=== PATIENT | male | born 1965 | race Caucasian/White ===

== ENCOUNTER 2023-07-24 17:43 | Emergency (ER) | payer OTHER, SELFPAY ==
[2023-07-24 17:46] VITALS: BP 134/87; PULSE 109; RESP 20; TEMP 36.1; O2SAT 88; BMI 60.3
--- NOTE | 2023-07-24 18:07 | ED_ITS ---
HPI - General Adult General Chief complaint: Skin/Abscess/Foreign Body Stated complaint: sore on leg, possible infection Time Seen by Provider: 07/24/23 17:48 History of Present Illness HPI narrative: This 57-year-old male comes in with concern about an injury on his right lower extremity. He has diabetes and bilateral chronic venous stasis and edema in his lower extremities. He is wearing compression stockings and has had a wrap around his right lower extremity for additional compression. He does not report any fevers. Related Data Home Medications Medication Instructions Recorded Confirmed albuterol sulfate 90 mcg/actuation inhalation 07/24/23 aerosol inhaler (Ventolin HFA) allopurinol 100 mg tablet 100 mg PO BID 07/24/23 07/24/23 allopurinol 300 mg tablet 300 mg PO BID 07/24/23 07/24/23 bumetanide 1 mg tablet 3 mg PO BID 07/24/23 07/24/23 duloxetine 60 mg capsule,delayed 60 mg PO DAILY 07/24/23 07/24/23 release fenofibrate micronized 67 mg 67 mg PO DAILY 07/24/23 07/24/23 capsule finasteride 5 mg tablet 5 mg PO DAILY 07/24/23 07/24/23 glipizide 10 mg tablet, extended 10 mg PO DAILY 07/24/23 07/24/23 release 24 hr insulin glargine 100 unit/mL (3 45 unit subcut QPM 07/24/23 07/24/23 mL) subcutaneous pen (Lantus Solostar U-100 Insulin) lisinopril 2.5 mg tablet 2.5 mg PO DAILY 07/24/23 07/24/23 metformin 1,000 mg tablet 1,000 mg PO BID 07/24/23 07/24/23 potassium chloride 20 mEq 20 meq PO BID 07/24/23 07/24/23 tablet,extended release(part/cryst) (Klor-Con M) rosuvastatin 20 mg tablet 20 mg PO DAILY 07/24/23 07/24/23 semaglutide 2 mg/dose (8 mg/3 mL) 2 mg subcut 07/24/23 subcutaneous pen injector (Ozempic) spironolactone 25 mg tablet 25 mg PO DAILY 07/24/23 07/24/23 tamsulosin 0.4 mg capsule 0.4 mg PO DAILY 07/24/23 07/24/23 Previous Rx's Medication Instructions Recorded cephalexin 500 mg capsule 500 mg PO QID 10 days #40 caps 07/24/23 Allergies Allergy/AdvReac Type Severity Reaction Status Date / Time No Known Drug Allergies Allergy Verified 07/24/23 17:52 Review of Systems Status of ROS: Reports: 10 or more systems reviewed and unremarkable except as noted in History and below Narrative: Constitutional: No fevers, no weight gain or loss. Eyes: No discharge. No vision changes. HENT: No congestion, no sore throat, no ear pain. Cardiovascular: No chest pain, no palpitations. Respiratory: No shortness of breath, no wheezes, no cough. Gastrointestinal: No abdominal pain, no vomiting, no diarrhea. Genitourinary: No dysuria, no hematuria. Musculoskeletal: Normal range of motion. Skin: No rashes, no pruritis. Injury to the right lower extremity as described above. Neurological: No dizziness, weakness, sensory change, speech change. Endo/Heme/Allergies: No bruising or bleeding. No polydipsia. Pysch: no suicidality, no anxiety, no insomnia. All other systems reviewed and are negative. Exam Narrative: Exam Narrative: Constitutional: Well-developed, well-nourished, no acute distress. HEENT: Normocephalic, atraumatic. Neck: Normal range of motion. Nontender. Supple. Heart: Regular. No murmurs. Normal rate. Intact distal pulses. Lungs: Clear to auscultation. No chest discomfort. No wheezes, rhonchi, or rales. Abdomen: Normal bowel sounds. Nontender. No rebound tenderness. Genitalia: Deferred. Back: No midline tenderness. Normal range of motion. Extremities: Normal range of motion. Both lower extremities are in compression stockings. I removed the right compression stocking and underlying Daniel wraps two view his lower extremity. There are superficial ulcerations on the anterior surface of his right lower extremity about residential between the knee and the ankle. There is no significant surrounding erythema. There is no sign of purulent drainage. Skin: Intact. No rash. Warm. No erythema or pallor. Neurologic: No altered sensation. No weakness. Alert and oriented. Psychiatric: No suicidality. No anxiety or depression. No insomnia. Nursing notes and vitals signs are reviewed. Const: Vital Signs, click to edit/add: Vital Signs - 24 hr 07/24/23 17:46 Temperature 96.9 F L Pulse Rate [Right Pulse Oximeter] 109 H Respiratory Rate 20 Blood Pressure [Ri ght Upper Arm] 134/87 Pulse Oximetry 88 Oxygen Delivery Me thod Room Air Course Vital Signs Vital signs: Initial Vital Signs Temperature 96.9 F L 07/24/23 17:46 Temperature Source Temporal Artery Scan 07/24/23 17:46 Pulse Rate 109 H 07/24/23 17:46 Respiratory Rate 20 07/24/23 17:46 Blood Pressure 134/87 07/24/23 17:46 Blood Pressure Mean 102 07/24/23 17:46 Blood Pressure Position Sitting 07/24/23 17:46 Pulse Oximetry 88 07/24/23 17:46 Oxygen Delivery Method Room Air 07/24/23 17:46 Vital Signs Temperature 96.9 F L 07/24/23 17:46 Pulse Rate 109 H 07/24/23 17:46 Respiratory Rate 20 07/24/23 17:46 Blood Pressure 134/87 07/24/23 17:46 Pulse Oximetry 88 07/24/23 17:46 Oxygen Delivery Method Room Air 07/24/23 17:46 Temperature 96.9 F L 07/24/23 17:46 Pulse Rate 109 H 07/24/23 17:46 Respiratory Rate 20 07/24/23 17:46 Blood Pressure 134/87 07/24/23 17:46 Pulse Oximetry 88 07/24/23 17:46 Oxygen Delivery Method Room Air 07/24/23 17:46 Medical Decision Making [facility] Narrative Medical decision making narrative: This patient has an injury to his right lower extremity that is been present for about a month. He states that he is not observed this area recently at and has kept it under a wrap with compression. He reports that it began with a small injury about the size of a dime and now the skin breakdown has grown to 3 or 4 times the size of it was initially. There is no sign of purulent drainage or abscess. The patient may have some cellulitis so he did receive a prescription for Keflex. He has chronic venous stasis and diabetes which impairs his ability for wound healing. He states that he has been maintaining good control of his blood sugars. The right lower extremity was redressed and a compression wrap using Daniel bandages was applied. Instructions were given regarding wound care. Discharge Plan Discharge Clinical Impression: Cellulitis Patient Disposition: Home, Self-Care Condition: Unchanged Additional Instructions: Take medication as prescribed. Keep compression wrap and stockings in place. Follow-up with primary physician for ongoing management. Return if worsening. Prescriptions: New cephalexin 500 mg capsule 500 mg PO QID 10 Days Qty: 40 0RF No Action glipizide 10 mg tablet extended release 24hr 10 mg PO DAILY fenofibrate micronized 67 mg capsule 67 mg PO DAILY allopurinol 100 mg tablet 100 mg PO BID spironolactone 25 mg tablet 25 mg PO DAILY potassium chloride [Klor-Con M20] 20 mEq tablet,ER particles/crystals 20 meq PO BID tamsulosin 0.4 mg capsule 0.4 mg PO DAILY metformin 1,000 mg tablet 1,000 mg PO BID bumetanide 1 mg tablet 3 mg PO BID allopurinol 300 mg tablet 300 mg PO BID albuterol sulfate [Ventolin HFA] 90 mcg/actuation HFA aerosol inhaler inhalation lisinopril 2.5 mg tablet 2.5 mg PO DAILY finasteride 5 mg tablet 5 mg PO DAILY rosuvastatin 20 mg tablet 20 mg PO DAILY duloxetine 60 mg capsule,delayed release(DR/EC) 60 mg PO DAILY insulin glargine [Lantus Solostar U-100 Insulin] 100 unit/mL (3 mL) insulin pen 45 unit subcut QPM Ozempic 2 mg/dose (8 mg/3 mL) pen injector 2 mg subcut Stand Alone Forms: [facility] Info Instructions
== END 2023-07-24 18:24 | disposition home or self-care (01) ==
LOC: ED 18:20
PROVIDERS: Emergency Provider Emergency Medicine Emergency Medical Services
DX: L03.115 Cellulitis of right lower limb (principal)
CPT/HCPCS: 99283; 99284

== ENCOUNTER 2023-08-20 07:54 | Outpatient (CLI) | payer OTHER, SELFPAY | END 2023-08-20 07:55 | disposition home or self-care (01) | PROVIDERS: Visit Provider Family Medicine | DX: I87.311 Chronic venous hypertension (idiopathic) with ulcer of right lower extremity (principal); I87.2 Venous insufficiency (chronic) (peripheral); L97.812 Non-pressure chronic ulcer of other part of right lower leg with fat layer exposed; E11.8 Type 2 diabetes mellitus with unspecified complications; Z79.4 Long term (current) use of insulin; Z79.84 Long term (current) use of oral hypoglycemic drugs | CPT/HCPCS: 11042; 99213 ==

== ENCOUNTER 2023-08-27 15:02 | Outpatient (CLI) | payer OTHER, SELFPAY | END 2023-08-27 15:03 | disposition home or self-care (01) | PROVIDERS: Visit Provider Surgery | DX: I87.311 Chronic venous hypertension (idiopathic) with ulcer of right lower extremity (principal); L97.812 Non-pressure chronic ulcer of other part of right lower leg with fat layer exposed; I87.2 Venous insufficiency (chronic) (peripheral); E11.8 Type 2 diabetes mellitus with unspecified complications; J44.9 Chronic obstructive pulmonary disease, unspecified; R09.02 Hypoxemia; R00.0 Tachycardia, unspecified; Z72.0 Tobacco use; Z79.4 Long term (current) use of insulin; Z79.84 Long term (current) use of oral hypoglycemic drugs | CPT/HCPCS: 97597 ==

== ENCOUNTER 2023-08-27 16:21 | Observation (INO) | payer OTHER, SELFPAY ==
[2023-08-27] VITALS (19 sets, daily range): BP systolic 96–122; BP diastolic 75–82; PULSE 111–125; RESP 20–24; TEMP 35.8–36.2; O2SAT 86–92; BMI 61.7; BMI 61.8
--- NOTE | 2023-08-27 16:50 | ED_ITS ---
HPI - SOB/Dyspnea General Time Seen by Provider: 16:50 Date Seen: 08/27/23 Chief Complaint: Shortness of Breath/Dyspnea Stated Complaint: Shortness of breath-high BP-was in wound care Time Seen by Provider: 08/27/23 16:49 Source: patient and RN notes reviewed Mode of arrival: ambulatory Limitations: no limitations History of Present Illness HPI Narrative: This 57-year-old gentleman is referred to us from wound clinic for concerns of shortness of breath. He admits that he is had progressive shortness of breath for while now. He is on 2 L of oxygen at night, this sounds like it is for hypoxic respiratory issues and obstructive sleep apnea. He states he does not tolerate the devices or CPAP. He has a primary at [facility]. He thinks he has had an echo but has not had 1 recently. He was thinking his shortness of breath would improve as he has been working on weight loss and diuretics for fluid loss. He feels like his abdomen is maybe a little bit more distended but no nausea vomiting, no abdominal pain, just feels like it is maybe more bloated. It does sound as if he may gain fluid in his abdomen. His chronic lower extremity edema and has a chronic right leg wound for which she is in our wound clinic. He states his lower extremity edema really is at its baseline. He is not coughing, no chest pain, no fevers or chills. This patient was in wound clinic earlier. He was hypoxic and tachycardic today, last week when he was there his heart rate was 90 and his oxygen saturation was 98%. His physician astutely noted the change. MD elicited complaint: shortness of breath Related Data Home Medications Medication Instructions Recorded Confirmed albuterol sulfate 90 mcg/actuation inhalation 07/24/23 aerosol inhaler (Ventolin HFA) allopurinol 100 mg tablet 100 mg PO BID 07/24/23 08/27/23 allopurinol 300 mg tablet 300 mg PO BID 07/24/23 08/27/23 bumetanide 1 mg tablet 3 mg PO BID 07/24/23 08/27/23 duloxetine 60 mg capsule,delayed 60 mg PO DAILY 07/24/23 08/27/23 release fenofibrate micronized 67 mg 67 mg PO DAILY 07/24/23 08/27/23 capsule finasteride 5 mg tablet 5 mg PO DAILY 07/24/23 08/27/23 glipizide 10 mg tablet, extended 10 mg PO DAILY 07/24/23 08/27/23 release 24 hr insulin glargine 100 unit/mL (3 45 unit subcut QPM 07/24/23 08/27/23 mL) subcutaneous pen (Lantus Solostar U-100 Insulin) lisinopril 2.5 mg tablet 2.5 mg PO DAILY 07/24/23 08/27/23 metformin 1,000 mg tablet 1,000 mg PO BID 07/24/23 08/27/23 potassium chloride 20 mEq 20 meq PO BID 07/24/23 08/27/23 tablet,extended release(part/cryst) (Klor-Con M) rosuvastatin 20 mg tablet 20 mg PO DAILY 07/24/23 08/27/23 semaglutide 2 mg/dose (8 mg/3 mL) 2 mg subcut 07/24/23 subcutaneous pen injector (Ozempic) spironolactone 25 mg tablet 25 mg PO DAILY 07/24/23 08/27/23 tamsulosin 0.4 mg capsule 0.4 mg PO DAILY 07/24/23 08/27/23 Allergies Allergy/AdvReac Type Severity Reaction Status Date / Time No Known Drug Allergies Allergy Verified 08/27/23 17:49 [facility] Medical History Gout ?M10.9 - Gout, unspecified (ICD-10) Scrotal edema ?N50.89 - Other specified disorders of the male genital organs (ICD-10) Right heart failure with reduced right ventricular function ?I50.810 - Right heart failure, unspecified (ICD-10) Obesity hypoventilation syndrome ?E66.2 - Morbid (severe) obesity with alveolar hypoventilation (ICD-10) CAD (coronary artery disease) ?I25.10 - Atherosclerotic heart disease of [place] coronary artery without angina pectoris (ICD-10) Acute on chronic respiratory failure with hypoxia and hypercapnia ?J96.21 - Acute and chronic respiratory failure with hypoxia (ICD-10) ?J96.22 - Acute and chronic respiratory failure with hypercapnia (ICD-10) TACO (obstructive sleep apnea) ?G47.33 - Obstructive sleep apnea (adult) (pediatric) (ICD-10) Chronic respiratory failure with hypoxia and hypercapnia ?J96.11 - Chronic respiratory failure with hypoxia (ICD-10) ?J96.12 - Chronic respiratory failure with hypercapnia (ICD-10) Morbid obesity ?E66.01 - Morbid (severe) obesity due to excess calories (ICD-10) Diabetes mellitus type 2 in nonobese ?E11.9 - Type 2 diabetes mellitus without complications (ICD-10) Hypercholesterolemia ?E78.00 - Pure hypercholesterolemia, unspecified (ICD-10) Pulmonary hypertension ?I27.20 - Pulmonary hypertension, unspecified (ICD-10) Diastolic heart failure ?I50.30 - Unspecified diastolic (congestive) heart failure (ICD-10) Hypertension ?I10 - Essential (primary) hypertension (ICD-10) Varicose veins with ulcer and inflammation ?I83.209 - Varicose veins of unspecified lower extremity with both ulcer of unspecified site and inflammation (ICD-10) ?L97.909 - Non-pressure chronic ulcer of unspecified part of unspecified lower leg with unspecified severity (ICD-10) Chronic wound ?T14.8XXA - Other injury of unspecified body region, initial encounter (ICD- 10) Venous stasis ?I87.8 - Other specified disorders of veins (ICD-10) Surgical History Stented coronary artery ?Z95.5 - Presence of coronary angioplasty implant and graft (ICD-10) Social History What is your current living situation?: I presently have a place to live Problems where you live: no known problems Problems where you live details: NA In the past 12 months, utilities in danger of being shut off: no In past 12 months, lack of transportation kept you from medical appts, meetings, work, or getting things needed for daily living: no In the past 12 mos, have been you worried that your food would run out before you had money to buy more?: never true In the past 12 mos, the food you bought just didn't last and you didn't have money to buy more?: never true Highest level of school completed/degree received: Associate degree: occupational, technical, vocational program Smoking Status: Current every day smoker What tobacco products do you use: cigarettes Smoking packs per day: 0.5 Smoking cigarettes per day: 10.0 Years smoked: 30 Smoking pack-years: 15.00 Do you use any of these nicotine containing products: None Second hand tobacco smoke exposure: No How often do you have a drink containing alcohol: never AUDIT-C Alcohol total score: 0 Non-prescribed substance use: marijuana (any form) Non-prescribed substance use details: daily marijuana user Caffeine: Yes (coffee daily) How often does anyone, including family, friends and others, physically hurt you : never How often does anyone, including family, friends and others, insult or talk down to you: never How often does anyone, including family, friends and others, threaten you with harm: never How often does anyone, including family, friends and others, scream or curse at you: never service: No Exam Const: Vital Signs, click to edit/add: Vital Signs - 24 hr 08/27/23 16:32 08/27/23 16:45 08/27/23 17:00 Temperature 96.4 F L Pulse Rate 115 H 111 H Pulse Rate [Pulse Oximeter] 114 H Respiratory Rate 24 Blood Pressure Blood Pressure [Ri ght Upper Arm] 113/81 Pulse Oximetry 88 90 92 Oxygen Delivery Me thod Room Air 08/27/23 17:15 08/27/23 17:15 08/27/23 17:30 Temperature Pulse Rate 114 H 114 H Pulse Rate [Pulse Oximeter] Respiratory Rate Blood Pressure Blood Pressure [Ri ght Upper Arm] Pulse Oximetry 89 91 89 Oxygen Delivery Me thod 08/27/23 17:51 08/27/23 18:00 08/27/23 18:14 Temperature Pulse Rate 113 H 114 H 115 H Pulse Rate [Pulse Oximeter] Respiratory Rate Blood Pressure 96/75 Blood Pressure [Ri ght Upper Arm] Pulse Oximetry 89 89 91 Oxygen Delivery Me thod 08/27/23 18:15 08/27/23 18:35 08/27/23 18:45 Temperature Pulse Rate 115 H 125 H 114 H Pulse Rate [Pulse Oximeter] Respiratory Rate Blood Pressure Blood Pressure [Ri ght Upper Arm] Pulse Oximetry 91 86 L 91 Oxygen Delivery Me thod 08/27/23 18:51 08/27/23 19:00 08/27/23 19:15 Temperature Pulse Rate 115 H 114 H 115 H Pulse Rate [Pulse Oximeter] Respiratory Rate Blood Pressure 101/77 Blood Pressure [Ri ght Upper Arm] Pulse Oximetry 91 89 89 Oxygen Delivery Me thod 08/27/23 19:30 Temperature Pulse Rate 115 H Pulse Rate [Pulse Oximeter] Respiratory Rate Blood Pressure Blood Pressure [Ri ght Upper Arm] Pulse Oximetry 91 Oxygen Delivery Me thod This is a 57-year-old male that is obese, sitting up on the edge of the bed. O2 sats are anywhere from 88-90% when with him. He is in no distress, can speak in complete sentences. Sclera clear, pupils are equal and round. Neck is thick, note no masses. Lungs are clear, good air entry, no wheezing or crackles. He is not tachypneic. CV fast irregular, do not hear any significant murmur, normal S1-S2, no S3-S4. Abdomen is obese, nontender but he states he does feel like he is little more bloated in his abdomen, body habitus makes it difficult to see if there is any underlying masses. He certainly does not show any evidence of rebound or guarding. Lower extremities are thickened, he has dressings over his leg with a wound, wearing stocking it is over both legs. Note the surgeon did let me know that the wound on the leg is without concerns. Documenting provider has reviewed patient's vital signs: yes Course Course ED Course: Will do work up for hypoxia, tachycardia and shortness of breath. Reevaluation(s) Time of Reevaluation #1: 19:39 Reevaluation #1: Did review with patient that his CT showing no pulmonary emboli, we did review the pulmonary artery dilation and pulmonary hypertension. I do worry that he is potentially starting to suffer from chronic respiratory failure. He definitely may have some right heart failure with peripheral edema. I do not know that that completely explains his worsening hypoxia, there was no comment on pulmonary edema on CT findings. I do think it would be appropriate to give him some IV Lasix, place him on his usual 2 L nasal cannula oxygen in see if he improves. He will need an updated echo, will leave this to the hospitalist to sandra kelley if they want to do this in hospital or have it done outpatient. He is going to need to see pulmonology as well. I did tried to page the body joiner through [facility] physician to physician access, they would not allow me to talk to them given this patient is not accessed that specialty within the last 2 years. I did discuss with him that he really needs to see pulmonology outpatient. Consultations Consultation #1: Just reviewed case with Malka Peralta, she does agree to accept him. We discussed giving him a 80 mg IV Lasix, did let her know that I did give him his supplemental oxygen, uses 2 L at night. It is possible that this right heart failure is confounded by a his probable underlying chronic respiratory failure that I suspect. With a pulmonary artery being dilated 5.7 cm, he really needs to follow up with pulmonology. This may happen outpatient. Malka could see that he last had an echo in 2018. I will let the hospitalist decide if there repeating 1 or going to have him follow up outpatient with his primary provider. Time: 19:47 Vital Signs Vital signs: Initial Vital Signs Temperature 96.4 F L 08/27/23 16:32 Temperature Source Temporal Artery Scan 08/27/23 16:32 Pulse Rate 114 H 08/27/23 16:32 Respiratory Rate 24 08/27/23 16:32 Blood Pressure 113/81 08/27/23 16:32 Blood Pressure Mean 91 08/27/23 16:32 Blood Pressure Position Sitting 08/27/23 16:32 Pulse Oximetry 88 08/27/23 16:32 Oxygen Delivery Method Room Air 08/27/23 16:32 Vital Signs Temperature 96.4 F L 08/27/23 16:32 Pulse Rate 114 H 08/27/23 16:32 Respiratory Rate 24 08/27/23 16:32 Blood Pressure 113/81 08/27/23 16:32 Pulse Oximetry 88 08/27/23 16:32 Oxygen Delivery Method Room Air 08/27/23 16:32 Temperature 97.2 F L 08/27/23 23:50 Pulse Rate 113 H 08/27/23 23:50 Respiratory Rate 20 08/27/23 23:50 Blood Pressure 110/77 08/27/23 23:50 Pulse Oximetry 91 08/27/23 23:50 Oxygen Delivery Method Room Air 08/27/23 23:50 Medications Administered Medications: Generic Name Dose Route Start Last Admin Trade Name Freq PRN Reason Stop Dose Admin Enoxaparin Sodium 40 mg 08/27/23 21:45 08/27/23 22:38 Enoxaparin 40 Mg/0.4 Ml Inj SUBCUT 40 mg Q12H LILA Administration Insulin Detemir 45 unit 08/27/23 21:45 08/27/23 22:20 Insulin Detemir (Levemir) 100 Unit/Ml SUBCUT 45 unit QPM LILA Administration Discontinued Medications Generic Name Dose Route Start Last Admin Trade Name Freq PRN Reason Stop Dose Admin Furosemide 80 mg 08/27/23 19:45 08/27/23 20:06 Furosemide 10 Mg/Ml Inj IVP 08/27/23 19:46 80 mg ONCE ONE Administration MDM - SOB/Dyspnea Lab Data Attestation: I reviewed the patient's lab results. Labs: Lab Results 08/27/23 08/27/23 08/27/23 Range/Units 17:10 17:34 19:34 WBC 8.32 (4.50-11.00) K/uL RBC 6.20 H (4.30-5.90) m/uL Hgb 14.2 (13.5-17.5) gm/dL Hct 48.9 (37.0-53.0) % MCV 79 L (80-100) fL MCH 23 L (26-34) pg MCHC 29 L (32-36) gm/dL RDW Coeff of Tonya 18.4 H (11.5-15.5) % Plt Count 240 (140-440) K/uL Neut % (Auto) 71.3 (42.0-72.0) % Lymph % (Auto) 13.1 L (20-44) % [place] % (Auto) 9.9 (0.0-11.0) % Eos % (Auto) 4.8 (0.0-7.0) % Baso % (Auto) 0.7 (0.0-3.0) % Neut # (Auto) 5.93 (1.7-7.0) K/uL Lymph # (Auto) 1.10 (0.90-2.90) K/uL [place] # (Auto) 0.80 (0.00-0.90) K/UL Eos # (Auto) 0.40 (0.00-0.50) K/uL Baso # (Auto) 0.06 (0.00-0.30) K/uL Abs Immat Gran (auto) 0.02 (0.00-0.30) K/uL Imm/Tot Granulo (auto) 0.2 % D-Dimer Quant (PE/DVT) 0.47 (0.00-0.50) ug/ml Sodium 142 (135-149) mmol/L Potassium 4.2 (3.6-5.1) mmol/L Chloride 99 (96-114) mmol/L Carbon Dioxide 34 H (20-32) mmol/L Anion Gap 9 (7-15) mEq/L BUN 29 (7-30) mg/dL Creatinine 1.1 (0.5-1.5) mg/dL Estimated Creat Clear 75.58 Estimated GFR 78 ml/min Glucose 117 H (60-115) mg/dL Calcium 8.6 (8.4-10.6) mg/dL Magnesium 2.4 (1.5-2.6) mg/dL Total Bilirubin 0.9 (0.1-1.5) mg/dL AST 27 (12-35) U/L ALT 24 (4-50) U/L Alkaline Phosphatase 60 (40-150) U/L Troponin I 0.02 (0.01-0.04) ng/mL C-Reactive Protein 0.6 (0.5-1.0) mg/dL NT-Pro-B Natriuret Pep 3510 pg/mL Total Protein 6.9 (6.0-8.3) g/dL Albumin 4.0 (3.3-5.0) g/dL SARS-CoV-2 (PCR) Negative SARS-CoV-2 (Negative) Influenza Type A (PCR) Negative PCR FLU A (Negative) Influenza Type B (PCR) Negative PCR FLU B (Negative) RSV (PCR) Negative PCR RSV (Negative) Lab Acknowledgement Test Added POC Creatinine 1.3 (0.6-1.3) mg/dl Imaging Data CT scan - chest: Attestation: I have reviewed the pertinent imaging results. Radiologist's impression: Patient: KAR JACKSON Facility:?[facility] Patient ID:?[id number] Site Patient ID:?[id number]. Site :?[id number] Study:?CT Chest Angio W/ 95CC ISOVUE 370 PE PROTOCOL-08/27/2023 5:51:02 PM Ordering Physician:Iris Cartagena Final Report: INDICATION: Shortness of breath. TECHNIQUE: CT Pulmonary Angiogram examination was performed after the administration of 95 mL Isovue 370 contrast intravenously. COMPARISON: Chest radiograph 02/17/2017. FINDINGS: Limited evaluation due to photopenic artifact. Lower neck: Visualized thyroid is unremarkable. Cardiovascular: Suboptimal opacification of the pulmonary arterial tree limit evaluation. Thoracic aorta is normal in caliber. Enlarged pulmonary artery, with the main pulmonary artery measuring approximately 5.7 cm. No pulmonary embolus to the proximal lobar segmental branches. Distal subsegmental branch emboli cannot be excluded. No significant atherosclerotic calcifications. Mild cardiomegaly. Severe coronary arterial calcifications. Lungs: Linear bandlike opacifications of the lung bases likely due to subsegmental atelectasis and/or scarring. No focal consolidation. Airways: The trachea remains patent and midline. Mild diffuse peribronchial wall thickening. Pleura: No pleural effusions or pneumothorax. Lymph nodes: No pathologic lymphadenopathy by size criteria. Chest wall: Mild gynecomastia. Upper abdomen: No reflux of contrast material in IVC. Streak artifact limits evaluation. Otherwise, unremarkable. Bones: Degenerative changes. No acute osseous abnormalities. IMPRESSION: Limited evaluation due to suboptimal opacification of the pulmonary artery and photopenic artifact. 1. No pulmonary embolus to the proximal lobar segmental branches. Distal lobar subsegmental branch emboli cannot be excluded. 2. Markedly enlarged main pulmonary artery measuring 5.7 cm, suggestive of pulmonary arterial hypertension. No other CT evidence of right heart strain. 3. Mild cardiomegaly without pleural effusions. Please note that all CT scans at this facility use dose modulation, iterative reconstruction, and/or weight-based dosing when appropriate to reduce radiation dose to as low as reasonably achievable. Dictated by Trent Maier MD @ 08/27/2023 6:36:08 PM (Electronic Signature) ECG Data Attestation: I personally reviewed and interpreted this ECG as follows: (He is in a tachycardia, 113 beats per minute. Incomplete right bundle branch block but do note some nonspecific widening of the QRS throughout. Cannot definitively say that this is sinus tachycardia but certainly appears to be so.) ECG interpretation date: 08/27/23 ECG interpretation time: 18:00 Discharge Plan Discharge Clinical Impression: Hypoxia Right heart failure Qualifiers: Heart failure chronicity: unspecified Qualified Code(s): I50.810 - Right heart failure, unspecified Patient Disposition: Admitted As Observation
--- NOTE | 2023-08-27 17:06 | CRLHL7_ITS ---
For Patients: As a result of the 21st Century Cures Act, medical imaging exams and procedure reports are released immediately into your electronic medical record. You may view this report before your referring provider. If you have questions, please contact your health care provider. INDICATION: Shortness of breath. TECHNIQUE: CT Pulmonary Angiogram examination was performed after the administration of 95 mL Isovue 370 contrast intravenously. COMPARISON: Chest radiograph 02/17/2017. FINDINGS: Limited evaluation due to photopenic artifact. Lower neck: Visualized thyroid is unremarkable. Cardiovascular: Suboptimal opacification of the pulmonary arterial tree limit evaluation. Thoracic aorta is normal in caliber. Enlarged pulmonary artery, with the main pulmonary artery measuring approximately 5.7 cm. No pulmonary embolus to the proximal lobar segmental branches. Distal subsegmental branch emboli cannot be excluded. No significant atherosclerotic calcifications. Mild cardiomegaly. Severe coronary arterial calcifications. Lungs: Linear bandlike opacifications of the lung bases likely due to subsegmental atelectasis and/or scarring. No focal consolidation. Airways: The trachea remains patent and midline. Mild diffuse peribronchial wall thickening. Pleura: No pleural effusions or pneumothorax. Lymph nodes: No pathologic lymphadenopathy by size criteria. Chest wall: Mild gynecomastia. Upper abdomen: No reflux of contrast material in IVC. Streak artifact limits evaluation. Otherwise, unremarkable. Bones: Degenerative changes. No acute osseous abnormalities. IMPRESSION: Limited evaluation due to suboptimal opacification of the pulmonary artery and photopenic artifact. 1. No pulmonary embolus to the proximal lobar segmental branches. Distal lobar subsegmental branch emboli cannot be excluded. 2. Markedly enlarged main pulmonary artery measuring 5.7 cm, suggestive of pulmonary arterial hypertension. No other CT evidence of right heart strain. 3. Mild cardiomegaly without pleural effusions. Please note that all CT scans at this facility use dose modulation, iterative reconstruction, and/or weight-based dosing when appropriate to reduce radiation dose to as low as reasonably achievable. Dictated by Trent Maier MD @ 08/27/2023 6:36:08 PM (Electronically Signed)
[2023-08-27 17:30] LABS: Basophils Absolute Auto 0.06 K/uL (0.00-0.30); Basophils Percent Auto 0.7 % (0.0-3.0); Eosinophils Percent Auto 4.8 % (0.0-7.0); Hematocrit 48.9 % (37.0-53.0); Hemoglobin* 14.2 gm/dL (13.5-17.5); Immature Granulocytes Abs Auto 0.02 K/uL (0.00-0.30); Immature Granulocytes Pct Auto 0.2 %; Lymphocytes Percent Auto 13.1 % (20-44); Mean Corpuscular HGB Conc 29 gm/dL (32-36); Mean Corpuscular Hemoglobin 23 pg (26-34); Mean Corpuscular Volume 79 fL (80-100); Monocytes Percent Auto 9.9 % (0.0-11.0); Neutrophils Absolute Auto 5.93 K/uL (1.7-7.0); Neutrophils Percent Auto 71.3 % (42.0-72.0); Platelet Count* 240 K/uL (140-440); RDW Coefficient of Variation % 18.4 % (11.5-15.5); White Blood Count* 8.32 K/uL (4.50-11.00)
[2023-08-27 17:36] LABS: Creatinine, Point-of-Care* 1.3 mg/dl (0.6-1.3)
[2023-08-27 17:36] LABS: Slide Review Reflex No
[2023-08-27 17:44] LABS: Chloride* 99 mmol/L (96-114); Sodium* 142 mmol/L (135-149)
[2023-08-27 17:45] LABS: Potassium* 4.2 mmol/L (3.6-5.1)
[2023-08-27 17:46] LABS: Creatinine* 1.1 mg/dL (0.5-1.5); Est. Creatinine Clearance* 75.58; Estimated Glomerular Filt Rate 78 ml/min
[2023-08-27 17:47] LABS: Alanine Aminotransferase* 24 U/L (4-50); Alkaline Phosphatase* 60 U/L (40-150); Anion Gap 9 mEq/L (7-15); Aspartate Amino Transferase* 27 U/L (12-35); Bilirubin Total* 0.9 mg/dL (0.1-1.5); Blood Urea Nitrogen* 29 mg/dL (7-30); Carbon Dioxide* 34 mmol/L (20-32); Total Protein* 6.9 g/dL (6.0-8.3)
[2023-08-27 17:48] LABS: Calcium* 8.6 mg/dL (8.4-10.6); Glucose* 117 mg/dL (60-115); Magnesium* 2.4 mg/dL (1.5-2.6)
[2023-08-27 17:50] LABS: C Reactive Protein* 0.6 mg/dL (0.5-1.0)
[2023-08-27 17:51] LABS: D Dimer Quantitative* 0.47 ug/ml (0.00-0.50)
[2023-08-27 17:59] LABS: NT Pro B Type NatriureticPept* 3510 pg/mL; Troponin I* 0.02 ng/mL (0.01-0.04)
[2023-08-27 18:08] LABS: PCR FLU A Negative PCR FLU A (Negative); PCR FLU B Negative PCR FLU B (Negative); PCR RSV Negative PCR RSV (Negative)
[2023-08-27 18:10] LABS: SARS PCR* Negative SARS-CoV-2 (Negative)
[2023-08-27 20:06] LABS: HCO3 VBG 37 mmol/L (21-28); PCO2 VBG 56 mmHG (40-50); pH VBG 7.423 (7.32-7.43)
[2023-08-27] MEDS: FUROSEMIDE 10 MG/ML inj 80 MG IVP (20:06)
--- NOTE | 2023-08-27 20:12 | PM.IMHP1 ---
Hospitalist- H&P: HPI History of Present Illness Date Seen: 08/27/23 Chief complaint: Shortness of breath-high BP-was in wound care Narrative: Willian Copeland is a 57 year old male past medical history significant for right heart failure with reduced right ventricular function, obesity hypoventilation syndrome, chronic respiratory failure with hypoxia and hypercapnia, TACO, morbid obesity, hypertension, hyperlipidemia, diabetes type 2 insulin dependent, varicose veins with chronic ulceration inflammation, venous stasis is admitted to the medical floor from the ED for further management acute on chronic respiratory failure. Patient was seen in the Wound Clinic today for routine wound care with Dr. Dutton. He was noted to be hypoxic and was sent to the ED for further evaluation. Patient tells me he feels his usual self. Denies worsening shortness of breath or dyspnea. Denies chest pain. Denies headaches or dizziness. Denies recent fevers chills sweats. Denies abdominal pain, nausea, vomiting. No change in stools or urination. The only recent change he would remark on is swelling of his abdomen when it becomes firmer. He then knows he is retaining fluid. He tells me it is actually softer now however. Patient has been followed by [facility] for chronic respiratory failure with hypoxia and hypercapnia, pulmonary arterial hypertension, and right heart failure. He has a cardiology appointment in September. He has not seen pulmonology in a while as he has been frustrated with lack of change or improvement. He chronically uses 2-3 L oxygen at bedtime as he cannot tolerate BiPAP or CPAP. Has had multiple sleep studies. He believes his baseline oxygen saturations are upper 80s to low 90s. He has not tested his ambulatory saturations. Patient continues to smoke. Denies alcohol use. Review of Systems Narrative: REVIEW OF SYSTEMS: Complete review of systems performed and negative unless otherwise stated in HPI or below. [facility] Medical History Gout ?M10.9 - Gout, unspecified (ICD-10) Scrotal edema ?N50.89 - Other specified disorders of the male genital organs (ICD-10) Right heart failure with reduced right ventricular function ?I50.810 - Right heart failure, unspecified (ICD-10) Obesity hypoventilation syndrome ?E66.2 - Morbid (severe) obesity with alveolar hypoventilation (ICD-10) CAD (coronary artery disease) ?I25.10 - Atherosclerotic heart disease of [place] coronary artery without angina pectoris (ICD-10) Acute on chronic respiratory failure with hypoxia and hypercapnia ?J96.21 - Acute and chronic respiratory failure with hypoxia (ICD-10) ?J96.22 - Acute and chronic respiratory failure with hypercapnia (ICD-10) TACO (obstructive sleep apnea) ?G47.33 - Obstructive sleep apnea (adult) (pediatric) (ICD-10) Chronic respiratory failure with hypoxia and hypercapnia ?J96.11 - Chronic respiratory failure with hypoxia (ICD-10) ?J96.12 - Chronic respiratory failure with hypercapnia (ICD-10) Morbid obesity ?E66.01 - Morbid (severe) obesity due to excess calories (ICD-10) Diabetes mellitus type 2 in nonobese ?E11.9 - Type 2 diabetes mellitus without complications (ICD-10) Hypercholesterolemia ?E78.00 - Pure hypercholesterolemia, unspecified (ICD-10) Pulmonary hypertension ?I27.20 - Pulmonary hypertension, unspecified (ICD-10) Diastolic heart failure ?I50.30 - Unspecified diastolic (congestive) heart failure (ICD-10) Hypertension ?I10 - Essential (primary) hypertension (ICD-10) Varicose veins with ulcer and inflammation ?I83.209 - Varicose veins of unspecified lower extremity with both ulcer of unspecified site and inflammation (ICD-10) ?L97.909 - Non-pressure chronic ulcer of unspecified part of unspecified lower leg with unspecified severity (ICD-10) Chronic wound ?T14.8XXA - Other injury of unspecified body region, initial encounter (ICD-10) Venous stasis ?I87.8 - Other specified disorders of veins (ICD-10) Surgical History Stented coronary artery ?Z95.5 - Presence of coronary angioplasty implant and graft (ICD-10) Social History Smoking Status: Current every day smoker What tobacco products do you use: cigarettes Smoking packs per day: 0.5 Smoking cigarettes per day: 10.0 Years smoked: 30 Smoking pack-years: 15.00 Do you use any of these nicotine containing products: None Second hand tobacco smoke exposure: No How often do you have a drink containing alcohol: never AUDIT-C Alcohol total score: 0 Non-prescribed substance use: marijuana (any form) Meds Home Medications and Allergies Home Medications Medication Instructions Recorded Confirmed Type albuterol sulfate 90 mcg/actuation inhalation 07/24/23 History aerosol inhaler (Ventolin HFA) allopurinol 100 mg tablet 100 mg PO BID 07/24/23 08/27/23 History allopurinol 300 mg tablet 300 mg PO BID 07/24/23 08/27/23 History bumetanide 1 mg tablet 3 mg PO BID 07/24/23 08/27/23 History duloxetine 60 mg capsule,delayed 60 mg PO DAILY 07/24/23 08/27/23 History release fenofibrate micronized 67 mg 67 mg PO DAILY 07/24/23 08/27/23 History capsule finasteride 5 mg tablet 5 mg PO DAILY 07/24/23 08/27/23 History glipizide 10 mg tablet, extended 10 mg PO DAILY 07/24/23 08/27/23 History release 24 hr insulin glargine 100 unit/mL (3 45 unit subcut QPM 07/24/23 08/27/23 History mL) subcutaneous pen (Lantus Solostar U-100 Insulin) lisinopril 2.5 mg tablet 2.5 mg PO DAILY 07/24/23 08/27/23 History metformin 1,000 mg tablet 1,000 mg PO BID 07/24/23 08/27/23 History potassium chloride 20 mEq 20 meq PO BID 07/24/23 08/27/23 History tablet,extended release(part/cryst) (Klor-Con M) rosuvastatin 20 mg tablet 20 mg PO DAILY 07/24/23 08/27/23 History semaglutide 2 mg/dose (8 mg/3 mL) 2 mg subcut 07/24/23 History subcutaneous pen injector (Ozempic) spironolactone 25 mg tablet 25 mg PO DAILY 07/24/23 08/27/23 History tamsulosin 0.4 mg capsule 0.4 mg PO DAILY 07/24/23 08/27/23 History Allergies Allergy/AdvReac Type Severity Reaction Status Date / Time No Known Drug Allergies Allergy Verified 08/27/23 17:49 Exam Narrative: Exam Narrative: PHYSICAL EXAM General: Sitting up in chair, very pleasant, conversant, NAD HEENT: Normocephalic, atraumatic, sclera white, EOMI, oral mucosa moist Cardiovascular: RRR, S1S2. Pulmonary: Very minimally diminished without rhonchi, rales, expiratory wheezes. No dyspnea on room air Abdominal: Soft, obese, nondistended, NTTP Neurological: Alert, answering questions appropriately, cranial nerves intact, no focal findings Extremities: Chronic stasis changes with edema. Wound dressings in place (evaluated and changed by Dr. Dutton earlier today) Skin: Warm, dry. Const: Vital Signs, click to edit/add: Vital Signs - 24 hr 08/27/23 16:32 08/27/23 16:45 08/27/23 17:00 Temperature 96.4 F L Pulse Rate 115 H 111 H Pulse Rate [Pulse Oximeter] 114 H Respiratory Rate 24 Blood Pressure Blood Pressure [Ri ght Upper Arm] 113/81 Pulse Oximetry 88 90 92 Oxygen Delivery Me od Room Air 08/27/23 17:15 08/27/23 17:15 08/27/23 17:30 Temperature Pulse Rate 114 H 114 H Pulse Rate [Pulse Oximeter] Respiratory Rate Blood Pressure Blood Pressure [Ri ght Upper Arm] Pulse Oximetry 89 91 89 Oxygen Delivery Me thod 08/27/23 17:51 08/27/23 18:00 08/27/23 18:14 Temperature Pulse Rate 113 H 114 H 115 H Pulse Rate [Pulse Oximeter] Respiratory Rate Blood Pressure 96/75 Blood Pressure [Ri ght Upper Arm] Pulse Oximetry 89 89 91 Oxygen Delivery Ma thod 08/27/23 18:15 08/27/23 18:35 08/27/23 18:45 Temperature Pulse Rate 115 H 125 H 114 H Pulse Rate [Pulse Oximeter] Respiratory Rate Blood Pressure Blood Pressure [Ri ght Upper Arm] Pulse Oximetry 91 86 L 91 Oxygen Delivery Me thod 08/27/23 18:51 08/27/23 19:00 08/27/23 19:15 Temperature Pulse Rate 115 H 114 H 115 H Pulse Rate [Pulse Oximeter] Respiratory Rate Blood Pressure 101/77 Blood Pressure [Ri ght Upper Arm] Pulse Oximetry 91 89 89 Oxygen Delivery Me od 08/27/23 19:30 Temperature Pulse Rate 115 H Pulse Rate [Pulse Oximeter] Respiratory Rate Blood Pressure Blood Pressure [Ri ght Upper Arm] Pulse Oximetry 91 Oxygen Delivery Ma thod Hospitalist - H&P: Result Labs Labs: Short CBC 08/27/23 Range/Units 17:10 WBC 8.32 (4.50-11.00) K/uL Hgb 14.2 (13.5-17.5) gm/dL Hct 48.9 (37.0-53.0) % Plt Count 240 (140-440) K/uL BMP 08/27/23 17:10 Sodium 142 Potassium 4.2 Chloride 99 Carbon Dioxide 34 H BUN 29 Creatinine 1.1 Glucose 117 H Calcium 8.6 Cardiac Enzymes 08/27/23 Range/Units 17:10 Troponin I 0.02 (0.01-0.04) ng/mL Liver Function 08/27/23 Range/Units 17:10 Total Bilirubin 0.9 (0.1-1.5) mg/dL AST 27 (12-35) U/L ALT 24 (4-50) U/L Alkaline Phosphatase 60 (40-150) U/L Albumin 4.0 (3.3-5.0) g/dL ECG Attestation: I personally reviewed and interpreted this ECG as follows: Interpretation: Accelerated junctional rhythm with premature ventricular complexes or fusion complexes, incomplete right bundle branch block, ventricular rate 113, QTC [address] scan - chest: Attestation: I have reviewed the pertinent imaging results. Radiologist's impression: CT Pulmonary Angiogram examination was performed after the administration of 95 mL Isovue 370 contrast intravenously. COMPARISON: Chest radiograph 02/17/2017. FINDINGS: Limited evaluation due to photopenic artifact. Lower neck: Visualized thyroid is unremarkable. Cardiovascular: Suboptimal opacification of the pulmonary arterial tree limit evaluation. Thoracic aorta is normal in caliber. Enlarged pulmonary artery, with the main pulmonary artery measuring approximately 5.7 cm. No pulmonary embolus to the proximal lobar segmental branches. Distal subsegmental branch emboli cannot be excluded. No significant atherosclerotic calcifications. Mild cardiomegaly. Severe coronary arterial calcifications. Lungs: Linear bandlike opacifications of the lung bases likely due to subsegmental atelectasis and/or scarring. No focal consolidation. Airways: The trachea remains patent and midline. Mild diffuse peribronchial wall thickening. Pleura: No pleural effusions or pneumothorax. Lymph nodes: No pathologic lymphadenopathy by size criteria. Chest wall: Mild gynecomastia. Upper abdomen: No reflux of contrast material in IVC. Streak artifact limits evaluation. Otherwise, unremarkable. Bones: Degenerative changes. No acute osseous abnormalities. IMPRESSION: Limited evaluation due to suboptimal opacification of the pulmonary artery and photopenic artifact. 1. No pulmonary embolus to the proximal lobar segmental branches. Distal lobar subsegmental branch emboli cannot be excluded. 2. Markedly enlarged main pulmonary artery measuring 5.7 cm, suggestive of pulmonary arterial hypertension. No other CT evidence of right heart strain. 3. Mild cardiomegaly without pleural effusions. Assessment and Plan Assessment and plan (1) Acute on chronic respiratory failure with hypoxia and hypercapnia: Problem comment: -without acute symptomatic changes other than belly fullness -in setting of chronic right heart failure, pulmonary arterial hypertension, and obesity hypoventilation syndrome -oxygen saturations 86-92% in ED. Patient suspects this is within his baseline-admits he has not monitored it recently. Does not check his ambulatory saturations -VBG pH 7.42, pCO2 56, HC03 37. Serum CO2 34 -oxygen dependent 2-3 L at bedtime only. Unable to tolerate CPAP or BiPAP at bedtime -will manage with IV diuresis, supplemental oxygen as needed to maintain saturations 88-92% -RT consult for pulmonary support -has [facility]. Recommended follow-up after hospitalization Status: Acute (2) Right heart failure with reduced right ventricular function: Problem comment: -echocardiogram 2017 normal LV size, borderline wall thickness, normal global systolic function with an estimated EF of 60-65%. Right ventricular cavity size is severely enlarged, global systolic RV function moderately reduced. Mildly enlarged left atrium. Mild mitral regurgitation. Right ventricular systolic pressure severely elevated at 49 mmHg plus right atrial pressure. Pulmonary artery not well visualized -BNP on admission 3510. Unable to find most recent result (193 in 2016) -hold home Bumex 3 mg b.i.d. and spironolactone -Lasix 80 mg IV b.i.d., 1st dose in ED. Strict I&Os, daily weights -has a [facility] appointment in September -could defer repeat echocardiogram to outpatient appointment in September given lack of new or worsening symptomatology Status: Acute (3) Pulmonary hypertension: Problem comment: -chronic pulmonary arterial hypertension. Followed by [facility] (next appointment in September 2023) -CTA shows markedly enlarged main pulmonary artery measuring 5.7 cm, no other CT evidence of right heart strain. Mild cardiomegaly without pleural effusions. -currently being monitored and managed conservatively without medication Status: Acute (4) TACO (obstructive sleep apnea): Problem comment: -unable to tolerate BiPAP or CPAP. Frustrated with multiple sleep studies -currently uses 2-3 L O2 per nasal cannula nightly -consider home O2 assessment Status: Acute (5) Obesity hypoventilation syndrome: Problem comment: -chronic Status: Acute (6) Morbid obesity: Problem comment: -complicating above Status: Acute (7) Diabetes mellitus type 2 in nonobese: Problem comment: -most recent A1c 8, previously 7.6 and 8.6 (down from 10) -has a Jazmyne, average glucose readings 140s -continue home Lantus 45 units nightly, glipizide 10 mg daily. Hold metformin. -diabetic diet, glucose checks ACHS, insulin sliding scale -followed by [facility] Status: Acute (8) Hypercholesterolemia: Problem comment: -continue statin Status: Acute (9) Hypertension: Problem comment: -continue lisinopril. Creatinine 1.3 which appears to be chronic baseline Status: Acute (10) Varicose veins with ulcer and inflammation: Problem comment: -followed by Dr. Dutton, weekly. Wound assessment and dressing change today, 08/27. Spoke with Dr. Dutton, no acute concerns. Status: Acute (11) Venous stasis: Problem comment: -as above Status: Acute (12) Tachycardia: Problem comment: -110s in ED and on admission. Denies chest pain or worsening shortness of breath -EKG shows accelerated junctional rhythm with PVCs or fusion complexes, incomplete RBBB. No previous similar findings on EKGs -CTA shows no pulmonary embolus to the proximal lobar segmental branches however distal lobar subsegmental branch emboli cannot be excluded, D-dimer 0.47 -troponin 0.02 -media monitor Status: Acute Plan CODE: Full as discussed with patient VTE PPX: Enoxaparin b.i.d. given obesity Disposition: Observation. Plan for discharge to home following IV diuresis
[2023-08-27] MEDS: ENOXAPARIN 40 MG/0.4 ML INJ SUBCUT (22:38)
[2023-08-28] VITALS (10 sets, daily range): BP systolic 93–134; BP diastolic 74–97; PULSE 61–114; RESP 18–22; TEMP 36–36.9; O2SAT 81–94; BMI 61.0
--- NOTE | 2023-08-28 05:52 | PC.NURSE ---
Patient admitted to unit at 2020 with dx shortness of breath, heart failure. Alert and oriented x 4. Denies any pain at this time, patient does report that he has intermittent hip pain that he utilizes aleve for. Denies SOB with rest but becomes labored with exertion. O2 sats 90% on room air, patient did require O2 at 2L via NC at HS to maintain sats >88%. Dressing to right lower extremity clean, dry and intact. Patient was in to the wound clinic and discussed shortness of breath with staff which prompted patient ED visit. Chronic wound to right avila, patient bumped his leg on a trailer on 06/01/2023 and due to poor circulation and comorbidity of diabetes the wound was not healing properly. Per patient report he has been having increased SOB for several months, he notices it with activity and resolves quickly with rest. Ambulates independently. BLE edema, legs are firm and shiny in appearance, compression stockings currently on and patient uses daily.
[2023-08-28 06:43] LABS: Hematocrit 50.3 % (37.0-53.0); Hemoglobin* 14.4 gm/dL (13.5-17.5); Mean Corpuscular HGB Conc 29 gm/dL (32-36); Mean Corpuscular Hemoglobin 23 pg (26-34); Mean Corpuscular Volume 80 fL (80-100); Platelet Count* 244 K/uL (140-440); Red Blood Count 6.31 m/uL (4.30-5.90)
[2023-08-28 06:58] LABS: Slide Review Reflex No
[2023-08-28 07:17] LABS: Chloride* 100 mmol/L (96-114); Potassium* 3.9 mmol/L (3.6-5.1); Sodium* 142 mmol/L (135-149)
[2023-08-28 07:20] LABS: Anion Gap 5 mEq/L (7-15); Blood Urea Nitrogen* 28 mg/dL (7-30); Carbon Dioxide* 37 mmol/L (20-32); Est. Creatinine Clearance* 83.14; Estimated Glomerular Filt Rate 87 ml/min; Glucose* 83 mg/dL (60-115)
[2023-08-28 07:21] LABS: Calcium* 8.6 mg/dL (8.4-10.6)
[2023-08-28 07:44] LABS: NT Pro B Type NatriureticPept* 2430 pg/mL
[2023-08-28] MEDS: FENOFIBRATE 145 MG TABLET 72.5 MG PO (09:20)
[2023-08-28] MEDS: DULOXETINE 30 MG CAPSULE DR 60 MG PO (09:20)
[2023-08-28] MEDS: ENOXAPARIN 40 MG/0.4 ML INJ SUBCUT ×2 (09:20→21:45)
[2023-08-28] MEDS: ROSUVASTATIN CALCIUM 10 MG TABLET 20 MG PO (09:20)
[2023-08-28] MEDS: glipiZIDE XL 5 MG TAB 10 MG PO (09:21)
[2023-08-28] MEDS: lisinopriL 5 MG TABLET 2.5 MG PO (09:21)
[2023-08-28] MEDS: TAMSULOSIN HCL 0.4 MG CAPSULE PO (09:21)
[2023-08-28] MEDS: allopurinoL 100 MG TABLET 400 MG PO ×2 (09:21→21:45)
[2023-08-28] MEDS: FINASTERIDE 5 MG TABLET PO (09:21)
--- NOTE | 2023-08-28 09:32 | PM.IMPN1 ---
Progress Note: A&P Assessment and plan (1) Acute on chronic respiratory failure with hypoxia and hypercapnia: Problem details: -acute symptoms are minimal, trajectory over the last 2 months has been downward. Likely lives between 82 and 88% most of his day. Uses oxygen at night only. Likely at discharge will be recommended that he use oxygen 24/. I am attempting diuresis in order to increase his comfort and breathlessness. -this is all in the setting of chronic right heart failure, pulmonary arterial hypertension, and obesity hypoventilation syndrome. In 2019 he pursued gastric sleeve and was denied by his insurance. This should be looked at again. -oxygen dependent prior to admission 2-3 L at bedtime only. Unable to tolerate CPAP or BiPAP at bedtime. -has previously followed with [facility]. Recommended follow-up after hospitalization. Status: Acute (2) Right heart failure with reduced right ventricular function: Problem details: -reviewed 2017 echo -ordered echo today, may defer if too technically difficult -IV lasix last night, switching to IV Bumex this am, may increase the oral dose at discharge -Baseline weight has been increasing 410lbs in October, 431 in July, 428 at admission last night, 423 this am. -no new oxygen demand but was hypoxic yesterday. pt has insight - if I sit still, no need for oxygen - it's just getting harder to get from point A to point B and the recovery -has a [facility] Cardiology appointment in September Status: Acute (3) Pulmonary hypertension: Problem details: -chronic pulmonary arterial hypertension. Followed by [facility] Cardiology (next appointment in September 2023) -CTA shows markedly enlarged main pulmonary artery measuring 5.7 cm, no other CT evidence of right heart strain. Mild cardiomegaly without pleural effusions. -currently being monitored and managed conservatively without medication Status: Acute (4) Obesity hypoventilation syndrome: Problem details: -chronic -desperately needs weight loss - should try again for gastric bypass/sleeve Status: Acute (5) TACO (obstructive sleep apnea): Problem details: -unable to tolerate BiPAP or CPAP. Frustrated with multiple sleep studies -currently uses 2-3 L O2 per nasal cannula nightly -consider home O2 assessment Status: Acute (6) Morbid obesity: Problem details: -complicating above Status: Acute (7) Diabetes mellitus type 2 in nonobese: Problem details: -most recent A1c 8, previously 7.6 and 8.6 (down from 10) -has a Jazmyne, average glucose readings 140s -continue home Lantus 45 units nightly, glipizide 10 mg daily. Hold metformin. -diabetic diet, glucose checks ACHS, insulin sliding scale -followed by [facility] Status: Acute (8) Hypertension: Problem details: -continue lisinopril. Creatinine 1.3 which appears to be chronic baseline Status: Acute (9) Varicose veins with ulcer and inflammation: Problem details: -followed by Dr. Dutton, weekly. Wound assessment and dressing change today, 08/27. Spoke with Dr. Dutton, no acute concerns. Status: Acute Subjective Date Seen: 08/28/23 Interval history: Daily Progress Note - Hospital Medicine Day #: 2 CC: Acute on chronic respiratory failure with hypoxia OVERNIGHT UPDATES FROM STAFF & MED, LAB, IMAGING UPDATES stable night. feeling probably about the same as usual. He states he has felt generally worse in the last 8 weeks but nothing yesterday or today is particularly worse. He needs more regular use of oxygen at night but not during the day. His abdomen feels more tense on and off in the last month or so. Not acutely short of breath. Last saw cardiology in October 2022. He is currently on Bumex 3 mg b.i.d., spironolactone 25 mg q.day, potassium supplementation as it regards his diuresis plan for his longstanding right heart failure. Last echo was done in 2018. Weight has ranged from 411lbs in October, up to 431 at endocrinology visit in July and today 423 (likely some rapid loss overnight with Lasix IV dose, admit weight 429). Review of cardiology record: last visit 11/21 1. CAD- s/p GRISELDA- mid LAD ( 06/2019) Denies CP, REYNA. 2. HTN- under good control 3. Obesity- had lost weight, but gained this last year , current 411 lbs 4. HL- on statins Ldl 79, TRIG elevated 5. DM- per primary / endocrine 6. PHT / right heart failure - Cor Pulmonale physiology described in past notes 7. Obesity / hypoventilation syndrome - has not had bariatric surgery, states insurance declined 8. TACO - CPAP - will not use Objective: alert. insightful. walking with RT this am. Vitals: see above Lungs: Clear. no wheezes Cardiac: S1S2. Moderate 2+ edema Abdomen: soft, morbidly obese Disposition/Potential discharge - Likely to return to previous living situation. Today I spent 50minutes seeing the patient, reviewing Expanse and EPIC notes/diagnostics, discussing the care plan with our care time that includes social work, PT/OT, pharmacy, RT, mcfp and documenting my impressions and plan in the medical record. Exam Const: Vital Signs, click to edit/add: Vital Signs - 24 hr 08/27/23 16:32 08/27/23 16:45 08/27/23 17:00 Temperature 96.4 F L Pulse Rate 115 H 111 H Pulse Rate [Left P ulse Oximeter] Pulse Rate [Pulse Oximeter] 114 H Respiratory Rate 24 Blood Pressure Blood Pressure [Le ft Arm] Blood Pressure [Ri ght Upper Arm] 113/81 Pulse Oximetry 88 90 92 Oxygen Delivery Me thod Room Air Oxygen Flow Rate 08/27/23 17:15 08/27/23 17:15 08/27/23 17:30 Temperature Pulse Rate 114 H 114 H Pulse Rate [Left P ulse Oximeter] Pulse Rate [Pulse Oximeter] Respiratory Rate Blood Pressure Blood Pressure [Le ft Arm] Blood Pressure [Ri ght Upper Arm] Pulse Oximetry 89 91 89 Oxygen Delivery Me thod Oxygen Flow Rate 08/27/23 17:51 08/27/23 18:00 08/27/23 18:14 Temperature Pulse Rate 113 H 114 H 115 H Pulse Rate [Left P ulse Oximeter] Pulse Rate [Pulse Oximeter] Respiratory Rate Blood Pressure 96/75 Blood Pressure [Le ft Arm] Blood Pressure [Ri ght Upper Arm] Pulse Oximetry 89 89 91 Oxygen Delivery Me thod Oxygen Flow Rate 08/27/23 18:15 08/27/23 18:35 08/27/23 18:45 Temperature Pulse Rate 115 H 125 H 114 H Pulse Rate [Left P ulse Oximeter] Pulse Rate [Pulse Oximeter] Respiratory Rate Blood Pressure Blood Pressure [Le ft Arm] Blood Pressure [Ri ght Upper Arm] Pulse Oximetry 91 86 L 91 Oxygen Delivery Me thod Oxygen Flow Rate 08/27/23 18:51 08/27/23 19:00 08/27/23 19:15 Temperature Pulse Rate 115 H 114 H 115 H Pulse Rate [Left P ulse Oximeter] Pulse Rate [Pulse Oximeter] Respiratory Rate Blood Pressure 101/77 Blood Pressure [Le ft Arm] Blood Pressure [Ri ght Upper Arm] Pulse Oximetry 91 89 89 Oxygen Delivery Me thod Oxygen Flow Rate 08/27/23 19:30 08/27/23 20:20 08/27/23 20:20 Temperature 96.4 F L Pulse Rate 115 H Pulse Rate [Left P ulse Oximeter] 113 H Pulse Rate [Pulse Oximeter] Respiratory Rate 20 20 Blood Pressure Blood Pressure [Le ft Arm] 122/82 Blood Pressure [Ri ght Upper Arm] Pulse Oximetry 91 90 90 Oxygen Delivery Me thod Room Air Room Air Oxygen Flow Rate 08/27/23 21:48 08/27/23 23:00 08/27/23 23:00 Temperature Pulse Rate 113 H Pulse Rate [Left P ulse Oximeter] 113 H Pulse Rate [Pulse Oximeter] Respiratory Rate 20 20 Blood Pressure Blood Pressure [Le ft Arm] Blood Pressure [Ri ght Upper Arm] Pulse Oximetry 90 Oxygen Delivery Me thod Room Air Oxygen Flow Rate 08/27/23 23:50 08/28/23 03:00 08/28/23 07:00 Temperature 97.2 F L 96.9 F L 98.5 F Pulse Rate Pulse Rate [Left P ulse Oximeter] 113 H 61 100 Pulse Rate [Pulse Oximeter] Respiratory Rate 20 18 22 Blood Pressure Blood Pressure [Le ft Arm] 110/77 93/80 110/97 H Blood Pressure [Ri ght Upper Arm] Pulse Oximetry 91 94 93 Oxygen Delivery Me thod Room Air Nasal Cannula Room Air Oxygen Flow Rate 2 Labs Labs: Laboratory Results - last 24 hr 08/27/23 08/27/23 08/27/23 17:10 17:34 19:34 WBC 8.32 RBC 6.20 H Hgb 14.2 Hct 48.9 MCV 79 L MCH 23 L MCHC 29 L RDW Coeff of Tonya 18.4 H Plt Count 240 Neut % (Auto) 71.3 Lymph % (Auto) 13.1 L Haskell % (Auto) 9.9 Eos % (Auto) 4.8 Baso % (Auto) 0.7 Neut # (Auto) 5.93 Lymph # (Auto) 1.10 Haskell # (Auto) 0.80 Eos # (Auto) 0.40 Baso # (Auto) 0.06 Abs Immat Gran (auto) 0.02 Imm/Tot Granulo (auto) 0.2 D-Dimer Quant (PE/DVT) 0.47 VBG pH VBG pCO2 VBG pO2 VBG HCO3 Sodium 142 Potassium 4.2 Chloride 99 Carbon Dioxide 34 H Anion Gap 9 BUN 29 Creatinine 1.1 Estimated Creat Clear 75.58 Estimated GFR 78 Glucose 117 H Calcium 8.6 Magnesium 2.4 Total Bilirubin 0.9 AST 27 ALT 24 Alkaline Phosphatase 60 Troponin I 0.02 C-Reactive Protein 0.6 NT-Pro-B Natriuret Pep 3510 Total Protein 6.9 Albumin 4.0 SARS-CoV-2 (PCR) Negative SARS-CoV-2 Influenza Type A (PCR) Negative PCR FLU A Influenza Type B (PCR) Negative PCR FLU B RSV (PCR) Negative PCR RSV Lab Acknowledgement Test Added POC Creatinine 1.3 08/27/23 08/28/23 20:03 05:53 WBC 7.30 RBC 6.31 H Hgb 14.4 Hct 50.3 MCV 80 MCH 23 L MCHC 29 L RDW Coeff of Tonya Plt Count 244 Neut % (Auto) Lymph % (Auto) Haskell % (Auto) Eos % (Auto) Baso % (Auto) Neut # (Auto) Lymph # (Auto) Haskell # (Auto) Eos # (Auto) Baso # (Auto) Abs Immat Gran (auto) Imm/Tot Granulo (auto) D-Dimer Quant (PE/DVT) VBG pH 7.423 VBG pCO2 56 H VBG pO2 41.0 VBG HCO3 37 H Sodium 142 Potassium 3.9 Chloride 100 Carbon Dioxide 37 H Anion Gap 5 L BUN 28 Creatinine 1.0 Estimated Creat Clear 83.14 Estimated GFR 87 Glucose 83 Calcium 8.6 Magnesium Total Bilirubin AST ALT Alkaline Phosphatase Troponin I C-Reactive Protein NT-Pro-B Natriuret Pep 2430 Total Protein Albumin SARS-CoV-2 (PCR) Influenza Type A (PCR) Influenza Type B (PCR) RSV (PCR) Lab Acknowledgement POC Creatinine
[2023-08-28] MEDS: POTASSIUM CHLORIDE 10 MEQ CAPSULE ER 20 MEQ PO ×2 (10:05→17:55)
[2023-08-28] MEDS: SODIUM CHLORIDE 0.9 % (FLUSH) 10 ML SYRINGE 5 ML IVF ×3 (10:06→21:46)
[2023-08-28] MEDS: PERFLUTREN LIPID MICROSPHERES 2 ML VIAL IV (16:32)
[2023-08-28] MEDS: METFORMIN 1,000 MG TABLET 1000 MG PO (17:55)
--- NOTE | 2023-08-28 18:37 | PC.NURSE ---
700-1900 The patient is pleasant, and A&O. Up ad alex in his room. The patient is now on 1 L via NC./ parameters to be >88%. Great PO intake with fluids and food today. Minimal complaints of SOB on exertion when walking around only in his room. No reports of pain. Using his BG monitor. Calls appropriately. Echo was completed today as well. Was given IV diuretics today and yesterday. Call light within reach. Jaylin GTZ BSN
[2023-08-29 03:00] VITALS: BP 122/86; PULSE 114; RESP 18; TEMP 36; O2SAT 91
[2023-08-29 06:44] LABS: Hematocrit 50.2 % (37.0-53.0); Hemoglobin* 14.4 gm/dL (13.5-17.5); Mean Corpuscular HGB Conc 29 gm/dL (32-36); Mean Corpuscular Hemoglobin 23 pg (26-34); Mean Corpuscular Volume 80 fL (80-100); Platelet Count* 249 K/uL (140-440); Red Blood Count 6.27 m/uL (4.30-5.90)
[2023-08-29 06:51] LABS: Slide Review Reflex No
[2023-08-29 06:56] LABS: Chloride* 100 mmol/L (96-114); Potassium* 3.9 mmol/L (3.6-5.1); Sodium* 143 mmol/L (135-149)
[2023-08-29 06:59] LABS: Anion Gap 3 mEq/L (7-15); Blood Urea Nitrogen* 26 mg/dL (7-30); Carbon Dioxide* 40 mmol/L (20-32); Est. Creatinine Clearance* 83.14; Estimated Glomerular Filt Rate 87 ml/min; Glucose* 68 mg/dL (60-115)
[2023-08-29 07:00] VITALS: BP 108/70; PULSE 113; PULSE 115; RESP 18; TEMP 36.5; O2SAT 92
[2023-08-29 07:00] LABS: Calcium* 8.5 mg/dL (8.4-10.6)
[2023-08-29 07:08] LABS: NT Pro B Type NatriureticPept* 1930 pg/mL
[2023-08-29 07:17] LABS: Albumin* 4.1 g/dL (3.3-5.0); Chloride* 98 mmol/L (96-114); Sodium* 143 mmol/L (135-149)
[2023-08-29 07:20] LABS: Anion Gap 6 mEq/L (7-15); Carbon Dioxide* 39 mmol/L (20-32); Est. Creatinine Clearance* 83.14; Estimated Glomerular Filt Rate 87 ml/min
[2023-08-29 07:21] LABS: Blood Urea Nitrogen* 27 mg/dL (7-30); Calcium* 8.5 mg/dL (8.4-10.6); Glucose* 69 mg/dL (60-115)
[2023-08-29] MEDS: POTASSIUM CHLORIDE 10 MEQ CAPSULE ER 20 MEQ PO (09:21)
[2023-08-29] MEDS: allopurinoL 100 MG TABLET 400 MG PO (09:21)
[2023-08-29] MEDS: DULOXETINE 30 MG CAPSULE DR 60 MG PO (09:21)
[2023-08-29] MEDS: glipiZIDE XL 5 MG TAB 10 MG PO (09:21)
[2023-08-29] MEDS: lisinopriL 5 MG TABLET 2.5 MG PO (09:22)
[2023-08-29] MEDS: METFORMIN 1,000 MG TABLET 1000 MG PO (09:22)
[2023-08-29] MEDS: FINASTERIDE 5 MG TABLET PO (09:22)
[2023-08-29] MEDS: ROSUVASTATIN CALCIUM 10 MG TABLET 20 MG PO (09:22)
[2023-08-29] MEDS: TAMSULOSIN HCL 0.4 MG CAPSULE PO (09:22)
[2023-08-29] MEDS: ASPIRIN 81 MG TABLET EC PO (09:22)
[2023-08-29] MEDS: SPIRONOLACTONE 25 MG TABLET PO (09:22)
[2023-08-29] MEDS: ENOXAPARIN 40 MG/0.4 ML INJ SUBCUT (09:24)
[2023-08-29] MEDS: SODIUM CHLORIDE 0.9 % (FLUSH) 10 ML SYRINGE 5 ML IVF (09:24)
[2023-08-29] MEDS: polyethylene glycoL 3350 17 GM PACK 8.5 GM PO (09:24)
[2023-08-29] MEDS: MULTIVITAMIN/MINERALS 1 TABLET 1 TAB PO (09:25)
[2023-08-29] MEDS: FENOFIBRATE 145 MG TABLET 72.5 MG PO (09:26)
[2023-08-29 11:00] VITALS: BP 115/87; PULSE 116; RESP 20; TEMP 36.7; O2SAT 95
--- NOTE | 2023-08-29 11:42 | W.PM.HOT ---
Acute Home Oxygen Therapy Acute Home Oxygen Therapy Provider Note Provider Note: Patient was admitted on 08/27/23 at 19:59 and will be discharging on 08/29/2023 Patient is desaturating with SATs of 81 % on room air due to heart failure. Alternative therapies have been attempted and have not been successful in maintaining the patient's saturation level above 88%. Supplemental O2 is required. This patient is mobile within the home and requires portability.
[2023-08-29] MEDS: METOPROLOL TARTRATE 25 MG TABLET PO (12:28)
--- NOTE | 2023-08-29 12:59 | PC.NURSE ---
Noted that [facility]. Was unsure if he had his dressing changed recently. Received a fax copy of the orders from [facility]. After speaking with the patient he will do his dressing change when he gets home. Explain we could do this before he leaves but he is declining to have this done.
--- NOTE | 2023-08-29 13:45 | PC.NURSE ---
I took over this patient's care around 11 am from Cristin Sales Patient is now being discharge to home. Awaiting [employer] to deliver his portable oxygen tank so he is able to go home. Have reviewed his discharge instructions with the patient and all questions have been answered and IV and heart monitor have been removed. Will put his call light when [employer] has arrived with oxygen will be taken by w/c to his vehicle.
--- NOTE | 2023-08-29 14:03 | PC.NURSE ---
Nursing Care Hours: [id number] Pt this shift calm and cooperative, independent in the room. No c/o pain. Stable on 1L NC. EKG done per order. Tele showing sinus tachy with BBB and PVC's. Good input and output. Reported to oncoming nurse that pt missed wound dressing change the day of arrival and is due for one today but is expected to be discharged today.
--- NOTE | 2023-08-29 14:19 | PM.DS1 ---
DS: Providers Provider Date Seen: 08/29/23 Date of admission: 08/27/23 19:59 Primary care physician: Not a Local Provider Admitting Clinician: Liliana Figueroa MD Attending Physician on discharge: Liliana Figueroa MD Date of Discharge: 08/29/23 DS: Diagnosis Discharge Diagnosis (1) Right heart failure with reduced right ventricular function: Status: Acute Problem details: Chronic right heart failure. Echocardiogram obtained shows severely enlarged right ventricular cavity with severely reduced right ventricular systolic function. Significant intraventricular septal flattening consistent with RV pressure overload. [id number] tricuspid regurgitation. Dilated IVC (2) Obesity hypoventilation syndrome: Status: Acute Problem details: -chronic -desperately needs weight loss - should try again for gastric bypass/sleeve (3) Acute on chronic respiratory failure with hypoxia and hypercapnia: Status: Acute Problem details: -acute symptoms are minimal, trajectory over the last 2 months has been downward. Likely lives between 82 and 88% most of his day. Uses oxygen at night only. Likely at discharge will be recommended that he use oxygen /. I am attempting diuresis in order to increase his comfort and breathlessness. -this is all in the setting of chronic right heart failure, pulmonary arterial hypertension, and obesity hypoventilation syndrome. In 2019 he pursued gastric sleeve and was denied by his insurance. This should be looked at again. -oxygen dependent prior to admission 2-3 L at bedtime only. Unable to tolerate CPAP or BiPAP at bedtime. -has previously followed with [facility]. Recommended follow-up after hospitalization. (4) TACO (obstructive sleep apnea): Status: Acute Problem details: -unable to tolerate BiPAP or CPAP. Frustrated with multiple sleep studies -currently uses 2-3 L O2 per nasal cannula nightly -consider home O2 assessment (5) Diabetes mellitus type 2 in nonobese: Status: Acute Problem details: -most recent A1c 8, previously 7.6 and 8.6 (down from 10) -has a Jazmyne, average glucose readings 140s -continue home Lantus 45 units nightly, glipizide 10 mg daily. Hold metformin. -diabetic diet, glucose checks ACHS, insulin sliding scale -followed by [facility] (6) Chronic wound: Status: Acute Problem details: Continuing to follow through the [facility] (7) Venous stasis: Status: Acute Problem details: -as above (8) Tachycardia: Status: Acute Problem details: -110s in ED and on admission. Denies chest pain or worsening shortness of breath -EKG shows accelerated junctional rhythm with PVCs or fusion complexes, incomplete RBBB. No previous similar findings on EKGs -CTA shows no pulmonary embolus to the proximal lobar segmental branches however distal lobar subsegmental branch emboli cannot be excluded, D-dimer 0.47 -troponin 0.02 -lunchroom monitor Started on metoprolol succinate 25 mg daily to see if this would help his dyspnea DS: Summary Hospital Course Hospital Course: 57-year-old male was seen in the [facility] at the hospital where he was diagnosis having hypoxia. He was referred to the emergency department and admitted to the hospital for hypoxia. Patient has chronic hypoxia as an outpatient as he monitors at home. He uses oxygen at night. This is secondary to his heart failure/obesity hypoventilation/untreated TACO. During his hospital stay he received diuresis which did help with some of his peripheral edema but did not resolve his hypoxia. He continued to have hypoxia with O2 sats in the low to mid 80s on room air and 90% on 1 L per nasal cannula at rest. With activity he required 3 L per nasal cannula to maintain his O2 sat at 90%. He was prescribed home oxygen for this. His pulse remain mildly elevated during his hospital stay and was started on a low-dose of metoprolol succinate 25 mg daily to see if he would get any benefit for his dyspnea. Status at Discharge Overall status at discharge: patient is back to baseline Time Spent with Patient Time attestation: Total time spent providing and/or coordinating discharge services: Total time spent today is 45 minutes in coordination of care on the day of discharge Time spent: Greater than 30 minutes Exam Narrative: Exam Narrative: He is alert and appears in no distress. Breathing comfortably on supplemental oxygen. Respirations are clear to auscultation. No wheezing rales rhonchi. Cardiovascular: S1, S2, regular tachycardia. Abdomen is soft. Large abdominal pannus noted. No tenderness. Lower extremity edema noted. Const: Vital Signs, click to edit/add: Vital Signs - 24 hr 08/28/23 15:00 08/28/23 15:00 08/28/23 18:37 Temperature 97.8 F Pulse Rate 113 H Pulse Rate [Left P ulse Oximeter] 113 H Respiratory Rate 22 Blood Pressure [Le ft Arm] 107/81 Blood Pressure [Ri ght Arm] Pulse Oximetry 88 90 Oxygen Delivery Me thod Room Air Nasal Cannula Oxygen Flow Rate 1 08/28/23 20:20 08/28/23 23:00 08/28/23 23:52 Temperature 97.8 F 96.8 F L Pulse Rate Pulse Rate [Left P ulse Oximeter] 114 H 114 H 114 H Respiratory Rate 22 Blood Pressure [Le ft Arm] 134/92 H 128/88 Blood Pressure [Ri ght Arm] Pulse Oximetry 91 92 Oxygen Delivery Me thod Nasal Cannula Room Air Oxygen Flow Rate 1 08/28/23 23:52 08/29/23 03:00 08/29/23 07:00 Temperature 96.8 F L Pulse Rate Pulse Rate [Left P ulse Oximeter] 114 H 115 H Respiratory Rate 22 18 18 Blood Pressure [Le ft Arm] 122/86 Blood Pressure [Ri ght Arm] Pulse Oximetry 92 91 Oxygen Delivery Me thod Nasal Cannula Nasal Cannula Oxygen Flow Rate 1 1 08/29/23 07:00 08/29/23 07:00 08/29/23 07:00 Temperature 97.7 F Pulse Rate 113 H Pulse Rate [Left P ulse Oximeter] 115 H Respiratory Rate 18 18 Blood Pressure [Le ft Arm] Blood Pressure [Ri ght Arm] 108/70 Pulse Oximetry 92 92 Oxygen Delivery Me thod Nasal Cannula Nasal Cannula Oxygen Flow Rate 1 1 08/29/23 11:00 Temperature 98.1 F Pulse Rate Pulse Rate [Left P ulse Oximeter] 116 H Respiratory Rate 20 Blood Pressure [Le ft Arm] 115/87 Blood Pressure [Ri ght Arm] Pulse Oximetry 95 Oxygen Delivery Me thod Nasal Cannula Oxygen Flow Rate 1 Documenting provider has reviewed patient's vital signs: yes DS: Data Data Completed and Pending Labs on day of discharge: Labs from last 24 hours 08/29/23 08/29/23 08/29/23 05:50 05:50 05:50 WBC RBC Hgb Hct MCV MCH MCHC Plt Count Sodium Potassium Chloride Carbon Dioxide Anion Gap BUN Creatinine Estimated Creat Clear Estimated GFR 87 Glucose 69 68 Calcium 8.5 8.5 Phosphorus 5.0 H NT-Pro-B Natriuret Pep 1930 Albumin 4.1 08/29/23 08/29/2323 05:50 05:50 05:50 WBC RBC Hgb Hct MCV MCH MCHC Plt Count Sodium Potassium Chloride Carbon Dioxide Anion Gap BUN 27 Creatinine 1.0 1.0 Estimated Creat Clear 83.14 83.14 Estimated GFR 87 Glucose Calcium Phosphorus NT-Pro-B Natriuret Pep Albumin 08/29/23 08/29/23 08/29/23 05:50 05:50 05:50 WBC RBC Hgb Hct MCV MCH MCHC Plt Count Sodium Potassium Chloride 98 Carbon Dioxide 39 H 40 H Anion Gap 6 L 3 L BUN 26 Creatinine Estimated Creat Clear Estimated GFR Glucose Calcium Phosphorus NT-Pro-B Natriuret Pep Albumin 08/29/23 08/29/23 08/29/23 05:50 05:50 05:50 WBC 8.40 RBC 6.27 H Hgb 14.4 Hct 50.2 MCV 80 MCH 23 L MCHC 29 L Plt Count 249 Sodium 143 143 Potassium 4.0 3.9 Chloride 100 Carbon Dioxide Anion Gap BUN Creatinine Estimated Creat Clear Estimated GFR Glucose Calcium Phosphorus NT-Pro-B Natriuret Pep Albumin Discharge Plan Discharge Disposition: Home, Self-Care Date of Admission: 08/27/23 19:59 Attending Provider on Discharge: Thaddeus Gonzalez Primary Care Provider: Provider,Not a Local Condition: Stable Anticipated Discharge Date/Time: 08/29/23 11:43 Discharge Medications: New (DME) Home Oxygen Misc See Rx Instructions .Route Qty: 1 0RF Rx Instructions: 3 liters/NC with activity (DME) Home Oxygen Misc See Rx Instructions .Route Qty: 1 0RF Rx Instructions: 3 liters/NC with activity (DME) Home Oxygen Misc See Rx Instructions .Route Qty: 1 0RF Rx Instructions: 1 L per nasal cannula at rest and 3 L per nasal cannula with activity metoprolol succinate 25 mg capsule,sprinkle,ER 24hr 25 mg PO DAILY Qty: 30 0RF Continued aspirin 81 mg tablet,delayed release (DR/EC) 81 mg PO DAILY cholecalciferol (vitamin D3) 125 mcg (5,000 unit) tablet 125 mcg PO DAILY multivitamin [Daily Multi-Vitamin] Tablet 1 tab PO DAILY polyethylene glycol 3350 [Miralax] 17 gram/dose powder 8.5 g PO DAILY nitroglycerin 0.4 mg tablet, sublingual 0.4 mg sublingual Q5M PRN omega-3 acid ethyl esters [Lovaza] 1 gram capsule 2 cap PO BID glipizide 10 mg tablet extended release 24hr 10 mg PO DAILY fenofibrate micronized 67 mg capsule 67 mg PO DAILY allopurinol 100 mg tablet 100 mg PO BID spironolactone 25 mg tablet 25 mg PO DAILY potassium chloride [Klor-Con M20] 20 mEq tablet,ER particles/crystals 20 meq PO BID tamsulosin 0.4 mg capsule 0.8 mg PO DAILY metformin 1,000 mg tablet 1,000 mg PO BIDWM bumetanide 1 mg tablet 3 mg PO BID allopurinol 300 mg tablet 300 mg PO BID albuterol sulfate [Ventolin HFA] 90 mcg/actuation HFA aerosol inhaler 2 puff inhalation Q4H PRN lisinopril 2.5 mg tablet 2.5 mg PO DAILY finasteride 5 mg tablet 5 mg PO DAILY rosuvastatin 20 mg tablet 20 mg PO DAILY duloxetine 60 mg capsule,delayed release(DR/EC) 60 mg PO DAILY insulin glargine [Lantus Solostar U-100 Insulin] 100 unit/mL (3 mL) insulin pen 45 unit subcut QPM Ozempic 2 mg/dose (8 mg/3 mL) pen injector 2 mg subcut Q7D Discharge Orders: Discharge Order (Routine); Ordered 08/29/23 Ordered By: Thaddeus Gonzalez Patient Education: Metoprolol (By mouth), Heart Failure (GEN), Using Oxygen at Home (DC), Chronic Respiratory Failure (GEN), Acute Respiratory Failure (GEN) Additional Instructions: See your manganese breaker next week at previously scheduled appointment. I have added 1 new medication, metoprolol, to slow your heart rate which may improve your breathing Activity Level: Activity as Tolerated Discharge Diet: Diabetic Follow Up Appointments: Provider,Not a Local [Primary Care Provider] - Forms: [email or web address] Info Instructions
== END 2023-08-29 14:43 | disposition home or self-care (01) ==
LOC: ED 19:49 → MEDSURG 20:02
PROVIDERS: Physician Assistant; Admitting Provider Family Medicine; Emergency Provider Family Medicine; Visit Provider Family Medicine
DX: I11.0 Hypertensive heart disease with heart failure (principal); I50.812 Chronic right heart failure; J96.21 Acute and chronic respiratory failure with hypoxia; J96.22 Acute and chronic respiratory failure with hypercapnia; I27.20 Pulmonary hypertension, unspecified; G47.33 Obstructive sleep apnea (adult) (pediatric); I83.209 Varicose veins of unspecified lower extremity with both ulcer of unspecified site and inflammation; L97.909 Non-pressure chronic ulcer of unspecified part of unspecified lower leg with unspecified severity; I87.8 Other specified disorders of veins; R00.0 Tachycardia, unspecified; E66.2 Morbid (severe) obesity with alveolar hypoventilation; Z68.44 Body mass index [BMI] 60.0-69.9, adult; E11.9 Type 2 diabetes mellitus without complications; E78.00 Pure hypercholesterolemia, unspecified; R60.0 Localized edema; F17.210 Nicotine dependence, cigarettes, uncomplicated; F12.90 Cannabis use, unspecified, uncomplicated; T14.8XXA Other injury of unspecified body region, initial encounter; Z79.4 Long term (current) use of insulin; Z79.84 Long term (current) use of oral hypoglycemic drugs
CPT/HCPCS: 36415; 71275; 80048; 80053; 80069; 82565; 82803; 82962; 83735; 83880; 84484; 85025; 85027; 85379; 86140; 87631; 93005; 93306; 94761; 96372; 96374; 96375; 97597; 99284; 99285; G0378; A9153; A9270; J1650; J1940; Q9957; Q9967; S0171

== ENCOUNTER 2023-09-03 07:49 | Outpatient (CLI) | payer OTHER, SELFPAY | END 2023-09-03 07:50 | disposition home or self-care (01) | PROVIDERS: Visit Provider Family Medicine | DX: I87.311 Chronic venous hypertension (idiopathic) with ulcer of right lower extremity (principal); L97.812 Non-pressure chronic ulcer of other part of right lower leg with fat layer exposed; I87.2 Venous insufficiency (chronic) (peripheral); I50.812 Chronic right heart failure | CPT/HCPCS: 11042; G0463 ==

== ENCOUNTER 2023-09-10 07:51 | Outpatient (CLI) | payer OTHER, SELFPAY | END 2023-09-10 07:52 | disposition home or self-care (01) | LOC: WOUND 07:51 | PROVIDERS: Visit Provider Physician Assistant | DX: I87.311 Chronic venous hypertension (idiopathic) with ulcer of right lower extremity (principal); I87.2 Venous insufficiency (chronic) (peripheral); L97.812 Non-pressure chronic ulcer of other part of right lower leg with fat layer exposed | CPT/HCPCS: 97597 ==

== ENCOUNTER 2023-09-17 07:57 | Outpatient (CLI) | payer OTHER, SELFPAY | END 2023-09-17 07:58 | disposition home or self-care (01) | LOC: WOUND 07:57 | PROVIDERS: Visit Provider Physician Assistant | DX: I87.311 Chronic venous hypertension (idiopathic) with ulcer of right lower extremity (principal); L97.812 Non-pressure chronic ulcer of other part of right lower leg with fat layer exposed | CPT/HCPCS: 97597 ==

== ENCOUNTER 2023-09-24 09:49 | Outpatient (CLI) | payer OTHER, SELFPAY | END 2023-09-24 09:50 | disposition home or self-care (01) | LOC: WOUND 09:49 | PROVIDERS: Visit Provider Family Medicine | DX: I87.311 Chronic venous hypertension (idiopathic) with ulcer of right lower extremity (principal); L97.812 Non-pressure chronic ulcer of other part of right lower leg with fat layer exposed | CPT/HCPCS: 11042 ==

== ENCOUNTER 2023-10-01 13:09 | Outpatient (CLI) | payer OTHER, SELFPAY | END 2023-10-01 13:10 | disposition home or self-care (01) | LOC: WOUND 13:09 | PROVIDERS: Visit Provider Surgery | DX: I87.311 Chronic venous hypertension (idiopathic) with ulcer of right lower extremity (principal); L97.812 Non-pressure chronic ulcer of other part of right lower leg with fat layer exposed; I50.812 Chronic right heart failure | CPT/HCPCS: 97597 ==

== ENCOUNTER 2023-10-08 09:07 | Outpatient (CLI) | payer OTHER, SELFPAY | END 2023-10-08 09:08 | disposition home or self-care (01) | LOC: WOUND 09:07 | PROVIDERS: Visit Provider Family Medicine | DX: I87.311 Chronic venous hypertension (idiopathic) with ulcer of right lower extremity (principal); L97.812 Non-pressure chronic ulcer of other part of right lower leg with fat layer exposed; I87.2 Venous insufficiency (chronic) (peripheral) | CPT/HCPCS: 11042 ==

== ENCOUNTER 2023-10-15 07:54 | Outpatient (CLI) | payer OTHER, SELFPAY | END 2023-10-15 07:55 | disposition home or self-care (01) | LOC: WOUND 07:54 | PROVIDERS: Visit Provider Family Medicine | DX: I87.311 Chronic venous hypertension (idiopathic) with ulcer of right lower extremity (principal); I87.2 Venous insufficiency (chronic) (peripheral); L97.812 Non-pressure chronic ulcer of other part of right lower leg with fat layer exposed; E11.8 Type 2 diabetes mellitus with unspecified complications; Z79.4 Long term (current) use of insulin | CPT/HCPCS: 11042 ==

== ENCOUNTER 2023-10-22 09:53 | Outpatient (CLI) | payer OTHER, SELFPAY | END 2023-10-22 09:54 | disposition home or self-care (01) | LOC: WOUND 09:54 | PROVIDERS: Visit Provider Family Medicine | DX: I87.311 Chronic venous hypertension (idiopathic) with ulcer of right lower extremity (principal); L97.812 Non-pressure chronic ulcer of other part of right lower leg with fat layer exposed; E11.8 Type 2 diabetes mellitus with unspecified complications; Z79.4 Long term (current) use of insulin; Z79.84 Long term (current) use of oral hypoglycemic drugs | CPT/HCPCS: 11042 ==

== ENCOUNTER 2023-10-29 07:54 | Outpatient (CLI) | payer OTHER, SELFPAY | END 2023-10-29 07:55 | disposition home or self-care (01) | PROVIDERS: Visit Provider Physician Assistant | DX: I87.311 Chronic venous hypertension (idiopathic) with ulcer of right lower extremity (principal); I87.2 Venous insufficiency (chronic) (peripheral); L97.812 Non-pressure chronic ulcer of other part of right lower leg with fat layer exposed; E11.8 Type 2 diabetes mellitus with unspecified complications; Z79.4 Long term (current) use of insulin; Z79.84 Long term (current) use of oral hypoglycemic drugs | CPT/HCPCS: 15271; Q4101 ==

== ENCOUNTER 2023-11-05 07:55 | Outpatient (CLI) | payer OTHER, SELFPAY | END 2023-11-05 07:56 | disposition home or self-care (01) | LOC: WOUND 07:55 | PROVIDERS: Visit Provider Physician Assistant | DX: I87.311 Chronic venous hypertension (idiopathic) with ulcer of right lower extremity (principal); I87.2 Venous insufficiency (chronic) (peripheral); L97.812 Non-pressure chronic ulcer of other part of right lower leg with fat layer exposed; I50.812 Chronic right heart failure | CPT/HCPCS: G0463 ==

== ENCOUNTER 2023-11-12 09:08 | Outpatient (CLI) | payer OTHER, SELFPAY | END 2023-11-12 09:09 | disposition home or self-care (01) | PROVIDERS: Visit Provider Family Medicine | DX: I87.311 Chronic venous hypertension (idiopathic) with ulcer of right lower extremity (principal); I87.2 Venous insufficiency (chronic) (peripheral); L97.812 Non-pressure chronic ulcer of other part of right lower leg with fat layer exposed | CPT/HCPCS: 11042 ==

== ENCOUNTER 2023-11-19 08:51 | Outpatient (CLI) | payer OTHER, SELFPAY | END 2023-11-19 08:52 | disposition home or self-care (01) | LOC: WOUND 08:51 | PROVIDERS: Visit Provider Surgery | DX: I87.311 Chronic venous hypertension (idiopathic) with ulcer of right lower extremity (principal); I87.2 Venous insufficiency (chronic) (peripheral); L97.812 Non-pressure chronic ulcer of other part of right lower leg with fat layer exposed | CPT/HCPCS: 15271; Q4101 ==

== ENCOUNTER 2023-11-26 08:40 | Outpatient (CLI) | payer OTHER, SELFPAY | END 2023-11-26 08:41 | disposition home or self-care (01) | LOC: WOUND 08:40 | PROVIDERS: Visit Provider Surgery | DX: I87.311 Chronic venous hypertension (idiopathic) with ulcer of right lower extremity (principal); I87.2 Venous insufficiency (chronic) (peripheral); L97.812 Non-pressure chronic ulcer of other part of right lower leg with fat layer exposed | CPT/HCPCS: G0463 ==

== ENCOUNTER 2023-12-03 08:39 | Outpatient (CLI) | payer OTHER, SELFPAY | END 2023-12-03 08:40 | disposition home or self-care (01) | LOC: WOUND 08:39 | PROVIDERS: Visit Provider Surgery | DX: I87.311 Chronic venous hypertension (idiopathic) with ulcer of right lower extremity (principal); L97.812 Non-pressure chronic ulcer of other part of right lower leg with fat layer exposed; E11.8 Type 2 diabetes mellitus with unspecified complications; Z79.4 Long term (current) use of insulin; Z79.84 Long term (current) use of oral hypoglycemic drugs | CPT/HCPCS: 97597 ==

== ENCOUNTER 2023-12-10 08:09 | Outpatient (CLI) | payer OTHER, SELFPAY | END 2023-12-10 08:10 | disposition home or self-care (01) | LOC: WOUND 08:09 | PROVIDERS: Visit Provider Surgery | DX: I87.311 Chronic venous hypertension (idiopathic) with ulcer of right lower extremity (principal); I87.2 Venous insufficiency (chronic) (peripheral); L97.818 Non-pressure chronic ulcer of other part of right lower leg with other specified severity; E11.8 Type 2 diabetes mellitus with unspecified complications; Z79.4 Long term (current) use of insulin; Z79.84 Long term (current) use of oral hypoglycemic drugs | CPT/HCPCS: 15271; Q4101 ==

== ENCOUNTER 2023-12-17 08:41 | Outpatient (CLI) | payer OTHER, SELFPAY | END 2023-12-17 08:42 | disposition home or self-care (01) | LOC: WOUND 08:41 | PROVIDERS: Visit Provider Surgery | DX: I87.311 Chronic venous hypertension (idiopathic) with ulcer of right lower extremity (principal); I87.2 Venous insufficiency (chronic) (peripheral); L97.812 Non-pressure chronic ulcer of other part of right lower leg with fat layer exposed; E11.8 Type 2 diabetes mellitus with unspecified complications; Z79.84 Long term (current) use of oral hypoglycemic drugs | CPT/HCPCS: 97597 ==

== ENCOUNTER 2023-12-24 08:41 | Outpatient (CLI) | payer OTHER, SELFPAY | END 2023-12-24 08:42 | disposition home or self-care (01) | LOC: WOUND 08:41 | PROVIDERS: Visit Provider Family Medicine | DX: I87.311 Chronic venous hypertension (idiopathic) with ulcer of right lower extremity (principal); I87.2 Venous insufficiency (chronic) (peripheral); L97.812 Non-pressure chronic ulcer of other part of right lower leg with fat layer exposed | CPT/HCPCS: 11042 ==

== ENCOUNTER 2023-12-31 08:38 | Outpatient (CLI) | payer OTHER, SELFPAY | END 2023-12-31 08:39 | disposition home or self-care (01) | LOC: WOUND 08:38 | PROVIDERS: Visit Provider Surgery | DX: I87.311 Chronic venous hypertension (idiopathic) with ulcer of right lower extremity (principal); I87.2 Venous insufficiency (chronic) (peripheral); L97.812 Non-pressure chronic ulcer of other part of right lower leg with fat layer exposed; E11.8 Type 2 diabetes mellitus with unspecified complications; Z79.4 Long term (current) use of insulin; Z79.84 Long term (current) use of oral hypoglycemic drugs | CPT/HCPCS: 97597 ==

== ENCOUNTER 2024-01-07 08:42 | Outpatient (CLI) | payer OTHER, SELFPAY | END 2024-01-07 08:43 | disposition home or self-care (01) | LOC: WOUND 08:42 | PROVIDERS: Visit Provider Surgery | DX: I87.311 Chronic venous hypertension (idiopathic) with ulcer of right lower extremity (principal); L97.812 Non-pressure chronic ulcer of other part of right lower leg with fat layer exposed; E11.8 Type 2 diabetes mellitus with unspecified complications; Z79.4 Long term (current) use of insulin; Z79.84 Long term (current) use of oral hypoglycemic drugs | CPT/HCPCS: 97597 ==

== ENCOUNTER 2024-01-14 08:40 | Outpatient (CLI) | payer OTHER, SELFPAY | END 2024-01-14 08:41 | disposition home or self-care (01) | LOC: WOUND 08:40 | PROVIDERS: Visit Provider Surgery | DX: I87.311 Chronic venous hypertension (idiopathic) with ulcer of right lower extremity (principal); I87.2 Venous insufficiency (chronic) (peripheral); L97.812 Non-pressure chronic ulcer of other part of right lower leg with fat layer exposed; E11.8 Type 2 diabetes mellitus with unspecified complications; Z79.4 Long term (current) use of insulin | CPT/HCPCS: 97597 ==

== ENCOUNTER 2024-01-21 08:38 | Outpatient (CLI) | payer OTHER, SELFPAY | END 2024-01-21 08:39 | disposition home or self-care (01) | LOC: WOUND 08:38 | PROVIDERS: Visit Provider Surgery | DX: I87.311 Chronic venous hypertension (idiopathic) with ulcer of right lower extremity (principal); I87.2 Venous insufficiency (chronic) (peripheral); L97.812 Non-pressure chronic ulcer of other part of right lower leg with fat layer exposed; E11.8 Type 2 diabetes mellitus with unspecified complications; Z79.4 Long term (current) use of insulin; Z79.84 Long term (current) use of oral hypoglycemic drugs | CPT/HCPCS: 15271; Q4101 ==

== ENCOUNTER 2024-01-28 08:38 | Outpatient (CLI) | payer OTHER, SELFPAY | END 2024-01-28 08:39 | disposition home or self-care (01) | LOC: WOUND 08:38 | PROVIDERS: Visit Provider Surgery | DX: I87.311 Chronic venous hypertension (idiopathic) with ulcer of right lower extremity (principal); I87.2 Venous insufficiency (chronic) (peripheral); L97.812 Non-pressure chronic ulcer of other part of right lower leg with fat layer exposed | CPT/HCPCS: G0463 ==

== ENCOUNTER 2024-01-31 21:45 | Emergency (ER) | payer OTHER, SELFPAY ==
--- NOTE | 2024-01-31 21:55 | CRLHL7_ITS ---
For Patients: As a result of the Century Cures Act, medical imaging exams and procedure reports are released immediately into your electronic medical record. You may view this report before your referring provider. If you have questions, please contact your health care provider. INDICATION: Shortness of breath. Comparison none available at time of interpretation. Technique chest 2 views. FINDINGS: Focal opacity within the left middle lower lung may represent infiltrate or atelectasis within the lingula and left lower lobe. Parahilar interstitial prominence likely secondary to pulmonary vascular congestion. Cardiomegaly. Tortuous aorta No osseous abnormalities. IMPRESSION: 1. Cardiomegaly. 2. Focal opacity within the left mid and lower lung may represent infiltrate and/or atelectasis within the lingula and left lower lobe. 3. Pulmonary vascular congestion Dictated by Erick Mark MD @ 01/31/2024 11:24:17 PM (Electronically Signed)
--- NOTE | 2024-01-31 21:56 | ED_ITS ---
HPI - General Adult General Chief complaint: Shortness of Breath/Dyspnea Stated complaint: lightheaded, shortness of breath Time Seen by Provider: 01/31/24 21:49 History of Present Illness HPI narrative: Patient is a 58-year-old gentleman who has a complex past medical history including right heart failure obesity hypoventilation syndrome who presents with general malaise and fatigue. Patient is morbidly obese is chronically on oxygen. Has history of stasis venous ulcer on the right lower extremity as well as pulmonary hypertension and diabetes. He really has no localizable symptoms but just does not feel well. Related Data Home Medications ?Medication ?Instructions ?Recorded ?Confirmed albuterol sulfate 90 mcg/actuation 2 puff inhalation Q4H PRN 07/24/23 08/28/23 aerosol inhaler (Ventolin HFA) allopurinol 100 mg tablet 100 mg PO BID 07/24/23 08/27/23 allopurinol 300 mg tablet 300 mg PO BID 07/24/23 08/27/23 bumetanide 1 mg tablet 3 mg PO BID 07/24/23 08/27/23 duloxetine 60 mg capsule,delayed 60 mg PO DAILY 07/24/23 08/27/23 release fenofibrate micronized 67 mg 67 mg PO DAILY 07/24/23 08/27/23 capsule finasteride 5 mg tablet 5 mg PO DAILY 07/24/23 08/27/23 glipizide 10 mg tablet, extended 10 mg PO DAILY 07/24/23 08/27/23 release 24 hr insulin glargine 100 unit/mL (3 45 unit subcut QPM 07/24/23 08/27/23 mL) subcutaneous pen (Lantus Solostar U-100 Insulin) lisinopril 2.5 mg tablet 2.5 mg PO DAILY 07/24/23 08/27/23 metformin 1,000 mg tablet 1,000 mg PO BIDWM 07/24/23 08/28/23 potassium chloride 20 mEq 20 meq PO BID 07/24/23 08/27/23 tablet,extended release(part/cryst) (Klor-Con M) rosuvastatin 20 mg tablet 20 mg PO DAILY 07/24/23 08/27/23 semaglutide 2 mg/dose (8 mg/3 mL) 2 mg subcut Q7D 07/24/23 08/28/23 subcutaneous pen injector (Ozempic) spironolactone 25 mg tablet 25 mg PO DAILY 07/24/23 08/27/23 tamsulosin 0.4 mg capsule 0.8 mg PO DAILY 07/24/23 08/28/23 aspirin 81 mg tablet,delayed 81 mg PO DAILY 08/28/23 08/28/23 release cholecalciferol (vitamin D3) 125 125 mcg PO DAILY 08/28/23 08/28/23 mcg (5,000 unit) tablet multivitamin (Daily Multi-Vitamin 1 tab PO DAILY 08/28/23 08/28/23 tablet) nitroglycerin 0.4 mg sublingual 0.4 mg sublingual Q5M PRN 08/28/23 08/28/23 tablet omega-3 acid ethyl esters 1 gram 2 cap PO BID 08/28/23 08/28/23 capsule (Lovaza) polyethylene glycol 3350 17 8.5 g PO DAILY 08/28/23 08/28/23 gram/dose oral powder (Miralax) Previous Rx's ?Medication ?Instructions ?Recorded Home Oxygen #1 ea 08/29/23 Home Oxygen #1 ea 08/29/23 Home Oxygen #1 ea 08/29/23 metoprolol succinate 25 mg capsule 25 mg PO DAILY #30 ea 08/29/23 sprinkle, ext. release 24 hr Allergies Allergy/AdvReac Type Severity Reaction Status Date / Time No Known Drug Allergies Allergy Verified 08/27/23 17:49 Review of Systems Status of ROS: Reports: 10 or more systems reviewed and unremarkable except as noted in History and below [facility] Medical History Gout ?M10.9 - Gout, unspecified (ICD-10) Scrotal edema ?N50.89 - Other specified disorders of the male genital organs (ICD-10) Right heart failure with reduced right ventricular function ?I50.810 - Right heart failure, unspecified (ICD-10) Obesity hypoventilation syndrome ?E66.2 - Morbid (severe) obesity with alveolar hypoventilation (ICD-10) CAD (coronary artery disease) ?I25.10 - Atherosclerotic heart disease of zuni coronary artery without angina pectoris (ICD-10) Acute on chronic respiratory failure with hypoxia and hypercapnia ?J96.21 - Acute and chronic respiratory failure with hypoxia (ICD-10) ?J96.22 - Acute and chronic respiratory failure with hypercapnia (ICD-10) TACO (obstructive sleep apnea) ?G47.33 - Obstructive sleep apnea (adult) (pediatric) (ICD-10) Chronic respiratory failure with hypoxia and hypercapnia ?J96.11 - Chronic respiratory failure with hypoxia (ICD-10) ?J96.12 - Chronic respiratory failure with hypercapnia (ICD-10) Morbid obesity ?E66.01 - Morbid (severe) obesity due to excess calories (ICD-10) Diabetes mellitus type 2 in nonobese ?E11.9 - Type 2 diabetes mellitus without complications (ICD-10) Hypercholesterolemia ?E78.00 - Pure hypercholesterolemia, unspecified (ICD-10) Pulmonary hypertension ?I27.20 - Pulmonary hypertension, unspecified (ICD-10) Diastolic heart failure ?I50.30 - Unspecified diastolic (congestive) heart failure (ICD-10) Hypertension ?I10 - Essential (primary) hypertension (ICD-10) Varicose veins with ulcer and inflammation ?I83.209 - Varicose veins of unspecified lower extremity with both ulcer of unspecified site and inflammation (ICD-10) ?L97.909 - Non-pressure chronic ulcer of unspecified part of unspecified lower leg with unspecified severity (ICD-10) Chronic wound ?T14.8XXA - Other injury of unspecified body region, initial encounter (ICD- 10) Venous stasis ?I87.8 - Other specified disorders of veins (ICD-10) Surgical History Stented coronary artery ?Z95.5 - Presence of coronary angioplasty implant and graft (ICD-10) Social History What is your current living situation?: I presently have a place to live Problems where you live: no known problems Problems where you live details: NA In the past 12 months, utilities in danger of being shut off: no In past 12 months, lack of transportation kept you from medical appts, meetings, work, or getting things needed for daily living: no In the past 12 mos, have been you worried that your food would run out before you had money to buy more?: never true In the past 12 mos, the food you bought just didn't last and you didn't have money to buy more?: never true Highest level of school completed/degree received: Associate degree: occupational, technical, vocational program Smoking Status: Current every day smoker What tobacco products do you use: cigarettes Smoking packs per day: 0.5 Smoking cigarettes per day: 10.0 Years smoked: 30 Smoking pack-years: 15.00 Do you use any of these nicotine containing products: None Second hand tobacco smoke exposure: No How often do you have a drink containing alcohol: never AUDIT-C Alcohol total score: 0 Non-prescribed substance use: marijuana (any form) Non-prescribed substance use details: daily marijuana user Caffeine: Yes (coffee daily) How often does anyone, including family, friends and others, physically hurt you : never How often does anyone, including family, friends and others, insult or talk down to you: never How often does anyone, including family, friends and others, threaten you with harm: never How often does anyone, including family, friends and others, scream or curse at you: never service: No Exam Narrative: Exam Narrative: EXAM GENERAL: Patient appears morbidly obese on oxygen. EYES: No scleral icterus. LYMPH: No supraclavicular or cervical lymphadenopathy. SKIN: Visible skin seen during exam normal or with benign process only. EXT: No dependent lower extremity pedal edema. Right leg is dressed. HEART: Regular rate and rhythm with no murmurs, rubs, or gallops. LUNGS: Decreased breath sounds bilaterally. ABD: Soft, non tender, non distended. PSYCH: Good eye contact, speech is not pressured. Const: Vital Signs, click to edit/add: Vital Signs - 24 hr 01/31/24 21:57 01/31/24 22:15 Temperature 99.3 F Pulse Rate [Pulse Oximeter] 110 H Respiratory Rate 22 Blood Pressure [Ri ght Upper Arm] 135/111 H Pulse Oximetry 90 91 Oxygen Delivery Me thod Nasal Cannula Oxygen Flow Rate 2 Course Course ED Course: Patient seen and examined. Thorough workup ordered including chest x-ray troponin D-dimer lactate blood cultures CBC comprehensive metabolic panel UA chest x-ray. Vital Signs Vital signs: Initial Vital Signs Temperature 99.3 F 01/31/24 21:57 Temperature Source Temporal Artery Scan 01/31/24 21:57 Pulse Rate 110 H 01/31/24 21:57 Respiratory Rate 22 01/31/24 21:57 Blood Pressure 135/111 H 01/31/24 21:57 Blood Pressure Mean 119 H 01/31/24 21:57 Blood Pressure Position Sitting 01/31/24 21:57 Pulse Oximetry 90 01/31/24 21:57 Oxygen Delivery Method Nasal Cannula 01/31/24 21:57 Oxygen Flow Rate 2 01/31/24 21:57 Vital Signs Temperature 99.3 F 01/31/24 21:57 Pulse Rate 110 H 01/31/24 21:57 Respiratory Rate 22 01/31/24 21:57 Blood Pressure 135/111 H 01/31/24 21:57 Pulse Oximetry 90 01/31/24 21:57 Oxygen Delivery Method Nasal Cannula 01/31/24 21:57 Oxygen Flow Rate 2 01/31/24 21:57 Temperature 99.3 F 01/31/24 21:57 Pulse Rate 110 H 01/31/24 21:57 Respiratory Rate 22 01/31/24 21:57 Blood Pressure 135/111 H 01/31/24 21:57 Pulse Oximetry 91 01/31/24 22:15 Oxygen Delivery Method Nasal Cannula 01/31/24 21:57 Oxygen Flow Rate 2 01/31/24 21:57 Medications Administered Medications: Generic Name Dose Route Start Last Admin Trade Name Freq PRN Reason Stop Dose Admin Sodium Chloride 1,000 mls @ 1,000 mls/hr 01/31/24 23:16 01/31/24 23:19 0.9 % Sodium Chloride 1000 Ml IV 02/01/24 00:15 1,000 mls/hr .Q1H LILA Administration Medical Decision Making [facility] Narrative Medical decision making narrative: Patient is a 58-year-old gentleman with very complex past medical history who presents not feeling well. I did thorough evaluation did final left-sided pneumonia with leukocytosis. Blood cultures are collected. Troponin D-dimer all negative. No signs of UTI. No signs of lower extremity cellulitis. I did repeatedly offer him hospitalization which he declined as he states he would like to go home with oral antibiotics. I did emphasize that if he chooses this course of action he has come back immediately if symptoms worsen. He understands the risk of going home. At this time I did treated with Levaquin 500 mg daily for the next 7 days with close outpatient follow-up with his primary physician in next several days. He does have supplemental oxygen and he has been on his normal dose of oxygen. Very concerned about Willian but I a.m. unable to convince him stay in the hospital. Lab Data Labs: Lab Results 01/31/24 01/31/24 01/31/24 Range/Units 22:00 22:15 22:30 WBC 15.15 H (4.50-11.00) K/uL RBC 5.97 H (4.30-5.90) m/uL Hgb 14.8 (13.5-17.5) gm/dL Hct 48.3 (37.0-53.0) % MCV 81 (80-100) fL MCH 25 L (26-34) pg MCHC 31 L (32-36) gm/dL RDW Coeff of Tonya 18.5 H (11.5-15.5) % Plt Count 202 (140-440) K/uL Neut % (Auto) 85.1 H (42.0-72.0) % Lymph % (Auto) 3.5 L (20-44) % [place] % (Auto) 10.1 (0.0-11.0) % Eos % (Auto) 0.0 (0.0-7.0) % Baso % (Auto) 0.3 (0.0-3.0) % Neut # (Auto) 12.90 H (1.7-7.0) K/uL Lymph # (Auto) 0.50 L (0.90-2.90) K/uL [place] # (Auto) 1.50 H (0.00-0.90) K/UL Eos # (Auto) 0.00 (0.00-0.50) K/uL Baso # (Auto) 0.00 (0.00-0.30) K/uL Abs Immat Gran (auto) 0.20 (0.00-0.30) K/uL Imm/Tot Granulo (auto) 1.0 % D-Dimer Quant (PE/DVT) 0.26 (0.00-0.50) ug/ml Sodium 134 L (135-149) mmol/L Potassium 4.5 (3.6-5.1) mmol/L Chloride 91 L (96-114) mmol/L Carbon Dioxide 38 H (20-32) mmol/L Anion Gap 5 L (7-15) mEq/L BUN 24 (7-30) mg/dL Creatinine 1.0 (0.5-1.5) mg/dL Estimated Creat Clear 84.71 Estimated GFR 87 ml/min Glucose 136 H (60-115) mg/dL Lactate 2.3 H (0.5-1.9) mmol/L Calcium 8.5 (8.4-10.6) mg/dL Total Bilirubin 2.5 H (0.1-1.5) mg/dL AST 27 (12-35) U/L ALT 17 (4-50) U/L Alkaline Phosphatase 67 (40-150) U/L Troponin I 0.03 (0.01-0.04) ng/mL NT-Pro-B Natriuret Pep 3760 pg/mL Total Protein (6.0-8.3) g/dL Albumin (3.3-5.0) g/dL Urine Color Yellow (Yellow) Urine Appearance Clear (Clear) Urine pH 6.0 (5.0-8.5) Ur Specific [place] 1.015 (1.000-1.030) Urine Protein 2+ A (Negative) Urine Glucose (UA) Negative (Negative) Urine Ketones Negative (Negative) Urine Blood Negative (Negative) Urine Nitrite Negative (Negative) Urine Bilirubin Negative (Negative) Urine Urobilinogen 2.0 A (0.2-1.0) Ur Leukocyte Esterase Negative (Negative) Urine RBC 2-5 A (0-2) Urine WBC 0-2 (0-5) Ur Squamous Epith Cells None (None-Few) Urine Bacteria None (None) SARS-CoV-2 (PCR) Negative SARS-CoV-2 (Negative) Influenza Type A (PCR) Negative PCR FLU A (Negative) Influenza Type B (PCR) Negative PCR FLU B (Negative) RSV (PCR) Negative PCR RSV (Negative) 01/31/24 Range/Units 22:30 WBC (4.50-11.00) K/uL RBC (4.30-5.90) m/uL Hgb (13.5-17.5) gm/dL Hct (37.0-53.0) % MCV (80-100) fL MCH (26-34) pg MCHC (32-36) gm/dL RDW Coeff of Tonya (11.5-15.5) % Plt Count (140-440) K/uL Neut % (Auto) (42.0-72.0) % Lymph % (Auto) (20-44) % [place] % (Auto) (0.0-11.0) % Eos % (Auto) (0.0-7.0) % Baso % (Auto) (0.0-3.0) % Neut # (Auto) (1.7-7.0) K/uL Lymph # (Auto) (0.90-2.90) K/uL [place] # (Auto) (0.00-0.90) K/UL Eos # (Auto) (0.00-0.50) K/uL Baso # (Auto) (0.00-0.30) K/uL Abs Immat Gran (auto) (0.00-0.30) K/uL Imm/Tot Granulo (auto) % D-Dimer Quant (PE/DVT) (0.00-0.50) ug/ml Sodium (135-149) mmol/L Potassium (3.6-5.1) mmol/L Chloride (96-114) mmol/L Carbon Dioxide (20-32) mmol/L Anion Gap (7-15) mEq/L BUN (7-30) mg/dL Creatinine (0.5-1.5) mg/dL Estimated Creat Clear Estimated GFR ml/min Glucose (60-115) mg/dL Lactate (0.5-1.9) mmol/L Calcium (8.4-10.6) mg/dL Total Bilirubin (0.1-1.5) mg/dL AST (12-35) U/L ALT (4-50) U/L Alkaline Phosphatase (40-150) U/L Troponin I (0.01-0.04) ng/mL NT-Pro-B Natriuret Pep Cancelled pg/mL Total Protein 7.6 (6.0-8.3) g/dL Albumin 4.2 (3.3-5.0) g/dL Urine Color (Yellow) Urine Appearance (Clear) Urine pH (5.0-8.5) Ur Specific [place] (1.000-1.030) Urine Protein (Negative) Urine Glucose (UA) (Negative) Urine Ketones (Negative) Urine Blood (Negative) Urine Nitrite (Negative) Urine Bilirubin (Negative) Urine Urobilinogen (0.2-1.0) Ur Leukocyte Esterase (Negative) Urine RBC (0-2) Urine WBC (0-5) Ur Squamous Epith Cells (None-Few) Urine Bacteria (None) SARS-CoV-2 (PCR) (Negative) Influenza Type A (PCR) (Negative) Influenza Type B (PCR) (Negative) RSV (PCR) (Negative) Discharge Plan Discharge Clinical Impression: Pneumonia Patient Disposition: Home, Self-Care Condition: Stable Instructions: Pneumonia (ED) Additional Instructions: Levaquin as directed Tylenol Motrin Rest Fluids Close outpatient follow-up with your doctor. Activity Level: No Restrictions Discharge Diet: Regular Prescriptions: No Action aspirin 81 mg tablet,delayed release (DR/EC) 81 mg PO DAILY cholecalciferol (vitamin D3) 125 mcg (5,000 unit) tablet 125 mcg PO DAILY multivitamin [Daily Multi-Vitamin] Tablet 1 tab PO DAILY polyethylene glycol 3350 [Miralax] 17 gram/dose powder 8.5 g PO DAILY nitroglycerin 0.4 mg tablet, sublingual 0.4 mg sublingual Q5M PRN omega-3 acid ethyl esters [Lovaza] 1 gram capsule 2 cap PO BID (DME) Home Oxygen Misc See Rx Instructions .Route Qty: 1 0RF Rx Instructions: 3 liters/NC with activity (DME) Home Oxygen Misc See Rx Instructions .Route Qty: 1 0RF Rx Instructions: 3 liters/NC with activity (DME) Home Oxygen Misc See Rx Instructions .Route Qty: 1 0RF Rx Instructions: 1 L per nasal cannula at rest and 3 L per nasal cannula with activity metoprolol succinate 25 mg capsule,sprinkle,ER 24hr 25 mg PO DAILY Qty: 30 0RF glipizide 10 mg tablet extended release 24hr 10 mg PO DAILY fenofibrate micronized 67 mg capsule 67 mg PO DAILY allopurinol 100 mg tablet 100 mg PO BID spironolactone 25 mg tablet 25 mg PO DAILY potassium chloride [Klor-Con M20] 20 mEq tablet,ER particles/crystals 20 meq PO BID tamsulosin 0.4 mg capsule 0.8 mg PO DAILY metformin 1,000 mg tablet 1,000 mg PO BIDWM bumetanide 1 mg tablet 3 mg PO BID allopurinol 300 mg tablet 300 mg PO BID albuterol sulfate [Ventolin HFA] 90 mcg/actuation HFA aerosol inhaler 2 puff inhalation Q4H PRN lisinopril 2.5 mg tablet 2.5 mg PO DAILY finasteride 5 mg tablet 5 mg PO DAILY rosuvastatin 20 mg tablet 20 mg PO DAILY duloxetine 60 mg capsule,delayed release(DR/EC) 60 mg PO DAILY insulin glargine [Lantus Solostar U-100 Insulin] 100 unit/mL (3 mL) insulin pen 45 unit subcut QPM Ozempic 2 mg/dose (8 mg/3 mL) pen injector 2 mg subcut Q7D Follow Up/Referrals: Provider,Not a Local [Primary Care Provider] - Stand Alone Forms: [employer] Info Instructions
[2024-01-31 21:57] VITALS: BP 135/111; PULSE 110; RESP 22; TEMP 37.4; O2SAT 90; BMI 56.3
[2024-01-31 22:15] VITALS: O2SAT 91
[2024-01-31 22:46] LABS: Lactate* 2.3 mmol/L (0.5-1.9)
[2024-01-31 22:52] LABS: Appearance Urine Clear (Clear); Bilirubin Urine Negative (Negative); Blood Urine Negative (Negative); Color Urine Yellow (Yellow); Glucose Urine Negative (Negative); Ketones Urine Negative (Negative); Leukocyte Esterase Urine Negative (Negative); Nitrite Urine Negative (Negative); Protein Urine 2+ (Negative); Specific Gravity Urine 1.015 (1.000-1.030)
[2024-01-31 22:55] LABS: Basophils Percent Auto 0.3 % (0.0-3.0); Hematocrit 48.3 % (37.0-53.0); Hemoglobin* 14.8 gm/dL (13.5-17.5); Lymphocytes Percent Auto 3.5 % (20-44); Mean Corpuscular HGB Conc 31 gm/dL (32-36); Mean Corpuscular Hemoglobin 25 pg (26-34); Mean Corpuscular Volume 81 fL (80-100); Monocytes Percent Auto 10.1 % (0.0-11.0); Neutrophils Percent Auto 85.1 % (42.0-72.0); Platelet Count* 202 K/uL (140-440); RDW Coefficient of Variation % 18.5 % (11.5-15.5); Red Blood Count 5.97 m/uL (4.30-5.90); White Blood Count* 15.15 K/uL (4.50-11.00)
[2024-01-31 22:59] LABS: Slide Review Reflex No
[2024-01-31 23:00] LABS: Albumin* 4.2 g/dL (3.3-5.0); Chloride* 91 mmol/L (96-114)
[2024-01-31 23:01] LABS: PCR FLU A Negative PCR FLU A (Negative); PCR FLU B Negative PCR FLU B (Negative); PCR RSV Negative PCR RSV (Negative); SARS PCR* Negative SARS-CoV-2 (Negative)
[2024-01-31 23:01] LABS: Potassium* 4.5 mmol/L (3.6-5.1); Sodium* 134 mmol/L (135-149)
[2024-01-31 23:03] LABS: Anion Gap 5 mEq/L (7-15); Aspartate Amino Transferase* 27 U/L (12-35); Bilirubin Total* 2.5 mg/dL (0.1-1.5); Carbon Dioxide* 38 mmol/L (20-32); Est. Creatinine Clearance* 84.71; Estimated Glomerular Filt Rate 87 ml/min; Total Protein* 7.6 g/dL (6.0-8.3)
[2024-01-31 23:04] LABS: WBC Urine 0-2 (0-5)
[2024-01-31 23:04] LABS: Alanine Aminotransferase* 17 U/L (4-50); Alkaline Phosphatase* 67 U/L (40-150); Blood Urea Nitrogen* 24 mg/dL (7-30); Calcium* 8.5 mg/dL (8.4-10.6); Glucose* 136 mg/dL (60-115)
[2024-01-31 23:16] LABS: Troponin I* 0.03 ng/mL (0.01-0.04)
[2024-01-31 23:19] LABS: NT Pro B Type NatriureticPept* 3760 pg/mL
[2024-01-31] MEDS: 0.9 % SODIUM CHLORIDE 1000 ml 1,000 ML IV (23:19)
[2024-01-31 23:22] LABS: D Dimer Quantitative* 0.26 ug/ml (0.00-0.50)
--- NOTE | 2024-02-01 00:50 | PC.NURSE ---
Pt here with daughter, states he will not stay in the hospital, discussed risks of going home with diagnosis, pt verbalizes he is leaving, declines admission. Pt spoke with physician and would like to go home.
[2024-02-01 00:55] VITALS: PULSE 120; RESP 28; TEMP 37.5; O2SAT 91
== END 2024-02-01 00:45 | disposition home or self-care (01) ==
PROVIDERS: Emergency Provider Internal Medicine
DX: J18.9 Pneumonia, unspecified organism (principal)
CPT/HCPCS: 36415; 71046; 80053; 81001; 81003; 83605; 83880; 84484; 85025; 85379; 87040; 87631; 93005; 94761; 99284; 99285; J7030

== ENCOUNTER 2024-02-04 08:39 | Outpatient (CLI) | payer OTHER, SELFPAY | END 2024-02-04 08:40 | disposition home or self-care (01) | LOC: WOUND 08:39 | PROVIDERS: Visit Provider Surgery | DX: I87.311 Chronic venous hypertension (idiopathic) with ulcer of right lower extremity (principal); I87.2 Venous insufficiency (chronic) (peripheral); L97.812 Non-pressure chronic ulcer of other part of right lower leg with fat layer exposed | CPT/HCPCS: 15271; Q4101 ==

== ENCOUNTER 2024-02-11 08:40 | Outpatient (CLI) | payer OTHER, SELFPAY | END 2024-02-11 08:41 | disposition home or self-care (01) | LOC: WOUND 08:40 | PROVIDERS: Visit Provider Surgery | DX: I87.311 Chronic venous hypertension (idiopathic) with ulcer of right lower extremity (principal); I87.2 Venous insufficiency (chronic) (peripheral); L97.812 Non-pressure chronic ulcer of other part of right lower leg with fat layer exposed | CPT/HCPCS: G0463 ==

== ENCOUNTER 2024-02-18 08:38 | Outpatient (CLI) | payer OTHER, SELFPAY | END 2024-02-18 08:39 | disposition home or self-care (01) | LOC: WOUND 08:38 | PROVIDERS: Visit Provider Surgery | DX: I87.311 Chronic venous hypertension (idiopathic) with ulcer of right lower extremity (principal); I87.2 Venous insufficiency (chronic) (peripheral); E11.8 Type 2 diabetes mellitus with unspecified complications; Z79.84 Long term (current) use of oral hypoglycemic drugs | CPT/HCPCS: 97597 ==

== ENCOUNTER 2024-02-25 08:39 | Outpatient (CLI) | payer OTHER, SELFPAY | END 2024-02-25 08:40 | disposition home or self-care (01) | LOC: WOUND 08:39 | PROVIDERS: Visit Provider Surgery | DX: I87.311 Chronic venous hypertension (idiopathic) with ulcer of right lower extremity (principal); I87.2 Venous insufficiency (chronic) (peripheral); L97.812 Non-pressure chronic ulcer of other part of right lower leg with fat layer exposed | CPT/HCPCS: 97597 ==

== ENCOUNTER 2024-03-03 08:40 | Outpatient (CLI) | payer OTHER, SELFPAY | END 2024-03-03 08:41 | disposition home or self-care (01) | LOC: WOUND 08:40 | PROVIDERS: Visit Provider Surgery | DX: I87.2 Venous insufficiency (chronic) (peripheral) (principal); I89.0 Lymphedema, not elsewhere classified; L97.812 Non-pressure chronic ulcer of other part of right lower leg with fat layer exposed; E11.8 Type 2 diabetes mellitus with unspecified complications; Z79.4 Long term (current) use of insulin; Z79.84 Long term (current) use of oral hypoglycemic drugs | CPT/HCPCS: 97597 ==

== ENCOUNTER 2024-03-17 08:38 | Outpatient (CLI) | payer OTHER, SELFPAY | END 2024-03-17 08:39 | disposition home or self-care (01) | LOC: WOUND 08:38 | PROVIDERS: Visit Provider Surgery | DX: I87.311 Chronic venous hypertension (idiopathic) with ulcer of right lower extremity (principal); L97.812 Non-pressure chronic ulcer of other part of right lower leg with fat layer exposed; E11.8 Type 2 diabetes mellitus with unspecified complications; Z79.4 Long term (current) use of insulin; Z79.84 Long term (current) use of oral hypoglycemic drugs | CPT/HCPCS: 97597 ==

== ENCOUNTER 2024-03-31 08:41 | Outpatient (CLI) | payer OTHER, SELFPAY | END 2024-03-31 08:42 | disposition home or self-care (01) | LOC: WOUND 08:41 | PROVIDERS: Visit Provider Surgery | DX: I87.311 Chronic venous hypertension (idiopathic) with ulcer of right lower extremity (principal); I87.2 Venous insufficiency (chronic) (peripheral); L97.812 Non-pressure chronic ulcer of other part of right lower leg with fat layer exposed | CPT/HCPCS: 97597 ==

== ENCOUNTER 2024-04-14 08:44 | Outpatient (CLI) | payer OTHER, SELFPAY | END 2024-04-14 08:45 | disposition home or self-care (01) | LOC: WOUND 08:44 | PROVIDERS: Visit Provider Physician Assistant | DX: I87.311 Chronic venous hypertension (idiopathic) with ulcer of right lower extremity (principal); I87.2 Venous insufficiency (chronic) (peripheral); L97.812 Non-pressure chronic ulcer of other part of right lower leg with fat layer exposed | CPT/HCPCS: 97597 ==

== ENCOUNTER 2024-04-20 09:18 | Outpatient (CLI) | payer OTHER, SELFPAY | END 2024-04-20 09:19 | disposition home or self-care (01) | LOC: WOUND 09:18 | PROVIDERS: Visit Provider Nurse Practitioner Family | DX: I87.311 Chronic venous hypertension (idiopathic) with ulcer of right lower extremity (principal); I87.2 Venous insufficiency (chronic) (peripheral); I89.0 Lymphedema, not elsewhere classified; L97.812 Non-pressure chronic ulcer of other part of right lower leg with fat layer exposed | CPT/HCPCS: 97602 ==

== ENCOUNTER 2024-04-28 08:37 | Outpatient (CLI) | payer OTHER, SELFPAY | END 2024-04-28 08:38 | disposition home or self-care (01) | LOC: WOUND 08:37 | PROVIDERS: Visit Provider Surgery | DX: I87.311 Chronic venous hypertension (idiopathic) with ulcer of right lower extremity (principal); I87.2 Venous insufficiency (chronic) (peripheral); I89.0 Lymphedema, not elsewhere classified; L97.812 Non-pressure chronic ulcer of other part of right lower leg with fat layer exposed; E11.9 Type 2 diabetes mellitus without complications | CPT/HCPCS: 97597 ==

== ENCOUNTER 2024-05-05 09:47 | Outpatient (CLI) | payer OTHER, SELFPAY | END 2024-05-05 09:48 | disposition home or self-care (01) | LOC: WOUND 09:47 | PROVIDERS: Visit Provider Nurse Practitioner Family | DX: I87.311 Chronic venous hypertension (idiopathic) with ulcer of right lower extremity (principal); I87.2 Venous insufficiency (chronic) (peripheral); I89.0 Lymphedema, not elsewhere classified; L97.812 Non-pressure chronic ulcer of other part of right lower leg with fat layer exposed | CPT/HCPCS: 97597 ==

== ENCOUNTER 2024-05-12 08:42 | Outpatient (CLI) | payer OTHER, SELFPAY | END 2024-05-12 08:43 | disposition home or self-care (01) | LOC: WOUND 08:42 | PROVIDERS: Visit Provider Surgery | DX: I87.311 Chronic venous hypertension (idiopathic) with ulcer of right lower extremity (principal); I87.2 Venous insufficiency (chronic) (peripheral); I89.0 Lymphedema, not elsewhere classified; L97.812 Non-pressure chronic ulcer of other part of right lower leg with fat layer exposed | CPT/HCPCS: 97597 ==

== ENCOUNTER 2024-05-19 08:31 | Outpatient (CLI) | payer OTHER, SELFPAY | END 2024-05-19 08:32 | disposition home or self-care (01) | LOC: WOUND 08:41 | PROVIDERS: Visit Provider Surgery | DX: I87.311 Chronic venous hypertension (idiopathic) with ulcer of right lower extremity (principal); I87.2 Venous insufficiency (chronic) (peripheral); I89.0 Lymphedema, not elsewhere classified; L97.812 Non-pressure chronic ulcer of other part of right lower leg with fat layer exposed; E11.8 Type 2 diabetes mellitus with unspecified complications; Z79.4 Long term (current) use of insulin; Z79.84 Long term (current) use of oral hypoglycemic drugs | CPT/HCPCS: 11042; 87070; 87186; G0463 ==

== ENCOUNTER 2024-05-26 08:42 | Outpatient (CLI) | payer OTHER, SELFPAY | END 2024-05-26 08:43 | disposition home or self-care (01) | LOC: WOUND 08:42 | PROVIDERS: Visit Provider Surgery | DX: I87.311 Chronic venous hypertension (idiopathic) with ulcer of right lower extremity (principal); I87.2 Venous insufficiency (chronic) (peripheral); I89.0 Lymphedema, not elsewhere classified; L97.812 Non-pressure chronic ulcer of other part of right lower leg with fat layer exposed | CPT/HCPCS: 97597 ==

== ENCOUNTER 2024-06-02 08:39 | Outpatient (CLI) | payer OTHER, SELFPAY | END 2024-06-02 08:40 | disposition home or self-care (01) | LOC: WOUND 08:39 | PROVIDERS: Visit Provider Nurse Practitioner Family | DX: I87.311 Chronic venous hypertension (idiopathic) with ulcer of right lower extremity (principal); I87.2 Venous insufficiency (chronic) (peripheral); I89.0 Lymphedema, not elsewhere classified; L97.812 Non-pressure chronic ulcer of other part of right lower leg with fat layer exposed | CPT/HCPCS: 97597 ==

== ENCOUNTER 2024-06-09 08:41 | Outpatient (CLI) | payer OTHER, SELFPAY | END 2024-06-09 08:42 | disposition home or self-care (01) | LOC: WOUND 08:41 | PROVIDERS: Visit Provider Surgery | DX: I87.311 Chronic venous hypertension (idiopathic) with ulcer of right lower extremity (principal); I87.2 Venous insufficiency (chronic) (peripheral); I89.0 Lymphedema, not elsewhere classified; L97.812 Non-pressure chronic ulcer of other part of right lower leg with fat layer exposed | CPT/HCPCS: 97597 ==

== ENCOUNTER 2024-06-14 12:00 | Outpatient (RCR) | payer OTHER, SELFPAY ==
[2024-05-18 09:19] VITALS: BMI 56.9
[2024-05-18 17:00] VITALS: BMI 56.9
--- NOTE | 2024-05-19 12:11 | OT.OPLE2 ---
OT Outpatient Lymphedema Eval* OT Outpatient Lymphedema Eval* Start: 05/18/24 09:19 Freq: Status: Active Protocol: Document 05/18/24 09:19 JAN (Rec: 05/18/24 17:00 JAN [id number]) E-signed By Gema Justin, OTR/L, CLT OT Outpatient Evaluation Details Type Type Eval Complexity Medium Insurance Information Insurance Information Insurance Information [facility] Height and Weight Height Height 180.34 cm Weight Weight 185.066 kg Weight Measurement Method Standing Scale BMI Body Mass Index (kg/m?) 56.9 BMI Classification Extreme Obesity Obesity Class III OT OP Lymphedema Evaluation Current Condition/Medical Diagnosis Referring Provider Dr. Cynthia Jameson Medical Diagnoses I89.0 Lymphedema Treatment Diagnosis I89.0 Lymphedema Date Of Onset Chronic Medical Contraindications HTN Medical History Medical History CHF,Obesity,Heart Disease,HTN Medical History Comments EF ~50% Gout M10.9 - Gout, unspecified (ICD -10) Scrotal edema N50.89 - Other specified disorders of the male genital organs (ICD-10) Right heart failure with reduced right ventricular function I50.810 - Right heart failure, unspecified (ICD-10) Obesity hypoventilation syndrome E66.2 - Morbid (severe) obesity with alveolar hypoventilation (ICD-10) CAD (coronary artery disease) I25.10 - Atherosclerotic heart disease of [place] coronary artery without angina pectoris (ICD-10) Acute on chronic respiratory failure with hypoxia and hypercapnia J96.21 - Acute and chronic respiratory failure with hypoxia (ICD-10) J96.22 - Acute and chronic respiratory failure with hypercapnia (ICD-10) TACO (obstructive sleep apnea) G47.33 - Obstructive sleep apnea (adult) (pediatric) (ICD -10) Chronic respiratory failure with hypoxia and hypercapnia J96.11 - Chronic respiratory failure with hypoxia (ICD-10) J96.12 - Chronic respiratory failure with hypercapnia (ICD- 10) Morbid obesity E66.01 - Morbid (severe) obesity due to excess calories (ICD-10) Diabetes mellitus type 2 in nonobese E11.9 - Type 2 diabetes mellitus without complications (ICD-10) Hypercholesterolemia E78.00 - Pure hypercholesterolemia, unspecified (ICD-10) Pulmonary hypertension I27.20 - Pulmonary hypertension, unspecified (ICD -10) Diastolic heart failure I50.30 - Unspecified diastolic (congestive) heart failure ( ICD-10) Hypertension I10 - Essential (primary) hypertension (ICD-10) Varicose veins with ulcer and inflammation I83.209 - Varicose veins of unspecified lower extremity with both ulcer of unspecified site and inflammation (ICD-10 ) L97.909 - Non-pressure chronic ulcer of unspecified part of unspecified lower leg with unspecified severity (ICD-10) Chronic wound T14.8XXA - Other injury of unspecified body region, initial encounter (ICD-10) Venous stasis I87.8 - Other specified disorders of veins (ICD-10) Medications Medications aspirin 81 mg tablet,delayed release (DR/EC) 81 mg PO DAILY cholecalciferol (vitamin D3) 125 mcg (5,000 unit) tablet 125 mcg PO DAILY multivitamin [Daily Multi- Vitamin] Tablet 1 tab PO DAILY omega-3 acid ethyl esters [ Lovaza] 1 gram capsule 2 cap PO BID (DME) Home Oxygen 3 liters/ NC with activity metoprolol succinate 25 mg capsule,sprinkle,ER 24hr 25 mg PO DAILY Qty: 30 0RF glipizide 10 mg tablet extended release 24hr 10 mg PO DAILY fenofibrate micronized 67 mg capsule 67 mg PO DAILY allopurinol 100 mg tablet 100 mg PO BID spironolactone 25 mg tablet 25 mg PO DAILY potassium chloride [Klor-Con M20] 20 mEq tablet,ER particles/crystals 20 meq PO BID tamsulosin 0.4 mg capsule 0.8 mg PO DAILY metformin 1,000 mg tablet 1, 000 mg PO BIDWM bumetanide 1 mg tablet 3 mg PO BID allopurinol 300 mg tablet 300 mg PO BID albuterol sulfate [Ventolin HFA] 90 mcg/actuation HFA aerosol inhaler 2 puff inhalation Q4H PRN lisinopril 2.5 mg tablet 2.5 mg PO DAILY finasteride 5 mg tablet 5 mg PO DAILY rosuvastatin 20 mg tablet 20 mg PO DAILY duloxetine 60 mg capsule, delayed release(DR/EC) 60 mg PO DAILY insulin glargine [Lantus Solostar U-100 Insulin] 100 unit/mL (3 mL) insulin pen 45 unit subcut QPM Ozempic 2 mg/dose (8 mg/3 mL) pen injector 2 mg subcut Q7D Contraindications Contraindications General Contraindications Comments R LE Anterior LE lower leg venous leg ulcer (Full thickness) covered with Mepilex Dressing Patient goes to the [facility] every Friday ( began on 06/01/23) Family History Family History of Lymphedema No Current Work Status Current Work Status [employer] Current Work Status Comments 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 Patient has a complex past medical history including right heart failure obesity hypoventilation syndrome, history of stasis venous ulcer on the right lower extremity as well as pulmonary hypertension and diabetes. Living Situation Current Living Situation Home With Spouse Or SO Current Living Situation Comments Has 2 roommate Patient Difficulties Difficulties With Any Of The Following Walking,Dressing,Reaching Feet & Toes,Bathing/Showering, Preparing Meals,Sleeping In Bed Impairments Impairments Loss of Mobility,Difficulties With ADLs,Limb Heaviness,Poor Clothing Fit Problem List Problem List Limited Knowledge of Lymphedema Treatment/Condition /Precautions,Limited Knowledge of Skin Care & Infection Precautions,Significant Risk For Infection For Lymphedema Related Complications,Does Not Have a HEP,Presents With Increased Fall Risk Secondary To Lymphedema,Presents With Impaired Mobility/ROM Exercise History Does Patient Exercise Regularly No Pain Pain No Previous Treatment Previous Treatment For Swelling/ Compression Garment,Elevation Lymphedema Previous Treatment/Current Home Program Very hard for patient to lay on his back, he will lay on the floor with his legs up on the couch for elevation (daily 30-60 mins). Compression History Does Patient Currently Wear Compression Yes During Daytime Compression During Daytime Comments Velcro wraps but only have 1 set and needs multiple pairs in order to wash/dry daily Bilateral LE Sigvaris Compreflex Calf (Large, Tall) Does Patient Currently Wear Compression No At Night Current Swelling (Location/Pitting/Texture) Pitting Scale: 0 = No pitting 1+ Tissue returns to normal almost immediately 2+ Tissue returns after 15-30 seconds 3+ Tissue returns after 1-1/2 minutes 4+ Tissue returns after 2-3 minutes N/A Tissue no longer pits due to induration Tissue texture: Soft or indurated Triggering Event & Start Date of Lymphedema is chronic, Swelling/Lymphedema worsened last year 2022 when patient had a skin tear which developed Cellulitis. R LE Anterior LE lower leg venous leg ulcer (Full thickness) covered with Mepilex Dressing Patient goes to the [facility] every [facility] ( began on 06/01/23) Skin Changes Hemosiderin Staining, Hyperkeratosis,Fibrosis, Limited Skin Mobility Positive Stemmer's Sign Yes Capillary Refill Slow Type of Swelling Secondary Staging Staging Stage 2 Circumferential Measurements Lower Extremity Left Lower Extremity Great Toe (in cm) 10.5 MTP (in cm) 28 Arch (in cm) 29.6 Calcaneus (in cm) 35 Ankle (in cm) 29 10 cm above Calcaneus Measurement 31.2 20 cm above Calcaneus Measurement 42 30 cm above Calcaneus Measurement 52.5 40 cm above Calcaneus Measurement 48.4 50 cm above Calcaneus Measurement 60.6 Total Girth in cm 366.8 LE Volume C 872.81 LE Volume D 1073.72 LE Volume E 1783.92 LE Volume F 202.52 LE Volume G 2373.52 Lower Extremity Volume Total in cm 8,130.49 Right Lower Extremity Great Toe (in cm) 10.4 MTP (in cm) 28 Arch (in cm) 30 Calcaneus (in cm) 35 Ankle (in cm) 29.4 10 cm above Calcaneus Measurement 35 20 cm above Calcaneus Measurement 48.2 30 cm above Calcaneus Measurement 50.1 40 cm above Calcaneus Measurement 53.2 50 cm above Calcaneus Measurement 65 Total Girth in cm 384.3 LE Volume C 974 LE Volume D 1388.69 LE Volume E 1922.61 LE Volume F 2123.54 LE Volume G 2788.72 Lower Extremity Volume Total in cm 9,197.56 Assessment Assessment 58 year old male patient presenting to the clinic for a Lymphedema Evaluation. Patient has never been seen for this diagnosis prior and was given a folder with educational materials including Nutrition, Lymphedema Risk Factors, Optimal Skin Hygiene, How to prevent infection, & Self- Massage Drainage. Patient was pleasant, alert, orientated, asked great questions in session, was an active listener to information presented and showed signs of motivation/willingness to follow the presented protocol in POC. Therapist took measurements of bilateral LE's and explained to patient what would occur in the next 4 sessions. PLAN: manual lymph drainage, teach patient self- massage, fit and size patient for most appropriate compression wraps (as insurance allows/to what patient can afford and work with), develop and design a customized home exercise program that fits the needs and ability of patient. Patient was a pleasure to work with today and it is anticipated that patient will make great gains with skilled OT services. Patient Goals Patient Goals I want this wound on my R leg to heal I want my legs not to be so heavy Click To Default Short Term Goals Standard Goals Short Term Goals Goal: Patient will understand lymphedema precautions to decrease risk of infection and further lymphedema related complications Goal: Patient will experience decreased pitting edema in order to improve tissue health and decrease risk for infection/cellulitis Goal: Patient will perform HEP with minimal assistance in order to improve lymphatic flow and venous return Goal: Patient will perform self MLD protocol with minimal assistance to help reduce swelling and improve ROM and mobility Click To Default Fpc Goals Standard Goals Quality Process Engineer Goals Goal: Patient will experience increased ROM and mobility in order to improve safety and independence with transfers and mobility Goal: Patient will achieve a reduction of cm from total measurements to enable functional improvements such as fitting into standard sized clothing and shoes, return to a prior level of functional mobility, improved balance, and reduced risk of falling. Patient and/or caregiver will be independent with HEP and lymphedema management to reduce risk for edema relapse and to reduce risk for infection Treatment Plan Treatment Plan Evaluation,Edema Control,Joint Mobilization,Manual Therapy, Wound Care/Scar Management, Therapeutic Exercise, Therapeutic Activities,Self- Care/Home Management,Education Expected Frequency 1-2x Week Certification Certification Statement I Certify That: Therapy Services Provided, Therapy Plan Established, Therapy Plan Reviewed Certification Information Clinic ID # [id number] Initial Certification Date 05/18/24 Recertification Due Date 08/16/24 Provider Signature Required Yes Provider Signature Shows Agreement With POC & Medical Necessity Physician NPI Number Write NPI# Here Physician Comment/Change Comment or Changes Physician Signature & Date Requested Please Sign/Date Here
[2024-05-25 15:57] VITALS: BMI 56.9
[2024-06-01 09:23] VITALS: BMI 56.9
[2024-06-07 13:54] VITALS: BMI 56.9
[2024-06-14 11:48] VITALS: BMI 56.9
== END 2024-06-14 13:43 | disposition home or self-care (01) ==
PROVIDERS: Visit Provider Surgery
DX: I89.0 Lymphedema, not elsewhere classified (principal); Z51.89 Encounter for other specified aftercare
CPT/HCPCS: 97110; 97140; 97166; X5282

== ENCOUNTER 2024-06-16 08:38 | Outpatient (CLI) | payer OTHER, SELFPAY | END 2024-06-16 08:39 | disposition home or self-care (01) | LOC: WOUND 08:38 | PROVIDERS: Visit Provider Surgery | DX: I87.311 Chronic venous hypertension (idiopathic) with ulcer of right lower extremity (principal); I87.2 Venous insufficiency (chronic) (peripheral); I89.0 Lymphedema, not elsewhere classified; L97.812 Non-pressure chronic ulcer of other part of right lower leg with fat layer exposed | CPT/HCPCS: 97597 ==

== ENCOUNTER 2024-06-23 08:38 | Outpatient (CLI) | payer OTHER, SELFPAY | END 2024-06-23 08:39 | disposition home or self-care (01) | LOC: WOUND 08:38 | PROVIDERS: Visit Provider Surgery | DX: I87.311 Chronic venous hypertension (idiopathic) with ulcer of right lower extremity (principal); I87.2 Venous insufficiency (chronic) (peripheral); I89.0 Lymphedema, not elsewhere classified; L97.812 Non-pressure chronic ulcer of other part of right lower leg with fat layer exposed | CPT/HCPCS: 87070; 87186; 97597; 97598; G0463 ==

== ENCOUNTER 2024-06-30 08:37 | Outpatient (CLI) | payer OTHER, SELFPAY | END 2024-06-30 08:38 | disposition home or self-care (01) | LOC: WOUND 08:37 | PROVIDERS: Visit Provider Surgery | DX: I87.311 Chronic venous hypertension (idiopathic) with ulcer of right lower extremity (principal); I87.2 Venous insufficiency (chronic) (peripheral); I89.0 Lymphedema, not elsewhere classified; L97.812 Non-pressure chronic ulcer of other part of right lower leg with fat layer exposed | CPT/HCPCS: 97597 ==

== ENCOUNTER 2024-07-07 08:39 | Outpatient (CLI) | payer OTHER, SELFPAY | END 2024-07-07 08:40 | disposition home or self-care (01) | LOC: WOUND 08:39 | PROVIDERS: Visit Provider Nurse Practitioner Family | DX: I87.311 Chronic venous hypertension (idiopathic) with ulcer of right lower extremity (principal); I87.2 Venous insufficiency (chronic) (peripheral); I89.0 Lymphedema, not elsewhere classified; L97.812 Non-pressure chronic ulcer of other part of right lower leg with fat layer exposed | CPT/HCPCS: 11042; G0463 ==

== ENCOUNTER 2024-07-14 08:36 | Outpatient (CLI) | payer OTHER, SELFPAY | END 2024-07-14 08:37 | disposition home or self-care (01) | LOC: WOUND 08:36 | PROVIDERS: Visit Provider Nurse Practitioner Family | DX: I87.311 Chronic venous hypertension (idiopathic) with ulcer of right lower extremity (principal); I87.2 Venous insufficiency (chronic) (peripheral); I89.0 Lymphedema, not elsewhere classified; L97.812 Non-pressure chronic ulcer of other part of right lower leg with fat layer exposed | CPT/HCPCS: 11042 ==

== ENCOUNTER 2024-07-21 08:38 | Outpatient (CLI) | payer OTHER, SELFPAY | END 2024-07-21 08:39 | disposition home or self-care (01) | PROVIDERS: Visit Provider Nurse Practitioner Family | DX: I87.311 Chronic venous hypertension (idiopathic) with ulcer of right lower extremity (principal); I87.2 Venous insufficiency (chronic) (peripheral); I89.0 Lymphedema, not elsewhere classified; L97.812 Non-pressure chronic ulcer of other part of right lower leg with fat layer exposed; E11.8 Type 2 diabetes mellitus with unspecified complications | CPT/HCPCS: 15271; Q4101 ==

== ENCOUNTER 2024-07-28 08:40 | Outpatient (CLI) | payer OTHER, SELFPAY | END 2024-07-28 08:41 | disposition home or self-care (01) | LOC: WOUND 08:40 | PROVIDERS: Visit Provider Nurse Practitioner Family | DX: I87.311 Chronic venous hypertension (idiopathic) with ulcer of right lower extremity (principal); I87.2 Venous insufficiency (chronic) (peripheral); I89.0 Lymphedema, not elsewhere classified; L97.818 Non-pressure chronic ulcer of other part of right lower leg with other specified severity; E11.8 Type 2 diabetes mellitus with unspecified complications; Z79.4 Long term (current) use of insulin; Z79.84 Long term (current) use of oral hypoglycemic drugs | CPT/HCPCS: G0463 ==

== ENCOUNTER 2024-08-04 08:35 | Outpatient (CLI) | payer OTHER, SELFPAY | END 2024-08-04 08:36 | disposition home or self-care (01) | PROVIDERS: Visit Provider Nurse Practitioner Family | DX: I87.311 Chronic venous hypertension (idiopathic) with ulcer of right lower extremity (principal); I87.2 Venous insufficiency (chronic) (peripheral); I89.0 Lymphedema, not elsewhere classified; L97.812 Non-pressure chronic ulcer of other part of right lower leg with fat layer exposed; E11.8 Type 2 diabetes mellitus with unspecified complications; Z79.4 Long term (current) use of insulin; Z79.84 Long term (current) use of oral hypoglycemic drugs | CPT/HCPCS: 15271; Q4101 ==

== ENCOUNTER 2024-08-11 08:48 | Outpatient (CLI) | payer OTHER, SELFPAY | END 2024-08-11 08:49 | disposition home or self-care (01) | LOC: WOUND 08:48 | PROVIDERS: Visit Provider Nurse Practitioner Family | DX: I87.311 Chronic venous hypertension (idiopathic) with ulcer of right lower extremity (principal); I87.2 Venous insufficiency (chronic) (peripheral); I89.0 Lymphedema, not elsewhere classified; L97.812 Non-pressure chronic ulcer of other part of right lower leg with fat layer exposed; E11.8 Type 2 diabetes mellitus with unspecified complications; Z79.4 Long term (current) use of insulin; Z79.84 Long term (current) use of oral hypoglycemic drugs | CPT/HCPCS: G0463 ==

== ENCOUNTER 2024-08-18 08:33 | Outpatient (CLI) | payer OTHER, SELFPAY | END 2024-08-18 08:34 | disposition home or self-care (01) | LOC: WOUND 08:33 | PROVIDERS: Visit Provider Nurse Practitioner Family | DX: I87.311 Chronic venous hypertension (idiopathic) with ulcer of right lower extremity (principal); I87.2 Venous insufficiency (chronic) (peripheral); I89.0 Lymphedema, not elsewhere classified; L97.812 Non-pressure chronic ulcer of other part of right lower leg with fat layer exposed; E11.8 Type 2 diabetes mellitus with unspecified complications; Z79.4 Long term (current) use of insulin; Z79.84 Long term (current) use of oral hypoglycemic drugs | CPT/HCPCS: 15271; Q4101 ==

== ENCOUNTER 2024-09-02 08:34 | Outpatient (CLI) | payer OTHER, SELFPAY | END 2024-09-02 08:35 | disposition home or self-care (01) | LOC: WOUND 08:34 | PROVIDERS: Visit Provider Nurse Practitioner Family | DX: I87.311 Chronic venous hypertension (idiopathic) with ulcer of right lower extremity (principal); I87.2 Venous insufficiency (chronic) (peripheral); I89.0 Lymphedema, not elsewhere classified; L97.812 Non-pressure chronic ulcer of other part of right lower leg with fat layer exposed; E11.8 Type 2 diabetes mellitus with unspecified complications; Z79.84 Long term (current) use of oral hypoglycemic drugs | CPT/HCPCS: G0463 ==

== ENCOUNTER 2024-09-08 08:31 | Outpatient (CLI) | payer OTHER, SELFPAY | END 2024-09-08 08:32 | disposition home or self-care (01) | LOC: WOUND 08:32 | PROVIDERS: Visit Provider Nurse Practitioner Family | DX: I87.311 Chronic venous hypertension (idiopathic) with ulcer of right lower extremity (principal); I87.2 Venous insufficiency (chronic) (peripheral); I89.0 Lymphedema, not elsewhere classified; L97.812 Non-pressure chronic ulcer of other part of right lower leg with fat layer exposed; E11.8 Type 2 diabetes mellitus with unspecified complications; Z79.4 Long term (current) use of insulin; Z79.84 Long term (current) use of oral hypoglycemic drugs | CPT/HCPCS: 97597 ==

== ENCOUNTER 2024-09-15 08:28 | Outpatient (CLI) | payer OTHER, SELFPAY | END 2024-09-15 08:29 | disposition home or self-care (01) | LOC: WOUND 08:28 | PROVIDERS: Visit Provider Nurse Practitioner Family | DX: I87.311 Chronic venous hypertension (idiopathic) with ulcer of right lower extremity (principal); I87.2 Venous insufficiency (chronic) (peripheral); I89.0 Lymphedema, not elsewhere classified; L97.812 Non-pressure chronic ulcer of other part of right lower leg with fat layer exposed; B96.5 Pseudomonas (aeruginosa) (mallei) (pseudomallei) as the cause of diseases classified elsewhere; E11.8 Type 2 diabetes mellitus with unspecified complications; Z79.4 Long term (current) use of insulin; Z79.84 Long term (current) use of oral hypoglycemic drugs | CPT/HCPCS: 11042; 87070; 87186 ==

== ENCOUNTER 2024-09-22 08:30 | Outpatient (CLI) | payer OTHER, SELFPAY ==
[2024-09-22 09:18] LABS: Basophils Absolute Auto 0.05 K/uL (0.00-0.30); Basophils Percent Auto 0.7 % (0.0-3.0); Eosinophils Absolute Auto 0.39 K/uL (0.00-0.50); Eosinophils Percent Auto 5.1 % (0.0-7.0); Hematocrit 48.3 % (37.0-53.0); Hemoglobin* 13.9 gm/dL (13.5-17.5); Immature Granulocytes Abs Auto 0.03 K/uL (0.00-0.30); Immature Granulocytes Pct Auto 0.4 %; Lymphocytes Percent Auto 10.1 % (20-44); Mean Corpuscular HGB Conc 29 gm/dL (32-36); Mean Corpuscular Hemoglobin 24 pg (26-34); Mean Corpuscular Volume 82 fL (80-100); Monocytes Percent Auto 10.3 % (0.0-11.0); Neutrophils Percent Auto 73.4 % (42.0-72.0); Platelet Count* 180 K/uL (140-440); RDW Coefficient of Variation % 18.8 % (11.5-15.5); Red Blood Count 5.91 m/uL (4.30-5.90); White Blood Count* 7.64 K/uL (4.50-11.00)
[2024-09-22 09:27] LABS: Slide Review Reflex No
[2024-09-22 09:38] LABS: Albumin* 3.8 g/dL (3.3-5.0); Chloride* 93 mmol/L (96-114)
[2024-09-22 09:39] LABS: Potassium* 5.3 mmol/L (3.6-5.1); Sodium* 140 mmol/L (135-149)
[2024-09-22 09:41] LABS: Alkaline Phosphatase* 59 U/L (40-150); Aspartate Amino Transferase* 28 U/L (12-35); Bilirubin Total* 1.5 mg/dL (0.1-1.5); Blood Urea Nitrogen* 37 mg/dL (7-30); Creatinine* 1.5 mg/dL (0.5-1.5); Estimated Glomerular Filt Rate 53 ml/min; Glucose* 152 mg/dL (60-115); Total Protein* 6.7 g/dL (6.0-8.3)
[2024-09-22 09:42] LABS: Alanine Aminotransferase* 24 U/L (4-50); Calcium* 8.8 mg/dL (8.4-10.6)
[2024-09-22 09:49] LABS: Anion Gap 7 mEq/L (7-15); Carbon Dioxide* 40 mmol/L (20-32)
== END 2024-09-22 08:31 | disposition home or self-care (01) ==
LOC: WOUND 08:30
PROVIDERS: Visit Provider Nurse Practitioner Family
DX: I87.311 Chronic venous hypertension (idiopathic) with ulcer of right lower extremity (principal); I87.2 Venous insufficiency (chronic) (peripheral); I89.0 Lymphedema, not elsewhere classified; E11.8 Type 2 diabetes mellitus with unspecified complications; L97.812 Non-pressure chronic ulcer of other part of right lower leg with fat layer exposed; B96.5 Pseudomonas (aeruginosa) (mallei) (pseudomallei) as the cause of diseases classified elsewhere; Z79.4 Long term (current) use of insulin; Z79.84 Long term (current) use of oral hypoglycemic drugs
CPT/HCPCS: 11042; 36415; 80053; 85025; G0463

== ENCOUNTER 2024-09-29 08:34 | Outpatient (CLI) | payer OTHER, SELFPAY | END 2024-09-29 08:35 | disposition home or self-care (01) | LOC: WOUND 08:34 | PROVIDERS: Visit Provider Nurse Practitioner Family | DX: I87.311 Chronic venous hypertension (idiopathic) with ulcer of right lower extremity (principal); I87.2 Venous insufficiency (chronic) (peripheral); I89.0 Lymphedema, not elsewhere classified; L97.812 Non-pressure chronic ulcer of other part of right lower leg with fat layer exposed; E11.8 Type 2 diabetes mellitus with unspecified complications; Z79.4 Long term (current) use of insulin; Z79.84 Long term (current) use of oral hypoglycemic drugs | CPT/HCPCS: 11042 ==

== ENCOUNTER 2024-10-06 08:32 | Outpatient (CLI) | payer OTHER, SELFPAY | END 2024-10-06 08:33 | disposition home or self-care (01) | LOC: WOUND 08:32 | PROVIDERS: Visit Provider Nurse Practitioner Family | DX: I87.311 Chronic venous hypertension (idiopathic) with ulcer of right lower extremity (principal); I87.2 Venous insufficiency (chronic) (peripheral); I89.0 Lymphedema, not elsewhere classified; L97.812 Non-pressure chronic ulcer of other part of right lower leg with fat layer exposed | CPT/HCPCS: 15271; Q4151 ==

== ENCOUNTER 2024-10-13 08:33 | Outpatient (CLI) | payer OTHER, SELFPAY | END 2024-10-13 08:34 | disposition home or self-care (01) | LOC: WOUND 08:33 | PROVIDERS: Visit Provider Nurse Practitioner Family | DX: I87.311 Chronic venous hypertension (idiopathic) with ulcer of right lower extremity (principal); I87.2 Venous insufficiency (chronic) (peripheral); I89.0 Lymphedema, not elsewhere classified; L97.812 Non-pressure chronic ulcer of other part of right lower leg with fat layer exposed; E11.8 Type 2 diabetes mellitus with unspecified complications; Z79.4 Long term (current) use of insulin; Z79.84 Long term (current) use of oral hypoglycemic drugs | CPT/HCPCS: 15271; Q4151 ==

== ENCOUNTER 2024-10-20 08:33 | Outpatient (CLI) | payer OTHER, SELFPAY | END 2024-10-20 08:34 | disposition home or self-care (01) | LOC: WOUND 08:33 | PROVIDERS: Visit Provider Nurse Practitioner Family | DX: I87.311 Chronic venous hypertension (idiopathic) with ulcer of right lower extremity (principal); I87.2 Venous insufficiency (chronic) (peripheral); I89.0 Lymphedema, not elsewhere classified; L97.812 Non-pressure chronic ulcer of other part of right lower leg with fat layer exposed; E11.8 Type 2 diabetes mellitus with unspecified complications; Z79.84 Long term (current) use of oral hypoglycemic drugs; Z79.4 Long term (current) use of insulin | CPT/HCPCS: 11042 ==

== ENCOUNTER 2024-10-27 08:32 | Outpatient (CLI) | payer OTHER, SELFPAY | END 2024-10-27 08:33 | disposition home or self-care (01) | LOC: WOUND 08:32 | PROVIDERS: Visit Provider Nurse Practitioner Family | DX: I87.311 Chronic venous hypertension (idiopathic) with ulcer of right lower extremity (principal); I87.2 Venous insufficiency (chronic) (peripheral); I89.0 Lymphedema, not elsewhere classified; L97.812 Non-pressure chronic ulcer of other part of right lower leg with fat layer exposed | CPT/HCPCS: 15271; Q4151 ==

== ENCOUNTER 2024-11-04 09:31 | Outpatient (CLI) | payer OTHER, SELFPAY | END 2024-11-04 09:32 | disposition home or self-care (01) | LOC: WOUND 09:31 | PROVIDERS: Visit Provider Nurse Practitioner Family | DX: I87.311 Chronic venous hypertension (idiopathic) with ulcer of right lower extremity (principal); I87.2 Venous insufficiency (chronic) (peripheral); I89.0 Lymphedema, not elsewhere classified; L97.812 Non-pressure chronic ulcer of other part of right lower leg with fat layer exposed; E11.8 Type 2 diabetes mellitus with unspecified complications; Z79.4 Long term (current) use of insulin; Z79.84 Long term (current) use of oral hypoglycemic drugs | CPT/HCPCS: G0463 ==

== ENCOUNTER 2024-11-10 08:39 | Outpatient (CLI) | payer OTHER, SELFPAY | END 2024-11-10 08:40 | disposition home or self-care (01) | LOC: WOUND 08:39 | PROVIDERS: Visit Provider Nurse Practitioner Family | DX: I87.311 Chronic venous hypertension (idiopathic) with ulcer of right lower extremity (principal); I87.2 Venous insufficiency (chronic) (peripheral); I89.0 Lymphedema, not elsewhere classified; E11.622 Type 2 diabetes mellitus with other skin ulcer; L97.812 Non-pressure chronic ulcer of other part of right lower leg with fat layer exposed; Z79.4 Long term (current) use of insulin; Z79.84 Long term (current) use of oral hypoglycemic drugs | CPT/HCPCS: 15271; Q4151 ==

== ENCOUNTER 2024-11-19 09:46 | Outpatient (CLI) | payer OTHER, SELFPAY | END 2024-11-19 09:47 | disposition home or self-care (01) | LOC: WOUND 09:46 | PROVIDERS: Visit Provider Nurse Practitioner Family | DX: I87.311 Chronic venous hypertension (idiopathic) with ulcer of right lower extremity (principal); I89.0 Lymphedema, not elsewhere classified; L97.812 Non-pressure chronic ulcer of other part of right lower leg with fat layer exposed; E11.8 Type 2 diabetes mellitus with unspecified complications; Z72.0 Tobacco use; Z79.4 Long term (current) use of insulin; Z79.84 Long term (current) use of oral hypoglycemic drugs | CPT/HCPCS: G0463 ==

== ENCOUNTER 2024-11-24 08:38 | Outpatient (CLI) | payer OTHER, SELFPAY | END 2024-11-24 08:39 | disposition home or self-care (01) | LOC: WOUND 08:38 | PROVIDERS: Visit Provider Family Medicine | DX: I87.311 Chronic venous hypertension (idiopathic) with ulcer of right lower extremity (principal); I87.2 Venous insufficiency (chronic) (peripheral); I89.0 Lymphedema, not elsewhere classified; L97.812 Non-pressure chronic ulcer of other part of right lower leg with fat layer exposed; E11.8 Type 2 diabetes mellitus with unspecified complications; Z79.84 Long term (current) use of oral hypoglycemic drugs; Z79.4 Long term (current) use of insulin | CPT/HCPCS: 11042 ==

== ENCOUNTER 2024-12-01 08:38 | Outpatient (CLI) | payer OTHER, SELFPAY | END 2024-12-01 08:39 | disposition home or self-care (01) | LOC: WOUND 08:38 | PROVIDERS: Visit Provider Nurse Practitioner Family | DX: I87.311 Chronic venous hypertension (idiopathic) with ulcer of right lower extremity (principal); I87.2 Venous insufficiency (chronic) (peripheral); I89.0 Lymphedema, not elsewhere classified; L97.812 Non-pressure chronic ulcer of other part of right lower leg with fat layer exposed | CPT/HCPCS: 11042 ==

== ENCOUNTER 2024-12-08 08:37 | Outpatient (CLI) | payer OTHER, SELFPAY | END 2024-12-08 08:38 | disposition home or self-care (01) | LOC: WOUND 08:37 | PROVIDERS: Visit Provider Nurse Practitioner Family | DX: I87.311 Chronic venous hypertension (idiopathic) with ulcer of right lower extremity (principal); I87.2 Venous insufficiency (chronic) (peripheral); I89.0 Lymphedema, not elsewhere classified; L97.812 Non-pressure chronic ulcer of other part of right lower leg with fat layer exposed; E11.8 Type 2 diabetes mellitus with unspecified complications; Z79.4 Long term (current) use of insulin; Z79.84 Long term (current) use of oral hypoglycemic drugs | CPT/HCPCS: 11042 ==

== ENCOUNTER 2024-12-11 12:40 | Emergency (ER) | payer OTHER, SELFPAY ==
--- OUTSIDE RECORDS SUMMARY | 2024-12-11 12:42 | XMS_ITS | Encounter Summary ---
Author Organization [facility] Address [address] [place] [address] Care Team Providers Care Aircraft Technician Name Role Phone Cynthia Camp PA-C Primary Care Provider [phone] Encounter Details Date Type Department Care Team (Late st Contact Info) Description 03/13/2020 Refill Order Rheumatology at [address] [address] Prabhakar Adams MD [address] [place] [address] Social History Tobacco Use Types Packs/Day Years Used Date Smoking Tobacco: Former Cigarettes 0.5 25.1 1 990 - 10/2014 Smokeless Tobacco: Never Alcohol Use Standard Drinks/Week Comments No 0 (1 standard drink = 0.6 oz pur e alcohol) PHQ-2 Answer Date Recorded PHQ-2 Score 0 09/03/2019 Sex and Gender Information Value Date Recorded Sex Assigned at Not on file Legal Sex Male 3:25 PM CDT Gender Identity Not on file Sexual Orientation Not on file 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 Not on file Not on file documented as of this encounter Nursing Notes * Marifer Montiel - 07/11/2020 9:32 PM CST Letter sent to patient Marifer Montiel 07/11/2020, 9:32 PM X RAY NURSE documented in this encounter Plan of Treatment Upcoming Encounters Date Type Department Care Team (Late st Contact Info) Description 12/13/2024 2:00 PM CDT Telemedicine [facility] [address] [place] [phone] Cynthia Camp PA-C [address] [place], [place] [phone] documented as of this encounter Visit Diagnoses Diagnosis Encounter for long-term (current) use of medications- Primary Encounter for long-term (current) use of other medications documented in this encounter Care Teams Aircraft Technician Relationship Specialty Start Date End Date Cynthia Camp PA-C [address] [place], [place] [phone] PCP - General Physician Manager Strategy 03/31/18 documented as of this encounter
--- OUTSIDE RECORDS SUMMARY | 2024-12-11 12:42 | XMS_ITS | Encounter Summary ---
Author Organization [facility] Address [address], [place] [address] Care Team Providers Care Endoscopic Technician Name Role Phone Cynthia Camp PA-C Primary Care Provider [phone] Encounter Details Date Type Department Care Team ([facility] st Contact Info) Description 11/22/2024 Results Follow-Up [facility] Cardiology [address] [place] [address] Александр Montiel MD [address] [place] [address] Social History Tobacco Use Types Packs/Day Years Used Date Smoking Tobacco: Former Cigarettes 0.5 25.1 0 09/01/1989 - 10/02/2014 Smokeless Tobacco: Never Alcohol Use Standard Drinks/Week Comments No 0 (1 standard drink = 0.6 oz pur e alcohol) PHQ-2 Answer Date Recorded PHQ-2 Score 0 12/31/2023 Financial Resource Strain Answer Date R ecorded Is it hard for you to pay fo r the very basics like food, housing, medical care or heating? No 09/02/2023 Food Insecurity Answer Date Recorded Does your food run out before you have the money to buy more? No 09/02/2023 Transportation Needs Answer Date Record ed Does a lack of transportatio n keep you from your medical appointments or from getting your medications? 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 Not on file Not on file documented as of this encounter Plan of Treatment Upcoming Encounters Date Type Department Care Team (Late st Contact Info) Description 12/13/2024 2:00 PM CDT Telemedicine [facility] [address] [place] [phone] Cynthia Camp PA-C [address] [place], [place] [phone] documented as of this encounter Visit Diagnoses Not on filedocumented in this encounter Care Teams Endoscopic Technician Relationship Specialty Start Date End Date Cynthia Camp PA-C [address] [place], [place] [phone] PCP - General Physician Wireless Sales Consultant 03/31/18 documented as of this encounter
--- OUTSIDE RECORDS SUMMARY | 2024-12-11 12:42 | XMS_ITS | Encounter Summary ---
Author Organization [facility] Address [address] [place] [address] Care Team Providers Care Meter Inspector Name Role Phone Cynthia Camp PA-C Primary Care Provider [phone] Encounter Details Date Type Department Care Team (Late Contact Info) Description 10/16/2018 Consent for Procedure/Treatme nt [facility] Department INFORMED CONSENT RECORD Social History Tobacco Use Types Packs/Day Years Used Date Smoking Tobacco: Former Cigarettes 0.5 25 0 10/1989 - 10/2014 Smokeless Tobacco: Never Alcohol Use Standard Drinks/Week Comments No 0 (1 standard drink = 0.6 oz pur e alcohol) Sex and Gender Information Value Date Recorded Sex Assigned at Not on file Legal Sex Male 3:25 PM CDT Gender Identity Not on file Sexual Orientation Not on file 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
--- OUTSIDE RECORDS SUMMARY | 2024-12-11 12:42 | XMS_ITS | Encounter Summary ---
Author Organization [facility] Address [address], [place] [address] Care Team Providers Care Miter Grinder Operator Name Role Phone Cynthia Capm PA-C Primary Care Provider [phone] Encounter Details Date Type Department Care Team (Late st Contact Info) Description 2024 Results [facility] [address] [facility] 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
--- OUTSIDE RECORDS SUMMARY | 2024-12-11 12:42 | XMS_ITS | Encounter Summary ---
Author Organization [facility] Address [address], [place] [address] Care Team Providers Care Senior Policy Advisor Name Role Phone Cynthia Camp PA-C Primary Care Provider [phone] Encounter Details Date Type Department Care Team (Latest Contact Info) Description 11/19/2024 8:10 AM CDT Lab Visit Laboratory at [address] [address] Dyslipidemia associated with type 2 diabetes mellitus (HRC); Gout, unspecified cause, unspecified chronicity, unspecified site; High risk medication use; Controlled type 2 diabetes mellitus without complication, without long-term current use of insulin (HRC); Right heart failure with reduced right ventricular function (HRC); Atrial flutter, unspecified type (HRC); 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) Social History Tobacco Use Types Packs/Day Years [...] 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 file Not on file documented as of this encounter Plan of Treatment Upcoming Encounters Date Type Department Care Team (Late st Contact Info) Description 12/13/2024 2:00 PM CDT Telemedicine [facility] [address] [place] [address] Cynthia Camp PA-C [address] [place] [address] documented as of this encounter Procedures Procedure Name Priority Date/Time Associated Diagnosis Comments ALBUMIN/CREAT RATIO Routine 11/19/2024 8 :23 AM CDT Controlled type 2 diabetes mellitus without complication, without long-term current use of insulin (HRC) LIPID PANEL & DIRECT LDL (IF NEEDED) Routine 11/19/2024 8:00 AM CDT Dyslipidemia associated with type 2 diabetes mellitus (HRC) BASIC METABOLIC PANEL Routine 11/19/2024 8:00 AM CDT Right heart failure with reduced right ventricular function (HRC) COMPLETE BLOOD COUNT-NO DIFF Routine 11/19/2024 8:00 AM CDT Atrial flutter, unspecified type (HRC) HGB A1C Routine 11/19/2024 8:00 AM CDT 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) URIC ACID Routine 11/19/2024 8:00 AM CDT Gout, unspecified cause, unspecified chronicity, unspecified site High risk medication use documented in this encounter Results * (ABNORMAL) Albumin/Creatinine Ratio,Random Urine (11/19/2024 8:23 AM CDT) Albumin/Creati nine Ratio, Urine, Random 47(H) <30 mg/g 11/19/2024 12:02 PM CDT [facility] Albumin, Urine, Random 41.6 mg/L 11/19/2024 12:02 PM CDT [facility] Creatinine, Urine, Random 88 >20 mg/dL mg/dL 11/19/2024 12:02 PM T [facility] Urine Non-blood Collection / Unknown 11/19/2024 8:23 AM CDT 11/19/2024 8:23 AM CDT us Derek Leung PA-C LAB_1 Final Resul t Performing Organization Address [facility] de Phone Number [facility] [address] * (ABNORMAL) Hgb A1C (11/19/2024 8:00 AM CDT) Hemoglobin A1C 7.4(H) <=5.6 % 11/19/2024 11:53 AM CDT [facility] Estimated Average Glucose (Calc) 166 < 117 mg/dL 11/19/2024 11:53 AM T [facility] Comment:Estimated average gl ucose (eAG) converts A1c into glucose units (mg/dL) and estimates average glucose over the past approximately 3 months. The eAG reference interval (<117 mg/dL) corresponds to an A1c of <5.7%. Blood Venipuncture / Unknown 11/19/2024 8:00 AM CDT 11/19/2024 8:00 AM CDT Narrative [facility] - 11/19/2024 11:53 AM CDT For patients not previously diagnosed with diabetes: 5.7-6.4%: Increased risk for diabetes 6.5% and greater: Diagnostic for diabetes For patients diagnosed with diabetes: <8.0%: Goal of therapy for ages 18-75 Clinicians may recommend a higher or lower goal for specific individuals. us Cynthia Camp PA-C LAB_1 Final Resul t Performing Organization Address [facility] Co de Phone Number [facility] [address] [place] [address] * (ABNORMAL) Complete Blood Count- No Diff (11/19/2024 8:00 AM CDT) WBC 7.4 3.5 - 10.5 x10(9)/L 11/19/2024 8:25 AM CDT [facility] RBC 5.83(H) 4.32 - 5.72 x10(12)/L 11/19/2024 8:25 AM CDT [facility] Hemoglobin 14.0 13.5 - 17.5 g/dL 11/19/2024 8:25 AM CDT [facility] HCT 49.1 38.8 - 50.0 % 11/19/2024 8:25 AM CDT [facility] MCV 84.2 80.0 - 100.0 fL 11/19/2024 8:25 AM CDT [facility] MCH 24.0(L) 27.6 - 33.3 pg 11/19/2024 8:25 AM CDT [facility] MCHC 28.5(L) 31.5 - 35.2 g/dL 11/19/2024 8:25 AM CDT [facility] RDW 19.9(H) 11.9 - 15.5 % 11/19/2024 8:25 AM CDT [facility] Platelets 178 150 - 450 x10(9)/L 11/19/2024 8:25 AM CDT [facility] Blood Venipuncture / Unknown 11/19/2024 8:00 AM CDT 11/19/2024 8:00 AM CDT us Александр Montiel MD LAB_1 Final Result [facility] [address] [place] [address], [facility] * (ABNORMAL) Basic Metabolic Panel (11/19/2024 8:00 AM CDT) Pathologist [facility] Sodium 141 136 - 145 mmol/L 11/19/2024 11:39 AM CDT [facility] Potassium 4.7 3.5 - 5.1 mmol/L 11/19/2024 11:39 AM [facility] Chloride 94(L) 98 - 109 mmol/L 11/19/2024 11:39 AM [facility] CO2 37(H) 20 - 29 mmol/L 11/19/2024 11:39 AM [facility] Anion Gap 10 6 - 16 mmol/L 11/19/2024 11:39 AM [facility] Calcium 9.0 8.4 - 10.4 mg/dL 11/19/2024 11:39 AM [facility] BUN 36(H) 7 - 26 mg/dL 11/19/2024 11:39 AM [facility] Creatinine 1.22(H) 0.73 - 1.18 mg/dL 11/19/2024 11:39 AM [facility] Glucose 107(H) 70 - 100 mg/dL 11/19/2024 11:39 AM [facility] Comment:The given reference range is for the fasting state. Non-fasting reference range for glucose is 70 - 180 mg/dL. GFR, Estimated >60 >60 mL/min/1. 73m2 11/19/2024 11:39 AM [facility] Hours Fasting 0.1 8 - 12 Hours 11/19/2024 11:39 AM [facility] Blood Venipuncture / Unknown 11/19/2024 8:00 AM CDT 11/19/2024 8:00 AM CDT Александр Montiel MD LAB_1 Final Result [facility] [address] [place] [address], [facility] * Uric Acid (every 3 months) (11/19/2024 8:00 AM CDT) Uric Acid 3.8 3.5 - 7.2 mg/dL 11/19/2024 11:39 AM [facility] Blood Venipuncture / Unknown 11/19/2024 8:00 AM CDT 11/19/2024 8:00 AM CDT us Magen Goodson MD LAB_1 Final Res ult Performing Organization Address [facility] de Phone Number [facility] [address] * (ABNORMAL) Lipid Panel & Direct LDL (if Needed) (11/19/2024 8:00 AM CDT) [facility] Signature Cholesterol 116 0 - 199 mg/dL 11/19/2024 11:39 AM CDT [facility] Triglyceride 185(H) <=149 mg/dL 11/19/2024 11:39 AM T [facility] HDL Cholesterol 29(L) >=40 mg/dL 11/19/2024 11:39 AM T [facility] LDL, Calculated 50 <130 mg/dL 11/19/2024 11:39 AM T [facility] Non HDL Chol, Calculated 87 <=159 mg/dL 11/19/2024 11:39 AM T [facility] Cholesterol/HDL Ratio 4.0 <=5.0 11/19/2024 11:39 AM T [facility] Hours Fasting 0.1 8 - 12 Hours 11/19/2024 11:39 AM [facility] Blood Venipuncture / Unknown 11/19/2024 8:00 AM CDT 11/19/2024 8:00 AM CDT us Derek Leung PA-C LAB_1 Final Resul t Performing Organization Address [facility] Co de Phone Number [facility] [address] documented in this encounter Visit Diagnoses Diagnosis Dyslipidemia associated with type 2 diabetes mellitus (HRC) Type II or unspecified type diabetes mellitus with other specified manifestations, not stated as uncontrolled Gout, unspecified cause, unspecified chronicity, unspecified site High risk medication use Encounter for long-term (current) use of other medications Controlled type 2 diabetes mellitus without complication, without long-term current use of insulin (HRC) Right heart failure with reduced right ventricular function (HRC) Atrial flutter, unspecified type (HRC) 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
--- OUTSIDE RECORDS SUMMARY | 2024-12-11 12:42 | XMS_ITS | Encounter Summary ---
Author Organization [facility] [address], [place] [address] Care Team Providers Care Exhibit Builder Name Role Phone Cynthia Camp PA-C Primary Care Provider [phone] Encounter Details Date Type Department Care Team (Late st Contact Info) Description 04/08/2022 Refill Order [facility] [address] [place] [address] Geetha Ernst MD [address] [place] [address] Social History Tobacco Use Types Packs/Day Years Used Date Smoking Tobacco: Former Cigarettes 0.5 25.1 0 09/01/1989 - 10/02/2014 Smokeless Tobacco: Never Alcohol Use Standard Drinks/Week Comments No 0 (1 standard drink = 0.6 oz pur e alcohol) PHQ-2 Answer Date Recorded PHQ-2 Score 0 07/10/2021 Sex and Gender Information Value Date Recorded Sex Assigned at Not on file Legal Sex Male 3:25 PM CDT Gender Identity Not on file Sexual Orientation Not on file 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 Not on file Not on file documented as of this encounter Plan of Treatment Upcoming Encounters Date Type Department Care Team (Late st Contact Info) Description 12/13/2024 2:00 PM CDT Telemedicine [facility] [address] [place] [phone] Cynthia Camp PA-C [address] [place] [address] documented as of this encounter Visit Diagnoses Diagnosis Encounter for long-term (current) use of medications- Primary Encounter for long-term (current) use of other medications documented in this encounter Care Teams Exhibit Builder Relationship Specialty Start Date End Date Cynthia Camp PA-C [address] [place], [place] [phone] PCP - General Physician Greaser Helper 03/31/18 documented as of this encounter
--- OUTSIDE RECORDS SUMMARY | 2024-12-11 12:42 | XMS_ITS | Encounter Summary ---
Author Organization [facility] Address [address] [place] [address] Care Team Providers Care Vocal Teacher Name Role Phone Cynthia Camp PA-C Primary Care Provider [phone] Encounter Details Date Type Department Care Team (Late st Contact Info) Description 11/22/2024 E-Visit [facility] [address] 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 He states his weight has gone up a little. Hewill double his dose of diuretic for 2 days. María Elena Mak RN, BSN 11/23/2024 10:48 AM documented in this encounter Plan of Treatment Upcoming Encounters Date Type Department Care Team (Late st Contact Info) Description 12/13/2024 2:00 PM CDT Telemedicine [facility] [address] [place] [address] Cynthia Camp PA-C [address] [place], [place] [phone] documented as of this encounter Visit Diagnoses Not on filedocumented in this encounter Care Teams Vocal Teacher Relationship Specialty Start Date End Date Cynthia Camp PA-C [address] [place] [address] PCP - General Physician Parts Consultant 03/31/18 documented as of this encounter
--- OUTSIDE RECORDS SUMMARY | 2024-12-11 12:42 | XMS_ITS | Encounter Summary ---
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 Not on file documented as of this encounter Plan of Treatment Upcoming Encounters Date Type Department Care Team (Late st Contact Info) Description 12/13/2024 2:00 PM CDT Telemedicine [facility] [address] [place] [phone] Cynthia Camp PA-C [address] [place] [address] documented as of this encounter Visit Diagnoses Diagnosis Encounter for long-term (current) use of medications- Primary Encounter for long-term (current) use of other medications documented in this encounter Care Teams Visual Effects Artist Relationship Specialty Start Date End Date Cynthia Camp PA-C [address] [place] [address] PCP - General Physician Filter Plant Supervisor 03/31/18 documented as of this encounter
--- OUTSIDE RECORDS SUMMARY | 2024-12-11 12:42 | XMS_ITS | Encounter Summary ---
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
--- OUTSIDE RECORDS SUMMARY | 2024-12-11 12:42 | XMS_ITS | Encounter Summary ---
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 Not on file documented as of this encounter Plan of Treatment Upcoming Encounters Date Type Department Care Team (Late st Contact Info) Description 12/13/2024 2:00 PM CDT Telemedicine [facility] [address] [place] [address] Cynthia Camp PA-C [address] [place] [address] documented as of this encounter Procedures Procedure Name Priority Date/Time Associated Diagnosis Comments COLONOSCOPY OPCU 01/27/2024 8:15 AM CDT Screen for colon cancer documented in this encounter Visit Diagnoses Not on filedocumented in this encounter Care Teams Explosives Truck Driver Relationship Specialty Start Date End Date Cynthia Camp PA-C [address] [place], [place] [phone] PCP - General Physician Block Handler 03/31/18 documented as of this encounter
--- OUTSIDE RECORDS SUMMARY | 2024-12-11 12:42 | XMS_ITS | Encounter Summary ---
[facility] Organization [facility] Address [address], [place] [address] Care Team Providers Care Jogger Operator Name Role Phone Cynthia Camp PA-C Primary Care Provider [phone] Encounter Details Date Type Department Care Team (Latest Contact Info) Description 11/29/2024 3:00 PM CDT Telemedicine Rheumatology at [facility] [address] [facility] [address] [place] [address] Magen Goodson MD [address] [place] [address] High risk medication use (Primary Dx); Gout, unspecified cause, unspecified chronicity, unspecified site Social History Tobacco Use Types Packs/Day Years [...] 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 Review of Rheumatologic Illness: HPI: Pt w/ gout back for visit. First seen Dr. Adams in 10/05/2018. Course complicated by hx of renal stones, tophi, CRI and urate 12.7. Looks like be slowly titrated dose of allopurinol to reach the goal uric acid of less than 5 and patient is currently taking 300 mg 3 times a day. Presented to the today for follow up. Reports that he is doing overall well since last clinic visit. Denies any significant flare-ups since last clinic visit. Denies any fever, chills or night sweats. Denies any chest pain, shortness of breath and abdominal pain. Interval history 11/29/2024: Patient presented to the clinic today for follow up in a video visit. Patient reports that he is doing well since last clinic visit. Denies any significant gout flare-ups since last clinic visit. Reports that he is currently taking allopurinol 2 tablets a day and has not had any major flare-ups. Recent labs reviewed with the patient. Review of Systems: Gen - no recent fevers/chills. No recent infections reported HEENT - denies oral sores. No episodes of h/o ocular inflammation. No glandular swelling Resp - denies progressive or new dyspnea. denies episodes of pleuritis. Denies new or persistent cough GI - no abdominal pain or nausea. 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) 11/16/2009 Chronic respiratory failure with hypoxia and hypercapnia ([facility]) 01/30/2016 HTN (hypertension) ([facility]) 12/25/2009 Morbid obesity due to excess calories ([facility]) 01/30/2016 Pulmonary hypertension ([facility]) 02/01/2016 Right heart failure with reduced right ventricular function (HR) 04/08/2017 Scrotal edema 04/08/2017 CHF (congestive heart failure) ([facility]) Adenomatous polyp of colon 10/22/2018 Stented coronary artery 06/22/2019 Coronary artery disease involving [place] coronary artery of [place] heart without angina pectoris ([facility]) 09/03/2019 Adverse effect of antihyperlipidemic and antiarteriosclerotic drugs, subsequent encounter 07/30/2021 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 (CODE) ([facility]) Atrial fibrillation ([facility]) 10/01/2023 Chronic obstructive pulmonary disease, unspecified ([facility]) Resolved Ambulatory Problems Diagnosis Date Noted Asthma ([facility]) CAREPLAN: [facility] 01/27/2018 Bilateral leg edema 02/12/2018 TACO (obstructive sleep apnea) Diabetes ([facility]) Dyslipidemia ([facility]) CAREPLAN: [facility] 06/02/2018 Past Medical History: Diagnosis Date Morbid obesity ([facility]) Outpatient Medications: Outpatient Medications Prior to Visit Medication Sig Dispense Refill bumetanide (BUMEX) 1 MG tablet Take 5 Tablets (5 mg) by mouth daily. 450 Tablet 3 Cholecalciferol 5000 units Take 5,000 Units by mouth daily. ciprofloxacin (CIPRO) 750 MG tablet SMARTSI Milligram(s) By Mouth Every 12 Hours Continuous Blood Gluc Sensor (FREESTYLE BORIS 3 SENSOR) Use 1 sensor every 14 days 7 Each 3 Continuous Glucose Sensor (FREESTYLE BORIS 3 PLUS SENSOR) MISC Change every 15 days. 2 Each 5 digoxin (LANOXIN) 125 MCG tablet TAKE ONE TABLET BY MOUTH ONE TIME DAILY 90 Tablet 2 DULoxetine (CYMBALTA) 60 MG capsule Take 1 Capsule (60 mg) by mouth daily. 90 Capsule 2 ELIQUIS 5 MG tablet Take 1 Tablet (5 mg) by mouth two times a day. 180 Tablet 0 fenofibrate (LOFIBRA) 67 MG capsule Take 1 Capsule by mouth daily after a meal. 90 Capsule 3 finasteride (PROSCAR) 5 MG tablet Take 1 Tablet (5 mg) by mouth daily. 90 Tablet 3 glipiZIDE XL (GLUCOTROL XL) 10 MG 24 hour release tablet Take 1 Tablet (10 mg) by mouth daily. 90 Tablet 2 insulin glargine (LANTUS) 100 UNIT/ML pen Inject 45 Units subcutaneously every evening. 15 mL 5 insulin pen needle (BD ULTRAFINE SUNSHINE 2ND GEN) 32G X 4 MM Use to inject insulin as instructed. 300 Each 3 KLOR-CON M20 20 MEQ controlled release tablet Take 1 tablet by mouth two times a day. 180 Tablet 0 lisinopril (ZESTRIL) 2.5 MG tablet Take 1 tablet by mouth daily. 90 Tablet 3 metFORMIN (GLUCOPHAGE) 1000 MG tablet Take 1 Tablet (1,000 mg) by mouth two times a day with meals.180 Tablet 2 metoprolol succinate (TOPROL XL) 25 MG 24 hour release tablet Take 1 Tablet (25 mg) by mouth two times a day. 180 Tablet 2 multivitamin with minerals (CERTAVITE,MYADEC) tablet Take 1 Tablet by mouth daily. aabou-2-iava ethyl esters (LOVAZA) 1 g capsule Take 2 Capsules (2 g) by mouth two times a day. 360 Capsule 2 oxygen (O2) gas Inhale 2 L/min continuous. polyethylene glycol 3350 (GLYCOLAX) 17 GM/SCOOP powder Take 1/2 capful by mouth daily rosuvastatin (CRESTOR) 20 MG tablet Take 1 Tablet (20 mg) by mouth daily. 90 Tablet 3 spironolactone (ALDACTONE) 25 MG tablet Take 1 tablet by mouth daily. 90 Tablet 1 tamsulosin (FLOMAX) 0.4 MG CAPS capsule Take 2 Capsules (0.8 mg) by mouth daily. 180 Capsule 3 tirzepatide (MOUNJARO) 10 MG/0.5ML injection pen Inject 10 mg subcutaneously one time weekly for 4 weeks. Do not start before September 21, 2024. 2 mL 0 tirzepatide (MOUNJARO) 12.5 MG/0.5ML injection pen Inject 12.5 mg subcutaneously one time weekly for 4 weeks. Do not start before October 19, 2024. 2 mL 0 tirzepatide (MOUNJARO) 15 MG/0.5ML injection pen Inject 15 mg subcutaneously one time weekly for 4 weeks. Do not start before November 16, 2024. 2 mL 11 tirzepatide (MOUNJARO) 2.5 MG/0.5ML injection pen Inject 2.5 mg subcutaneously one time weekly for 4 weeks. 2 mL 0 tirzepatide (MOUNJARO) 5 MG/0.5ML injection pen Inject 5 mg subcutaneously one time weekly for 4 weeks. Do not start before July 27, 2024. 2 mL 0 tirzepatide (MOUNJARO) 7.5 MG/0.5ML injection pen Inject 7.5 mg subcutaneously one time weekly for 4 weeks. Do not start before August 24, 2024. 2 mL 0 VENTOLIN HFA 108 (90 Base) MCG/ACT inhaler Inhale 2 Puffs every 4 hours as needed for Wheezing or Shortness of Breath. 1 g 2 allopurinol (ZYLOPRIM) 300 MG tablet Take 1 Tablet (300 mg) by mouth three times a day. 270 Tablet 1 No facility-administered medications prior to visit. Objective: This is a video visit, full physical examination can not be done at this time. Labs: BANDAR Profile 12: No results found for: RANA, RSM, RSMP, RRNP, RRNPP, RRO, RLA, RSCL, RSCLF, RSCLW, RCEN, RDNA, RC3, RC4, RTPO, RACAG, RACAA, RACAM, RCHR No results found for: RFQ, RCCP Pre-DMARD Labs: Lab Results Component Value Date/Time ANTIHCV Negative (Non Reactive) 04/06/2018 11:46 AM HIV Negative (Non Reactive) 04/06/2018 11:46 AM Imaging: Labs, Imaging, Procedures were all reviewed. Assessment/Plan: Mr. Willian Copeland is a pleasant WM w/ the following issues: # gout: doing well. Currently taking allopurinol 300 mg 2 times a day. Repeat uric acid done recently within goal. Patient has not had a gout flare-up in several years. mild BEULAH in the recent labs. --repeat uric acid in 6 months. # comorbidities # type 2 diabetes mellitus # obesity --if patient does have a flare-up, we can use a short course of Prednisone while being careful in managing his diabetes. Return to clinic in 6 months. This note contains medical terminology which is meant for communication between health care physicians and providers. Please note that vocabulary/phrasing/abbreviations may not carry the same definitions as they would in normal conversational speech. This note was also created using [employer]-recognition software and may contain unintended word substitutions, phrase substitutions, spelling and formatting errors. documented in this encounter Plan of Treatment Upcoming Encounters Date Type Department Care Team (Late st Contact Info) Description 12/13/2024 2:00 PM CDT Telemedicine [facility] [address] [place] [phone] Cynthia Camp PA-C [address] [place] [address] documented as of this encounter Visit Diagnoses Diagnosis High risk medication use- Primary Encounter for long-term (current) use of other medications Gout, unspecified cause, unspecified chronicity, unspecified site documented in this encounter Care Teams Jogger Operator Relationship Specialty Start Date End Date Cynthia Camp PA-C [address] [place], [place] [phone] PCP - General Physician Divisional Human Resources Director 03/31/18 documented as of this encounter
--- OUTSIDE RECORDS SUMMARY | 2024-12-11 12:42 | XMS_ITS | Encounter Summary ---
Author Organization [facility] Address [address] [place] [address] Care Team Providers Care Bisque Finisher Name Role Phone Cynthia Camp PA-C Primary Care Provider [phone] Encounter Details Date Type Department Care Team (Latest Contact Info) Description 11/09/2018 Correspondence [facility] [address] 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
--- OUTSIDE RECORDS SUMMARY | 2024-12-11 12:42 | XMS_ITS | Encounter Summary ---
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
--- OUTSIDE RECORDS SUMMARY | 2024-12-11 12:43 | XMS_ITS | Encounter Summary ---
Author Organization [facility] Address [address], [place] [address] Care Team Providers Care Transistor Tester Name Role Phone Cynthia Camp PA-C Primary Care Provider [phone] Reason for Visit * Reason Comments Refill digoxin (LANOXIN) 12 5 MCG tablet [Pharmacy Med Name: Digoxin Oral Tablet 125 MCG] Encounter Details Date Type Department Care Team (Late st Contact Info) Description 11/13/2024 Refill Cardiology at [address] [address] Александр Montiel MD [address] [place] [address] Refill (digoxin (LANOXIN) 125 MCG tablet [Pharmacy Med Name: Digoxin Oral Tablet 125 MCG]) Social History Tobacco Use Types Packs/Day Years [...] 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 Labs needed Digoxin lab. Refill pending * Sola Wells Xrwcomm - 11/13/2024 2:02 AM CDT digoxin (LANOXIN) 125 MCG tablet [Pharmacy Med Name: Digoxin Oral Tablet 125 MCG] Medication started: 12/02/2023 Last ordered by АЛЕКСАНДР MONTIEL B: 12/02/2023 (347 days ago) QTY: 90, Refills: 3, Sig: take 1 tablet (125 mcg) by mouth daily. take one tablet by mouth every day. (changed but equivalent) -> An office visit is overdue (performed over 12 months ago, required every 12 months). -> Digoxin (serum) was not found within the last 5 years. Last qualifying visit: 11/05/2023 (in [facility]EP[facility]DEVICE [facility] with PHILIP HUTCHINS) Next scheduled visit: None Cr: 1.13 mg/dL on 05/28/2024 K: 4.4 mEq/L on 05/28/2024 Digoxin (serum): Not found [employer] Embedded Refills, Reference: [id number], 11/13/2024 2:02:47 AM CDT, Pool: Cardiology Refill RN ([id number]) * Sola Wells - 11/13/2024 2:02 AM CDT The following lab order(s) may be associated with the Result Note below: BASIC METABOLIC PANEL Notes recorded by Александр Montiel on 05/31/2024 at 5:19 PM CDT Cr normal, LDL excellent Александр Montiel MD 05/31/2024, 5:19 PM * Sola Wells - 11/13/2024 2:02 AM CDT The following lab order(s) may be associated with the following Patient Result Comment (Entered by Maria D Frias RN at 06/01/2024 8:07 AM): BASIC METABOLIC PANEL Cr normal, LDL excellent Александр Montiel MD 05/31/2024, 5:19 PM documented in this encounter Plan of Treatment Upcoming Encounters Date Type Department Care Team (Late st Contact Info) Description 12/13/2024 2:00 PM CDT Telemedicine [facility] [place] [facility] [address] [place] [address] Cynthia Camp PA-C [address] [place] [address] documented as of this encounter Visit Diagnoses Not on filedocumented in this encounter Care Teams Transistor Tester Relationship Specialty Start Date End Date Cynthia Camp, JOSE MANUELC [address] [place] [address] PCP - General Physician Churn Operator 03/31/18 documented as of this encounter
--- OUTSIDE RECORDS SUMMARY | 2024-12-11 12:43 | XMS_ITS | Encounter Summary ---
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
--- OUTSIDE RECORDS SUMMARY | 2024-12-11 12:43 | XMS_ITS | Encounter Summary ---
Author Organization [facility] Address [address] [place] [address] Care Team Providers Care Psych Specialist Name Role Phone Cynthia Camp PA-C Primary Care Provider [phone] Reason for Visit * Reason Comments Refill ELIQUIS 5 MG tablet [Pharmacy Med Name: Eliquis Oral Tablet 5 MG] Encounter Details Date Type Department Care Team (Late st Contact Info) Description 11/13/2024 Refill Cardiology at [address] [address] Александр Montiel MD [address] [place] [address] Refill (ELIQUIS 5 MG tablet [Pharmacy Med Name: Eliquis Oral Tablet 5 MG]) Social History Tobacco Use Types Packs/Day Years [...] 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 Labs needed CBC (already ordered). Refilled for 90 days w/ 0 refills, Letter sent * Alicia Wellsillwizadafne Xrwcomm - 11/13/2024 2:02 AM CDT ELIQUIS 5 MG tablet [Pharmacy Med Name: Eliquis Oral Tablet 5 MG] Medication started: 09/02/2023 Last ordered by АЛЕКСАНДР MONTIEL B: 08/23/2024 (82 days ago) QTY: 180, Refills: 0, Sig: take 1 tablet (5 mg) by mouth two times a day. (unchanged) -> An office visit is overdue (performed over 12 months ago, required every 12 months). -> HGB and PLT are overdue (performed over 13 months ago, required every 12 months) -> Refill x 3 months (courtesy refill. overdue for an office visit, HGB check and PLT check) Last qualifying visit: 11/05/2023 (in [facility] with PHILIP HUTCHINS) Next scheduled visit: None Cr: 1.13 mg/dL on 05/28/2024 ALT: 19 U/L on 05/28/2024 HGB: 14.8 g/dL on 10/10/2023 PLT: 225 k/cmm on 10/10/2023 [facility] Embedded Refills, Reference: [id number], 11/13/2024 2:02:47 AM CDT, Pool: Cardiology Refill RN ([id number]) * Sola Wells - 11/13/2024 2:02 AM CDT The following lab order(s) may be associated with the Result Note below: COMPLETE BLOOD COUNT-NO DIFF Notes recorded by Deana Nelson on 10/10/2023 at 1:17 PM RESTAURANT HOURLY MANAGER Patient with gout on allopurinol therapy AST normal at 25, ALT normal at 17 Uric acid therapeutic range 3.9 ------ Notes recorded by Deana Nelson on 10/10/2023 at 8:38 AM RESTAURANT HOURLY MANAGER Patient with gout on allopurinol therapy CBC showed normal hemoglobin at 14.8, normal white cell count 8100 and normal platelet count [id number], red cells are microcytic * Sola Wells - 11/13/2024 2:02 AM CDT The following lab order(s) may be associated with the Result Note below: BASIC METABOLIC PANEL Notes recorded by Александр Montiel on 05/31/2024 at 5:19 PM CDT Cr normal, LDL excellent Александр Montiel MD 05/31/2024, 5:19 PM * Alicia Wellsillwizadafne Xrwcomm - 11/13/2024 2:02 AM CDT The following lab order(s) may be associated with the following Patient Result Comment (Entered by Cynthia Camp PA-C at 10/12/2023 11:11 PM): HGB A1C Nice job!Cynthia Camp PA-C * Sola Wells Xrwcomm - 11/13/2024 2:02 AM CDT The following lab order(s) may be associated with the following Patient Result Comment (Entered by Maria D Frias RN at 06/01/2024 8:07 AM): BASIC METABOLIC PANEL Cr normal, LDL excellent Александр Montiel MD 05/31/2024, 5:19 PM * Celena Wellszadafne Xrwcomm - 11/13/2024 2:02 AM CDT The following lab order(s) may be associated with the following Patient Result Comment (Entered by Magen Goodson MD at 06/01/2024 4:35 PM): ALT (SGPT) Normal liver function tests. documented in this encounter Plan of Treatment Upcoming Encounters Date Type Department Care Team (Late st Contact Info) Description 12/13/2024 2:00 PM CDT Telemedicine [facility] [address] [place] [address] Cynthia Camp PA-C [address] [place] [address] documented as of this encounter Visit Diagnoses Diagnosis Atrial flutter, unspecified type (HRC) documented in this encounter Care Teams Psych Specialist Relationship Specialty Start Date End Date Cynthia Camp PA-C [address] [place], [place] [phone] PCP - General Physician Cement Gun Operator 03/31/18 documented as of this encounter
--- OUTSIDE RECORDS SUMMARY | 2024-12-11 12:43 | XMS_ITS | Encounter Summary ---
Author Organization Formerly [facility] Address [address] [place] [id number] Care Team Providers Care Art Education Professor Name Role Phone Cynthia Angel PA-C Primary Care Provider [phone] Reason for Visit * Reason Comments Refill KLOR-CON M20 20 MEQ controlled release tablet [Pharmacy Med Name: Klor- Con M20 Oral Tablet Extended Release 20 MEQ] Encounter Details Date Type Department Care Team (Late st Contact Info) Description 11/13/2024 Refill [facility] [address] [place] [address] Cynthia Angel PA-C [id number] [place] [phone] Refill (KLOR-CON M20 20 MEQ controlled release tablet [Pharmacy Med Name: Klor-Con M20 Oral Tablet Extended Release 20 MEQ]) Social History Tobacco Use Types Packs/Day Years [...] 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 Called patient, was: Successful in reaching patient We recently received a refill request for one of your medications. To continue managing your medication refills, your clinician would like to see you for a(n): Patient is due for: Video/Office Visit Patient scheduled appointment on: 12/13/24 VV Frontline Action: Close encounter. Refill has already been approved. * Prachi Escobar - 11/17/2024 9:54 AM CDT Medication Refill - Due for Visit Refill was approved for 90 day supply, patient is due to be seen in the next 90 days. Called patient, was: unable to reach patient. 1st call attempted. Left message to call back. Scheduling Action: Patient needs to schedule an appointment in the next 3 months. If able to schedule, please document date of appointment. No further action is needed. * Maryana Pereira RN - 11/16/2024 3:02 PM CDT Further Assistance Needed on Refill from Power Supply Engineer Patient is due for Qualifying Visit Medication has been refilled for 90 day supply. Patient is due for an Office/Video Visit in the next 90 days. Call Patient and document using .DEREK. After attempting to schedule patient: Close encounter. Refill has already been processed per standing order. Requested Prescriptions Pending Prescriptions Disp Refills ??? KLOR-CON M20 20 MEQ controlled release tablet [Pharmacy Med Name: Klor-Con M20 Oral Tablet Extended Release 20 MEQ] 180 Tablet 0 Sig: Take 1 tablet by mouth two times a day. * Sola Wells Xrwcomm - 11/13/2024 2:03 AM CDT KLOR-CON M20 20 MEQ controlled release tablet [Pharmacy Med Name: Klor-Con M20 Oral Tablet ExtendedRelease 20 MEQ] Medication started: 04/25/2020 Last ordered by CYNTHIA ANGEL: 11/10/2023 (369 days ago) QTY: 180, Refills: 3, Sig: take 1 tablet by mouth two times a day. (unchanged) -> Refill x 3 months (until due for an office visit) Last qualifying visit: 02/03/2024 (with CYNTHIA ANGEL) Next scheduled visit: None K: 4.4 mEq/L on 05/28/2024 [facility] Embedded Refills, Reference: [id number], 11/13/2024 2:03:04 AM CATHRYNT, Kwaku: KYLEIGH Refill Centralized Services - Primary Care [id number]) * Celena Wellszadafne Xrwcomm - 11/13/2024 2:03 AM CDT The following lab order(s) may be associated with the Result Note below: BASIC METABOLIC PANEL Notes recorded by Александр Montiel on 05/31/2024 at 5:19 PM CDT Cr normal, LDL excellent Александр Montiel MD 05/31/2024, 5:19 PM * Celena Wellszadafne Xrwcomm - 11/13/2024 2:03 AM CDT The following lab order(s) may be associated with the following Patient Result Comment (Entered by Maria D Frias RN at 06/01/2024 8:07 AM): BASIC METABOLIC PANEL Cr normal, LDL excellent Александр Montiel MD 05/31/2024, 5:19 PM documented in this encounter Plan of Treatment Upcoming Encounters Date Type Department Care Team (Late st Contact Info) Description 12/13/2024 2:00 PM CDT Telemedicine [facility] [address] [place] [phone] Cynthia Angel PA-C [address] [place], [place] [phone] documented as of this encounter Visit Diagnoses Diagnosis Essential hypertension (HRC) Unspecified essential hypertension documented in this encounter Care Teams Art Education Professor Relationship Specialty Start Date End Date Cynthia Angel PA-C [address] [place], [place] [phone] PCP - General Physician Clicking Machine Operator 03/31/18 documented as of this encounter
--- OUTSIDE RECORDS SUMMARY | 2024-12-11 12:43 | XMS_ITS | Encounter Summary ---
Author Organization [facility] Address [address], [place] [address] Care Team Providers Care Watch Repairer Apprentice Name Role Phone Cynthia Camp PA-C Primary Care Provider [phone] Reason for Visit * Reason Onset Date Comments Refill 10/26/2024 tirzepatide (IRAJ NJARO) 7.5 MG/0.5ML injection pen Encounter Details Date Type Department Care Team (Late st Contact Info) Description 10/26/2024 [facility]ill [facility] [address] [place] [address]. 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 do not start before august 24, 2024. (changed) -> The medication is active at more than one strength (15 mg/ml on 08/24/2024, 30 mg/ml on 11/16/2024). -> Unable to determine if sig has changed, review required. -> Refill x 9 months (until due for an office visit) -> Calculate the quantity and number of refills manually. Last qualifying visit: 06/29/2024 (in Endocrinology with DEREK QUESADA) Next scheduled visit: None [facility] Embedded Refills, Reference: [id number], 10/26/2024 1:42:19 PM Kwaku GARRIDO: DEIDRE CANDELARIA RN ([id number]) TECHNICIAN * Vonda Ly - 10/26/2024 1:41 PM CST Requested Prescriptions Pending Prescriptions Disp Refills tirzepatide (MOUNJARO) 7.5 MG/0.5ML injection pen 2 mL 0 Sig: Inject 7.5 mg subcutaneously one time weekly for 4 weeks. TECHNICIAN documented in this encounter Plan of Treatment Upcoming Encounters Date Type Department Care Team (Late st Contact Info) Description 12/13/2024 2:00 PM CDT Telemedicine [facility] [address] [place] [phone] Cynthia Camp PA-C [address] [place], [place] [phone] documented as of this encounter Visit Diagnoses Not on filedocumented in this encounter Care Teams Watch Repairer Apprentice Relationship Specialty Start Date End Date Cynthia Camp PA-C [address] [place], [place] [phone] PCP - General Physician Manager Clinical Services 03/31/18 documented as of this encounter
--- OUTSIDE RECORDS SUMMARY | 2024-12-11 12:43 | XMS_ITS | Encounter Summary ---
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 file documented as of this encounter Plan of Treatment Upcoming Encounters Date Type Department Care Team (Late st Contact Info) Description 12/13/2024 2:00 PM CDT Telemedicine [facility] [address] [place] [phone] Cynthia Camp PA-C [address] [place], [place] [phone] documented as of this encounter Visit Diagnoses Not on filedocumented in this encounter Care Teams Computed Tomography Technician Relationship Specialty Start Date End Date Cynthai Camp PA-C [address] [place] [address] PCP - General Physician Admission Specialist 03/31/18 documented as of this encounter
--- OUTSIDE RECORDS SUMMARY | 2024-12-11 12:43 | XMS_ITS | Clinical Summary ---
Author Organization [facility] Address [address] [place] [address] Care Team Providers Care Business Consultant Name Role Phone Dex Delacruz MD Primary Care Provider + Allergies No known active allergies Medications multivitamin (MVI) tablet Take 1 tablet by mouth once daily. Active aspirin enteric coated 81 mg tablet Take 1 tablet by mouth once daily with a meal. 100 tablet 0 11/02/19 12 Active cholecalciferol (VITAMIN D-3) 2,000 unit capsule Take 1 capsule by mouth once daily. 0 07/10/20 16 Active atorvastatin (LIPITOR) 10 mg tabletIndications:Pure hypercholesterolemia TAKE 1 TABLET BY MOUTH AT BEDTIME. 30 tablet 01/22/20 17 Active glipiZIDE (GLUCOTROL) 5 mg tablet Take 5 mg by mouth 2 times daily before meals. Active polyethylene glycol (MIRALAX) 17 g powder for solution Take 1 Packet by mouth once daily. Active bumetanide (BUMEX) 0.5 mg tabletIndications:Acute diastolic heart failure (HC) Take 1 tablet by mouth twice daily. 60 tablet 7 9:02 AM CDT 04/16/20 17 Active VENTOLIN HFA 90 mcg/actuation inhalerIndications:Chron ic respiratory failure with hypoxia and hypercapnia (HC) INHALE 2 PUFFS BY MOUTH EVERY 6 HOURS IF NEEDED 18 g 08/06/20 19 Active Active Problems Problem Noted Date Diagnosed Date Scrotal edema 04/08/2017 Right heart failure with reduced right ventricul ar function 04/08/2017 Pulmonary hypertension 02/01/2016 Overview (02/01/2016): Transthoracic Echo Report KAR COPELAND Sue ID: [id number] Age: 50 : 1965 Ordering Provider: JERRY NERI Exam Date: 01/31/2016 11:45 Gender: M Civil Engineering Director: JACKLYN Height: 72 in BSA: 3.11 m BP: 140 / 59 Weight: 485 lbs BMI: 65.7 kg/m HR: 67 Location: [facility] - Inpatient Procedure: ECHO COMPLETE W CONTRAST Rhythm: Normal Sinus Rhythm, With PVC Indications: CHF Technical Quality: Very technically difficult study Contrast: Definity Final Conclusion Previous Study: 10/22/2015 Technically challenging examination due to clinical scenario (obese patient imaged while seated upright in chair); incomplete endocardial and valvular definition despite the use of echo contrast. 1. Severe pulmonary arterial hypertension; estimated right ventricular systolic pressure 94 mmHg. 2.Grossly normal to decreased left ventricular chamber size (incompletely visualized); abnormal inter-ventricular septal motion consistent with ventricular interdependence (i.e. increased right-sided pressure/volume - see coments). 3. Grossly normal left ventricular systolic function; grossly estimated ejection fraction 50-60%. 4. Incomplete endocardial definition precludes wall motion analysis, despite the use of echo contrast. 5. Cannot reliably assess right ventricular morphology or function. 6. Cannot reliably assess valvular morphology function within the limitations of this exam. Compared to prior exam dated October 22, 2015, similar limitations with regards to visualization of endocardial and valvular definition exist. The right ventricle remains incompletely visualized. Grossly, left ventricular size and function appear unchanged. Acute diastolic heart failure 01/30/2016 Overview (02/01/2016): Transthoracic Echo Report KAR COPELAND Sue ID: [id number] Age: 50 : 1965 Ordering Provider: JERRY NERI Exam Date: 01/31/2016 11:45 Gender: M Civil Engineering Director: JACKLYN Height: 72 in BSA: 3.11 m BP: 140 / 59 Weight: 485 lbs BMI: 65.7 kg/m HR: 67 Location: [facility] - Inpatient Procedure: ECHO COMPLETE W CONTRAST Rhythm: Normal Sinus Rhythm, With PVC Indications: CHF Technical Quality: Very technically difficult study Contrast: Definity Final Conclusion Previous Study: 10/22/2015 Technically challenging examination due to clinical scenario (obese patient imaged while seated upright in chair); incomplete endocardial and valvular definition despite the use of echo contrast. 1. Severe pulmonary arterial hypertension; estimated right ventricular systolic pressure 94 mmHg. 2.Grossly normal to decreased left ventricular chamber size (incompletely visualized); abnormal inter-ventricular septal motion consistent with ventricular interdependence (i.e. increased right-sided pressure/volume - see coments). 3. Grossly normal left ventricular systolic function; grossly estimated ejection fraction 50-60%. 4. Incomplete endocardial definition precludes wall motion analysis, despite the use of echo contrast. 5. Cannot reliably assess right ventricular morphology or function. 6. Cannot reliably assess valvular morphology function within the limitations of this exam. Compared to prior exam dated October 22, 2015, similar limitations with regards to visualization of endocardial and valvular definition exist. The right ventricle remains incompletely visualized. Grossly, left ventricular size and function appear unchanged. 10/22/2015 echocardiogram: Final Conclusion Very technically difficult study. Normal left ventricular systolic function. The ejection fraction is visually estimated at 55%. No regional wall motion abnormalities seen but study very limited. A septal shudder is noted. Normal left ventricular size. The right ventricle is not well visualized. No significant valvular heart disease noted. Due to extremely poor images assessment of RV size, function and systolic pressure can not be made. There were no prior studies available for comparison. Estimated EF: 55% 01/30/2016 chest radiograph: Cardiomegaly with vascular congestion and bilateral infiltrates. The pleural reaction and atelectasis at the left base is improved when compared with October 20, 2015. Morbid obesity 01/30/2016 Overview (01/30/2016): 01/30/2016 Body mass index is 65.76 kg/(m^2). Chronic respiratory failure with hypoxia and hyp ercapnia 01/30/2016 Overview (01/30/2016): Dr. Barakat cardiology consultation: chronic respiratory failure related to restrictive lung disease/obesity hypoventilation syndrome with probable secondary pulmonary hypertension Chronic home oxygen Acute on chronic respiratory failure with hypoxia and hypercapnia 10/21/2015 TACO (obstructive sleep apnea) 10/21/2015 Special screening for malignant neoplasms, colon 02/02/2015 Proteinuria 07/19/2013 Overview (07/19/2013): Hypertension and diabetes mellitus Asthma 04/04/2010 HTN (hypertension) 12/25/2009 Overview (12/25/2009): On lisinopril Diabetes mellitus type 2, controlled 11/16/2009 Overview (01/30/2016): Metformin and glipizide. 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 Spring. Tobacco use disorder 09/12/2009 Displacement of lumbar inter vertebral disc without myelopathy 02/05/2008 Overview (02/05/2008): L5 Pure hypercholesterolemia 02/05/2008 Overview (12/25/2009): 03/2004 = 224, HDL/LDL = 37/109, untreated Other psoriasis 02/05/2008 Venous stasis Overview (01/11/2010): Venous stasis ulceration right medial and lateral distal calf Resolved Problems Problem Noted Date Diagnosed Date Resolved Date Morbid obesity with BMI of 60.0-69.9, adult 10/22/2015 01/30/2016 Pulmonary infiltrate in left lung on chest x-ray 10/21/2015 01/30/2016 Tobacco abuse 10/21/2015 01/30/2016 Mild persistent asthma with acute exacerbation 10/21/2015 01/30/2016 Pneumonia 10/20/2015 01/30/2016 Cellulitis of Leg 12/25/2009 05/27/2012 Right Thigh Localized Edema 12/25/2009 05/27/2012 Prepatellar bursitis 09/12/2009 012 Overview (12/25/2009): 09/2009, grew pseudomonas, treated with I and D and one month of ciprofloxacin. Obesity 01/30/2016 Overview (12/25/2009): Being evaluated at the [facility] for laparoscopic band procedure Immunizations Immunization Administration Dates Next Due Hepatitis B (Adult) 12/08/2013,07/19/2013,2012 Influenza, IIV4 06/13/2016,07/06/2015,07/05/2014 Td (Age >=7 Years) 03/13/2004 Tdap 07/05/2014 Family History Medical History Relation Name Comments Other Father ASHD Diabetes Mother Relation Name Status Comments Father Mother Social History Tobacco Use Types Packs/Day Years Used Date Smoking Tobacco: Former Cigarettes 1.5 32 0 10/21/1983 - 10/21/2015 Smokeless Tobacco: Never Tobacco Cessation:Ready to Q uit: Yes; Counseling Given: Yes Comments:1.5 ppd Alcohol Use Standard Drinks/Week Comments No 0 (1 standard drink = 0.6 oz pur e alcohol) Sex and Gender Information Value Date Recorded Sex Assigned at Not on file Legal Sex 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 Gender Identity Not on file Sexual Orientation Not on file 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 Not on file Not on file Obstetrics History Last Filed Vital Signs Vital Sign Reading Time Taken Comments Blood Pressure 140/82 11/11/2022 5:36 AM CDT Pulse 89 11/11/2022 5:36 AM CDT Temperature 35.9 C (96.6 F) 11/11/2022 5:36 AM CDT Respiratory Rate 16 11/11/2022 5:36 AM CDT Oxygen Saturation 92% 11/11/2022 5:36 AM CDT Inhaled Oxygen Concentration - - Weight 181.4 kg (400 lb) 11/11/2022 5:36 AM CDT Height 180.3 cm (5' 11) 11/11/2022 5:36 AM CDT Body Mass Index 55.79 11/11/2022 5:36 AM CDT Plan of Treatment Health Maintenance Due Date Last Done Comments Hepatitis C screening for ag e 18-79 1982 Pneumococcal series for age 50+ (1 of 2 - PCV) 11/25/1983 Zoster (shingles) series for age 50+ (1 of 2) 2014 Depression screening for age 12+ 09/21/2016 09/21/19 16 BMI (ht and wt on same day) for age 18+ 03/28/2017 03/28/2016, 02/22/2016, 02/05/2016, Additional history exists Colonoscopy through age 75 02/03/2020 02/02/2015 Lipids for age 45-75 01/03/2021 01/04/2016, 12/15/2014, 07/05/2014, Additional history exists COVID-19 vaccine series ( season) 2024 06/03/2023, 05/15/2022, 10/03/2021, Additional history exists Tetanus booster 07/05/2024 07/05/2014, 03/13/2004 RSV vaccine for adults or (1 - Risk 60-74 years 1-dose series) 2024 Influenza Vaccine (Season Ended) 2025 06/13/2016, 07/06/2015, 07/05/2014 HIV for age 15-65 Completed 12/27/2009 Tdap Completed 07/05/2014 Procedures Procedure Name Priority Date/Time Associated Diagnosis Comments LIPID PANEL W REFLEX MEASURED LDL Routine 01/04/2016 9:28 AM CDT Morbid obesity with BMI of 60.0-69.9, adult (HC) TACO (obstructive sleep apnea) Acute on chronic respiratory failure with hypoxia and hypercapnia (HC) HTN (hypertension) Type II or unspecified type diabetes mellitus without mention of complication, not stated as uncontrolled Varicose veins of lower extremities with ulcer and inflammation (HC) Pure hypercholesterolemia COLONOSCOPY 02/02/2015 8:04 AM CDT ANTI HIV 1/2 Early AM 12/27/2009 6:35 AM CDT from Last 3 Months or Most Recently Relevant to Health Maintenance Results * (ABNORMAL) LIPID PANEL W REFLEX MEASURED LDL (01/04/2016 9:28 AM CDT) [facility] CHOLESTEROL,TOTAL 148 100 - 199 mg/dL 01/04/2016 11:29 AM [facility] 142 <150 mg/dL 01/04/2016 11:29 AM [facility] HDL CHOLESTEROL 29(L) >40 mg/dL 01/04/2016 11:29 AM [facility] NON-HDL CHOLESTEROL 119 <145 mg/dl 01/04/2016 11:29 AM [facility] CHOL/HDL RATIO 5.10(H) <4.50 01/04/2016 11:29 AM [facility] LDL CHOLESTEROL 91 <=130 mg/dL 01/04/2016 11:29 AM [facility] PATIENT STATUS FASTING 01/04/2016 11:29 AM [facility] Blood specimen (specimen) BLOOD SPECIMEN / Unknown Venipuncture / Unknown 01/04/2016 9:28 AM CDT 01/04/2016 9:28 AM CDT us Bulmaro Roper MD CHEMISTRY Fi nal Result Performing Organization Address City/State/[facility] [place] [address] * COLONOSCOPY (02/02/2015 8:04 AM CDT) 02/02/2015 8:04 AM CDT Narrative 02/02/2015 8:04 AM CDT Patient Name: Karnessa Copeland Procedure Date: 02/02/2015 Gender: Male Date of : 1965 Admit Type: Ambulatory Procedure: Colonoscopy Proceduralist: Brandie Nieves MD Referring MD: Luis Ocampo MD Indications/Pre-Op Diagnosis: Screening for malignant neoplasm in the colon Medications: Midazolam 1 mg IV, Fentanyl 100 micrograms IV, Oxygen per cannula Procedure Description: The procedure, indications, potential complications, (bleeding, perforation, infection, adverse medication reaction, missed lesions or polyps) and alternatives available were explained to the patient, who appeared to understand and indicated this. Opportunity for questions was provided and informed consent obtained. The colonoscope was introduced through the anus and advanced to the cecum, identified by appendiceal orifice and ileocecal valve. The bowel preparation used was Miralax and magnesium citrate. Scope withdrawal time was 18 minutes. Scope insertion time was 22 minutes. The quality of the bowel preparation was evaluated using the BBPS (Pattison Bowel Preparation Scale) with scores of: Right Colon = 3 (entire mucosa seen well with no residual staining, small fragments of stool or opaque liquid), Transverse Colon = 2 (minor amount of residual staining, small fragments of stool and/or opaque liquid, but mucosa seen well) and Left Colon = 2 (minor amount of residual staining, small fragments of stool and/or opaque liquid, but mucosa seen well). The total BBPS score equals 7. Complications: No immediate complications. Estimated Blood Loss & Specimen: Estimated blood loss: none. Specimen collected: Yes and sent to Laboratory Findings: Four sessile polyps were found in the recto-sigmoid colon, in the transverse colon and in the cecum. The polyps were 3 to 7 mm in size. These polyps were removed with a cold snare. Resection and retrieval were complete. Multiple small-mouthed diverticula were found in the sigmoid colon. The exam was otherwise without abnormality. The retroflexed view of the distal rectum and anal verge was normal and showed no anal or rectal abnormalities. Two sessile polyps were found in the recto-sigmoid colon. The polyps were 6 mm in size. These polyps were removed with a hot snare. Resection and retrieval were complete. Impressions/Post-Op Diagnosis: - Four 3 to 7 mm polyps at the recto-sigmoid colon, in the transverse colon and in the cecum. Resected and retrieved. - Diverticulosis in the sigmoid colon. - The examination was otherwise normal. - The distal rectum and anal verge are normal on retroflexion view. - Two 6 mm polyps at the recto-sigmoid colon. Resected and retrieved. Recommendation: - Await pathology results. Brandie Nieves MD 02/02/2015 8:33 AM This report has been signed electronically. Note Initiated On: 02/02/2015 8:04 AM Procedure Note Brandie Nieves MD - 02/02/2015 8:34 AM CDT Patient Name: Kar Copeland Procedure Date: 02/02/2015 Gender: Male Date of : 1965 Admit Type: Ambulatory Procedure: Colonoscopy Proceduralist: Brandie Nieves MD Referring MD: Luis Ocampo MD Indications/Pre-Op Diagnosis: Screening for malignant neoplasm in [facility] Medications: Midazolam 1 mg IV, Fentanyl 100 microgramsIV, Oxygen per cannula Procedure Description: The procedure, indications, potential complications, (bleeding, perforation, infection, adverse medication reaction, missed lesionsor polyps) and alternatives available were explained to the patient, who appeared to understand and indicated this. Opportunity for questionswas provided and informed consent obtained. The colonoscope was introduced through the anus and advanced to the cecum, identified by appendiceal orifice and ileocecal valve. Thebowel preparation used was Miralax and magnesium citrate. Scope withdrawal time was 18 minutes. Scope insertion time was 22 minutes. The qualityof the bowel preparation was evaluated using the BBPS (Pattison Bowel Preparation Scale) with scores of: Right Colon = 3 (entire mucosaseen well with no residual staining, small fragments of stool or opaque liquid), Transverse Colon = 2 (minor amount of residual staining,small fragments of stool and/or opaque liquid, but mucosa seen well) andLeft Colon = 2 (minor amount of residual staining, small fragments ofstool and/or opaque liquid, but mucosa seen well). The total BBPS scoreequals 7. Complications: No immediate complications. Estimated Blood Loss & Specimen: Estimated blood loss: none. Specimen collected: Yes and sent to Laboratory Findings: Four sessile polyps were found in the recto-sigmoid colon, in the transverse colon and in the cecum. The polyps were 3 to 7 mm in size. These polyps were removed with a cold snare. Resection and retrieval were complete. Multiple small-mouthed diverticula were found in the sigmoid colon. The exam was otherwise without abnormality. The retroflexed view of the distal rectum and anal verge was normaland showed no anal or rectal abnormalities. Two sessile polyps were found in the recto-sigmoid colon. The polyps were 6 mm in size. These polyps were removed with a hot snare.Resection and retrieval were complete. Impressions/Post-Op Diagnosis: - Four 3 to 7 mm polyps at the recto-sigmoid colon, in the transverse colon and in the cecum. Resected and retrieved. - Diverticulosis in the sigmoid colon. - The examination was otherwise normal. - The distal rectum and anal verge are normal on retroflexion view. - Two 6 mm polyps at the recto-sigmoid colon. Resected andretrieved. Recommendation: - Await pathology results. Brandie Nieves MD 02/02/2015 8:33 AM This report has been signed electronically. Note Initiated On: 02/02/2015 8:04 AM us Brandie Nieves MD PROCEDURE ORD Fi nal Result * ANTI HIV 1/2 (12/27/2009 6:35 AM CDT) ANTI HIV 1/2 Non-reacti ve [facility] Blood specimen (specimen) BLOOD SPECIMEN / Unknown 12/27/2009 6:35 AM CDT 12/26/2009 10:01 PM CDT us Shonda Colbert MD SEND OUTS Final Result [facility] INTERNAL ZIP [id number] [address] from Last 3 Months or Most Recently Relevant to Health Maintenance Insurance [facility] Advance Directives * Full Code (Latest Code Status on File) Date Activated Date Inactivated Comments 04/10/2017 11:53 AM 04/16/2017 3:12 PM * Full Code Date Activated Date Inactivated Comments 04/08/2017 4:17 PM 04/10/2017 11:53 AM Question Answer Comments Code Status Discussion: Discussed * Full Code Date Activated Date Inactivated Comments 01/30/2016 5:22 PM 02/01/2016 1:03 PM Question Answer Comments Code Status Discussion: Not Discussed * Full Code Date Activated Date Inactivated Comments 10/20/2015 8:06 PM 10/25/2015 3:45 PM * Full Code Date Activated Date Inactivated Comments 12/17/2013 11:54 AM 12/18/2013 2:17 AM Care Teams Business Consultant Relationship Specialty Start Date End Date Dex Delacruz MD [address] [place] [address] PCP - General Family Practice 11/11/22
--- OUTSIDE RECORDS SUMMARY | 2024-12-11 12:43 | XMS_ITS | Encounter Summary ---
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
--- OUTSIDE RECORDS SUMMARY | 2024-12-11 12:43 | XMS_ITS | Encounter Summary ---
Author Organization [facility] Address [address] [place] [address] Care Team Providers Care Clearance Diver Name Role Phone Cynthia Camp PA-C Primary Care Provider [phone] Encounter Details Date Type Department Care Team (Late st Contact Info) Description 05/18/2022 Refill Order [facility] [address] [facility] 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 Not on file Not on file documented as of this encounter Plan of Treatment Upcoming Encounters Date Type Department Care Team (Late st Contact Info) Description 12/13/2024 2:00 PM CDT Telemedicine [facility] [address] [place] [phone] Cynthia Camp PA-C [address] [place] [address] documented as of this encounter Visit Diagnoses Diagnosis Encounter for long-term (current) use of medications- Primary Encounter for long-term (current) use of other medications documented in this encounter Care Teams Clearance Diver Relationship Specialty Start Date End Date Cynthia Camp PA-C [address] [place], [place] [phone] PCP - General Physician Nursery Technician 03/31/18 documented as of this encounter
--- OUTSIDE RECORDS SUMMARY | 2024-12-11 12:43 | XMS_ITS | Encounter Summary ---
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 Not on file Not on file documented as of this encounter Plan of Treatment Upcoming Encounters Date Type Department Care Team (Late Contact Info) Description 12/13/2024 2:00 PM CDT Telemedicine [facility] [address] [place] [phone] Cynthia Camp PA-C [address] [place], [place] [phone] documented as of this encounter Visit Diagnoses Not on filedocumented in this encounter Care Teams Card Clothier Relationship Specialty Start Date End Date Cynthia Camp PA-C [address] [place] [address] PCP - General Physician Water Jet Operator 03/31/18 documented as of this encounter
--- OUTSIDE RECORDS SUMMARY | 2024-12-11 12:43 | XMS_ITS | Clinical Summary ---
Author Organization [facility] Address [address] [place] [address] Care Team Providers Care Manager Risk Management Name Role Phone Cynthia Camp PA-C Primary Care Provider [phone] Source Comments You are receiving this document as you are listed as the primary care provider,follow-up provider, or the patient has been referred to you for consultation.This is in compliance with the Medicare and[facility] Hospitalca[facility] EHR Incentive Program,which states Providers who transition their patient to another setting of careor provider of care or refers their patient to another provider of care shouldprovide summary care record for each transition of care or referral. [employer] Allergies Active Allergy Reactions Criticality Noted Date Comments Atorvastatin Myalgias 2018 Myalgia Medications * This document contains information received from the source organization and may not represent a complete record from that organization. Cholecalciferol 5000 units Take 5,000 Units by mouth daily. Active multivitamin with minerals (CERTAVITE,MYAD EC) tablet Take 1 Tablet by mouth daily. Active polyethylene glycol 3350 (GLYCOLAX) 17 GM/SCOOP powder Take 1/2 capful by mouth daily Active lisinopril (ZESTRIL) 2.5 MG tabletIndicatio ns:Stented coronary artery Take 1 tablet by mouth daily. 90 Tablet 3 023 Active insulin pen needle (BD ULTRAFINE SUNSHINE 2ND GEN) 32G X 4 MMIndications:T ype 2 diabetes mellitus with other specified complication, without long-term current use of insulin (HRC) Use to inject insulin as instructed. 300 Each 3 023 Active Continuous Blood Gluc Sensor (FREESTYLE BORIS 3 SENSOR)Indicati ons:Type 2 diabetes mellitus with other specified complication, without long-term current use of insulin (HRC) Use 1 sensor every 14 days 7 Each 3 023 Active oxygen (O2) gas Inhale 2 L/min continuous. Active VENTOLIN HFA 108 (90 Base) MCG/ACT inhaler Inhale 2 Puffs every 4 hours as needed for Wheezing or Shortness of Breath. 1 g 2 Active ciprofloxacin (CIPRO) 750 MG tablet SMARTSI Milligram(s) By Mouth Every 12 Hours Active DULoxetine (CYMBALTA) 60 MG capsule Take 1 Capsule (60 mg) by mouth daily. 90 Capsule 2 024 2024 Active fenofibrate (LOFIBRA) 67 MG capsule Take 1 Capsule by mouth daily after a meal. 90 Capsule 3 024 2024 Active tirzepatide (MOUNJARO) 2.5 MG/0.5ML injection pen Inject 2.5 mg subcutaneously one time weekly for 4 weeks. 2 mL 024 Active tirzepatide (MOUNJARO) 5 MG/0.5ML injection pen Inject 5 mg subcutaneously one time weekly for 4 weeks. Do not start before July 27, 2024. 2 mL 024 Active tirzepatide (MOUNJARO) 7.5 MG/0.5ML injection pen Inject 7.5 mg subcutaneously one time weekly for 4 weeks. Do not start before August 24, 2024. 2 mL 024 Active tirzepatide (MOUNJARO) 10 MG/0.5ML injection pen Inject 10 mg subcutaneously one time weekly for 4 weeks. Do not start before September 21, 2024. 2 mL 025 Active tirzepatide (MOUNJARO) 12.5 MG/0.5ML injection pen Inject 12.5 mg subcutaneously one time weekly for 4 weeks. Do not start before October 19, 2024. 2 mL 025 Active tirzepatide (MOUNJARO) 15 MG/0.5ML injection pen Inject 15 mg subcutaneously one time weekly for 4 weeks. Do not start before November 16, 2024. 2 mL 11 025 Active glipiZIDE XL (GLUCOTROL XL) 10 MG 24 hour release tabletIndicatio ns:Controlled type 2 diabetes mellitus without complication, without long-term current use of insulin (HRC) Take 1 Tablet (10 mg) by mouth daily. 90 Tablet 2 024 Active metoprolol succinate (TOPROL XL) 25 MG 24 hour release tabletIndicatio ns:Hypertension , unspecified type (HRC),Right heart failure with reduced right ventricular function (HRC) Take 1 Tablet (25 mg) by mouth two times a day. 180 Tablet 2 Active Continuous Glucose Sensor (FREESTYLE BORIS 3 PLUS SENSOR) MISCIndications :Controlled type 2 diabetes mellitus without complication, without long-term current use of insulin (HRC) Change every 15 days. 2 Each 5 Active insulin glargine (LANTUS) 100 UNIT/ML penIndications: Type 2 diabetes mellitus with other specified complication, without long-term current use of insulin (HRC) Inject 45 Units subcutaneously every evening. 15 mL 5 Active bumetanide (BUMEX) 1 MG tablet Take 5 Tablets (5 mg) by mouth daily. 450 Tablet 3 024 2024 Active tamsulosin (FLOMAX) 0.4 MG CAPS capsule Take 2 Capsules (0.8 mg) by mouth daily. 180 Capsule 3 024 2024 Active finasteride (PROSCAR) 5 MG tablet Take 1 Tablet (5 mg) by mouth daily. 90 Tablet 3 024 2024 Active rosuvastatin (CRESTOR) 20 MG tabletIndicatio ns:Dyslipidemia associated with type 2 diabetes mellitus (HRC) Take 1 Tablet (20 mg) by mouth daily. 90 Tablet 3 024 2024 Active kmoxo-4-odfg ethyl esters (LOVAZA) 1 g capsuleIndicati ons:Type 2 diabetes mellitus with other specified complication, without long-term current use of insulin (HRC) Take 2 Capsules (2 g) by mouth two times a day. 360 Capsule 2 Active metFORMIN (GLUCOPHAGE) 1000 MG tabletIndicatio ns:Type 2 diabetes mellitus with other specified complication, without long-term current use of insulin (HRC) Take 1 Tablet (1,000 mg) by mouth two times a day with meals. 180 Tablet 2 Active spironolactone (ALDACTONE) 25 MG tablet Take 1 tablet by mouth daily. 90 Tablet 1 025 Active digoxin (LANOXIN) 125 MCG tablet TAKE ONE TABLET BY MOUTH ONE TIME DAILY 90 Tablet 2 Active KLOR-CON M20 20 MEQ controlled release tabletIndicatio ns:Essential hypertension (HRC) Take 1 tablet by mouth two times a day. 180 Tablet 025 Active ELIQUIS 5 MG tabletIndicatio ns:Atrial flutter, unspecified type (HRC) Take 1 Tablet (5 mg) by mouth two times a day. 180 Tablet 025 Active allopurinol (ZYLOPRIM) 300 MG tabletIndicatio ns:Gout, unspecified cause, unspecified chronicity, unspecified site Take 1 Tablet (300 mg) by mouth two times a day. 180 Tablet 1 025 2024 Active KLOR-CON M20 20 MEQ controlled release tabletIndicatio ns:Essential hypertension (HRC) Take 1 tablet by mouth two times a day. 180 Tablet 3 024 2024 Discontinued digoxin (LANOXIN) 125 MCG tabletIndicatio ns:Atrial flutter, unspecified type (HRC) Take 1 Tablet (125 mcg) by mouth daily. Take one tablet by mouth every day. 90 Tablet 3 024 2024 Discontinued allopurinol (ZYLOPRIM) 300 MG tabletIndicatio ns:Gout, unspecified cause, unspecified chronicity, unspecified site Take 1 Tablet (300 mg) by mouth three times a day. 270 Tablet 1 024 2024 Discontinued(* Med change OR same med OR reorder, new dose/direction s) ELIQUIS 5 MG tabletIndicatio ns:Atrial flutter, unspecified type (HRC) Take 1 Tablet (5 mg) by mouth two times a day. 180 Tablet 024 2024 Discontinued Active Problems Patient Care Coordination No te Formatting of this note migh t be different from the original. [facility] Disease Management Engaged in Disease Management-CAD: Gillian North, RN [phone] Goals/Recommendations: Goal: Coronary artery disease self-management plan developed, implemented, and maintained As evidenced by patient self reporting dietary changes specific to patient needs, such as heart healthy, weight loss. Problem Noted Date Diagnosed Date Atrial fibrillation 10/01/2023 Adverse effect of antihyperl ipidemic and antiarteriosclerotic drugs, subsequent encounter 07/30/2021 Overview (07/30/2021): See Allergies for additional details. Coronary artery disease invo lving navajo coronary artery of navajo heart without angina pectoris 09/03/2019 Stented coronary artery 06/22/2019 Overview (06/22/2019): Patient is on Clopidogrel (Plavix) following stent placement. Date of Intervention: 06/22/2019 Type of Stent: GRISELDA Patient is expected to continue taking Clopidogrel (Plavix) for one year (until 06/21/2020) unless otherwise advised due to subsequent stent placement or continued bleeding. Adenomatous polyp of colon 10/22/2018 Binge-eating disorder, moderate 11/12/2017 Obstructive sleep apnea syndrome 06/27/2017 Obesity hypoventilation syndrome 06/27/2017 Right heart failure with reduced right ventricul ar function 04/08/2017 Scrotal edema 04/08/2017 Pulmonary hypertension 02/01/2016 Overview (01/25/2018): Overview: Transthoracic Echo Report KAR COPELANDian ID: [id number] Age: 50 : 1965 Ordering Provider: JERRY NERI Exam Date: 01/31/2016 11:45 Gender: M Rn Traveling: JACKLYN Height: 72 in BSA: 3.11 m BP: 140 / 59 Weight: 485 lbs BMI: 65.7 kg/m HR: 67 Location: [facility] - Inpatient Procedure: ECHO COMPLETE [...] left ventricular size and function appear unchanged. Chronic respiratory failure with hypoxia and hyp ercapnia 01/30/2016 Overview (01/25/2018): Overview: Dr. Barakat cardiology consultation: chronic respiratory failure related to restrictive lung disease/obesity hypoventilation syndrome with probable secondary pulmonary hypertension Chronic home oxygen Morbid obesity due to excess calories 01/30/2016 Overview (01/25/2018): Overview: 01/30/2016 Body mass index is 65.76 kg/(m^2). HTN (hypertension) 12/25/2009 Overview (01/25/2018): Overview: On lisinopril Type 2 diabetes mellitus with albuminuria 2009 Overview (01/25/2018): Overview: Formatting of this note may be different from the original. Metformin and glipizide. HEMOGLOBIN A1C MONITORING (POCT) Date Value 01/04/2016 6.5 %* 06/03/2013 6.5 %* 12/25/2009 6.9 % Total Hgb* CHF (congestive heart failure) 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 (CODE) Chronic obstructive pulmonary disease, unspecifi ed Resolved Problems Problem Noted Date Diagnosed Date Resolved Date CAREPLAN: [employer] CASE MANAGEMENT 06/02/2018 06/02/2018 Bilateral leg edema 02/12/2018 03/23/20 CAREPLAN: [employer] IN PATIENT CASE MANAGEMENT 01/27/2018 02/09/2018 Overview (01/27/2018): Engaged in Inpatient Case Management Inpatient Licensed Surveyor Name: Karissa Valle RN Asthma 02/03/2024 Overview (02/03/2024): This problem was marked as resolved by a user in a SmartForm. TACO (obstructive sleep apnea) 09/06/2022 Diabetes 09/06/2022 Dyslipidemia 09/03/2019 Encounters Date Type Department Care Team Description 11/29/2024 3:00 PM CDT Telemedicine Rheumatology at [address] [address] Magen Goodson MD High risk medication use (Primary Dx); Gout, unspecified cause, unspecified chronicity, unspecified site 2024 Results Follow-Up [place] [address] [facility] [address] [place] [id number] Derek Leung PA-C 11/22/2024 E-Visit [facility] [address] [place] [address] Mychart, Generic Provider 11/22/2024 Results Follow-Up [facility] [address] [place] [address] Александр Montiel MD 11/19/2024 8:10 AM CDT Lab Visit Laboratory at [address] [address] Dyslipidemia associated with type 2 diabetes mellitus (HRC); Gout, unspecified cause, unspecified chronicity, unspecified site; High risk medication use; Controlled type 2 diabetes mellitus without complication, without long-term current use of insulin (HRC); Right heart failure with reduced right ventricular function (HRC); Atrial flutter, unspecified type (HRC); 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) 11/17/2024 Telephone Laboratory at [facility] [id number] [place] [phone] Cynthia Camp PA-C LAB TESTS, NOS 11/13/2024 Refill Cardiology at [facility] [id number] [place] [phone] Александр Montiel MD Refill (digoxin (LANOXIN) 125 MCG tablet [Pharmacy Med Name: Digoxin Oral Tablet 125 MCG]) 11/13/2024 Refill [facility] [id number] [place] [phone] Cynthia Camp PA-C Refill (KLOR-CON M20 20 MEQ controlled release tablet [Pharmacy Med Name: Klor-Con M20 Oral Tablet Extended Release 20 MEQ]) 11/13/2024 Refill Cardiology at [address] [phone] Александр Montiel MD Refill (ELIQUIS 5 MG tablet [Pharmacy Med Name: Eliquis Oral Tablet 5 MG]) 10/26/2024 [facility]ill [facility] [address] [place] [address]. [place] [address] Derek Leung PA-C Refill (tirzepatide (MOUNJARO) 7.5 MG/0.5ML injection pen) 10/09/2024 Refill [facility] [address] [place] [address] Александр Montiel MD Refill (spironolactone (ALDACTONE) 25 MG tablet [Pharmacy Med Name: Spironolactone Oral Tablet 25 MG]) 09/16/2024 Refill [facility] [address] [place] [address]. [place] [address] Derek Leung PA-C Refill (metFORMIN (GLUCOPHAGE) 1000 MG tablet) from Last 3 Months Immunizations Immunization Administration Dates Next Due Flublok (RIV4) 05/20/2023,05/15/2022 Fluzone Qiv Multidose Vial 0 .25 (6-35 Mos) 06/25/2017 HepB Adult (Engerix-B, 20+ y rs, 3 dose series) 12/08/2013,07/19/2013,06/03/2013 Influenza IIV4 (Quadrivalent ) 0.5mL (22050) 06/09/2021,06/05/2020,06/08/2019,2017,06/13/2016,07/06/2015,07/05/2014 Influenza, Unspecified Formulation 06/09/2021 Moderna Monovalent 12+ 10/03/2021,08/29/2021 PCV20 ([id number]) 09/06/2022 PPSV23 (Pneumovax) 04/06/2018 Pfizer Bivalent 12+ 05/15/2022 Pfizer COVID-19 12+ 06/03/2023 Td (7+ yrs) 03/13/2004 Td (Tdvax) 03/13/2004 Tdap 07/05/2014 Zoster RZV (Shingrix) 12/28/2019,08/31/2019 Social History Tobacco Use Types Packs/Day Years Used Date Smoking Tobacco: Former Cigarettes 0.5 25.1 0 09/01/1989 - 10/02/2014 Smokeless Tobacco: Never Tobacco Cessation:Counseling Given: Not Answered Alcohol Use Standard Drinks/Week Comments No 0 [...] 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 Not on file Not on file Last Filed Vital Signs Vital Sign Reading Time Taken Comments Blood Pressure 124/79 05/28/2024 1:27 PM CDT Pulse 67 05/28/2024 1:27 PM CDT Temperature 36.8 C (98.2 F) 02/03/2024 9:49 AM CDT Respiratory Rate 18 02/03/2024 9:49 AM CDT Oxygen Saturation 86% 02/03/2024 10: 10 AM CDT Inhaled Oxygen Concentration - - Weight 185.8 kg (409 lb 9.6 oz) 05/28/2024 1:27 PM CDT Height 180.3 cm (5' 11) 04/27/2024 3:18 PM CDT Body Mass Index 57.13 04/27/2024 3:18 PM CDT Plan of Treatment Upcoming Encounters Date Type Department Care Team (Late st Contact Info) Description 12/13/2024 2:00 PM CDT Telemedicine [facility] [address] [place] [address] Cynthia Camp PA-C [address] [place] [address] Health Maintenance Due Date Last Done Comments PSA Screening Discussion 09/06/2023 09/06/2022 DTaP/Tdap/Td (2 - Tdap) 07/05/2024 07/05/2014, 03/13 Diabetes: Foot Exam 07/09/2024 07/09/2023, 07/10/2021, 09/03/2019, Additional history exists Adult Preventive Visit 09/02/2024 09/02/2023, 2022 Diabetes: Eye Exam 10/08/2024 10/08/2023, 1 10/03/2021, 07/31/2019 (Completed), Additional history exists MTM Targeted 10/27/2024 10/27/2023, 10/03, 01/21/2023, Additional history exists RSV (1 - Risk 60-74 years 1-dose series) 2024 Colonoscopy 01/26/2025 01/27/2024, 10/16/2018 Diabetes: HGBA1C 05/22/2025 11/19/2024, , 10/10/2023, Additional history exists Diabetes: Creatinine 11/19/2025 11/19/2024, 05/28/2024, 12/02/2023, Additional history exists Diabetes: Urine Microalbumin 11/19/2025, 04/07/2023, 04/01/2022, Additional history exists Diabetes: Lipid Panel 11/19/2029 11/19/2024 , 05/28/2024, 04/07/2023, Additional history exists HepB Completed 12/08/2013, 07/02, 06/03/2013 HIV Screening (Preventive Services) Completed 04/06/2018, 12/27/2009 Hep C Screening (Preventive Services) Completed 04/06/2018 Zoster/Shingles Completed 12/28/2019, 08/31/2019 Pneumococcal 50+ Yrs Completed 09/06/2022, 04/06/20 18 COVID-19 Vaccine Completed 05/23/2024, 10/2022, 05/15/2022, Additional history exists Influenza Completed 05/23/2024, 05/02, 05/15/2022, Additional history exists HepA Aged Out No longer eligi ble based on patient's age to complete this topic Hib Aged Out No longer eligi ble based on patient's age to complete this topic IPV (Polio) Aged Out No longer eligi ble based on patient's age to complete this topic MCV4 Aged Out No longer eligi ble based on patient's age to complete this topic Meningococcal B Aged Out No longer el igible based on patient's age to complete this topic Procedures Procedure Name Priority Date/Time Associated Diagnosis Comments ALBUMIN/CREAT RATIO Routine 11/19/2024 8 :23 AM CDT Controlled type 2 diabetes mellitus without complication, without long-term current use of insulin (HRC) HGB A1C Routine 11/19/2024 8:00 AM CDT 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) COMPLETE BLOOD COUNT-NO DIFF Routine 11/19/2024 8:00 AM CDT Atrial flutter, unspecified type (HRC) BASIC METABOLIC PANEL Routine 11/19/2024 8:00 AM CDT Right heart failure with reduced right ventricular function (HRC) URIC ACID Routine 11/19/2024 8:00 AM CDT Gout, unspecified cause, unspecified chronicity, unspecified site High risk medication use LIPID PANEL & DIRECT LDL (IF NEEDED) Routine 11/19/2024 8:00 AM CDT Dyslipidemia associated with type 2 diabetes mellitus (HRC) COLONOSCOPY Routine 01/27/2024 8:30 AM CDT Screen for colon cancer GREGG (DIABETIC EYE EXAM) 10/08/2023 PROSTATIC SPECIFIC ANTIGEN(SCREEN) Routine 09/06/2022 2:57 PM ADMINISTRATION DEAN Screening for prostate cancer HIV 1/2 AG/AB 4TH GEN Routine 04/06/2018 11:46 AM CDT Screening for HIV (human immunodeficiency virus) HEPATITIS C ANTIBODY, WITH REFLEX Routine 04/06/2018 11:46 AM CDT Need for hepatitis C screening test from Last 3 Months or Most Recently Relevant to Health Maintenance Results * (ABNORMAL) Albumin/Creatinine Ratio,Random Urine (11/19/2024 8:23 AM CDT) Albumin/Creati nine Ratio, Urine, Random 47(H) <30 mg/g 11/19/2024 12:02 PM CDT [facility] Albumin, Urine, Random 41.6 mg/L 11/19/2024 12:02 PM CDT [facility] Creatinine, Urine, Random 88 >20 mg/dL mg/dL 11/19/2024 12:02 PM CDT [facility] Urine Non-blood Collection / Unknown 11/19/2024 8:23 AM CDT 11/19/2024 8:23 AM CDT us Derek Leung PA-C LAB_1 Final Resul t [facility] [address] [address], [facility] * (ABNORMAL) Lipid Panel & Direct LDL (if Needed) (11/19/2024 8:00 AM CDT) Cholesterol 116 0 - 199 mg/dL 11/19/2024 11:39 AM T [facility] Triglyceride 185(H) <=149 mg/dL 11/19/2024 11:39 AM T [facility] HDL Cholesterol 29(L) >=40 mg/dL 11/19/2024 11:39 AM T [facility] LDL, Calculated 50 <130 mg/dL 11/19/2024 11:39 AM T [facility] Non HDL Chol, Calculated 87 <=159 mg/dL 11/19/2024 11:39 AM T [facility] Cholesterol/HDL Ratio 4.0 <=5.0 11/19/2024 11:39 AM T [facility] Hours Fasting 0.1 8 - 12 Hours 11/19/2024 11:39 AM [facility] Blood Venipuncture / Unknown 11/19/2024 8:00 AM CDT 11/19/2024 8:00 AM CDT us Derek Leung PA-C LAB_1 Final Resul t Performing Organization Address City/State/[facility] Co de Phone Number [facility] [address] * (ABNORMAL) Basic Metabolic Panel (11/19/2024 8:00 AM CDT) Sodium 141 136 - 145 mmol/L 11/19/2024 11:39 AM T [facility] Potassium 4.7 3.5 - 5.1 mmol/L 11/19/2024 11:39 AM T [facility] Chloride 94(L) 98 - 109 mmol/L 11/19/2024 11:39 AM T [facility] CO2 37(H) 20 - 29 mmol/L 11/19/2024 11:39 AM T [facility] Anion Gap 10 6 - 16 mmol/L 11/19/2024 11:39 AM T [facility] Calcium 9.0 8.4 - 10.4 mg/dL 11/19/2024 11:39 AM T [facility] BUN 36(H) 7 - 26 mg/dL 11/19/2024 11:39 AM T [facility] Creatinine 1.22(H) 0.73 - 1.18 mg/dL 11/19/2024 11:39 AM T [facility] Glucose 107(H) 70 - 100 mg/dL 11/19/2024 11:39 AM T [facility] Comment:The given reference range is for the fasting state. Non-fasting reference range for glucose is 70 - 180 mg/dL. GFR, Estimated >60 >60 mL/min/1. 73m2 11/19/2024 11:39 AM T [facility] Hours Fasting 0.1 8 - 12 Hours 11/19/2024 11:39 AM [facility] Blood Venipuncture / Unknown 11/19/2024 8:00 AM CDT 11/19/2024 8:00 AM CDT us Александр Montiel MD LAB_1 Final Result Performing Organization Address City/State/[facility] Co de Phone Number [facility] [address] * (ABNORMAL) Complete Blood Count- No Diff (11/19/2024 8:00 AM CDT) WBC 7.4 3.5 - 10.5 x10(9)/L 11/19/2024 8:25 AM CDT [facility] RBC 5.83(H) 4.32 - 5.72 x10(12)/L 11/19/2024 8:25 AM CDT [facility] Hemoglobin 14.0 13.5 - 17.5 g/dL 11/19/2024 8:25 AM CDT [facility] HCT 49.1 38.8 - 50.0 % 11/19/2024 8:25 AM CDT [facility] MCV 84.2 80.0 - 100.0 fL 11/19/2024 8:25 AM CDT [facility] MCH 24.0(L) 27.6 - 33.3 pg 11/19/2024 8:25 AM CDT [facility] MCHC 28.5(L) 31.5 - 35.2 g/dL 11/19/2024 8:25 AM CDT [facility] RDW 19.9(H) 11.9 - 15.5 % 11/19/2024 8:25 AM CDT [facility] Platelets 178 150 - 450 x10(9)/L 11/19/2024 8:25 AM CDT [facility] Blood Venipuncture / Unknown 11/19/2024 8:00 AM CDT 11/19/2024 8:00 AM CDT us Александр Montiel MD LAB_1 Final Result [facility] [address] [place] [address], [facility] * (ABNORMAL) Hgb A1C (11/19/2024 8:00 AM CDT) Hemoglobin A1C 7.4(H) <=5.6 % 11/19/2024 11:53 AM CDT [facility] Estimated Average Glucose (Calc) 166 < 117 mg/dL 11/19/2024 11:53 AM CDT [facility] Comment:Estimated average gl ucose (eAG) converts A1c into glucose units (mg/dL) and estimates average glucose over the past approximately 3 months. The eAG reference interval (<117 mg/dL) corresponds to an A1c of <5.7%. Blood Venipuncture / Unknown 11/19/2024 8:00 AM CDT 11/19/2024 8:00 AM CDT Narrative [facility] - 11/19/2024 11:53 AM CDT For patients not previously diagnosed with diabetes: 5.7-6.4%: Increased risk for diabetes 6.5% and greater: Diagnostic for diabetes For patients diagnosed with diabetes: <8.0%: Goal of therapy for ages 18-75 Clinicians may recommend a higher or lower goal for specific individuals. us Cynthia Camp PA-C LAB_1 Final Resul t Performing Organization Address [facility] Co de Phone Number [facility] [address] * Uric Acid (every 3 months) (11/19/2024 8:00 AM CDT) Uric Acid 3.8 3.5 - 7.2 mg/dL 11/19/2024 11:39 AM CDT [facility] Blood Venipuncture / Unknown 11/19/2024 8:00 AM CDT 11/19/2024 8:00 AM CDT us Magen Goodson MD LAB_1 Final Res ult Performing Organization Address [facility] Co de Phone Number [facility] [address] * Colonoscopy (01/27/2024 8:30 AM CDT) 01/27/2024 8:30 AM CDT Narrative GI ([facility]) - 01/27/2024 9:40 AM CDT Instrument Name: [id number] Indications: High risk colon cancer surveillance: Personal history of colonic polyps Providers: Kimberly Breen MD, Martha Cortes, ULISSES, Dinorah Braxton, ULISSES Patient Profile: This is a 58 year old male with a history of obesity (BMI 56), CHD, Atrial fibrillation on Elequis, IDDM2, adenomatous polyps, last colon in 2019 with 4x polyp -TA/HP who is here for surveillance. Medicines: Monitored Anesthesia Care Complications: No immediate complications. Procedure: Pre-Anesthesia Assessment: - Monitored anesthesia care under the supervision of a BREAD WRAPPER OPERATOR was determined to be medically necessary for this procedure based on review of the patient's medical history, medications, and prior anesthesia history. After I obtained informed consent, the scope was passed under direct vision. Prior to sedation, patient identity and procedure was reverified. Throughout the procedure, the patient's blood pressure, pulse, and oxygen saturations were monitored continuously.The Colonoscope was introduced through the anus and advanced to the cecum, identified by appendiceal orifice and ileocecal valve. The colonoscopy was performed without difficulty. The patient tolerated the procedure well. The quality of the bowel preparation was evaluated using the BBPS (Dunlap Bowel Preparation Scale) with scores of: Right Colon = 1 (portion of mucosa seen, but other areas not well seen due to staining, residual stool and/or opaque liquid), Transverse Colon = 2 (minor amount of residual staining, small fragments of stool and/or opaque liquid, but mucosa seen well) and Left Colon = 2 (minor amount of residual staining, small fragments of stool and/or opaque liquid, but mucosa seen well). The total BBPS score equals 5. Suboptimal prep. Findings: The perianal and digital rectal examinations were normal. A large amount of liquid semi-liquid stool was found in the entire colon, interfering with visualization. Lavage of the area was performed using a large amount, resulting in incomplete clearance with fair visualization. A 10 mm polyp was found in the cecum. The polyp was sessile. The polyp was removed with a cold snare. Resection and retrieval were complete. An 8 mm are of erythema/inflammation over what appeared to be an everted diverticulum/polypoid lesion was found in the transverse colon. The lesion was polypoid. No bleeding was present. Biopsies were taken with a cold forceps for histology. Area was tattooed with an injection of Spot (carbon black). Multiple large-mouthed, medium-mouthed and small-mouthed diverticula were found in the sigmoid colon, descending colon and transverse colon. Non-bleeding internal hemorrhoids were found during retroflexion. The exam was otherwise without abnormality on direct and retroflexion views. Impression: - Stool in the entire examined colon. - One 10 mm polyp in the cecum, removed with a cold snare. Resected and retrieved. - An 8 mm are of erythema/inflammation with some nodulartiy over what appeared to be an everted diverticulum/polypoid lesion was found in the transverse colon. The lesion was polypoid. No bleeding was present. Biopsies were taken with a cold forceps for histology. Area was tattooed with an injection of Spot (carbon black). - Diverticulosis in the sigmoid colon, in the descending colon and in the transverse colon. - Non-bleeding internal hemorrhoids. - The examination was otherwise normal on direct and retroflexion views. Recommendation: - Discharge patient to home. - Resume previous diet. - Continue present medications. - Resume Eliquis (apixaban) at prior dose tomorrow. - Await pathology results. - Repeat colonoscopy date to be determined after pending pathology results are reviewed for surveillance based on pathology results (if polypoid lesion in the transverse colon is benign tissue patient to return in 1 year with extended prep). Extended golytely for future exams. - For hemorrhoids: Start fiber supplementation, aim for 32-64 ounces of water per day, take a walk every day, 25-30 g of fiber per day (this can be dietary or by supplement - metamucil, Benefiber or Citrucel which are available over the counter). Stay well hydrated and avoid straining with bowel movements. If you continue to have constipation with use of fiber you can start using Miralax in addition to fiber, take 1-2 capfuls as needed so that you are able to have 1-2 soft bowel movements daily without straining. Avoid prolonged sitting and multitasking (i.e. phone use, reading, etc.) while defecating. Raise your legs about 6 inches when having a bowel movement (may use a squatty potty or equivalent stool for this). Recommend supportive topical measures (i.e. witch-day pads, zinc barrier cream, Sitz baths, Calmoseptine ointment, etc.) for managing hemorrhoids when symptomatic. - [facility] the [facility] if you have problems after your procedure such as; -Chills and/or fever over 101F (38.3C) -Vomiting that continues for several hours -Severe abdominal pain, other than gas cramps -Severe chest pain -Black, sticky stools -Any bleeding that is more than one tablespoon Please call if you have any questions about your procedure.Between the hours of 8:00am - 5:00pm, call the [facility] at . After 5:00PM call the Care Line at . Procedure Code(s): --- Professional --- [address], [place] [address], 59,PT 12448, PT --- Technical --- [address], [place] [address], 59,PT 80071, PT Diagnosis Code(s): --- Professional --- Z12.11 Z86.010 K64.8 K63.5 D49.0 K57.30 --- Technical --- Z12.11 Z86.010 K64.8 K63.5 D49.0 K57.30 CPT copyright 2021 [employer]. All rights reserved. The codes documented in this report are preliminary and upon electronic specialist review may be revised to meet current compliance requirements. Attending Participation: Kimberly Breen MD 01/27/2024 9:40:45 AM Number of Addenda: 0 Note Initiated On: 01/27/2024 8:30 AM Procedure Note Kimberly Breen MD - 01/27/2024 Instrument Name: [id number] Indications: High risk colon cancer surveillance: Personal history of colonic polyps Providers: Kimberly Breen MD, Martha Cortes RN, Dinorah Braxton RN Patient Profile: This is a 58 year old male with a history of obesity (BMI 56), CHD, Atrial fibrillation on Elequis, IDDM2, adenomatous polyps, last colon in 2019 with 4x polyp -TA/HP who is here for surveillance. Medicines: Monitored Anesthesia Care Complications: No immediate complications. Procedure: Pre-Anesthesia Assessment: - Monitored anesthesia care under the supervision of a BREAD WRAPPER OPERATOR was determined to be medically necessary for this procedure based on review of the patient's medical history, medications, and prior anesthesia history. After I obtained informed consent, the scope was passed under direct vision. Prior to sedation, patient identity and procedure was reverified. Throughout the procedure, the patient's blood pressure, pulse, and oxygen saturations were monitored continuously.The Colonoscope was introduced through the anus and advanced to the cecum, identified by appendiceal orifice and ileocecal valve. The colonoscopy was performed without difficulty. The patient tolerated the procedure well. The quality of the bowel preparation was evaluated using the BBPS (Dunlap Bowel Preparation Scale) with scores of: Right Colon = 1 (portion of mucosa seen, but other areas not well seen due to staining, residual stool and/or opaque liquid), Transverse Colon = 2 (minor amount of residual staining, small fragments of stool and/or opaque liquid, but mucosa seen well) and Left Colon = 2 (minor amount of residual staining, small fragments of stool and/or opaque liquid, but mucosa seen well). The total BBPS score equals 5. Suboptimal prep. Findings: The perianal and digital rectal examinations were normal. A large amount of liquid semi-liquid stool was found in the entire colon, interfering with visualization. Lavage of the area was performed using a large amount, resulting in incomplete clearance with fair visualization. A 10 mm polyp was found in the cecum. The polyp was sessile. The polyp was removed with a cold snare. Resection and retrieval were complete. An 8 mm are of erythema/inflammation over what appeared to be an everted diverticulum/polypoid lesion was found in the transverse colon. The lesion was polypoid. No bleeding was present. Biopsies were taken with a cold forceps for histology. Area was tattooed with an injection of Spot (carbon black). Multiple large-mouthed, medium-mouthed and small-mouthed diverticula were found in the sigmoid colon, descending colon and transverse colon. Non-bleeding internal hemorrhoids were found during retroflexion. The exam was otherwise without abnormality on direct and retroflexion views. Impression: - Stool in the entire examined colon. - One 10 mm polyp in the cecum, removed with a cold snare. Resected and retrieved. - An 8 mm are of erythema/inflammation with some nodulartiy over what appeared to be an everted diverticulum/polypoid lesion was found in the transverse colon. The lesion was polypoid. No bleeding was present. Biopsies were taken with a cold forceps for histology. Area was tattooed with an injection of Spot (carbon black). - Diverticulosis in the sigmoid colon, in the descending colon and in the transverse colon. - Non-bleeding internal hemorrhoids. - The examination was otherwise normal on direct and retroflexion views. Recommendation: - Discharge patient to home. - Resume previous diet. - Continue present medications. - Resume Eliquis (apixaban) at prior dosetomorrow. - Await pathology results. - Repeat colonoscopy date to be determined after pending pathology results are reviewed for surveillance based on pathology results (if polypoid lesion in the transverse colon is benign tissue patient to return in 1 year with extended prep). Extended golytely for future exams. - For hemorrhoids: Start fiber supplementation, aim for 32-64 ounces of water per day, take a walk every day, 25-30 g of fiber per day (this can be dietary or by supplement - metamucil, Benefiber or Citrucel which are available over the counter). Stay well hydrated and avoid straining with bowel movements. If you continue to have constipation with use of fiber you can start using Miralax in addition to fiber, take 1-2 capfuls as needed so that you are able to have 1-2 soft bowel movements daily without straining. Avoid prolonged sitting and multitasking (i.e. phone use, reading, etc.) while defecating. Raise your legs about 6 inches when having a bowel movement (may use a squatty potty or equivalent stool for this). Recommend supportive topical measures (i.e. witch-day pads, zinc barrier cream, Sitz baths, Calmoseptine ointment, etc.) for managing hemorrhoids when symptomatic. - Contact the [facility] if you have problems after your procedure such as; -Chills and/or fever over 101F (38.3C) -Vomiting that continues for several hours -Severe abdominal pain, other than gas cramps -Severe chest pain -Black, sticky stools -Any bleeding that is more than one tablespoon Please call if you have any questions about your procedure.Between the hours of 8:00am - 5:00pm, call the [facility] at . After 5:00PM call the Care Line at . Procedure Code(s): --- Professional --- [address], [place] [address], 59,PT 02668, PT --- Technical --- 50196, [place] [address], 59,PT 75340, PT Diagnosis Code(s): --- Professional --- Z12.11 Z86.010 K64.8 K63.5 D49.0 K57.30 --- Technical --- Z12.11 Z86.010 K64.8 K63.5 D49.0 K57.30 CPT copyright 2021 [employer]. All rights reserved. The codes documented in this report are preliminary and upon electronic specialist review may be revised to meet current compliance requirements. Attending Participation: Kimberly Breen MD 01/27/2024 9:40:45 AM Number of Addenda: 0 Note Initiated On: 01/27/2024 8:30 AM Kimberly Breen MD [facility] Edited Result - Final Performing Organization Address [facility]/ZIP Co de Phone Number GI (PROVATION) [place], [place] * GREGG (DIABETIC EYE EXAM) (10/08/2023) us Interface Provider DUMMY/OTHER/AR Final Resu lt * Prostatic Specific Antigen (Screen) (09/06/2022 2:57 PM ADMINISTRATION DEAN) Pathologist [facility] Prostatic Specific Antigen 0.5 0.0 - 4.0 ng/mL 09/06/2022 7:45 PM ADMINISTRATION DEAN [facility] Blood Venipuncture / Unknown 09/06/2022 2:57 PM ADMINISTRATION DEAN 09/06/2022 2:57 PM ADMINISTRATION DEAN Narrative [facility] - 09/06/2022 7:45 PM ADMINISTRATION DEAN The [employer] PSA Chemiluminescent immunoassay is used. Results obtained with different test methods or kits cannot be used interchangeably. Cynthia RICHARDC LAB_1 Final Resul t Performing Organization Address [facility] de Phone Number [facility] [address] [phone] * HIV 1/2 Ag/Ab 4th Generation (04/06/2018 11:46 AM CDT) Pathologist [facility] HIV 1/2 AG/AB 4thGEN Negative (Non Reactive) [facility] Comment:HIV-1 p24 Ag and HIV -1/HIV-2 Ab not detected. 04/06/2018 11:4 6 AM CDT 04/06/2018 11:48 AM CDT Narrative [facility] - 04/06/2018 3:54 PM CDT [facility], [address] [place] [address] Cynthia BLACKMAN-C LAB_1 Final Resul t Performing Organization Address [facility] de Phone Number [facility] [phone] * Hepatitis C Antibody, with Reflex (04/06/2018 11:46 AM CDT) Anti-HCV Negative (Non Reactive) [facility] Comment: Antibodies to HCV not detected. Does not exclude the possibility of exposure to HCV. 04/06/2018 11:4 6 AM CDT 04/06/2018 11:47 AM CDT Narrative [facility] - 04/06/2018 3:54 PM CDT Performed at [facility], [address] [place] [address] us Cynthia Camp PA-C LAB_1 Final Resul t [facility] [phone] from Last 3 Months or Most Recently Relevant to Health Maintenance Insurance FULLY INSURED FULLY INSURED Advance Directives * Full Code (Latest Code Status on File) Date Activated Date Inactivated Comments 01/25/2018 6:46 PM 02/08/2018 4:22 PM Care Teams Manager Risk Management Relationship Specialty Start Date End Date Cynthia Camp, PAPetersonC [address] [place] [address] PCP - General Physician Membership Sales Representative 03/31/18
--- OUTSIDE RECORDS SUMMARY | 2024-12-11 12:43 | XMS_ITS | Encounter Summary ---
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 Not on file Not on file documented as of this encounter Plan of Treatment Upcoming Encounters Date Type Department Care Team (Late Contact Info) Description 12/13/2024 2:00 PM CDT Telemedicine [facility] [address] [place] [phone] Cynthia Camp PA-C [address] [place], [place] [phone] documented as of this encounter Visit Diagnoses Not on filedocumented in this encounter Care Teams Banding Machine Operator Relationship Specialty Start Date End Date Cynthia Camp PA-C [address] [place] [address] PCP - General Physician Resident Surgeon 03/31/18 documented as of this encounter
--- OUTSIDE RECORDS SUMMARY | 2024-12-11 12:43 | XMS_ITS | Encounter Summary ---
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 Sebastian Watkins LPN 11/17/2024, 1:21 PM * Gene Frias - 11/17/2024 1:10 PM CDT Visit Information Encounter Information Provider Department 11/19/2024 8:10 AM [employer] [facility] Appt Notes Sample collection; Ac1 No lab order(s) found in patient's chart. Please order; otherwise contact the patient to discuss further. documented in this encounter Plan of Treatment Upcoming Encounters Date Type Department Care Team (Late st Contact Info) Description 12/13/2024 2:00 PM CDT Telemedicine [facility] [address] [place] [address] Cynthia Camp PA-C [address] [place] [address] documented as of this encounter Results * (ABNORMAL) Hgb A1C (11/19/2024 8:00 AM CDT) Hemoglobin A1C 7.4(H) <=5.6 % 11/19/2024 11:53 AM CDT [facility] Estimated Average Glucose (Calc) 166 < 117 mg/dL 11/19/2024 11:53 AM CDT [facility] Comment:Estimated average gl ucose (eAG) converts A1c into glucose units (mg/dL) and estimates average glucose over the past approximately 3 months. The eAG reference interval (<117 mg/dL) corresponds to an A1c of <5.7%. Blood Venipuncture / Unknown 11/19/2024 8:00 AM CDT 11/19/2024 8:00 AM CDT Narrative [facility] - 11/19/2024 11:53 AM CDT For patients not previously diagnosed with diabetes: 5.7-6.4%: Increased risk for diabetes 6.5% and greater: Diagnostic for diabetes For patients diagnosed with diabetes: <8.0%: Goal of therapy for ages 18-75 Clinicians may recommend a higher or lower goal for specific individuals. 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
--- OUTSIDE RECORDS SUMMARY | 2024-12-11 12:43 | XMS_ITS | Encounter Summary ---
Author Organization [facility] Address [address] [address] Care Team Providers Care Calculus Tutor Name Role Phone Cynthia Camp PA-C Primary Care Provider [phone] Reason for Visit * Reason Comments Prior Authorization For Medication Ten nuous Glucose Sensor (FREESTYLE BORIS 3 PLUS SENSOR) MISC Encounter Details Date Type Department Care Team (Late st Contact Info) Description 07/27/2024 Telephone [facility] [address] 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 Pharmacy has been notified. Maryana White LPN ER SOLDERER * Sofiya Booker - 07/27/2024 11:37 AM CST PA from pharmacy for medication ER SOLDERER documented in this encounter Plan of Treatment Upcoming Encounters Date Type Department Care Team (Late st Contact Info) Description 12/13/2024 2:00 PM CDT Telemedicine [facility] [address] [place] [phone] Cynthia Camp PA-C [address] [place], [place] [phone] documented as of this encounter Visit Diagnoses Not on filedocumented in this encounter Care Teams Calculus Tutor Relationship Specialty Start Date End Date Cynthia Camp PA-C [address] [place], [place] [phone] PCP - General Physician Glassware Engraver 03/31/18 documented as of this encounter
[2024-12-11 12:56] VITALS: BP 126/81; PULSE 100; RESP 22; TEMP 36; O2SAT 93; BMI 60.7
[2024-12-11 13:02] VITALS: BP 126/81; PULSE 105; RESP 14; O2SAT 94
[2024-12-11 13:03] VITALS: O2SAT 93
--- NOTE | 2024-12-11 13:03 | CRLHL7_ITS ---
For Patients: As a result of the Century Cures Act, medical imaging exams and procedure reports are released immediately into your electronic medical record. You may view this report before your referring provider. If you have questions, please contact your health care provider. INDICATION: Shortness of breath TECHNIQUE: Chest 2 views. COMPARISON: Chest x-ray 02/17/2017 FINDINGS: Stable cardiomegaly with mild pulmonary vascular congestion. Negative for focal consolidation, pleural effusion or pneumothorax. There are mild degenerative changes of the thoracic spine. IMPRESSION: Stable cardiomegaly with mild pulmonary vascular congestion. Dictated by Gni Mercer MD @ 12/11/2024 1:59:50 PM Dictated by: Gin Mercer MD @ 12/11/2024 13:59:58 (Electronically Signed)
--- NOTE | 2024-12-11 13:10 | ED.GENADULT ---
HPI - General Adult General Chief complaint: Dizziness/Vertigo Stated complaint: shortness of breath Time Seen by Provider: 12/11/24 12:54 Source: patient Mode of arrival: ambulatory Limitations: no limitations History of Present Illness HPI narrative: 59-year-old male,complicated medical history, presents today with dizziness that started yesterday. He describes the dizziness as a sensation that he might fall over when he stands up. He denies any vertiginous symptoms, the room does not spin. When this occurs and lasts a few minutes and then it goes away. It does not cause him to feel nauseated, no vomiting. He denies any recent illness such as cough or congestion. Patient does have a he chronic respiratory failure, oxygen dependent. He has not required a change or increase in his oxygen needs. He denies changes in his appetite, he denies shortness of breath or chest pain. He denies focal neurologic deficits such as weakness in any extremity, difficulty with speech or word-finding difficulty. He denies changes in his vision or ringing in his ears. He states that he has been fluid overloaded recently and has increased his Bumex to 12.5 mg daily. He denies fevers or chills. He denies decrease in his strength. Related Data Home Medications ?Medication ?Instructions ?Recorded ?Confirmed albuterol sulfate 90 mcg/actuation 2 puff inhalation Q4H PRN 07/24/23 08/28/23 aerosol inhaler (Ventolin HFA) allopurinol 100 mg tablet 100 mg PO BID 07/24/23 08/27/23 allopurinol 300 mg tablet 300 mg PO BID 07/24/23 08/27/23 bumetanide 1 mg tablet 3 mg PO BID 07/24/23 08/27/23 duloxetine 60 mg capsule,delayed 60 mg PO DAILY 07/24/23 08/27/23 release fenofibrate micronized 67 mg 67 mg PO DAILY 07/24/23 08/27/23 capsule finasteride 5 mg tablet 5 mg PO DAILY 07/24/23 08/27/23 glipizide 10 mg tablet, extended 10 mg PO DAILY 07/24/23 08/27/23 release 24 hr insulin glargine 100 unit/mL (3 45 unit subcut QPM 07/24/23 08/27/23 mL) subcutaneous pen (Lantus Solostar U-100 Insulin) lisinopril 2.5 mg tablet 2.5 mg PO DAILY 07/24/23 08/27/23 metformin 1,000 mg tablet 1,000 mg PO BIDWM 07/24/23 08/28/23 potassium chloride 20 mEq 20 meq PO BID 07/24/23 08/27/23 tablet,extended release(part/cryst) (Klor-Con M) rosuvastatin 20 mg tablet 20 mg PO DAILY 07/24/23 08/27/23 semaglutide 2 mg/dose (8 mg/3 mL) 2 mg subcut Q7D 07/24/23 08/28/23 subcutaneous pen injector (Ozempic) spironolactone 25 mg tablet 25 mg PO DAILY 07/24/23 08/27/23 tamsulosin 0.4 mg capsule 0.8 mg PO DAILY 07/24/23 08/28/23 aspirin 81 mg tablet,delayed 81 mg PO DAILY 08/28/23 08/28/23 release cholecalciferol (vitamin D3) 125 125 mcg PO DAILY 08/28/23 08/28/23 mcg (5,000 unit) tablet multivitamin (Daily Multi-Vitamin 1 tab PO DAILY 08/28/23 08/28/23 tablet) nitroglycerin 0.4 mg sublingual 0.4 mg sublingual Q5M PRN 08/28/23 08/28/23 tablet omega-3 acid ethyl esters 1 gram 2 cap PO BID 08/28/23 08/28/23 capsule (Lovaza) polyethylene glycol 3350 17 8.5 g PO DAILY 08/28/23 08/28/23 gram/dose oral powder (Miralax) Previous Rx's ?Medication ?Instructions ?Recorded Home Oxygen #1 ea 08/29/23 Home Oxygen #1 ea 08/29/23 Home Oxygen #1 ea 08/29/23 metoprolol succinate 25 mg capsule 25 mg PO DAILY #30 ea 08/29/23 sprinkle, ext. release 24 hr gentamicin 0.1 % topical cream 1 applic topical TID #30 grams 06/23/24 ciprofloxacin HCl 750 mg tablet 750 mg PO Q12H #14 tabs 06/30/24 Allergies Allergy/AdvReac Type Severity Reaction Status Date / Time No Known Drug Allergies Allergy Verified 12/11/24 12:55 Review of Systems Status of ROS: Reports: 10 or more systems reviewed and unremarkable except as noted in History and below [facility] Medical History Gout ?M10.9 - Gout, unspecified (ICD-10) Scrotal edema ?N50.89 - Other specified disorders of the male genital organs (ICD-10) Right heart failure with reduced right ventricular function ?I50.810 - Right heart failure, unspecified (ICD-10) Obesity hypoventilation syndrome ?E66.2 - Morbid (severe) obesity with alveolar hypoventilation (ICD-10) CAD (coronary artery disease) ?I25.10 - Atherosclerotic heart disease of tolowa dee-ni' coronary artery without angina pectoris (ICD-10) Acute on chronic respiratory failure with hypoxia and hypercapnia ?J96.21 - Acute and chronic respiratory failure with hypoxia (ICD-10) ?J96.22 - Acute and chronic respiratory failure with hypercapnia (ICD-10) TACO (obstructive sleep apnea) ?G47.33 - Obstructive sleep apnea (adult) (pediatric) (ICD-10) Chronic respiratory failure with hypoxia and hypercapnia ?J96.11 - Chronic respiratory failure with hypoxia (ICD-10) ?J96.12 - Chronic respiratory failure with hypercapnia (ICD-10) Morbid obesity ?E66.01 - Morbid (severe) obesity due to excess calories (ICD-10) Diabetes mellitus type 2 in nonobese ?E11.9 - Type 2 diabetes mellitus without complications (ICD-10) Hypercholesterolemia ?E78.00 - Pure hypercholesterolemia, unspecified (ICD-10) Pulmonary hypertension ?I27.20 - Pulmonary hypertension, unspecified (ICD-10) Diastolic heart failure ?I50.30 - Unspecified diastolic (congestive) heart failure (ICD-10) Hypertension ?I10 - Essential (primary) hypertension (ICD-10) Varicose veins with ulcer and inflammation ?I83.209 - Varicose veins of unspecified lower extremity with both ulcer of unspecified site and inflammation (ICD-10) ?L97.909 - Non-pressure chronic ulcer of unspecified part of unspecified lower leg with unspecified severity (ICD-10) Chronic wound ?T14.8XXA - Other injury of unspecified body region, initial encounter (ICD-10) Venous stasis ?I87.8 - Other specified disorders of veins (ICD-10) Surgical History Stented coronary artery ?Z95.5 - Presence of coronary angioplasty implant and graft (ICD-10) Social History What is your current living situation?: I presently have a place to live Problems where you live: no known problems Problems where you live details: NA In the past 12 months, utilities in danger of being shut off: no In past 12 months, lack of transportation kept you from medical appts, meetings, work, or getting things needed for daily living: no In the past 12 mos, have been you worried that your food would run out before you had money to buy more?: never true In the past 12 mos, the food you bought just didn't last and you didn't have money to buy more?: never true Highest level of school completed/degree received: Associate degree: occupational, technical, vocational program Smoking Status: Current every day smoker What tobacco products do you use: cigarettes Smoking packs per day: 0.5 Smoking cigarettes per day: 10.0 Years smoked: 30 Smoking pack-years: 15.00 Do you use any of these nicotine containing products: None Second hand tobacco smoke exposure: No How often do you have a drink containing alcohol: never AUDIT-C Alcohol total score: 0 Non-prescribed substance use: marijuana (any form) Non-prescribed substance use details: daily marijuana user Caffeine: Yes (coffee daily) How often does anyone, including family, friends and others, physically hurt you: never How often does anyone, including family, friends and others, insult or talk down to you: never How often does anyone, including family, friends and others, threaten you with harm: never How often does anyone, including family, friends and others, scream or curse at you: never service: No Exam Narrative: Exam Narrative: Morbidly obese, well-developed patient in no acute distress. Alert and oriented x3. Answers questions appropriately. Mood and affect are appropriate. Thoughts are goal oriented and rational. No tangential or magical thinking noted. Patient speaks in full sentences without needing to catch his breath. HEENT: Normocephalic atraumatic. Pupils are equally round reactive to light. Extraocular muscles are intact. Conjunctivae are moist without any icterus noted. Moist mucous membranes. Neck is supple. Cardiovascular: Heart is tachycardic, regular rhythm. S1-S2 present without obvious murmurs. Lungs: Decreased breath sounds bilaterally without wheezes, rhonchi or rales appreciated. Patient takes deep breaths without any discomfort. Abdomen: Protuberant, obese and soft. Bowel sounds. Extremities: Bilateral lower extremities have chronic changes from venous stasis and lymphedema. Skin: Well perfused. Strength is 5/5 of the upper and lower extremities. Cranial nerves 3-12 are grossly normal. [id number] is normal. There is no nystagmus either horizontally or vertically. Const: Vital Signs, click to edit/add: Vital Signs - 24 hr 12/11/24 12:56 12/11/24 13:03 12/11/24 13:41 Temperature 96.8 F L Pulse Rate [Pulse Oximeter] 100 Pulse Rate [orthos tatic lying Pulse Oximeter] 101 H Pulse Rate [orthos tatic sitting Puls e Oximeter] 102 H Pulse Rate [orthos tatic standing Pul se Oximeter] 102 H Respiratory Rate 22 Blood Pressure [Ri ght Upper Arm] 126/81 Blood Pressure [or thostatic lying Ri ght Arm] 114/90 H Blood Pressure [or thostatic sitting Right Arm] 130/88 Blood Pressure [or thostatic standing Right Arm] 123/76 Pulse Oximetry 93 93 Oxygen Delivery Me thod Nasal Cannula Oxygen Flow Rate 2 Course Course ED Course: EKG, read by me, is inconclusive. He does appear to have sinus tachycardia with P waves, pulse 104 and a right bundle-branch block. No evidence of orthostatic hypotension and no significant dizziness upon standing while he was here. Chest x-ray, read by me, shows vascular congestion. CBC does not show an elevated white count, CBC otherwise consistent with previous CBCs. Chemistries largely unchanged from previous. Normal troponin. Normal LFTs. Normal CRP. BNP over 5000. Vital Signs Vital signs: Initial Vital Signs Temperature 96.8 F L 12/11/24 12:56 Temperature Source Temporal Artery Scan 12/11/24 12:56 Pulse Rate 100 12/11/24 12:56 Respiratory Rate 22 12/11/24 12:56 Blood Pressure 126/81 12/11/24 12:56 Blood Pressure Mean 96 12/11/24 12:56 Blood Pressure Position Sitting 12/11/24 12:56 Pulse Oximetry 93 12/11/24 12:56 Oxygen Delivery Method Nasal Cannula 12/11/24 12:56 Oxygen Flow Rate 2 12/11/24 12:56 Vital Signs Temperature 96.8 F L 12/11/24 12:56 Pulse Rate 100 12/11/24 12:56 Respiratory Rate 22 12/11/24 12:56 Blood Pressure 126/81 12/11/24 12:56 Pulse Oximetry 93 12/11/24 12:56 Oxygen Delivery Method Nasal Cannula 12/11/24 12:56 Oxygen Flow Rate 2 12/11/24 12:56 Temperature 96.8 F L 12/11/24 12:56 Pulse Rate 101 H 12/11/24 13:41 Respiratory Rate 22 12/11/24 12:56 Blood Pressure 114/90 H 12/11/24 13:41 Pulse Oximetry 93 12/11/24 13:03 Oxygen Delivery Method Nasal Cannula 12/11/24 12:56 Oxygen Flow Rate 2 12/11/24 12:56 Medical Decision Making MDM Narrative Medical decision making narrative: 59-year-old male with transient dizziness. He states that he was given the okay by his physician increased his Bumex to 12.5 mg daily. I do want him to recheck with his provider to make sure that that dose is correct. Recommend following up with primary care this coming week. Symptoms are not consistent with stroke. No evidence of acute coronary syndrome. No evidence of infection. Lab Data Lab results reviewed: Yes I reviewed the patient's lab results Labs: Lab Results 12/11/24 Range/Units 13:35 WBC 7.83 (4.50-11.00) K/uL RBC 6.28 H (4.30-5.90) m/uL Hgb 15.1 (13.5-17.5) gm/dL Hct 52.2 (37.0-53.0) % MCV 83 (80-100) fL MCH 24 L (26-34) pg MCHC 29 L (32-36) gm/dL RDW Coeff of Tonya 20.6 H (11.5-15.5) % Plt Count 170 (140-440) K/uL Neut % (Auto) 74.6 H (42.0-72.0) % Lymph % (Auto) 9.6 L (20-44) % George % (Auto) 10.1 (0.0-11.0) % Eos % (Auto) 5.0 (0.0-7.0) % Baso % (Auto) 0.4 (0.0-3.0) % Neut # (Auto) 5.80 (1.7-7.0) K/uL Lymph # (Auto) 0.80 L (0.90-2.90) K/uL George # (Auto) 0.80 (0.00-0.90) K/UL Eos # (Auto) 0.39 (0.00-0.50) K/uL Baso # (Auto) 0.03 (0.00-0.30) K/uL Abs Immat Gran (auto) 0.02 (0.00-0.30) K/uL Imm/Tot Granulo (auto) 0.3 % VBG pH 7.448 H (7.32-7.43) VBG pCO2 56 H (40-50) mmHG VBG pO2 37.8 (25-47) mmHG VBG HCO3 39 H (21-28) mmol/L Sodium 140 (135-149) mmol/L Potassium 4.4 (3.6-5.1) mmol/L Chloride 94 L (96-114) mmol/L Carbon Dioxide 38 H (20-32) mmol/L Anion Gap 8 (7-15) mEq/L BUN 33 H (7-30) mg/dL Creatinine 1.2 (0.5-1.5) mg/dL Estimated Creat Clear 69.72 Estimated GFR 69 ml/min Glucose 186 H (60-115) mg/dL Lactate 2.4 H (0.5-1.9) mmol/L Calcium 8.9 (8.4-10.6) mg/dL Magnesium 2.4 (1.5-2.6) mg/dL Total Bilirubin 1.1 (0.1-1.5) mg/dL Direct Bilirubin 0.4 (0.0-0.5) mg/dL AST 31 (12-35) U/L ALT 23 (4-50) U/L Alkaline Phosphatase 64 (40-150) U/L Troponin I 0.02 (0.01-0.04) ng/mL C-Reactive Protein 0.5 (0.5-1.0) mg/dL NT-Pro-B Natriuret Pep 5210 pg/mL Total Protein 7.6 (6.0-8.3) g/dL Albumin 4.3 (3.3-5.0) g/dL SARS-CoV-2 (PCR) Negative SARS-CoV-2 (Negative) Influenza Type A (PCR) Negative PCR FLU A (Negative) Influenza Type B (PCR) Negative PCR FLU B (Negative) RSV (PCR) Negative PCR RSV (Negative) POC Troponin I 0.02 (0.01-0.04) ng/ml Imaging Data Chest x-ray: Attestation: I have reviewed the pertinent imaging results. Radiologist's impression: TECHNIQUE: Chest 2 views. COMPARISON: Chest x-ray 02/17/2017 FINDINGS: Stable cardiomegaly with mild pulmonary vascular congestion. Negative for focal consolidation, pleural effusion or pneumothorax. There are mild degenerative changes of the thoracic spine. IMPRESSION: Stable cardiomegaly with mild pulmonary vascular congestion. ECG Data Attestation: I personally reviewed and interpreted this ECG as follows: Discharge Plan Discharge Clinical Impression: Dizziness Patient Disposition: Home, Self-Care Condition: Stable Additional Instructions: Recommend you follow-up with your primary care provider this coming week. Recommend you also check on what dose of Bumex you should be taking. Prescriptions: No Action aspirin 81 mg tablet,delayed release (DR/EC) 81 mg PO DAILY cholecalciferol (vitamin D3) 125 mcg (5,000 unit) tablet 125 mcg PO DAILY multivitamin [Daily Multi-Vitamin] Tablet 1 tab PO DAILY polyethylene glycol 3350 [Miralax] 17 gram/dose powder 8.5 g PO DAILY nitroglycerin 0.4 mg tablet, sublingual 0.4 mg sublingual Q5M PRN omega-3 acid ethyl esters [Lovaza] 1 gram capsule 2 cap PO BID (DME) Home Oxygen Misc See Rx Instructions .Route Qty: 1 0RF Rx Instructions: 3 liters/NC with activity (DME) Home Oxygen Misc See Rx Instructions .Route Qty: 1 0RF Rx Instructions: 3 liters/NC with activity (DME) Home Oxygen Misc See Rx Instructions .Route Qty: 1 0RF Rx Instructions: 1 L per nasal cannula at rest and 3 L per nasal cannula with activity metoprolol succinate 25 mg capsule,sprinkle,ER 24hr 25 mg PO DAILY Qty: 30 0RF glipizide 10 mg tablet extended release 24hr 10 mg PO DAILY fenofibrate micronized 67 mg capsule 67 mg PO DAILY allopurinol 100 mg tablet 100 mg PO BID spironolactone 25 mg tablet 25 mg PO DAILY potassium chloride [Klor-Con M20] 20 mEq tablet,ER particles/crystals 20 meq PO BID tamsulosin 0.4 mg capsule 0.8 mg PO DAILY metformin 1,000 mg tablet 1,000 mg PO BIDWM bumetanide 1 mg tablet 3 mg PO BID allopurinol 300 mg tablet 300 mg PO BID albuterol sulfate [Ventolin HFA] 90 mcg/actuation HFA aerosol inhaler 2 puff inhalation Q4H PRN lisinopril 2.5 mg tablet 2.5 mg PO DAILY finasteride 5 mg tablet 5 mg PO DAILY rosuvastatin 20 mg tablet 20 mg PO DAILY duloxetine 60 mg capsule,delayed release(DR/EC) 60 mg PO DAILY insulin glargine [Lantus Solostar U-100 Insulin] 100 unit/mL (3 mL) insulin pen 45 unit subcut QPM Ozempic 2 mg/dose (8 mg/3 mL) pen injector 2 mg subcut Q7D gentamicin 0.1 % cream 1 applic topical TID Qty: 30 0RF ciprofloxacin HCl 750 mg tablet 750 mg PO Q12H Qty: 14 0RF Follow Up/Referrals: Provider,Not a Local [Non-Staff] - Stand Alone Forms: [facility] Info Instructions
[2024-12-11 13:33] VITALS: BP 114/90; PULSE 101; RESP 21; O2SAT 91
[2024-12-11 13:41] VITALS: BP 114/90; BP 123/76; BP 130/88; PULSE 101; PULSE 102
[2024-12-11 13:44] LABS: HCO3 VBG 39 mmol/L (21-28); Lactate* 2.4 mmol/L (0.5-1.9); PCO2 VBG 56 mmHG (40-50); PO2 VBG 37.8 mmHG (25-47); pH VBG 7.448 (7.32-7.43)
[2024-12-11 13:46] LABS: Basophils Absolute Auto 0.03 K/uL (0.00-0.30); Basophils Percent Auto 0.4 % (0.0-3.0); Eosinophils Absolute Auto 0.39 K/uL (0.00-0.50); Hematocrit 52.2 % (37.0-53.0); Hemoglobin* 15.1 gm/dL (13.5-17.5); Immature Granulocytes Abs Auto 0.02 K/uL (0.00-0.30); Immature Granulocytes Pct Auto 0.3 %; Lymphocytes Percent Auto 9.6 % (20-44); Mean Corpuscular HGB Conc 29 gm/dL (32-36); Mean Corpuscular Hemoglobin 24 pg (26-34); Mean Corpuscular Volume 83 fL (80-100); Monocytes Percent Auto 10.1 % (0.0-11.0); Neutrophils Percent Auto 74.6 % (42.0-72.0); Platelet Count* 170 K/uL (140-440); RDW Coefficient of Variation % 20.6 % (11.5-15.5); Red Blood Count 6.28 m/uL (4.30-5.90); White Blood Count* 7.83 K/uL (4.50-11.00)
[2024-12-11 13:50] LABS: Troponin, Point-of-Care* 0.02 ng/ml (0.01-0.04)
--- OUTSIDE RECORDS SUMMARY | 2024-12-11 13:57 | XMS_ITS | Encounter Summary ---
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 file Not on file documented as of this encounter Plan of Treatment Upcoming Encounters Date Type Department Care Team (Late st Contact Info) Description 12/13/2024 2:00 PM CDT Telemedicine [facility] [address] [place] [address] Cynthia Camp PA-C [address] [place] [address] documented as of this encounter [...] 47(H) <30 mg/g 11/19/2024 12:02 PM CDT [facility] Albumin, Urine, Random 41.6 mg/L 11/19/2024 12:02 PM CDT [facility] Creatinine, Urine, Random 88 >20 mg/dL mg/dL 11/19/2024 12:02 PM T [facility] Urine Non-blood Collection / Unknown 11/19/2024 8:23 AM CDT 11/19/2024 8:23 AM CDT us Derek Leung PA-C LAB_1 Final Resul t Performing Organization Address [facility] de Phone Number [facility] [address] * (ABNORMAL) Hgb A1C (11/19/2024 8:00 AM CDT) Hemoglobin A1C 7.4(H) <=5.6 % 11/19/2024 11:53 AM CDT [facility] Estimated Average Glucose (Calc) 166 < 117 mg/dL 11/19/2024 11:53 AM T [facility] Comment:Estimated average gl ucose (eAG) converts A1c into glucose units (mg/dL) and estimates average glucose over the past approximately 3 months. The eAG reference interval (<117 mg/dL) corresponds to an A1c of <5.7%. Blood Venipuncture / Unknown 11/19/2024 8:00 AM CDT 11/19/2024 8:00 AM CDT Narrative [facility] - 11/19/2024 11:53 AM CDT For patients not previously diagnosed with diabetes: 5.7-6.4%: Increased risk for diabetes 6.5% and greater: Diagnostic for diabetes For patients diagnosed with diabetes: <8.0%: Goal of therapy for ages 18-75 Clinicians may recommend a higher or lower goal for specific individuals. us Cynthia Camp PA-C LAB_1 Final Resul t Performing Organization Address [facility] Co de Phone Number [facility] [address] [place] [address] * (ABNORMAL) Complete Blood Count- No Diff (11/19/2024 8:00 AM CDT) WBC 7.4 3.5 - 10.5 x10(9)/L 11/19/2024 8:25 AM CDT [facility] RBC 5.83(H) 4.32 - 5.72 x10(12)/L 11/19/2024 8:25 AM CDT [facility] Hemoglobin 14.0 13.5 - 17.5 g/dL 11/19/2024 8:25 AM CDT [facility] HCT 49.1 38.8 - 50.0 % 11/19/2024 8:25 AM CDT [facility] MCV 84.2 80.0 - 100.0 fL 11/19/2024 8:25 AM CDT [facility] MCH 24.0(L) 27.6 - 33.3 pg 11/19/2024 8:25 AM CDT [facility] MCHC 28.5(L) 31.5 - 35.2 g/dL 11/19/2024 8:25 AM CDT [facility] RDW 19.9(H) 11.9 - 15.5 % 11/19/2024 8:25 AM CDT [facility] Platelets 178 150 - 450 x10(9)/L 11/19/2024 8:25 AM CDT [facility] Blood Venipuncture / Unknown 11/19/2024 8:00 AM CDT 11/19/2024 8:00 AM CDT us Александр Montiel MD LAB_1 Final Result [facility] [address] [place] [address], [facility] * (ABNORMAL) Basic Metabolic Panel (11/19/2024 8:00 AM CDT) Pathologist [facility] Sodium 141 136 - 145 mmol/L 11/19/2024 11:39 AM CDT [facility] Potassium 4.7 3.5 - 5.1 mmol/L 11/19/2024 11:39 AM [facility] Chloride 94(L) 98 - 109 mmol/L 11/19/2024 11:39 AM [facility] CO2 37(H) 20 - 29 mmol/L 11/19/2024 11:39 AM [facility] Anion Gap 10 6 - 16 mmol/L 11/19/2024 11:39 AM [facility] Calcium 9.0 8.4 - 10.4 mg/dL 11/19/2024 11:39 AM [facility] BUN 36(H) 7 - 26 mg/dL 11/19/2024 11:39 AM [facility] Creatinine 1.22(H) 0.73 - 1.18 mg/dL 11/19/2024 11:39 AM [facility] Glucose 107(H) 70 - 100 mg/dL 11/19/2024 11:39 AM [facility] Comment:The given reference range is for the fasting state. Non-fasting reference range for glucose is 70 - 180 mg/dL. GFR, Estimated >60 >60 mL/min/1. 73m2 11/19/2024 11:39 AM [facility] Hours Fasting 0.1 8 - 12 Hours 11/19/2024 11:39 AM [facility] Blood Venipuncture / Unknown 11/19/2024 8:00 AM CDT 11/19/2024 8:00 AM CDT Александр Montiel MD LAB_1 Final Result [facility] [address] [place] [address], [facility] * Uric Acid (every 3 months) (11/19/2024 8:00 AM CDT) Uric Acid 3.8 3.5 - 7.2 mg/dL 11/19/2024 11:39 AM [facility] Blood Venipuncture / Unknown 11/19/2024 8:00 AM CDT 11/19/2024 8:00 AM CDT us Magen Goodson MD LAB_1 Final Res ult Performing Organization Address [facility] de Phone Number [facility] [address] * (ABNORMAL) Lipid Panel & Direct LDL (if Needed) (11/19/2024 8:00 AM CDT) [facility] Signature Cholesterol 116 0 - 199 mg/dL 11/19/2024 11:39 AM CDT [facility] Triglyceride 185(H) <=149 mg/dL 11/19/2024 11:39 AM T [facility] HDL Cholesterol 29(L) >=40 mg/dL 11/19/2024 11:39 AM T [facility] LDL, Calculated 50 <130 mg/dL 11/19/2024 11:39 AM T [facility] Non HDL Chol, Calculated 87 <=159 mg/dL 11/19/2024 11:39 AM T [facility] Cholesterol/HDL Ratio 4.0 <=5.0 11/19/2024 11:39 AM T [facility] Hours Fasting 0.1 8 - 12 Hours 11/19/2024 11:39 AM [facility] Blood Venipuncture / Unknown 11/19/2024 8:00 AM CDT 11/19/2024 8:00 AM CDT us Derek Leung PA-C LAB_1 Final Resul t Performing Organization Address [facility] Co de Phone Number [facility] [address] documented in this encounter Visit Diagnoses [...] ([facility]) documented in this encounter Care Teams Cylinder Block Hole Reliner Relationship Specialty Start Date End Date Cynthia Camp PA-C [address] [place] [address] PCP - General Physician Punch Press Setter 03/31/18 documented as of this encounter
--- OUTSIDE RECORDS SUMMARY | 2024-12-11 13:57 | XMS_ITS | Encounter Summary ---
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 Not on file Not on file documented as of this encounter Nursing Notes * Marifer Montiel - 07/11/2020 9:32 PM CST Letter sent to patient Marifer Montiel 07/11/2020, 9:32 PM SPRINKLER SERVICE TECHNICIAN documented in this encounter Plan of Treatment Upcoming Encounters Date Type Department Care Team (Late st Contact Info) Description 12/13/2024 2:00 PM CDT Telemedicine [facility] [address] [place] [phone] Cynthia Camp PA-C [address] [place], [place] [phone] documented as of this encounter Visit Diagnoses Diagnosis Encounter for long-term (current) use of medications- Primary Encounter for long-term (current) use of other medications documented in this encounter Care Teams Casting Operator Helper Relationship Specialty Start Date End Date Cynthia Camp PA-C [address] [place], [place] [id number] PCP - General Physician Sports Physician 03/31/18 documented as of this encounter
--- OUTSIDE RECORDS SUMMARY | 2024-12-11 13:57 | XMS_ITS | Encounter Summary ---
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 Not on file Not on file documented as of this encounter Plan of Treatment Upcoming Encounters Date Type Department Care Team (Late st Contact Info) Description 12/13/2024 2:00 PM CDT Telemedicine [facility] [address] [place] [address] Cynthia Camp PA-C [address] [place] [address] documented as of this encounter Procedures Procedure Name Priority Date/Time Associated Diagnosis Comments COLONOSCOPY OPCU 01/27/2024 8:15 AM CDT Screen for colon cancer documented in this encounter Visit Diagnoses Not on filedocumented in this encounter Care Teams Senior Patrol Agent Relationship Specialty Start Date End Date Cynthia Camp PA-C [address] [place], [place] [phone] PCP - General Physician Underwriting Support Specialist 03/31/18 documented as of this encounter
--- OUTSIDE RECORDS SUMMARY | 2024-12-11 13:57 | XMS_ITS | Encounter Summary ---
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 file Not on file documented as of this encounter Plan of Treatment Upcoming Encounters Date Type Department Care Team (Late st Contact Info) Description 12/13/2024 2:00 PM CDT Telemedicine [facility] [address] [place] [phone] Cynthia Camp PA-C [address] [place], [place] [phone] documented as of this encounter Visit Diagnoses Not on filedocumented in this encounter Care Teams It Application Administrator Relationship Specialty Start Date End Date Cynthia Camp PA-C [address] [place], [place] [phone] PCP - General Physician Storage Administrator 03/31/18 documented as of this encounter
--- OUTSIDE RECORDS SUMMARY | 2024-12-11 13:57 | XMS_ITS | Encounter Summary ---
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 file Not on file documented as of this encounter Plan of Treatment Upcoming Encounters Date Type Department Care Team (Late st Contact Info) Description 12/13/2024 2:00 PM CDT Telemedicine [facility] [address] [place] [phone] Cynthia Camp PA-C [address] [place], [place] [phone] documented as of this encounter Visit Diagnoses Not on filedocumented in this encounter Care Teams Financial Analysis Consultant Relationship Specialty Start Date End Date Cynthia Camp PA-C [address] [facility] [place] [address] PCP - General Physician Salesperson Automobiles 03/31/18 documented as of this encounter
--- OUTSIDE RECORDS SUMMARY | 2024-12-11 13:57 | XMS_ITS | Encounter Summary ---
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 Not on file documented as of this encounter Plan of Treatment Upcoming Encounters Date Type Department Care Team (Late Contact Info) Description 12/13/2024 2:00 PM CDT Telemedicine [facility] [address] [place] [phone] Cynthia Camp PA-C [address] [place], [place] [phone] documented as of this encounter Visit Diagnoses Not on filedocumented in this encounter Care Teams Trackless Trolley Driver Relationship Specialty Start Date End Date Cynthia Camp PA-C [address] [place] [address] PCP - General Physician Timber Estimator 03/31/18 documented as of this encounter
--- OUTSIDE RECORDS SUMMARY | 2024-12-11 13:57 | XMS_ITS | Encounter Summary ---
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 Not on file documented as of this encounter Plan of Treatment Upcoming Encounters Date Type Department Care Team (Late st Contact Info) Description 12/13/2024 2:00 PM CDT Telemedicine [facility] [address] [place] [phone] Cynthia Camp PA-C [address] [place] [address] documented as of this encounter Visit Diagnoses Diagnosis Encounter for long-term (current) use of medications- Primary Encounter for long-term (current) use of other medications documented in this encounter Care Teams Etl Developer Relationship Specialty Start Date End Date Cynthia Camp PA-C [address] [place], [place] [phone] PCP - General Physician Assistant Press Operator Offset 03/31/18 documented as of this encounter
--- OUTSIDE RECORDS SUMMARY | 2024-12-11 13:57 | XMS_ITS | Encounter Summary ---
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 Not on file documented as of this encounter Plan of Treatment Upcoming Encounters Date Type Department Care Team (Late st Contact Info) Description 12/13/2024 2:00 PM CDT Telemedicine [facility] [address] [place] [phone] Cynthia Camp PA-C [address] [place], [place] [phone] documented as of this encounter Visit Diagnoses Not on filedocumented in this encounter Care Teams Product Safety Technical Assistant Relationship Specialty Start Date End Date Cynthia Camp PA-C [address] [place] [address] PCP - General Physician Earth Boring Machine Operator 03/31/18 documented as of this encounter
--- OUTSIDE RECORDS SUMMARY | 2024-12-11 13:57 | XMS_ITS | Encounter Summary ---
Author Organization [facility] Address [address] [place] [address] Care Team Providers Care Management Lecturer Name Role Phone Cynthia Camp PA-C Primary Care Provider [phone] Encounter Details Date Type Department Care Team (Latest Contact Info) Description 11/09/2018 Correspondence [facility] [address] 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
--- OUTSIDE RECORDS SUMMARY | 2024-12-11 13:57 | XMS_ITS | Encounter Summary ---
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 file Not on file documented as of this encounter Plan of Treatment Upcoming Encounters Date Type Department Care Team (Late st Contact Info) Description 12/13/2024 2:00 PM CDT Telemedicine [facility] [address] [place] [phone] Cynthia Camp PA-C [address] [place] [address] documented as of this encounter Visit Diagnoses Diagnosis Encounter for long-term (current) use of medications- Primary Encounter for long-term (current) use of other medications documented in this encounter Care Teams Platform Attendant Relationship Specialty Start Date End Date Cynthia Camp PA-C [address] [place] [address] PCP - General Physician Museum Assistant 03/31/18 documented as of this encounter
--- OUTSIDE RECORDS SUMMARY | 2024-12-11 13:58 | XMS_ITS | Encounter Summary ---
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
--- OUTSIDE RECORDS SUMMARY | 2024-12-11 13:58 | XMS_ITS | Encounter Summary ---
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 Not on file documented as of this encounter Nursing Notes * Nohemi Rmairez RN - 11/15/2024 10:01 AM CDT Pt [...] Not found [employer] Embedded Refills, Reference: [id number], 11/13/2024 2:02:47 AM CDT, Pool: Cardiology Refill RN ([id number]) * Sola Wells - 11/13/2024 2:02 AM [...] Info) Description 12/13/2024 2:00 PM CDT Telemedicine [facility] [address] [place] [address] Cynthia Camp PA-C [address] [place] [address] documented as of this encounter Visit Diagnoses Not on filedocumented in this encounter Care Teams Desktop Support Engineer Relationship Specialty Start Date End Date Cynthia Camp, JOSE MANUELC [address] [place] [address] PCP - General Physician Rental Car Porter 03/31/18 documented as of this encounter
--- OUTSIDE RECORDS SUMMARY | 2024-12-11 13:58 | XMS_ITS | Encounter Summary ---
Author Organization [facility] Address [address] [place] [address] Care Team Providers Care Deputy Felony Clerk Name Role Phone Cynthia Camp PA-C Primary Care Provider [phone] Encounter Details Date Type Department Care Team (Late st Contact Info) Description 11/22/2024 E-Visit [facility] [address] 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 [address] [place] [address] Cynthia Camp PA-C [address] [place], [place] [phone] documented as of this encounter Visit Diagnoses Not on filedocumented in this encounter Care Teams Deputy Felony Clerk Relationship Specialty Start Date End Date Cynthia Camp PA-C [address] [place] [address] PCP - General Physician Mysql Dba 03/31/18 documented as of this encounter
--- OUTSIDE RECORDS SUMMARY | 2024-12-11 13:58 | XMS_ITS | Encounter Summary ---
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
--- OUTSIDE RECORDS SUMMARY | 2024-12-11 13:58 | XMS_ITS | Encounter Summary ---
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 file Not on file documented as of this encounter Progress Notes * Magen Goodson MD - 11/29/2024 3:00 PM CDT [facility] Rheumatology Follow-Up Note Date: 11/29/24 4:38 PM [...] Chronic respiratory failure with hypoxia and hypercapnia ([facility]) 01/30/2016 HTN (hypertension) ([facility]) 12/25/2009 Morbid obesity due to excess calories ([facility]) 01/30/2016 Pulmonary hypertension ([facility]) 02/01/2016 Right heart failure with reduced right ventricular function (HR) 04/08/2017 Scrotal edema 04/08/2017 CHF (congestive heart failure) ([facility]) Adenomatous polyp of colon 10/22/2018 Stented coronary artery 06/22/2019 Coronary artery disease involving siletz tribe coronary artery of siletz tribe heart without angina pectoris ([facility]) 09/03/2019 Adverse effect of antihyperlipidemic and antiarteriosclerotic drugs, subsequent encounter 07/30/2021 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 (CODE) ([facility]) Atrial fibrillation ([facility]) 10/01/2023 Chronic obstructive pulmonary disease, unspecified ([facility]) Resolved Ambulatory Problems Diagnosis Date Noted Asthma ([facility]) CAREPLAN: [facility] INPATIENT CASE MANAGEMENT 01/27/2018 Bilateral leg edema 02/12/2018 TACO (obstructive sleep apnea) Diabetes ([facility]) Dyslipidemia ([facility]) CAREPLAN: [facility] CASE MANAGEMENT 06/02/2018 Past Medical History: Diagnosis Date Morbid obesity ([facility]) Outpatient Medications: Outpatient Medications Prior to [...] tablet Take 1 Tablet by mouth daily. xnyss-4-tvmy ethyl esters (LOVAZA) 1 g capsule Take [...] speech. This note was also created using [employer]-recognition software and may contain unintended word substitutions, phrase substitutions, spelling and formatting errors. documented in this encounter Plan of Treatment Upcoming Encounters Date Type Department Care Team (Late st Contact Info) Description 12/13/2024 2:00 PM CDT Telemedicine [facility] [address] [place] [phone] Cynthia Camp PA-C [address] [place] [address] documented as of this encounter Visit Diagnoses Diagnosis High risk medication use- Primary Encounter for long-term (current) use of other medications Gout, unspecified cause, unspecified chronicity, unspecified site documented in this encounter Care Teams Transmission Mechanic Relationship Specialty Start Date End Date Cynthia Camp PA-C [address] [place], [place] [phone] PCP - General Physician Polymer Specialist 03/31/18 documented as of this encounter
--- OUTSIDE RECORDS SUMMARY | 2024-12-11 13:58 | XMS_ITS | Clinical Summary ---
Author Organization [facility] Address [address] [place] [address] Care Team Providers Care Concert Or Lecture Hall Manager Name Role Phone Cynthia Camp PA-C Primary Care Provider [phone] Source Comments You are receiving this document as you are listed as the primary care provider,follow-up provider, or the patient has been referred to you for consultation.This is in compliance with the Medicare and[facility] EHR Incentive Program,which states Providers who transition their patient to another setting of careor provider of care or refers their patient to another provider of care shouldprovide summary care record for each transition of care or referral. [employer] Allergies Active Allergy Reactions Criticality Noted Date [...] daily. 90 Tablet 3 024 2024 Active [id number] ethyl esters (LOVAZA) 1 g capsuleIndicati ons:Type [...] Engaged in Disease Management-CAD: Gillian North, RN [phone] Goals/Recommendations: Goal: Coronary artery disease self-management plan developed, implemented, and maintained As evidenced by patient self reporting dietary changes specific to patient needs, such as heart healthy, weight loss. Problem Noted Date Diagnosed Date Atrial fibrillation 10/01/2023 Adverse effect of antihyperl ipidemic and antiarteriosclerotic drugs, subsequent encounter 07/30/2021 Overview (07/30/2021): See Allergies for additional details. Coronary artery disease invo lving ely shoshone coronary artery of ely shoshone heart without angina pectoris 09/03/2019 Stented coronary [...] Overview: Transthoracic Echo Report KAR COPELANDian ID: [id number] Age: 50 : 1965 Ordering Provider: JERRY NERI Exam Date: 01/31/2016 11:45 Gender: M Residential Aide: JACKLYN Height: 72 in BSA: 3.11 m BP: 140 / 59 Weight: 485 lbs BMI: 65.7 kg/m HR: 67 Location: [facility] - Inpatient Procedure: ECHO COMPLETE W CONTRAST [...] Noted Date Diagnosed Date Resolved Date CAREPLAN: HDmessaging CASE MANAGEMENT 06/02/2018 06/02/2018 Bilateral leg edema 02/12/2018 03/23/20 CAREPLAN: HDmessaging IN PATIENT CASE MANAGEMENT 01/27/2018 02/09/2018 Overview (01/27/2018): Engaged in Inpatient Case Management Inpatient Environmental Air Specialist Name: Karissa Valle RN Asthma 02/03/2024 Overview (02/03/2024): This problem was marked as resolved by a user in a SmartForm. TACO (obstructive sleep apnea) 09/06/2022 Diabetes 09/06/2022 Dyslipidemia 09/03/2019 Encounters Date Type Department Care Team Description 11/29/2024 3:00 PM CDT Telemedicine Rheumatology at [address] [address] Magen Goodson MD High risk medication use (Primary Dx); Gout, unspecified cause, unspecified chronicity, unspecified site 2024 Results Follow-Up [place] [address] [facility] [address] [place] [address] Derek Leung PA-C 11/22/2024 E-Visit [facility] [address] [place] [address] Mychart, Generic Provider 11/22/2024 Results Follow-Up 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 [address] [place] [phone] Cynthia Camp PA-C LAB TESTS, NOS 11/13/[address] [facility] [address] [place] [phone] Александр Montiel MD Refill (digoxin (LANOXIN) 125 MCG tablet [Pharmacy Med Name: Digoxin Oral Tablet 125 MCG]) 11/13/2024 Refill [facility] [address] [place] [phone] Cynthia Camp PA-C Refill (KLOR-CON M20 20 MEQ controlled release tablet [Pharmacy Med Name: Klor-Con M20 Oral Tablet Extended Release 20 MEQ]) 11/13/2024 Refill Cardiology at [address] [phone] Александр Montiel MD Refill (ELIQUIS 5 MG tablet [Pharmacy Med Name: Eliquis Oral Tablet 5 MG]) 10/26/2024 [facility]ill [facility] [address] [place] [address]. [place] [address] Derek Leung PA-C Refill (tirzepatide (MOUNJARO) 7.5 MG/0.5ML injection pen) 10/09/2024 Refill [facility] [address] [place] [address] Александр Montiel MD Refill (spironolactone (ALDACTONE) 25 MG tablet [Pharmacy Med Name: Spironolactone Oral Tablet 25 MG]) 09/16/2024 Refill Specialty Center [facility] Endocrinology Clinic [address] [place] [address]. [place] [address] Derek Leung PA-C Refill (metFORMIN (GLUCOPHAGE) 1000 MG tablet) from Last 3 Months Immunizations Immunization Administration Dates Next Due Flublok (RIV4) 05/20/2023,05/15/2022 Fluzone Qiv Multidose Vial 0 .25 (6-35 Mos) 06/25/2017 HepB Adult (Engerix-B, 20+ y rs, 3 dose series) 12/08/2013,07/19/2013,06/03/2013 Influenza IIV4 (Quadrivalent ) 0.5mL (10357) 06/09/2021,06/05/2020,06/08/2019,2017,06/13/2016,07/06/2015,07/05/2014 Influenza, Unspecified Formulation 06/09/2021 Moderna Monovalent 12+ 10/03/2021,08/29/2021 PCV20 (Rmauzqi85) 09/06/2022 PPSV23 (Pneumovax) 04/06/2018 Pfizer Bivalent 12+ [...] 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 Not [...] Info) Description 12/13/2024 2:00 PM CDT Telemedicine [facility] [address] [place] [address] Cynthia Camp PA-C [address] [place] [address] Health Maintenance Due Date Last [...] PROSTATIC SPECIFIC ANTIGEN(SCREEN) Routine 09/06/2022 2:57 PM JUNIOR MECHANICAL ENGINEER Screening for prostate cancer HIV 1/2 AG/AB [...] 47(H) <30 mg/g 11/19/2024 12:02 PM CDT [email or web address] Albumin, Urine, Random 41.6 mg/L 11/19/2024 12:02 PM CDT [email or web address] Creatinine, Urine, Random 88 >20 mg/dL mg/dL 11/19/2024 12:02 PM CDT [facility] Urine Non-blood Collection / Unknown 11/19/2024 8:23 AM CDT 11/19/2024 8:23 AM CDT us Derek Leung PA-C LAB_1 Final Resul t [facility] [address] [address], [facility] * (ABNORMAL) Lipid Panel & Direct LDL (if Needed) (11/19/2024 8:00 AM CDT) Cholesterol 116 0 - 199 mg/dL 11/19/2024 11:39 AM T [facility] Triglyceride 185(H) <=149 mg/dL 11/19/2024 11:39 AM T [facility] HDL Cholesterol 29(L) >=40 mg/dL 11/19/2024 11:39 AM T [facility] LDL, Calculated 50 <130 mg/dL 11/19/2024 11:39 AM T [facility] Non HDL Chol, Calculated 87 <=159 mg/dL 11/19/2024 11:39 AM T [facility] Cholesterol/HDL Ratio 4.0 <=5.0 11/19/2024 11:39 AM T [facility] Hours Fasting 0.1 8 - 12 Hours 11/19/2024 11:39 AM [facility] Blood Venipuncture / Unknown 11/19/2024 8:00 AM CDT 11/19/2024 8:00 AM CDT us Derek Leung PA-C LAB_1 Final Resul t Performing Organization Address City/State/[facility] Co de Phone Number [facility] [address] * (ABNORMAL) Basic Metabolic Panel (11/19/2024 8:00 AM CDT) Sodium 141 136 - 145 mmol/L 11/19/2024 11:39 AM T [facility] Potassium 4.7 3.5 - 5.1 mmol/L 11/19/2024 11:39 AM T [facility] Chloride 94(L) 98 - 109 mmol/L 11/19/2024 11:39 AM T [facility] CO2 37(H) 20 - 29 mmol/L 11/19/2024 11:39 AM T [facility] Anion Gap 10 6 - 16 mmol/L 11/19/2024 11:39 AM T [facility] Calcium 9.0 8.4 - 10.4 mg/dL 11/19/2024 11:39 AM T [facility] BUN 36(H) 7 - 26 mg/dL 11/19/2024 11:39 AM T [facility] Creatinine 1.22(H) 0.73 - 1.18 mg/dL 11/19/2024 11:39 AM T [facility] Glucose 107(H) 70 - 100 mg/dL 11/19/2024 11:39 AM T [facility] Comment:The given reference range is for the fasting state. Non-fasting reference range for glucose is 70 - 180 mg/dL. GFR, Estimated >60 >60 mL/min/1. 73m2 11/19/2024 11:39 AM T [facility] Hours Fasting 0.1 8 - 12 Hours 11/19/2024 11:39 AM [facility] Blood Venipuncture / Unknown 11/19/2024 8:00 AM CDT 11/19/2024 8:00 AM CDT us Александр Montiel MD LAB_1 Final Result Performing Organization Address City/State/[facility] Co de Phone Number [facility] [address] * (ABNORMAL) Complete Blood Count- No Diff (11/19/2024 8:00 AM CDT) WBC 7.4 3.5 - 10.5 x10(9)/L 11/19/2024 8:25 AM CDT [facility] RBC 5.83(H) 4.32 - 5.72 x10(12)/L 11/19/2024 8:25 AM CDT [facility] Hemoglobin 14.0 13.5 - 17.5 g/dL 11/19/2024 8:25 AM CDT [facility] HCT 49.1 38.8 - 50.0 % 11/19/2024 8:25 AM CDT [facility] MCV 84.2 80.0 - 100.0 fL 11/19/2024 8:25 AM CDT [facility] MCH 24.0(L) 27.6 - 33.3 pg 11/19/2024 8:25 AM CDT [facility] MCHC 28.5(L) 31.5 - 35.2 g/dL 11/19/2024 8:25 AM CDT [facility] RDW 19.9(H) 11.9 - 15.5 % 11/19/2024 8:25 AM CDT [facility] Platelets 178 150 - 450 x10(9)/L 11/19/2024 8:25 AM CDT [facility] Blood Venipuncture / Unknown 11/19/2024 8:00 AM CDT 11/19/2024 8:00 AM CDT us Александр Montiel MD LAB_1 Final Result [facility] [address] [place] [address], [facility] * (ABNORMAL) Hgb A1C (11/19/2024 8:00 AM CDT) Hemoglobin A1C 7.4(H) <=5.6 % 11/19/2024 11:53 AM CDT [email or web address] Estimated Average Glucose (Calc) 166 < 117 mg/dL 11/19/2024 11:53 AM CDT [facility] Comment:Estimated average gl ucose (eAG) converts A1c into glucose units (mg/dL) and estimates average glucose over the past approximately 3 months. The eAG reference interval (<117 mg/dL) corresponds to an A1c of <5.7%. Blood Venipuncture / Unknown 11/19/2024 8:00 AM CDT 11/19/2024 8:00 AM CDT Narrative [email or web address] - 11/19/2024 11:53 AM CDT For patients not previously diagnosed with diabetes: 5.7-6.4%: Increased risk for diabetes 6.5% and greater: Diagnostic for diabetes For patients diagnosed with diabetes: <8.0%: Goal of therapy for ages 18-75 Clinicians may recommend a higher or lower goal for specific individuals. us Cynthia Camp PA-C LAB_1 Final Resul t Performing Organization Address [facility] Co de Phone Number [facility] [address] * Uric Acid (every 3 months) (11/19/2024 8:00 AM CDT) Uric Acid 3.8 3.5 - 7.2 mg/dL 11/19/2024 11:39 AM CDT [facility] Blood Venipuncture / Unknown 11/19/2024 8:00 AM CDT 11/19/2024 8:00 AM CDT us Magen Goodson MD LAB_1 Final Res ult Performing Organization Address [facility] Co de Phone Number [facility] [address] * Colonoscopy (01/27/2024 8:30 AM CDT) [...] anesthesia care under the supervision of a DIVISION ROAD SUPERVISOR was determined to be medically necessary for [...] bowel preparation was evaluated using the BBPS ([place] Bowel Preparation Scale) with scores of: Right [...] at . Procedure Code(s): --- Professional --- 511[address], [place] [address], 59,PT 89396, PT --- Technical --- 413[address], [place] [address], 59,PT 79127, PT Diagnosis Code(s): --- Professional --- Z12.11 Z86.010 K64.8 K63.5 D49.0 K57.30 --- Technical --- Z12.11 Z86.010 K64.8 K63.5 D49.0 K57.30 CPT copyright 2021 [employer]. All rights reserved. The codes documented in this report are preliminary and upon coder operator review may be revised to meet current [...] anesthesia care under the supervision of a DIVISION ROAD SUPERVISOR was determined to be medically necessary for [...] bowel preparation was evaluated using the BBPS ([place] Bowel Preparation Scale) with scores of: Right [...] at . Procedure Code(s): --- Professional --- 297[address], [place] [address], 59,PT 70566, PT --- Technical --- [address], [place] [address], 59,PT 79717, PT Diagnosis Code(s): --- Professional --- Z12.11 Z86.010 K64.8 K63.5 D49.0 K57.30 --- Technical --- Z12.11 Z86.010 K64.8 K63.5 D49.0 K57.30 CPT copyright 2021 [employer]. All rights reserved. The codes documented in this report are preliminary and upon coder operator review may be revised to meet current compliance requirements. Attending Participation: Kimberly Breen MD 01/27/2024 9:40:45 AM Number of Addenda: 0 Note Initiated On: 01/27/2024 8:30 AM Kimberly Breen MD DIGESTIVE CARE Edited Result - Final Performing Organization Address [facility]/ZIP Co de Phone Number GI (PROVATION) [place], [place] * [place]GG (DIABETIC EYE EXAM) (10/08/2023) us Interface Provider DUMMY/OTHER/AR Final Resu lt * Prostatic Specific Antigen (Screen) (09/06/2022 2:57 PM JUNIOR MECHANICAL ENGINEER) Pathologist [facility] Prostatic Specific Antigen 0.5 0.0 - 4.0 ng/mL 09/06/2022 7:45 PM JUNIOR MECHANICAL ENGINEER [facility] Blood Venipuncture / Unknown 09/06/2022 2:57 PM JUNIOR MECHANICAL ENGINEER 09/06/2022 2:57 PM JUNIOR MECHANICAL ENGINEER Narrative [facility] - 09/06/2022 7:45 PM JUNIOR MECHANICAL ENGINEER The [employer] PSA Chemiluminescent immunoassay is used. Results obtained with different test methods or kits cannot be used interchangeably. Cynthia RICHARDC LAB_1 Final Resul t Performing Organization Address [facility] de Phone Number [facility] [address] [phone] * HIV 1/2 Ag/Ab 4th Generation (04/06/2018 11:46 AM CDT) Pathologist [facility] HIV 1/2 AG/AB 4thGEN Negative (Non Reactive) [facility] Comment:HIV-1 p24 Ag and HIV -1/HIV-2 Ab not detected. 04/06/2018 11:4 6 AM CDT 04/06/2018 11:48 AM CDT Narrative [facility] - 04/06/2018 3:54 PM CDT [facility], [address] [place] [address] Cynthia BLACKMAN-C LAB_1 Final Resul t Performing Organization Address [facility] de Phone Number [facility] [phone] * Hepatitis C Antibody, with Reflex (04/06/2018 11:46 AM CDT) Anti-HCV Negative (Non Reactive) [facility] Comment: Antibodies to HCV not detected. Does not exclude the possibility of exposure to HCV. 04/06/2018 11:4 6 AM CDT 04/06/2018 11:47 AM CDT Narrative [facility] - 04/06/2018 3:54 PM CDT Performed at [facility], [address] [place] [address] us Cynthia Camp PA-C LAB_1 Final Resul t [facility] [phone] from Last 3 Months or Most Recently Relevant to Health Maintenance Insurance FULLY INSURED FULLY INSURED Advance Directives * Full Code (Latest Code Status on File) Date Activated Date Inactivated Comments 01/25/2018 6:46 PM 02/08/2018 4:22 PM Care Teams Concert Or Lecture Hall Manager Relationship Specialty Start Date End Date Cynthia Camp, PAPetersonC [address] [place] [address] PCP - General Physician Human Relations Manager 03/31/18
--- OUTSIDE RECORDS SUMMARY | 2024-12-11 13:58 | XMS_ITS | Encounter Summary ---
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
--- OUTSIDE RECORDS SUMMARY | 2024-12-11 13:58 | XMS_ITS | Encounter Summary ---
Author Organization [facility] Address [address] [place] [address] Care Team Providers Care Director Of Teaching And Learning Name Role Phone Cynthia Camp PA-C Primary Care Provider [phone] Encounter Details Date Type Department Care Team (Late st Contact Info) Description 05/18/2022 Refill Order Specialty Center [facility] 401 [facility] 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 Not on file documented as of this encounter Plan of Treatment Upcoming Encounters Date Type Department Care Team (Late st Contact Info) Description 12/13/2024 2:00 PM CDT Telemedicine [facility] [address] [place] [phone] Cynthia Camp PA-C [address] [place] [address] documented as of this encounter Visit Diagnoses Diagnosis Encounter for long-term (current) use of medications- Primary Encounter for long-term (current) use of other medications documented in this encounter Care Teams Director Of Teaching And Learning Relationship Specialty Start Date End Date Cynthia Camp PA-C [address] [place], [place] [phone] PCP - General Physician Conduit Installer 03/31/18 documented as of this encounter
--- OUTSIDE RECORDS SUMMARY | 2024-12-11 13:58 | XMS_ITS | Encounter Summary ---
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 on file documented as of this encounter Plan of Treatment Upcoming Encounters Date Type Department Care Team (Late st Contact Info) Description 12/13/2024 2:00 PM CDT Telemedicine [facility] [address] [place] [phone] Cynthia Camp PA-C [address] [place], [place] [phone] documented as of this encounter Visit Diagnoses Not on filedocumented in this encounter Care Teams Therapeutic Program Worker Relationship Specialty Start Date End Date Cynthia Camp PA-C [address] [place] [address] PCP - General Physician Lapping Machine Operator 03/31/18 documented as of this encounter
--- OUTSIDE RECORDS SUMMARY | 2024-12-11 13:58 | XMS_ITS | Encounter Summary ---
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
--- OUTSIDE RECORDS SUMMARY | 2024-12-11 13:58 | XMS_ITS | Encounter Summary ---
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 Sebastian Watkins LPN 11/17/2024, 1:21 PM * Gene Frias - 11/17/2024 1:10 PM CDT Visit Information Encounter Information Provider Department 11/19/2024 8:10 AM Vp Care Management [facility] Appt Notes Sample collection; Ac1 No lab order(s) found in patient's chart. Please order; otherwise contact the patient to discuss further. documented in this encounter Plan of Treatment Upcoming Encounters Date Type Department Care Team (Late st Contact Info) Description 12/13/2024 2:00 PM CDT Telemedicine [facility] [address] [place] [address] Cynthia Camp PA-C [address] [place] [address] documented as of this encounter Results * (ABNORMAL) Hgb A1C (11/19/2024 8:00 AM CDT) Hemoglobin A1C 7.4(H) <=5.6 % 11/19/2024 11:53 AM CDT [facility] Estimated Average Glucose (Calc) 166 < 117 mg/dL 11/19/2024 11:53 AM CDT [facility] Comment:Estimated average gl ucose (eAG) converts A1c into glucose units (mg/dL) and estimates average glucose over the past approximately 3 months. The eAG reference interval (<117 mg/dL) corresponds to an A1c of <5.7%. Blood Venipuncture / Unknown 11/19/2024 8:00 AM CDT 11/19/2024 8:00 AM CDT Narrative [facility] - 11/19/2024 11:53 AM CDT For patients not previously diagnosed with diabetes: 5.7-6.4%: Increased risk for diabetes 6.5% and greater: Diagnostic for diabetes For patients diagnosed with diabetes: <8.0%: Goal of therapy for ages 18-75 Clinicians may recommend a higher or lower goal for specific individuals. 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
--- OUTSIDE RECORDS SUMMARY | 2024-12-11 13:58 | XMS_ITS | Encounter Summary ---
Author Organization [facility] Address [address], [place] [address] Care Team Providers Care Tin Plater Name Role Phone Cynthia Camp PA-C Primary Care Provider [phone] Encounter Details Date Type Department Care Team (Late st Contact Info) Description 2024 Results Follow-Up [facility] [address] [facility] 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
--- OUTSIDE RECORDS SUMMARY | 2024-12-11 13:58 | XMS_ITS | Encounter Summary ---
Author Organization [facility] Address [address] [place] [address] Care Team Providers Care Ion Implant Machine Operator Name Role Phone Cynthia Angel PA-C Primary Care Provider [phone] Reason for Visit * Reason Comments Refill KLOR-CON M20 20 MEQ controlled release tablet [Pharmacy Med Name: Klor- Con M20 Oral Tablet Extended Release 20 MEQ] Encounter Details Date Type Department Care Team (Late st Contact Info) Description 11/13/2024 Refill [facility] [address] [place] [address] Cynthia Angel PA-C [id number] [place] [phone] Refill (KLOR-CON M20 20 MEQ controlled release [...] 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 [...] CDT Further Assistance Needed on Refill from Cooker Sulfate Patient is due for Qualifying Visit Medication [...] visit: None K: 4.4 mEq/L on 05/28/2024 [facility] Embedded Refills, Reference: [id number], 11/13/2024 2:03:04 AM CATHRYNT, Kwaku: KYLEIGH Refill Centralized Services - Primary Care ([id number]) * Celena Wellszadafne Xrwcomm - 11/13/2024 2:03 [...] Info) Description 12/13/2024 2:00 PM CDT Telemedicine [facility] [address] [place] [phone] Cynthia Angel PA-C [address] [place], [place] [phone] documented as of this encounter Visit Diagnoses Diagnosis Essential hypertension (HRC) Unspecified essential hypertension documented in this encounter Care Teams Ion Implant Machine Operator Relationship Specialty Start Date End Date Cynthia Angel PA-C [address] [place], [place] [phone] PCP - General Physician Fiberglass Laminator 03/31/18 documented as of this encounter
--- OUTSIDE RECORDS SUMMARY | 2024-12-11 13:58 | XMS_ITS | Clinical Summary ---
Author Organization [facility] Address [address] [place] [address] Care Team Providers Care Tray Room Worker Name Role Phone Dex Delacruz MD Primary [...] Transthoracic Echo Report KAR COPELAND Sue ID: [id number] Age: 50 : 1965 Ordering Provider: JERRY NERI Exam Date: 01/31/2016 11:45 Gender: M Household Appliance Installer: JACKLYN Height: 72 in BSA: 3.11 m BP: 140 / 59 Weight: 485 lbs BMI: 65.7 kg/m HR: 67 Location: [facility] - Inpatient Procedure: ECHO COMPLETE W [...] Transthoracic Echo Report KAR COPELAND Sue ID: [id number] Age: 50 : 1965 Ordering Provider: JERRY NERI Exam Date: 01/31/2016 11:45 Gender: M Household Appliance Installer: JACKLYN Height: 72 in BSA: 3.11 m BP: 140 / 59 Weight: 485 lbs BMI: 65.7 kg/m HR: 67 Location: [facility] - Inpatient Procedure: ECHO COMPLETE W [...] 01/30/2016 Overview (12/25/2009): Being evaluated at the [facility] for laparoscopic band procedure Immunizations Immunization Administration [...] on file 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 Gender Identity Not on file Sexual Orientation Not on file 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 Not on file Not [...] REFLEX MEASURED LDL (01/04/2016 9:28 AM CDT) [facility] CHOLESTEROL,TOTAL 148 100 - 199 mg/dL 01/04[facility]2016 11:29 [facility] TRIGLY[facility] 142 <150 mg/dL 01/04/2016 11:29 AM [facility] HDL CHOLESTEROL 29(L) >40 mg/dL 01/04/2016 11:29 AM [facility] NON-HDL CHOLESTEROL 119 <145 mg/dl 01/04/2016 11:29 AM [facility] CHOL/HDL RATIO 5.10(H) <4.50 01/04/2016 11:29 AM [facility] LDL CHOLESTEROL 91 <=130 mg/dL 01/04/2016 11:29 AM [facility] PATIENT STATUS FASTING 01/04/2016 11:29 AM [facility] Blood specimen (specimen) BLOOD SPECIMEN / Unknown Venipuncture / Unknown 01/04/2016 9:28 AM CDT 01/04/2016 9:28 AM CDT us Bulmaro Roper MD CHEMISTRY Fi nal Result Performing Organization Address City/State/[facility] [place] [address] * COLONOSCOPY (02/02/2015 8:04 AM CDT) 02/02/2015 [...] bowel preparation was evaluated using the BBPS ([place] Bowel Preparation Scale) with scores of: Right [...] Indications/Pre-Op Diagnosis: Screening for malignant neoplasm in [facility] Medications: Midazolam 1 mg IV, Fentanyl [...] bowel preparation was evaluated using the BBPS ([place] Bowel Preparation Scale) with scores of: Right [...] AM CDT) ANTI HIV 1/2 Non-reacti ve [facility] Blood specimen (specimen) BLOOD SPECIMEN / Unknown 12/27/2009 6:35 AM CDT 12/26/2009 10:01 PM CDT us Shonda Colbert MD SEND OUTS Final Result [facility] INTERNAL ZIP [address] [address] from Last 3 Months or Most Recently Relevant to Health Maintenance Insurance [facility] [place] [address] [facility] Advance Directives * Full Code [...] 11:54 AM 12/18/2013 2:17 AM Care Teams Tray Room Worker Relationship Specialty Start Date End Date Dex Delacruz MD [address] [place] [address] PCP - General Family Practice 11/11/22
--- OUTSIDE RECORDS SUMMARY | 2024-12-11 13:58 | XMS_ITS | Encounter Summary ---
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 file [...] on 10/10/2023 PLT: 225 k/cmm on 10/10/2023 [facility] Embedded Refills, Reference: [id number], 11/13/2024 2:02:47 AM CDT, Pool: Cardiology Refill RN ([id number]) * Sola Wells - 11/13/2024 2:02 AM CDT The following lab order(s) may be associated with the Result Note below: COMPLETE BLOOD COUNT-NO DIFF Notes recorded by Deana Nelson on 10/10/2023 at 1:17 PM BULK MAIL TECHNICIAN Patient with gout on allopurinol therapy AST normal at 25, ALT normal at 17 Uric acid therapeutic range 3.9 ------ Notes recorded by Deana Nelson on 10/10/2023 at 8:38 AM BULK MAIL TECHNICIAN Patient with gout on allopurinol therapy CBC showed normal hemoglobin at 14.8, normal white cell count 8100 and normal platelet count [id number], red cells are microcytic * Sola Wells [...] Info) Description 12/13/2024 2:00 PM CDT Telemedicine [facility] [address] [place] [address] Cynthia Camp PA-C [address] [place] [address] documented as of this encounter Visit Diagnoses Diagnosis Atrial flutter, unspecified type (HRC) documented in this encounter Care Teams Development Advisor Relationship Specialty Start Date End Date Cynthia Camp PA-C [address] [place], [place] [phone] PCP - General Physician Enterprise Account Manager 03/31/18 documented as of this encounter
--- OUTSIDE RECORDS SUMMARY | 2024-12-11 13:58 | XMS_ITS | Encounter Summary ---
Author Organization [facility] Address [address], [place] [address] Care Team Providers Care Line Maintainer Name Role Phone Cynthia Camp PA-C Primary Care Provider [phone] Reason for Visit * Reason Comments Prior Authorization For Medication Ten nuous Glucose Sensor (FREESTYLE BORIS 3 PLUS SENSOR) MISC Encounter Details Date Type Department Care Team (Late st Contact Info) Description 07/27/2024 Telephone Specialty Center [facility] 401 [facility] 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 Pharmacy has been notified. Maryana White LPN RINARY INSPECTOR * Sofiya Booker - 07/27/2024 11:37 AM CST PA from pharmacy for medication RINARY INSPECTOR documented in this encounter Plan of Treatment Upcoming Encounters Date Type Department Care Team (Late st Contact Info) Description 12/13/2024 2:00 PM CDT Telemedicine [facility] [address] [place] [phone] Cynthia Camp PA-C [address] [place], [place] [phone] documented as of this encounter Visit Diagnoses Not on filedocumented in this encounter Care Teams Line Maintainer Relationship Specialty Start Date End Date Cynthia Camp PA-C [address] [place], [place] [phone] PCP - General Physician Straight Knife Machine Cutter 03/31/18 documented as of this encounter
--- OUTSIDE RECORDS SUMMARY | 2024-12-11 13:58 | XMS_ITS | Encounter Summary ---
Author Organization [facility] Address [address], [place] [address] Care Team Providers Care Eligibility Technician Name Role Phone Cynthia Camp PA-C Primary Care Provider [phone] Reason for Visit * Reason Onset Date Comments Refill 10/26/2024 tirzepatide (IRAJ NJARO) 7.5 MG/0.5ML injection pen Encounter Details Date Type Department Care Team (Late st Contact Info) Description 10/26/2024 Refill [facility] [address] [place] [address]. 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 MATIC CENTRIFUGAL STATION OPERATOR documented in this encounter Plan of Treatment Upcoming Encounters Date Type Department Care Team (Late st Contact Info) Description 12/13/2024 2:00 PM CDT Telemedicine [facility] [address] [place] [phone] Cynthia Camp PA-C [address] [place], [place] [phone] documented as of this encounter Visit Diagnoses Not on filedocumented in this encounter Care Teams Eligibility Technician Relationship Specialty Start Date End Date Cynthia Camp PA-C [address] [place], [place] [phone] PCP - General Physician Detector Car Operator 03/31/18 documented as of this encounter
[2024-12-11 13:59] LABS: Albumin* 4.3 g/dL (3.3-5.0); Chloride* 94 mmol/L (96-114)
[2024-12-11 14:00] LABS: Potassium* 4.4 mmol/L (3.6-5.1); Slide Review Reflex Yes; Sodium* 140 mmol/L (135-149)
[2024-12-11 14:02] LABS: Blood Urea Nitrogen* 33 mg/dL (7-30); Creatinine* 1.2 mg/dL (0.5-1.5); Est. Creatinine Clearance* 69.72; Estimated Glomerular Filt Rate 69 ml/min
[2024-12-11 14:03] LABS: Alanine Aminotransferase* 23 U/L (4-50); Alkaline Phosphatase* 64 U/L (40-150); Anion Gap 8 mEq/L (7-15); Aspartate Amino Transferase* 31 U/L (12-35); Bilirubin Direct* 0.4 mg/dL (0.0-0.5); Bilirubin Total* 1.1 mg/dL (0.1-1.5); Calcium* 8.9 mg/dL (8.4-10.6); Carbon Dioxide* 38 mmol/L (20-32); Glucose* 186 mg/dL (60-115); Magnesium* 2.4 mg/dL (1.5-2.6); Total Protein* 7.6 g/dL (6.0-8.3)
[2024-12-11 14:06] LABS: C Reactive Protein* 0.5 mg/dL (0.5-1.0)
[2024-12-11 14:15] LABS: NT Pro B Type NatriureticPept* 5210 pg/mL; Troponin I* 0.02 ng/mL (0.01-0.04)
[2024-12-11 14:28] LABS: PCR FLU A Negative PCR FLU A (Negative); PCR FLU B Negative PCR FLU B (Negative); PCR RSV Negative PCR RSV (Negative); SARS PCR* Negative SARS-CoV-2 (Negative)
[2024-12-11 14:30] VITALS: PULSE 103; RESP 18; O2SAT 92
[2024-12-11 15:38] LABS: Slide Review Acceptable Review (Acceptable)
== END 2024-12-11 14:55 | disposition home or self-care (01) ==
PROVIDERS: Emergency Provider Family Medicine; PCP Physician Assistant Medical
DX: R42 Dizziness and giddiness (principal)
CPT/HCPCS: 36415; 71046; 80048; 80076; 82803; 83605; 83735; 83880; 84484; 85025; 86140; 87631; 93005; 94761; 99284; 99285

== ENCOUNTER 2024-12-15 08:34 | Outpatient (CLI) | payer OTHER, SELFPAY | END 2024-12-15 08:35 | disposition home or self-care (01) | LOC: WOUND 08:34 | PROVIDERS: PCP Physician Assistant Medical; Visit Provider Nurse Practitioner Family | DX: I87.311 Chronic venous hypertension (idiopathic) with ulcer of right lower extremity (principal); I87.2 Venous insufficiency (chronic) (peripheral); I89.0 Lymphedema, not elsewhere classified; L97.812 Non-pressure chronic ulcer of other part of right lower leg with fat layer exposed; E11.8 Type 2 diabetes mellitus with unspecified complications; Z79.84 Long term (current) use of oral hypoglycemic drugs; Z79.4 Long term (current) use of insulin | CPT/HCPCS: 11042 ==

== ENCOUNTER 2024-12-22 08:31 | Outpatient (CLI) | payer OTHER, SELFPAY | END 2024-12-22 08:32 | disposition home or self-care (01) | LOC: WOUND 08:31 | PROVIDERS: PCP Physician Assistant Medical; Visit Provider Nurse Practitioner Family | DX: I87.311 Chronic venous hypertension (idiopathic) with ulcer of right lower extremity (principal); I87.2 Venous insufficiency (chronic) (peripheral); I89.0 Lymphedema, not elsewhere classified; L97.812 Non-pressure chronic ulcer of other part of right lower leg with fat layer exposed; E11.8 Type 2 diabetes mellitus with unspecified complications; Z79.4 Long term (current) use of insulin; Z79.84 Long term (current) use of oral hypoglycemic drugs | CPT/HCPCS: 97597 ==

== ENCOUNTER 2024-12-29 08:38 | Outpatient (CLI) | payer OTHER, SELFPAY | END 2024-12-29 08:39 | disposition home or self-care (01) | LOC: WOUND 08:38 | PROVIDERS: PCP Physician Assistant Medical; Visit Provider Nurse Practitioner Family | DX: I87.311 Chronic venous hypertension (idiopathic) with ulcer of right lower extremity (principal); I87.2 Venous insufficiency (chronic) (peripheral); I89.0 Lymphedema, not elsewhere classified; L97.812 Non-pressure chronic ulcer of other part of right lower leg with fat layer exposed; E11.8 Type 2 diabetes mellitus with unspecified complications; Z79.84 Long term (current) use of oral hypoglycemic drugs | CPT/HCPCS: 97597 ==

== ENCOUNTER 2025-01-05 08:34 | Outpatient (CLI) | payer OTHER, SELFPAY | END 2025-01-05 08:35 | disposition home or self-care (01) | LOC: WOUND 08:34 | PROVIDERS: PCP Physician Assistant Medical; Visit Provider Nurse Practitioner Family | DX: I87.311 Chronic venous hypertension (idiopathic) with ulcer of right lower extremity (principal); I87.2 Venous insufficiency (chronic) (peripheral); I89.0 Lymphedema, not elsewhere classified; L97.812 Non-pressure chronic ulcer of other part of right lower leg with fat layer exposed | CPT/HCPCS: 97597 ==

== ENCOUNTER 2025-01-12 08:30 | Outpatient (CLI) | payer OTHER, SELFPAY | END 2025-01-12 08:31 | disposition home or self-care (01) | LOC: WOUND 08:30 | PROVIDERS: PCP Physician Assistant Medical; Visit Provider Nurse Practitioner Family | DX: I87.311 Chronic venous hypertension (idiopathic) with ulcer of right lower extremity (principal); I87.2 Venous insufficiency (chronic) (peripheral); I89.0 Lymphedema, not elsewhere classified; L97.812 Non-pressure chronic ulcer of other part of right lower leg with fat layer exposed; E11.8 Type 2 diabetes mellitus with unspecified complications; Z79.4 Long term (current) use of insulin; Z79.84 Long term (current) use of oral hypoglycemic drugs | CPT/HCPCS: 97597 ==

== ENCOUNTER 2025-01-19 08:28 | Outpatient (CLI) | payer OTHER, SELFPAY | END 2025-01-19 08:29 | disposition home or self-care (01) | LOC: WOUND 08:28 | PROVIDERS: PCP Physician Assistant Medical; Visit Provider Nurse Practitioner Family | DX: I87.311 Chronic venous hypertension (idiopathic) with ulcer of right lower extremity (principal); I87.2 Venous insufficiency (chronic) (peripheral); I89.0 Lymphedema, not elsewhere classified; L97.812 Non-pressure chronic ulcer of other part of right lower leg with fat layer exposed; E11.8 Type 2 diabetes mellitus with unspecified complications; Z79.84 Long term (current) use of oral hypoglycemic drugs; Z79.4 Long term (current) use of insulin | CPT/HCPCS: 97597 ==

== ENCOUNTER 2025-01-26 08:31 | Outpatient (CLI) | payer OTHER, SELFPAY | END 2025-01-26 08:32 | disposition home or self-care (01) | LOC: WOUND 08:31 | PROVIDERS: PCP Physician Assistant Medical; Visit Provider Nurse Practitioner Family | DX: I87.311 Chronic venous hypertension (idiopathic) with ulcer of right lower extremity (principal); I87.2 Venous insufficiency (chronic) (peripheral); I89.0 Lymphedema, not elsewhere classified; L97.812 Non-pressure chronic ulcer of other part of right lower leg with fat layer exposed; E11.8 Type 2 diabetes mellitus with unspecified complications; Z79.84 Long term (current) use of oral hypoglycemic drugs | CPT/HCPCS: 11042; G0463 ==

== ENCOUNTER 2025-02-02 08:36 | Outpatient (CLI) | payer OTHER, SELFPAY | END 2025-02-02 08:37 | disposition home or self-care (01) | LOC: WOUND 08:36 | PROVIDERS: PCP Physician Assistant Medical; Visit Provider Nurse Practitioner Family | DX: I87.311 Chronic venous hypertension (idiopathic) with ulcer of right lower extremity (principal); I87.2 Venous insufficiency (chronic) (peripheral); I89.0 Lymphedema, not elsewhere classified; L97.812 Non-pressure chronic ulcer of other part of right lower leg with fat layer exposed; E11.8 Type 2 diabetes mellitus with unspecified complications; Z79.84 Long term (current) use of oral hypoglycemic drugs | CPT/HCPCS: 11042 ==

== ENCOUNTER 2025-02-09 08:39 | Outpatient (CLI) | payer OTHER, SELFPAY | END 2025-02-09 08:40 | disposition home or self-care (01) | LOC: WOUND 08:39 | PROVIDERS: PCP Physician Assistant Medical; Visit Provider Nurse Practitioner Family | DX: I87.311 Chronic venous hypertension (idiopathic) with ulcer of right lower extremity (principal); I87.2 Venous insufficiency (chronic) (peripheral); I89.0 Lymphedema, not elsewhere classified; L97.812 Non-pressure chronic ulcer of other part of right lower leg with fat layer exposed; E11.8 Type 2 diabetes mellitus with unspecified complications | CPT/HCPCS: 11042 ==

== ENCOUNTER 2025-02-16 08:39 | Outpatient (CLI) | payer OTHER, SELFPAY | END 2025-02-16 08:40 | disposition home or self-care (01) | LOC: WOUND 08:39 | PROVIDERS: PCP Physician Assistant Medical; Visit Provider Nurse Practitioner Family | DX: I87.311 Chronic venous hypertension (idiopathic) with ulcer of right lower extremity (principal); I87.2 Venous insufficiency (chronic) (peripheral); I89.0 Lymphedema, not elsewhere classified; L97.812 Non-pressure chronic ulcer of other part of right lower leg with fat layer exposed; E11.8 Type 2 diabetes mellitus with unspecified complications | CPT/HCPCS: 97597 ==

== ENCOUNTER 2025-02-23 08:32 | Outpatient (CLI) | payer OTHER, SELFPAY | END 2025-02-23 08:33 | disposition home or self-care (01) | LOC: WOUND 08:32 | PROVIDERS: PCP Physician Assistant Medical; Visit Provider Family Medicine | DX: I87.311 Chronic venous hypertension (idiopathic) with ulcer of right lower extremity (principal); I87.2 Venous insufficiency (chronic) (peripheral); I89.0 Lymphedema, not elsewhere classified; L97.812 Non-pressure chronic ulcer of other part of right lower leg with fat layer exposed; E11.8 Type 2 diabetes mellitus with unspecified complications; Z79.4 Long term (current) use of insulin; Z79.84 Long term (current) use of oral hypoglycemic drugs | CPT/HCPCS: 11042 ==

== ENCOUNTER 2025-03-02 08:37 | Outpatient (CLI) | payer OTHER, SELFPAY | END 2025-03-02 08:38 | disposition home or self-care (01) | LOC: WOUND 08:37 | PROVIDERS: PCP Physician Assistant Medical; Visit Provider Physician Assistant | DX: I87.311 Chronic venous hypertension (idiopathic) with ulcer of right lower extremity (principal); I87.2 Venous insufficiency (chronic) (peripheral); I89.0 Lymphedema, not elsewhere classified; L97.812 Non-pressure chronic ulcer of other part of right lower leg with fat layer exposed; E11.8 Type 2 diabetes mellitus with unspecified complications; Z79.4 Long term (current) use of insulin; Z79.84 Long term (current) use of oral hypoglycemic drugs | CPT/HCPCS: 97597 ==

== ENCOUNTER 2025-03-09 08:47 | Outpatient (CLI) | payer OTHER, SELFPAY | END 2025-03-09 08:48 | disposition home or self-care (01) | LOC: WOUND 08:47 | PROVIDERS: PCP Physician Assistant Medical; Visit Provider Nurse Practitioner Family | DX: I87.311 Chronic venous hypertension (idiopathic) with ulcer of right lower extremity (principal); I87.2 Venous insufficiency (chronic) (peripheral); I89.0 Lymphedema, not elsewhere classified; L97.812 Non-pressure chronic ulcer of other part of right lower leg with fat layer exposed; E11.8 Type 2 diabetes mellitus with unspecified complications | CPT/HCPCS: 11042 ==

== ENCOUNTER 2025-03-16 13:51 | Outpatient (CLI) | payer OTHER, SELFPAY | END 2025-03-16 13:52 | disposition home or self-care (01) | LOC: WOUND 13:51 | PROVIDERS: PCP Physician Assistant Medical; Visit Provider Nurse Practitioner Family | DX: I87.311 Chronic venous hypertension (idiopathic) with ulcer of right lower extremity (principal); I87.2 Venous insufficiency (chronic) (peripheral); I89.0 Lymphedema, not elsewhere classified; E11.8 Type 2 diabetes mellitus with unspecified complications; L97.812 Non-pressure chronic ulcer of other part of right lower leg with fat layer exposed; Z79.4 Long term (current) use of insulin | CPT/HCPCS: 97597 ==

== ENCOUNTER 2025-03-23 08:36 | Outpatient (CLI) | payer OTHER, SELFPAY | END 2025-03-23 08:37 | disposition home or self-care (01) | LOC: WOUND 08:36 | PROVIDERS: PCP Physician Assistant Medical; Visit Provider Nurse Practitioner Family | DX: I87.311 Chronic venous hypertension (idiopathic) with ulcer of right lower extremity (principal); I87.2 Venous insufficiency (chronic) (peripheral); I89.0 Lymphedema, not elsewhere classified; L97.812 Non-pressure chronic ulcer of other part of right lower leg with fat layer exposed; E11.8 Type 2 diabetes mellitus with unspecified complications; Z79.4 Long term (current) use of insulin; Z79.84 Long term (current) use of oral hypoglycemic drugs | CPT/HCPCS: 11042 ==

== ENCOUNTER 2025-03-30 08:39 | Outpatient (CLI) | payer OTHER, SELFPAY | END 2025-03-30 08:40 | disposition home or self-care (01) | LOC: WOUND 08:39 | PROVIDERS: PCP Physician Assistant Medical; Visit Provider Nurse Practitioner Family | DX: I87.311 Chronic venous hypertension (idiopathic) with ulcer of right lower extremity (principal); I87.2 Venous insufficiency (chronic) (peripheral); I89.0 Lymphedema, not elsewhere classified; L97.812 Non-pressure chronic ulcer of other part of right lower leg with fat layer exposed; E11.8 Type 2 diabetes mellitus with unspecified complications; Z79.4 Long term (current) use of insulin; Z79.84 Long term (current) use of oral hypoglycemic drugs | CPT/HCPCS: 11042 ==

== ENCOUNTER 2025-04-06 08:32 | Outpatient (CLI) | payer OTHER, SELFPAY | END 2025-04-06 08:33 | disposition home or self-care (01) | LOC: WOUND 08:32 | PROVIDERS: PCP Physician Assistant Medical; Visit Provider Nurse Practitioner Family | DX: I87.311 Chronic venous hypertension (idiopathic) with ulcer of right lower extremity (principal); I87.2 Venous insufficiency (chronic) (peripheral); I89.0 Lymphedema, not elsewhere classified; L97.812 Non-pressure chronic ulcer of other part of right lower leg with fat layer exposed; E11.8 Type 2 diabetes mellitus with unspecified complications; Z79.84 Long term (current) use of oral hypoglycemic drugs | CPT/HCPCS: 11042 ==

== ENCOUNTER 2025-04-13 08:11 | Outpatient (CLI) | payer OTHER, SELFPAY | END 2025-04-13 08:12 | disposition home or self-care (01) | LOC: WOUND 08:11 | PROVIDERS: PCP Physician Assistant Medical; Visit Provider Nurse Practitioner Family | DX: I87.311 Chronic venous hypertension (idiopathic) with ulcer of right lower extremity (principal); I87.2 Venous insufficiency (chronic) (peripheral); I89.0 Lymphedema, not elsewhere classified; L97.812 Non-pressure chronic ulcer of other part of right lower leg with fat layer exposed; E11.8 Type 2 diabetes mellitus with unspecified complications; Z79.4 Long term (current) use of insulin; Z79.84 Long term (current) use of oral hypoglycemic drugs | CPT/HCPCS: 11042 ==

== ENCOUNTER 2025-04-20 08:10 | Outpatient (CLI) | payer OTHER, SELFPAY | END 2025-04-20 08:11 | disposition home or self-care (01) | LOC: WOUND 08:10 | PROVIDERS: PCP Physician Assistant Medical; Visit Provider Nurse Practitioner Family | DX: I87.311 Chronic venous hypertension (idiopathic) with ulcer of right lower extremity (principal); I89.0 Lymphedema, not elsewhere classified; I87.2 Venous insufficiency (chronic) (peripheral); L97.812 Non-pressure chronic ulcer of other part of right lower leg with fat layer exposed; E11.8 Type 2 diabetes mellitus with unspecified complications; Z79.4 Long term (current) use of insulin; Z79.84 Long term (current) use of oral hypoglycemic drugs | CPT/HCPCS: G0463 ==

== ENCOUNTER 2025-04-27 08:09 | Outpatient (CLI) | payer OTHER, SELFPAY | END 2025-04-27 08:10 | disposition home or self-care (01) | LOC: WOUND 08:09 | PROVIDERS: PCP Physician Assistant Medical; Visit Provider Nurse Practitioner Family | DX: I87.311 Chronic venous hypertension (idiopathic) with ulcer of right lower extremity (principal); I87.2 Venous insufficiency (chronic) (peripheral); I89.0 Lymphedema, not elsewhere classified; L97.812 Non-pressure chronic ulcer of other part of right lower leg with fat layer exposed; E11.8 Type 2 diabetes mellitus with unspecified complications; Z79.4 Long term (current) use of insulin; Z79.84 Long term (current) use of oral hypoglycemic drugs | CPT/HCPCS: G0463 ==

== ENCOUNTER 2025-05-03 12:15 | Outpatient (RCR) | payer OTHER, SELFPAY | END 2025-06-09 10:51 | disposition home or self-care (01) | PROVIDERS: PCP Physician Assistant Medical; Visit Provider Nurse Practitioner Family | DX: I89.0 Lymphedema, not elsewhere classified (principal); Z51.89 Encounter for other specified aftercare | CPT/HCPCS: 97140; 97166; 97530 ==

== ENCOUNTER 2025-05-04 08:12 | Outpatient (CLI) | payer OTHER, SELFPAY | END 2025-05-04 08:13 | disposition home or self-care (01) | LOC: WOUND 08:12 | PROVIDERS: PCP Physician Assistant Medical; Visit Provider Nurse Practitioner Family | DX: L97.212 Non-pressure chronic ulcer of right calf with fat layer exposed (principal); I87.311 Chronic venous hypertension (idiopathic) with ulcer of right lower extremity; E11.8 Type 2 diabetes mellitus with unspecified complications | CPT/HCPCS: G0463 ==

== ENCOUNTER 2025-05-18 08:11 | Outpatient (CLI) | payer OTHER, SELFPAY | END 2025-05-18 08:12 | disposition home or self-care (01) | LOC: WOUND 08:11 | PROVIDERS: PCP Physician Assistant Medical; Visit Provider Nurse Practitioner Family | DX: I89.0 Lymphedema, not elsewhere classified (principal); I87.2 Venous insufficiency (chronic) (peripheral); E11.8 Type 2 diabetes mellitus with unspecified complications; I50.812 Chronic right heart failure; Z79.4 Long term (current) use of insulin; Z79.84 Long term (current) use of oral hypoglycemic drugs | CPT/HCPCS: G0463 ==

== ENCOUNTER 2025-06-27 07:32 | Emergency (ER) | payer OTHER, SELFPAY ==
--- OUTSIDE RECORDS SUMMARY | 2025-05-13 16:50 | XMS_ITS | Encounter Summary ---
Author Organization [facility] Address [address] [place] [address] Care Team Providers Care Covered Buckle Assembler Name Role Phone Cynthia Camp PA-C Primary Care Provider [phone] Reason for Visit * Reason Comments QUESTIONS, GENERAL Entered automaticall y based on patient selection in Pick1. 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 Started at 3 PM today. Denies other symptoms. RN advised patient of UC due to being the end of the day andthe weekend. Patient verbalized understanding and will present to urgent care for further evaluation. No further questions or concerns at the time of call. Reviewed pertinent medical history (as relates to the call): Yes Reviewed pertinent medications (as relates to the call): Yes documented in this encounter Plan of Treatment Upcoming Encounters Date Type Department Care Team (Late st Contact Info) Description 08/03/2025 2:15 PM DIETARY MANAGER Appointment Specialty [facility] [address] [place] [address]. [place], [place] [phone] Derek Leung PA-C [address] [place] [address] 10/18/2025 4:30 PM DIETARY MANAGER Appointment Cardiology at [facility] [address] [place] [phone] Александр Montiel MD [address] [place] [address] documented as of this encounter Visit Diagnoses Not on filedocumented in this encounter Care Teams Covered Buckle Assembler Relationship Specialty Start Date End Date Cynthia Camp PA-C [address] [place] [address] PCP - General Physician Ceramist 7/31/18 documented as of this encounter
--- OUTSIDE RECORDS SUMMARY | 2025-05-14 08:20 | XMS_ITS | Encounter Summary ---
Author Organization [facility] Address [address] [place] [id number] Care Team Providers Care Metal Tank Erector Name Role Phone Cynthia Camp PA-C Primary Care Provider [phone] Reason for Visit * Reason Comments UTI Encounter Details Date Type Department Care Team (Late st Contact Info) Description 05/14/2025 8:20 AM CDT Office Visit [facility] [address] [id number] Elizabeth Frias PA-C [address] [place] [id number] Acute cystitis with hematuria (Primary Dx); Dysuria Social History Tobacco Use Types Packs/Day Years [...] appointments or from getting your medications? 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 Not on file Not on file documented as of this encounter Last Filed Vital Signs Vital Sign Reading Time Taken Comments Blood Pressure 128/72 05/14/2025 8:08 AM CDT Pulse 88 05/14/2025 8:08 AM CDT Temperature 36.3 C (97.4 F) 05/14/2025 8:08 AM CDT Respiratory Rate 21 05/14/2025 8:08 AM CDT Oxygen Saturation 97% 05/14/2025 8:08 AM CDT Inhaled Oxygen Concentration - - Weight 186 kg (410 lb) 05/14/2025 8:08 AM CDT Height 180.3 cm (5' 11) 05/14/2025 8:08 AM CDT Body Mass Index 57.18 05/14/2025 8:08 AM CDT documented in this encounter Patient Instructions * Patient Instructions* Elizabeth Frias PA-C - 05/14/2025 8:20 AM CDT How can you care for yourself? Take your antibiotics as directed. Do not stop taking them just because you feel better. You need to take the full course of antibiotics. Take your medicines exactly as prescribed. Your doctor may have prescribed a medicine, such as phenazopyridine (Pyridium), to help relieve pain when you urinate. This turns your urine orange. You maystop taking it when your symptoms get better. But be sure to take all of your antibiotics, which treat the infection. Drink extra water for the next day or two. This will help make the urine less concentrated and helpwash out the bacteria causing the infection. (If you have kidney, heart, or liver disease and have to limit your fluids, talk with your doctor before you increase your fluid intake.) Avoid drinks that are carbonated or have caffeine. They can irritate the bladder. Urinate often. Try to empty your bladder each time. To relieve pain, try taking a warm bath. Avoid bubble baths or scented soaps. They can irritate theurethra and may make symptoms worse. Or you can try laying a heating pad (set on low) over your lower belly or genital area. Never go to sleep with a heating pad in place. To help prevent UTIs Drink plenty of fluids. If you have kidney, heart, or liver disease and have to limit fluids, talk with your doctor before you increase the amount of fluids you drink. Urinate when you have the urge. Do not hold your urine for a long time. Urinate before you go to sleep. Keep the tip of your penis clean, especially if you are uncircumcised. The foreskin can trap bacteria, which can then get into the urinary tract and cause an infection. Catheter care If you have a drainage tube (catheter) in place, the following steps will help you care for it. Always wash your hands before and after touching your catheter. Check the area around the urethra for inflammation or signs of infection. Signs of infection include irritated, swollen, red, or tender skin, or pus around the catheter. Clean the area around the catheter with soap and water two times a day. Dry with a clean towel afterward. Do not apply powder or lotion to the skin around the catheter. To empty the urine collection bag Wash your hands with soap and water. Without touching the drain spout, remove the spout from its sleeve at the bottom of the collection bag. Open the valve on the spout. Let the urine flow out of the bag and into the toilet or a container. Do not let the tubing or drain spout touch anything. After you empty the bag, clean the end of the drain spout with tissue and water. Close the valve and put the drain spout back into its sleeve at the bottom of the collection bag. Wash your hands with soap and water. When should you call for help? Contact your doctor now or seek immediate medical care if: Symptoms such as a fever, chills, nausea, or vomiting get worse or happen for the first time. You have new pain in your back just below your rib cage. This is called flank pain. There is new blood or pus in your urine. You are not able to take or keep down your antibiotics. Watch closely for changes in your health, and be sure to contact your doctor if: You are not getting better after taking an antibiotic for 2 days. Your symptoms go away but then come back. If your symptoms should persist follow up with your primary care provider in 1 week. If your symptoms worsen or new symptoms develop please follow up with your primary care provider in3-4 days. If you develop shortness of breath, chest pain, unable to eat or drink please go to the emergency department immediately or call 911 * Attachments The following attachments cannot be sent through Care Everywhere. * UTI (Urinary Tract Infection): Male ([place]) documented in this encounter Progress Notes * Elizabeth Frias PA-C - 05/14/2025 8:20 AM CDT Willian Copeland is a 59 y.o.male presents to the Urgent Care for UTI Symptoms: frequency, hesitancy, and retention Symptoms began 2 day(s) ago and are are worsening. Fever is absent. Significant urinary history: None. Current medications include n/a. Concern or exposure to STD/STI: no. Last Menstrual Period: No LMP for male patient. Patient requests an excuse letter for work/school: No SUBJECTIVE: Willian Copeland is a 59 y.o. old male with a history of AFib currently on Eliquis, congestive heart failure, chronic venous hypertension with ulcer of right lower extremity, hypertension, pulmonary hypertension, stented coronary artery, type 2 diabetes, COPD currently on supplemental oxygen, morbid obesity presents with frequency x 2 days. Associated with dysuria, and urgency. Denies: fever, flank pain, n/v Treatments: none Current Medications Table[1] Atorvastatin OBJECTIVE: BP 128/72 (BP Location: Right Arm, BP Cuff Size: Large) Pulse 88 Temp 97.4 ??F (36.3 ??C) (Tympanic) Resp (!) 21 Ht 5' 11 (1.803 m) Wt (!) 410 lb (186 kg) SpO2 97% BMI 57.18 kg/m?? Nursing note and vitals reviewed General Appearance: Alert, cooperative, no distress, appears stated age, non- toxic appearing Head: Normocephalic, without obvious abnormality, atraumatic Lungs: Clear to auscultation bilaterally, respirations unlabored Heart: Regular rate and rhythm, S1 and S2 normal, no murmur, rub or gallop Abdomen: Soft, non-tender, bowel sounds active all four quadrants, no masses, no organomegaly, no CVATB Lab Results Component Value Date/Time URAP Hazy (A) 05/14/2025 08:27 AM UCOL Yellow 05/14/2025 08:27 AM SPGU 1.015 05/14/2025 08:27 AM LEUKU Small (A) 05/14/2025 08:27 AM NITRU Negative 05/14/2025 08:27 AM PHUR 6.0 05/14/2025 08:27 AM PROU Negative 05/14/2025 08:27 AM GLUUC Negative 05/14/2025 08:27 AM KETU Negative 05/14/2025 08:27 AM UBGQ 0.2 05/14/2025 08:27 AM BILIU Negative 05/14/2025 08:27 AM BLDU Moderate (A) 05/14/2025 08:27 AM URBCS 21-50 (A) 05/14/2025 08:27 AM UWBC 21-50 (A) 05/14/2025 08:27 AM UEPI Few 05/14/2025 08:27 AM UBACT Few (A) 05/14/2025 08:27 AM ASSESSMENT: Encounter Diagnoses Name Primary? Dysuria Acute cystitis with hematuria Yes PLAN: Willian was seen today for uti. Diagnoses and all orders for this visit: Acute cystitis with hematuria - Urinalysis Routine, Micro/Culture if Pos: Clean Catch; Future Dysuria - Urinalysis Routine, Micro/Culture if Pos: Clean Catch; Future - sulfamethoxazole-trimethoprim (BACTRIM DS) 800-160 MG tablet; Take 1 Tablet by mouth two times a day for 7 days. Discussed UA results above with pt in clinic. UA results above consistent with possible UTI, sending ua for UC. Starting pt on bactrim as above. Patient provided with UTI handout for meals for detailcare at home instructions, ED and return precautions. If symptoms persist follow up with primary care provider within a week. Follow up sooner if symptoms worsen or new symptoms develop. Pending: UC Patient Instructions How can you care for yourself? Take your antibiotics as directed. Do not stop taking them just because you feel better. You need to take the full course of antibiotics. Take your medicines exactly as prescribed. Your doctor may have prescribed a medicine, such as phenazopyridine (Pyridium), to help relieve pain when you urinate. This turns your urine orange. You maystop taking it when your symptoms get better. But be sure to take all of your antibiotics, which treat the infection. Drink extra water for the next day or two. This will help make the urine less concentrated and helpwash out the bacteria causing the infection. (If you have kidney, heart, or liver disease and have to limit your fluids, talk with your doctor before you increase your fluid intake.) Avoid drinks that are carbonated or have caffeine. They can irritate the bladder. Urinate often. Try to empty your bladder each time. To relieve pain, try taking a warm bath. Avoid bubble baths or scented soaps. They can irritate theurethra and may make symptoms worse. Or you can try laying a heating pad (set on low) over your lower belly or genital area. Never go to sleep with a heating pad in place. To help prevent UTIs Drink plenty of fluids. If you have kidney, heart, or liver disease and have to limit fluids, talk with your doctor before you increase the amount of fluids you drink. Urinate when you have the urge. Do not hold your urine for a long time. Urinate before you go to sleep. Keep the tip of your penis clean, especially if you are uncircumcised. The foreskin can trap bacteria, which can then get into the urinary tract and cause an infection. Catheter care If you have a drainage tube (catheter) in place, the following steps will help you care for it. Always wash your hands before and after touching your catheter. Check the area around the urethra for inflammation or signs of infection. Signs of infection include irritated, swollen, red, or tender skin, or pus around the catheter. Clean the area around the catheter with soap and water two times a day. Dry with a clean towel afterward. Do not apply powder or lotion to the skin around the catheter. To empty the urine collection bag Wash your hands with soap and water. Without touching the drain spout, remove the spout from its sleeve at the bottom of the collection bag. Open the valve on the spout. Let the urine flow out of the bag and into the toilet or a container. Do not let the tubing or drain spout touch anything. After you empty the bag, clean the end of the drain spout with tissue and water. Close the valve and put the drain spout back into its sleeve at the bottom of the collection bag. Wash your hands with soap and water. When should you call for help? Contact your doctor now or seek immediate medical care if: Symptoms such as a fever, chills, nausea, or vomiting get worse or happen for the first time. You have new pain in your back just below your rib cage. This is called flank pain. There is new blood or pus in your urine. You are not able to take or keep down your antibiotics. Watch closely for changes in your health, and be sure to contact your doctor if: You are not getting better after taking an antibiotic for 2 days. Your symptoms go away but then come back. If your symptoms should persist follow up with your primary care provider in 1 week. If your symptoms worsen or new symptoms develop please follow up with your primary care provider in3-4 days. If you develop shortness of breath, chest pain, unable to eat or drink please go to the emergency department immediately or call 911 Follow-up/ED precautions: Patient will follow up with their primary care provider if symptoms persist, worsen or new symptomsdevelop. ED precautions given: if patient develops shortness of breath or difficulty breathing, chest pain, unable to eat or drink go to the emergency department immediately. Discharge: Patient understands and agrees with the plan and treatment. Patient will call if they have any questions or concerns. Went over printed AVS with detailed instructions given to the patient. Patient was discharged in stable condition and ambulated out of the urgent care. Elizabeth Frias PA-C 05/14/2025, 8:44 AM This note was created using speech recognition software some parts of this note may contain some unintended word substitutions and grammar errors. [1] Current Outpatient Medications Medication Sig Dispense Refill albuterol 2.5 mg/3 mL, 0.083%, (PROVENTIL) nebulizer solution 1 Each (2.5 mg) by Nebulization routeevery 6 hours as needed for Wheezing. 180 mL 3 allopurinol (ZYLOPRIM) 300 MG tablet Take 1 Tablet (300 mg) by mouth two times a day. 180 Tablet 1 aspirin 81 MG chewable tablet Chew and swallow 1 Tablet (81 mg) by mouth daily. bumetanide (BUMEX) 1 MG tablet Take 5 Tablets (5 mg) by mouth daily. 450 Tablet 3 bumetanide (BUMEX) 2 MG tablet Take 5 Tablets (10 mg) by mouth. bumetanide (BUMEX) 2 MG tablet Take 2 Tablet (4 mg) by mouth two times a day along with a 1mg tab two times daily to make 5mg twice daily. 360 Tablet 3 Cholecalciferol 5000 units Take 5,000 Units by mouth daily. Continuous Glucose Sensor (FREESTYLE BORIS 3 PLUS SENSOR) Change every 15 days. 2 Each 2 digoxin (LANOXIN) 125 MCG tablet TAKE ONE TABLET BY MOUTH ONE TIME DAILY 90 Tablet 2 DULoxetine (CYMBALTA) 60 MG delayed release capsule Take 1 Capsule (60 mg) by mouth daily. 90 Capsule 3 ELIQUIS 5 MG tablet Take 1 Tablet (5 mg) by mouth two times a day. 180 Tablet 0 fenofibrate (LOFIBRA) 67 MG capsule Take 1 Capsule (67 mg) by mouth. fenofibrate (LOFIBRA) 67 MG capsule Take 1 Capsule by mouth daily after a meal. 90 Capsule 3 finasteride (PROSCAR) 5 MG tablet Take 1 Tablet (5 mg) by mouth daily. 90 Tablet 3 glipiZIDE XL (GLUCOTROL XL) 10 MG 24 hour release tablet Take 1 Tablet (10 mg) by mouth daily. 90 Tablet 0 insulin glargine (LANTUS) 100 UNIT/ML injection pen Inject 45 Units subcutaneously. insulin glargine (LANTUS) 100 UNIT/ML pen Inject 45 Units subcutaneously every evening. 15 mL 5 insulin pen needle (BD ULTRAFINE SUNSHINE 2ND GEN) 32G X 4 MM Use to inject insulin as instructed. 300 Each 3 KLOR-CON M20 20 MEQ controlled release tablet Take 1 tablet by mouth two times a day. 180 Tablet 2 lisinopril (ZESTRIL) 2.5 MG tablet Take 1 Tablet (2.5 mg) by mouth daily. 90 Tablet 3 metFORMIN (GLUCOPHAGE) 1000 MG tablet Take 1 Tablet (1,000 mg) by mouth two times a day with meals.180 Tablet 2 metoprolol succinate (TOPROL XL) 25 MG 24 hour release tablet Take 1.5 Tablets (37.5 mg) by mouth two times a day. 135 Tablet 2 Metoprolol Succinate 25 MG CS24 multivitamin with minerals (CERTAVITE,MYADEC) tablet Take 1 Tablet by mouth daily. [id number] ethyl esters (LOVAZA) 1 g capsule Take 2 Capsules (2 g) by mouth two times a day. 360 Capsule 2 oxygen (O2) gas Inhale 3 L/min continuous. polyethylene glycol 3350 (GLYCOLAX) 17 GM/SCOOP powder Take 1/2 capful by mouth daily potassium chloride (KLOR-CON M20) 20 MEQ ER tablet Take 1 Tablet (20 mEq) by mouth. rosuvastatin (CRESTOR) 20 MG tablet Take 1 Tablet (20 mg) by mouth daily. 90 Tablet 3 spironolactone (ALDACTONE) 25 MG tablet Take 1 Tablet (25 mg) by mouth daily. 90 Tablet 1 tamsulosin (FLOMAX) 0.4 MG CAPS capsule Take 2 Capsules (0.8 mg) by mouth daily. 180 Capsule 3 tamsulosin 0.4 MG CAPS capsule Take 2 Capsules (0.8 mg) by mouth. tirzepatide (MOUNJARO) 12.5 MG/0.5ML injection pen Inject 12.5 mg subcutaneously one time weekly for 4 weeks. Do not start before October 19, 2024. 2 mL 0 tirzepatide (MOUNJARO) 15 MG/0.5ML injection pen Inject 15 mg subcutaneously one time weekly for 4 weeks. 2 mL 11 VENTOLIN HFA 108 (90 Base) MCG/ACT inhaler Inhale 2 Puffs every 4 hours as needed for Wheezing or Shortness of Breath. 1 g 2 No current facility-administered medications for this visit. documented in this encounter Nursing Notes * Barbara Fernandes LPN - 05/14/2025 8:20 AM CDT Willian Copeland is a 59 y.o.male presents to the Urgent Care for UTI Symptoms: frequency, hesitancy, and retention Symptoms began 2 day(s) ago and are are worsening. Fever is absent. Significant urinary history: None. Current medications include n/a. Concern or exposure to STD/STI: no. Last Menstrual Period: No LMP for male patient. Patient requests an excuse letter for work/school: No documented in this encounter Plan of Treatment Upcoming Encounters Date Type Department Care Team (Late st Contact Info) Description 08/03/2025 2:15 PM FISH SMOKER Appointment [facility] [address] [place] [address]. [place] [address] Derek Leung PAJack [address] [place], [place] [phone] 10/18/2025 4:30 PM FISH SMOKER Appointment Cardiology at [facility] [id number] [place] [phone] Александр Montiel MD [address] [place], [place] [phone] documented as of this encounter Results * (ABNORMAL) Urinalysis Routine, Micro/Culture if Pos: Clean Catch (05/14/2025 8:27 AM CDT) Urine Microscopic Evaluation Reflex Order Comment Urinalysis results meet criteria for reflex, urine microscopic evaluation performed. 05/14/2025 8:33 AM CDT [facility] Color Yellow 05/14/2025 8:33 AM CDT [facility] Clarity Hazy(A) Clear 05/14/2025 8:33 AM CDT [facility] Specific [place] 1.015 1.005 - 1.030 05/14/2025 8:33 AM CDT [facility] pH 6.0 5.0 - 8.0 05/14/2025 8:33 AM CDT [facility] Protein Negative Neg/Trace mg/dL 05/14/2025 8:33 AM CDT [facility] Glucose Negative Negative mg/dL 05/14/2025 8:33 AM CDT [facility] Ketones Negative Negative mg/dL 05/14/2025 8:33 AM CDT [facility] Urobilinogen 0.2 <2.0 EU/dL 05/14/2025 8:33 AM CDT [facility] Bilirubin Negative Negative 05/14/2025 8:33 AM CDT [facility] Blood Moderate(A) Neg/Trace 05/14/2025 8:33 AM CDT [facility] Nitrite Negative Negative 05/14/2025 8:33 AM CDT [facility] Leukocyte Esterase Small(A) Negative 05/14/2025 8:33 AM CDT [facility] Source Clean Catch 05/14/2025 8:33 AM CDT [facility] Urine URINE SPECIMEN COLLECTION, CLEAN CATCH / Unknown Non-blood Collection / Unknown 05/14/2025 8:27 AM CDT 05/14/2025 8:27 AM CDT Elizabeth Frias PA-C LAB_1 Final Result [facility] CLIA: [id number] [place] [id number] documented in this encounter Visit Diagnoses Diagnosis Acute cystitis with hematuria- Primary Acute cystitis Dysuria documented in this encounter Care Teams Metal Tank Erector Relationship Specialty Start Date End Date Cynthia Camp PA-C [address] [place] [address] PCP - General Physician Dance Coach 03/31/18 documented as of this encounter
--- OUTSIDE RECORDS SUMMARY | 2025-05-14 08:20 | XMS_ITS | Encounter Summary ---
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 [place] [address] Derek Leung PA-C [address] [place] [phone] 10/18/2025 4:30 PM CUSTOMER SERVICE SUPERVISOR Appointment Cardiology at [address] [address] Александр Montiel MD [address] [place] [phone] documented as of this encounter Procedures Procedure Name Priority Date/Time Associated Diagnosis Comments URINE CULTURE STAT 05/14/2025 8:27 AM CDT Dysuria URINALYSIS ROUTINE, MICRO/CULTURE IF POS STAT 05/14/2025 8:27 AM CDT Dysuria ALBUMIN/CREAT RATIO Routine 05/14/2025 8 :27 AM CDT Type 2 diabetes mellitus with other specified complication, without long-term current use of insulin (HRC) UA MICRO STAT 05/14/2025 8:27 AM CDT Dysuria documented in this encounter Results * (ABNORMAL) Urine Culture (05/14/2025 8:27 AM CDT) Urine Culture Growth(A) 05/15/2025 11:13 AM T [facility] Urine Culture <10,000 CFU/mL Gram Negative Bacilli 05/15/2025 11:13 AM [facility] Comment: No Further Identification The presence of organisms at <10,000 cfu/ml in culture, UTI unlikely. Urine URINE SPECIMEN COLLECTION, CLEAN CATCH / Unknown Non-blood Collection / Unknown 05/14/2025 8:27 AM CDT 05/14/2025 8:33 AM CDT Elizabeth Frias PA-C LAB_1 Final Result Performing Organization Address City/[facility]/ZIP Co de Phone Number [facility] CLIA: [id number] [address] [place] [address], [facility] * (ABNORMAL) Urine Microscopic Evaluation: Clean Catch (05/14/2025 8:27 AM CDT) Urine Culture Comment Urinalysis results meet criteria for reflex, culture performed. 05/14/2025 8:33 AM CDT [facility] Red Blood Cells 21-50(A) 0 - 3 /HPF 05/14/2025 8:33 AM CDT [facility] White Blood Cells 21-50(A) 0 - 5 /HPF 05/14/2025 8:33 AM CDT [facility] Bacteria Few(A) None Seen /HPF 05/14/2025 8:33 AM CDT [facility] Squamous Epithelial Cells Few None Seen, Occasiona l, Few /HPF 05/14/2025 8:33 AM CDT [facility] White Blood Cell Clumps Present(A) None Seen /HPF 05/14/2025 8:33 AM CDT [facility] Urine URINE SPECIMEN COLLECTION, CLEAN CATCH / Unknown Non-blood Collection / Unknown 05/14/2025 8:27 AM CDT 05/14/2025 8:27 AM CDT Elizabeth Frias PA-C LAB_1 Final Result Performing Organization Address City/[facility]/ZIP Co de Phone Number [facility] CLIA: [id number] [address] [place] [phone] * (ABNORMAL) Urinalysis Routine, Micro/Culture if Pos: Clean Catch (05/14/2025 8:27 AM CDT) Urine Microscopic Evaluation Reflex Order Comment Urinalysis results meet criteria for reflex, urine microscopic evaluation performed. 05/14/2025 8:33 AM CDT [facility] Color Yellow 05/14/2025 8:33 AM CDT [facility] Clarity Hazy(A) Clear 05/14/2025 8:33 AM T [facility] Specific [place] 1.015 1.005 - 1.030 05/14/2025 8:33 AM T [facility] pH 6.0 5.0 - 8.0 05/14/2025 8:33 AM T [facility] Protein Negative Neg/Trace mg/dL 05/14/2025 8:33 AM CDT [facility] Glucose Negative Negative mg/dL 05/14/2025 8:33 AM CDT [facility] Ketones Negative Negative mg/dL 05/14/2025 8:33 AM CDT [facility] Urobilinogen 0.2 <2.0 EU/dL 05/14/2025 8:33 AM [facility] Bilirubin Negative Negative 05/14/2025 8:33 AM [facility] Blood Moderate(A) Neg/Trace 05/14/2025 8:33 AM [facility] Nitrite Negative Negative 05/14/2025 8:33 AM [facility] Leukocyte Esterase Small(A) Negative 05/14/2025 8:33 AM T [facility] Source Clean Catch 05/14/2025 8:33 AM [facility] Urine URINE SPECIMEN COLLECTION, CLEAN CATCH / Unknown Non-blood Collection / Unknown 05/14/2025 8:27 AM CDT 05/14/2025 8:27 AM CDT us Elizabeth Frias PA-C LAB_1 Final Result [facility] CLIA: [id number] [place] [phone] * (ABNORMAL) Albumin/Creatinine Ratio,Random Urine (05/14/2025 8:27 AM CDT) Albumin/Creati nine Ratio, Urine, Random 33(H) <30 mg/g 05/15/2025 5:28 AM [facility] Albumin, Urine, Random 28.7 mg/L 05/15/2025 5:28 AM [facility] Creatinine, Urine, Random 86 >20 mg/dL mg/dL 05/15/2025 5:28 AM CDT [facility] Urine Non-blood Collection / Unknown 05/14/2025 8:27 AM CDT 05/14/2025 8:27 AM CDT Derek Leung PA-C LAB_1 Final Resul t [facility] CLIA: [id number] [address] documented in this encounter Visit Diagnoses Diagnosis Type 2 diabetes mellitus with other specified complication, without long-term current use of insulin (HRC) Dysuria documented in this encounter Care Teams Abseiling Instructor Relationship Specialty Start Date End Date Cynthia Camp PA-C [address] [place] [address] PCP - General Physician Vacuum Furnace Operator 03/31/18 documented as of this encounter
--- OUTSIDE RECORDS SUMMARY | 2025-05-24 16:30 | XMS_ITS | Encounter Summary ---
Author Organization [facility] Address [address] [place] [address] Care Team Providers Care Shuttle Fitting Supervisor Name Role Phone Cynthia Camp PA-C Primary Care Provider [phone] Encounter Details Date Type Department Care Team (Latest Contact Info) Description 05/24/2025 4:30 PM CDT Office Visit Cardiology at [address] [phone] Александр Montiel MD [address] [place] [id number] Right heart failure with reduced right ventricular function (HRC) (Primary Dx); Hypertension, unspecified type (HRC); Obstructive sleep apnea syndrome; Pulmonary hypertension (HRC); 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); Coronary artery disease involving lytton coronary artery of lytton heart without angina pectoris (HRC); Stented coronary artery; Cor pulmonale (chronic) (HRC); Obesity hypoventilation syndrome (HRC); Atrial flutter, unspecified type (HRC) Social History Tobacco Use Types Packs/Day [...] 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 Not on file Not on file documented as of this encounter Last Filed Vital Signs Vital Sign Reading Time Taken Comments Blood Pressure 91/62 05/24/2025 4:10 PM CDT Pulse 96 05/24/2025 4:10 PM CDT Temperature - - Respiratory Rate - - Oxygen Saturation 94% 05/24/2025 4:10 PM CDT Inhaled Oxygen Concentration - - Weight - - Height 180.3 cm (5' 11) 05/24/2025 4:10 PM CDT Body Mass Index - - documented in this encounter Patient Instructions * Patient Instructions* Nohemi Ramirez RN - 05/24/2025 4:30 PM CDT BMP in 6 weeks Follow up in 6 months w/ BMP prior Thank you for choosing [facility] for your care today. If you were seen at [facility] or [facility] please direct any questions or concerns to your provider care team through [facility] [phone] or online services. You may also schedule recommended cardiac testing and future appointments by calling [phone] documented in this encounter Progress Notes * Александр Montiel MD - 05/24/2025 4:30 PM CDT CARDIOLOGY CLINIC FOLLOW UP HPI: Willian Copeland is a 59 y.o. male seen in cardiology clinic in follow up. PMH: 54-year-old male, former smoker, with PMH significant for TACO (untreated), morbid obesity, DM II, hyperlipidemia, hypertension, coronary artery calcification on CT, and pHTN (PA mean 40mmHg in 04/2017, Wedge was 24) and obesity hypoventilation syndrome who needed ischemic evaluation prior to pos sible bariatric surgery (laparoscopic Tejas-en-Y gastric bypass as well as laparoscopic sleeve gastrectomy) 2018. His body habitus prohibits cardiac imaging. Echo 06/15/2019 showed EF 65%. Stress echounable to be completed due to difficulty of imaging. Underwent coronary angiogram 06/21/2019 with PCI of proximal to mid LAD. Since the last office visit he is feeling well he continues to lose weight by cutting back on his calories and amount of intake. He has lost a total of 150 pounds. His hip pain has improved. He states his edema is stable, he has TACO but is non-compliant with wearing his CPAP mask, he does not tolerate the mask. Has nasal oxygen for at night that he also doesn't use. His A1C is significantly improved from 8.0 to 6.1. He is no longer considering gastric bypass surgery. He is back to work 1 night per week. Patient denies any chest pain, shortness of breath, PND, orthopnea, syncope or near syncope, palpitations, or claudication. Date of Service: 09/18/2021 Pt here for F/U Never had bariatric surgery BP well controlled Leg swelling stable / good Feels like he is unchanged over the last eyar and stable No change breathing, no CP/angina, no orthopnea/PND Does not tolerate CPAP and not using Date of Service: 11/19/2022 F/U TACO / obesity / HTN / dyslipidemia / CAC / PHT There was a shortage of ozempic and was off for a while, has been back on for 5 months Had UTI, will see Urology No CP/SOB, sleeping well. Cant tolerate CPAP Discussed DM and TACO and weight and activity Date of Service: 09/02/2023 F/U TACO / obesity / HTN / dyslipidemia / CAC / PHT and HF / hypoventilation Was in [facility] last week for HF, diuresis - RVE 4, RVF severely decreased CT scan main PA 5.7 cm, CAC severe Pt EKG today atypical atrial flutter After diuresis feels at baseline , however has significant volume overload. Date of Service: 12/02/2023 Feels better since DCCV at [facility] for AFL No admissions for HF since Still on Ozempic , has lost some wt since Not able to use CPAP at night, uses O2 Breathing OK, at baseline, no orthopnea/PND - goes to BR 2-3x/night Legs unchanged Date of Service: 04/27/2024 Doing about the same, breathing better per his report On Ozempic, did not tolerate Jardiance No orthopnea / PND Otherwise unchanged from last visit Down 15 lbs since last visit Date of Service: 08/03/2024 Phone visit Clinically stable but has been gaining weight Change Ozempic to María Elenaro Thinks he has gained water weight He changed dosing of bumex to 5 mg once a day Discussed w wt gain take Bumex twice a day for 2 days and can increase if gains ? 3 lbs No orthopnea/PND, no change in otherSx. Does notice AFL 1-2x/month with rates closer to 100 for a few hours, then goes back to normal, lastEKG rate 80 on current meds States BP has been controlled, did not have values Date of Service: 05/24/2025 Since his last follow up he then he had another hospitalization through [facility] at [facility] recently from December 16, 2024 through December 21, 2024. He was found to be short of breath and hypoxic to 82% on his 3 L nasal cannula and tachycardic to 200 beats per minute showing wide complex tachycardia concerning for ventricular tachycardia. He was loaded with IV amiodarone and successfullyelectrically cardioverted and started on IV amiodarone infusion. Initially he was in sinus tachycardia after cardioversion then subsequently went into atrial flutter. He was admitted to ICU on amiodarone drip, broad spectrum IV antibiotics, and IV Bumetanide. Cardiology is consulted. TTE shows normal LV function, right sided pressure/volume overload otherwise similar to previous exam. He was given IV diuresis and then switch to oral Bumex. Cardiology increased his metoprolol succinate to 37.5 mg twice daily due to more frequent PVCs. He was discharged on bumex 10 mg DAILY. His discharge weight at that time was 418 lbs. He was also found to be septic with blood cultures positive for group B strep secondary to right lower extremity cellulitis. His cardiac discharge medications included apixaban 5 mg b.i.d., baby aspirin, Bumex 10 mg daily, digoxin 125 mcg daily, metoprolol succinate 37.5 mg daily, rosuvastatin 20 mg daily and spironolactone 25 mg daily. Per notes, patient has not tolerated jardiance in the past. Cr on discharge was 1.22. He sleeps in recliner every night which is chronic for him so can not assess orthopnea. Takes his Bumex 10 mg daily in the afternoon because that is when he is closest to the bathroom. Checks his weight daily. Feels well today in clinic, wt stable, sleeps in recliner. No orthopnea/PND but sleeps at incline Current wt 410 - on Munjaro , Helping DM, wt unchanged Takes bumex 10 mg every night. 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) Chronic respiratory failure with hypoxia and hypercapnia (HRC) HTN (hypertension) (HRC) Morbid obesity due to excess calories (HRC) Pulmonary hypertension (HRC) Right heart failure with reduced right ventricular function (HRC) Scrotal edema CHF (congestive heart failure) (HRC) Adenomatous polyp of colon Stented coronary artery Coronary artery disease involving lytton coronary artery of lytton heart without angina pectoris (HRC) Adverse effect of antihyperlipidemic and antiarteriosclerotic drugs, subsequent encounter 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 (CODE) (HRC) Atrial fibrillation (HRC) Chronic obstructive pulmonary disease, unspecified (HRC) Current Outpatient Medications Medication Instructions albuterol 2.5 mg/3 mL (0.083%) (PROVENTIL) 2.5 mg, Nebulization, Q6H PRN allopurinol (ZYLOPRIM) 300 mg, Oral, BID apixaban (ELIQUIS) 5 mg, Oral, BID aspirin 81 mg, DAILY bumetanide (BUMEX) 2 MG tablet Take 2 Tablet (4 mg) by mouth two times a day along with a 1mg tab two times daily to make 5mg twice daily. bumetanide (BUMEX) 5 mg, Oral, DAILY bumetanide (BUMEX) 10 mg Cholecalciferol 5,000 Units, DAILY Continuous Glucose Sensor (FREESTYLE BORIS 3 PLUS SENSOR) Change every 15 days. digoxin (LANOXIN) 125 mcg, Oral, DAILY DULoxetine (CYMBALTA) 60 mg, Oral, DAILY fenofibrate (LOFIBRA) 67 mg, Oral, QDAY PC fenofibrate (LOFIBRA) 67 mg finasteride (PROSCAR) 5 mg, Oral, DAILY glipiZIDE XL (GLUCOTROL XL) 10 mg, Oral, DAILY insulin glargine (LANTUS) 45 Units, Subcutaneous, EVENING insulin glargine (LANTUS) 45 Units insulin pen needle ([employer] ULTRAFINE SUNSHINE 2ND GEN) 32G X 4 MM Use to inject insulin as instructed. KLOR-CON M20 20 MEQ controlled release tablet 20 mEq, Oral, BID lisinopril (ZESTRIL) 2.5 mg, Oral, DAILY metFORMIN (GLUCOPHAGE) 1,000 mg, Oral, BID WITH MEALS metoprolol succinate (TOPROL XL) 37.5 mg, Oral, BID Metoprolol Succinate 25 MG CS24 multivitamin with minerals (CERTAVITE,MYADEC) tablet 1 Tablet, DAILY [id number] ethyl esters (LOVAZA) 2 g, Oral, BID oxygen (O2) 3 L/min, CONTINUOUS polyethylene glycol 3350 (GLYCOLAX) 17 GM/SCOOP powder Take 1/2 capful by mouth daily potassium chloride (KLOR-CON M20) 20 MEQ ER tablet 20 mEq rosuvastatin (CRESTOR) 20 mg, Oral, DAILY spironolactone (ALDACTONE) 25 mg, Oral, DAILY tamsulosin (FLOMAX) 0.8 mg, Oral, DAILY tamsulosin (FLOMAX) 0.8 mg tirzepatide (MOUNJARO) 12.5 MG/0.5ML injection pen Inject 12.5 mg subcutaneously one time weekly for 4 weeks. tirzepatide (MOUNJARO) 15 MG/0.5ML injection pen Inject 15 mg subcutaneously one time weekly for 4 weeks. VENTOLIN HFA 108 (90 Base) MCG/ACT inhaler 2 Puffs, Inhalation, Q4H PRN BP 91/62 (BP Location: Left Arm, BP Cuff Size: Large) Pulse 96 Ht 5' 11 (1.803 m) SpO2 94% BMI 57.18 kg/m?? On O2 3 L, 410 LBS General Appearance: No acute distress, awake, alert, appropriate HEENT: No scleral icterus or conjunctival hemorrhage, mucous membranes are moist. NECK: without thyromegaly or adenopathy. No carotid bruits JVD LUNGS: clear without crackles or wheezes. Respiratory effort is normal CARDIOVASCULAR: Regular rate and rhythm with normal S1 and S2. No murmur or extra heart sounds. In AFL regular GASTROINTESTINAL: Abdomen obese, soft non tender. Unable to appreciate if hepatosplenomegaly is present. EXTREMITIES: No cyanosis or clubbing. 2+ bilateral peripheral edema. Pulses are 2+ and symmetric. NEUROLOGIC: Alert and appropriate. Moves all extremities, no focal deficits noted. LABS Labs- Last CBC/no differential result Lab Results Component Value Date/Time WBC 7.4 11/19/2024 08:00 AM RBC 5.83 (H) 11/19/2024 08:00 AM HGB 14.0 11/19/2024 08:00 AM HCT 49.1 11/19/2024 08:00 AM MCV 84.2 11/19/2024 08:00 AM MCH 24.0 (L) 11/19/2024 08:00 AM MCHC 28.5 (L) 11/19/2024 08:00 AM PLTS 178 11/19/2024 08:00 AM RDW 19.9 (H) 11/19/2024 08:00 AM Last Chem10 results: Lab Results Component Value Date/Time SODIUM 141 11/19/2024 08:00 AM K 4.7 11/19/2024 08:00 AM CHLORIDE 94 (L) 11/19/2024 08:00 AM BICARB 37 (H) 11/19/2024 08:00 AM BUN 36 (H) 11/19/2024 08:00 AM CREATININE 1.22 (H) 12/21/2024 06:14 AM GLUCOSE 107 (H) 11/19/2024 08:00 AM CA 9.0 11/19/2024 08:00 AM ANIONGAP 10 11/19/2024 08:00 AM MG 2.4 12/02/2023 03:42 PM Last 3 Troponin Results Lab Results Component Value Date/Time TROP 0.01 01/25/2018 04:19 PM Cholesterol Date Value 11/19/2024 116 mg/dL 10/06/2018 156 mg/dl HDL (mg/dl) Date Value 10/06/2018 23 (L) HDL Cholesterol (mg/dL) Date Value 11/19/2024 29 (L) LDL, Calc. (mg/dl) Date Value 10/06/2018 71 LDL, Direct (mg/dL) Date Value 08/05/2022 76 LDL, Calculated (mg/dL) Date Value 11/19/2024 50 Triglyceride Date Value 11/19/2024 185 mg/dL (H) 10/06/2018 312 mg/dl (H) Hgb A1c (%) Date Value 10/06/2018 8.3 (H) HEMOGLOBIN A1C SCREENING (%) Date Value 12/18/2024 7.1 (H) AST (SGOT) (U/L) Date Value 05/28/2024 20 11/03/2018 31 ALT (SGPT) (U/L) Date Value 05/28/2024 19 11/03/2018 48 Angiogram 06/2019 Conclusions 1) Severe stenosis proximal LAD after take-off of high diagonal branch. 2) Mild myocardial bridging mid to distal LAD. 3) LVEDP elevated to 20mmHg. 4) Uneventful IVUS guided PCI of proximal to mid LAD (5.0x28mm Synergy GRISELDA). Recommendations Administer Aspirin lifelong and Plavix for at least 3-4 months uninterrupted. Echo 2018 CONCLUSION: Echo 2019-06-15 13:48. Stress echo was changed to a very limited echocardiogram due to technical difficulties. Parasternal views could not be obtained. Apical views were off axis. 3 apical images available for review. Grossly normal LV size and systolic function with estimated ejection fraction around 65% Echo 08/23 Final Impressions: 1. Technically limited exam with poor acoustic windows. 2. Mildly increased LV size, mildly increased wall thickness, low-normal global systolic function with an estimated EF of ~50% - assessment complicated by encroachment by RV. 3. Right ventricular cavity size is severely enlarged, global systolic RV function is severely reduced. 4. There is significant interventricular septal flattening consistent with RV pressure overload. 5. Mild-moderate tricuspid regurgitation. 6. The inferior vena cava is dilated, respiratory size variation greater than 50% MICHELLE 09/24 Summary 1. Limited transesophageal echocardiogram performed prior to cardioversion. 2. Normal LV size and function; visually estimated LVEF 50-55%. 3. Moderately dilated RV with moderately reduced systolic function. There is flattening of the interventricular septum in diastole > systole consistent with RV pressure and volume overload. 4. No evidence of thrombus in the LA appendage. 5. No obvious color Doppler evidence for interatrial septum shunt, bubble study not performed. 6. Mild-moderate MR with multiple jets. 7. Moderate TR. Suboptimal Doppler alignment to estimate PASP. EKG today probable AFL 100 EKG 04/24 rate 77 bpm atrial flutter with variable AV conduction Low voltage QRS Incomplete right bundle branch block Cannot rule out Anteroseptal infarct (cited on or before 05-NOV-2023) ST & T wave abnormality, consider lateral ischemia Abnormal ECG When compared with ECG of 02-DEC-2023 14:09, No significant change Echo 12/24 Echo:12/17/2024 1. Right ventricle not well-visualized; severe right ventricular enlargement with moderate to severe reduction right ventricular systolic function. - Minimum estimated right ventricular systolic pressure 48 mmHg. 2. Left ventricular not well-visualized; grossly normal chamber size and systolic function (visually estimated ejection fraction 60 to 65%). 3. Both systolic/diastolic flattening interventricular septum with marked respirophasic accentuation (findings consistent with increased right-sided pressure/volume). - Incomplete endocardial definition precludes reliable wall motion analysis. 4. Moderate to severe right atrial enlargement (limited visualization). 5. Tricuspid valve annular dilatation; mild to moderate tricuspid valve regurgitation (presumed underestimated within the limitations of this exam). IMP: 59 y.o. -old male, former smoker, with PMH significant for TACO (untreated), morbid obesity, DMII, hyperlipidemia, hypertension, coronary artery calcification on CT, and severen pHTN (PA mean 40mmHg in 04/2017, Wedge was 24) and obesity hypoventilation syndrome who needed ischemic evaluation prior to possible bariatric surgery (laparoscopic Tejas-en-Y gastric bypass as well as laparoscopic sleeve gastrectomy) 2018. His body habitus prohibits cardiac imaging. Echo 06/15/2019 showed EF 65%. Underwent coronary angiogram 06/21/2019 with PCI of proximal to mid LAD. Pt admit to [facility] week 08/23 with severe right sided HF and new AFL, S/p diuresis.DC still volume up but feels at baseline, did not notice AFL. S/P DCCV to [facility] 09/24, continues with diuresis Now back in AFL, does not notice. Discussed he has severe PHT with end stage right heart failure with cor pulmonale, now s/p DCCV AFLand has lost approx 20 lbs, feels at baseline, EKG shows recurrent AFL, rate controlled. EP felt success rate was low for atypical flutter. Wt stable at 410 Lbs Most recent admit for HF 12/24 at [facility] Still in AFL by EKG today , continue current meds PHT -severe / right heart failure - Cor Pulmonale physiology, severe RVE / RV dysfunction / PA 5.7 cm Atrial flutter 3:1 - s/p DCCV - [facility] 09/24 at [facility] , on AC , back in AFL Sep 24/ persistent 04/24 PVCs - none on EKG tooday CAD- s/p GRISELDA- mid LAD ( 06/2019) Denies CP, REYNA. HTN- under good control Obesity- has lost weight, on Ozempic HL- on statins Ldl 79, TRIG elevated DM- per primary / endocrine - metformin / munjaro Hypoventilation syndrome - has not had bariatric surgery, states insurance declined TACO - CPAP - will not use DNI but is willing to be shocked Plan: Prognosis poor with severe PHT and end stage right sided heart failure Did not tolerate jardiance Overall HF stable at this time, baseline. He is doing well today for his condition. 12/23 had HF and AFL, s/p DCCV at [facility] 09/24, now back in AFL, EP did not feel a good candidate for left sided ablation for atypical flutter, flutter visit 04/24 PHT / right heart failure (2nd obesity with hypoventilation syndrome / TACO), weight Discussed / suggested SGLT2, he was on in the past, did not tolerate, felt he had to drink fluids all the time, he declines SGLT2 Has stopped losing wt on Ozempic , was changed to Munjaro Also discussed F/U with pulmonary for new options on treating TACO has appointment , he did not F/U , does wear O2 at night , could not tolerate CPAP Continue tricor for TriG Discussed right sided heart failure / Cor pulmonale in past visits Although Pt has end stage Cor Pulmonale on spironolactone/bumex/ACEI, toprol, Digoxin and has been somewhat clinically stable 1. Continue ASA indefinitely 2. Continue Tricor 3. Continue Munjaro discussed 4. F/U Pulm for new Rx with TACO, he will not use CPAP, he uses O2 , declines F/U 5. Continue current meds / compression stockings 6. Continue AC for AFL 7. On Toprol, lisinopril, spironolactone , dig and Bumex for HF - continue 8. Could not tolerate SGLT2, does not want to retry 9. Continue diuresis with bumex/spironolactone 10. BMP 6 weeks 12. F/U 6 months with BMP - call us if Sx changing, not responding to diuretics Александр Montiel MD PhD FACC Date of Service: 05/24/2025 TT30/CC50% documented in this encounter Plan of Treatment Upcoming Encounters Date Type Department Care Team (Late st Contact Info) Description 08/03/2025 2:15 PM FEED IN WORKER Appointment [facility] [address] [place] [address]. [place] [address] Derek Leung PAJack [address] [place] [address] 10/18/2025 4:30 PM FEED IN WORKER Appointment Cardiology at [address] [phone] Александр Montiel MD [address] [place] [address] Scheduled Orders Name Type Priority Associated Diagnoses Orde r Schedule Basic Metabolic Panel Lab Routine Right heart failure with reduced right ventricular function (HRC) Hypertension, unspecified type (HRC) Pulmonary hypertension (HRC) Expected: 07/05/2025 (Approximate), Expires: 10/03/2025 Basic Metabolic Panel Lab Routine Right heart failure with reduced right ventricular function (HRC) Hypertension, unspecified type (HRC) Pulmonary hypertension (HRC) Expected: 11/21/2025 (Approximate), Expires: 02/19/2026 documented as of this encounter Visit Diagnoses Diagnosis Right heart failure with reduced right ventricular function (HRC)- Primary Hypertension, unspecified type (HRC) Obstructive sleep apnea syndrome Obstructive sleep apnea (adult) (pediatric) Pulmonary hypertension (HRC) Other chronic pulmonary heart diseases 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
[2025-06-27 07:35] VITALS: BP 120/97; PULSE 64; RESP 22; TEMP 36.6; O2SAT 95; BMI 60.3
--- OUTSIDE RECORDS SUMMARY | 2025-06-27 07:35 | XMS_ITS | Encounter Summary ---
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 [place], [place] [id number] Derek Leung PA-C [address] [place] [address] 10/18/2025 4:30 PM SENIOR JAVA ENGINEER Appointment Cardiology at [address] [phone] Александр Montiel MD [address] [place] [address] documented as of this encounter Visit Diagnoses Not on filedocumented in this encounter Care Teams Policewoman Relationship Specialty Start Date End Date Cynthia Camp PA-C [address] [place] [address] PCP - General Physician Ground Support Equipment Mechanic 03/31/18 documented as of this encounter
--- OUTSIDE RECORDS SUMMARY | 2025-06-27 07:35 | XMS_ITS | Encounter Summary ---
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 [place] [address] Derek Leung PA-C [address] [place] [address] 10/18/2025 4:[address] AND BUILDING DECORATOR Appointment Cardiology at [facility] [id number] [place] [phone] Александр Montiel MD [address] [place] [address] documented as of this encounter Visit Diagnoses Not on filedocumented in this encounter Care Teams Agriculture Specialist Relationship Specialty Start Date End Date Cynthia Camp PA-C [address] [place], [place] [phone] PCP - General Physician Sand Cutter Operator 03/31/18 documented as of this encounter
--- OUTSIDE RECORDS SUMMARY | 2025-06-27 07:35 | XMS_ITS | Encounter Summary ---
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 [place], [place] [phone] Derek Leung PA-C [address] [place] [address] 10/18/2025 4:30 PM PARAFFINER Appointment Cardiology at [address] [phone] Александр Montiel MD [address] [place] [address] documented as of this encounter Visit Diagnoses Not on filedocumented in this encounter Care Teams Supervisor Tumblers Relationship Specialty Start Date End Date Cynthia Camp PA-C [address] [place] [address] PCP - General Physician Line Tender 03/31/18 documented as of this encounter
--- OUTSIDE RECORDS SUMMARY | 2025-06-27 07:35 | XMS_ITS | Encounter Summary ---
Author Organization [facility] Address [address] [address] Care Team Providers Care Tool Adjuster Name Role Phone Cynthia Camp PA-C Primary Care Provider [phone] Encounter Details Date Type Department Care Team (Late st Contact Info) Description 12/24/2021 Refill Order Rheumatology at 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 Not on file documented as of this encounter Plan of Treatment Upcoming Encounters Date Type Department Care Team (Late st Contact Info) Description 08/03/2025 2:15 PM NUTRITION SERVICES ASSOCIATE Appointment Specialty [place] [address] [facility] [place] [phone] Derek Leung PA-C [address] [place] [address] 10/18/2025 4:30 PM NUTRITION SERVICES ASSOCIATE Appointment Cardiology at [facility] [address] [place] [phone] Александр Montiel MD [address] [place] [address] documented as of this encounter Visit Diagnoses Diagnosis Encounter for long-term (current) use of medications- Primary Encounter for long-term (current) use of other medications documented in this encounter Care Teams Tool Adjuster Relationship Specialty Start Date End Date Cnythia Camp PA-C [address] [place] [address] PCP - General Physician Industry Consultant 03/31/18 documented as of this encounter
--- OUTSIDE RECORDS SUMMARY | 2025-06-27 07:35 | XMS_ITS | Encounter Summary ---
Author Organization [facility] Address [address], [place] [address] Care Team Providers Care Solid Waste Collection Worker Name Role Phone Cynthia Camp PA-C Primary Care Provider [phone] Encounter Details Date Type Department Care Team (Latest Contact Info) Description 11/09/2018 Correspondence [facility] [address] 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 [address] Derek Leung PA-C 401 [place] [address] 10/18/2025 4:30 PM SHOT PACKER Appointment Cardiology at [facility] [address] [place] [phone] Александр Montiel MD [address] [place] [address] documented as of this encounter Visit Diagnoses Not on filedocumented in this encounter Care Teams Solid Waste Collection Worker Relationship Specialty Start Date End Date Cynthia Camp PAPetersonC [address] [place] [address] PCP - General Physician Clay Temperer 03/31/18 documented as of this encounter
--- OUTSIDE RECORDS SUMMARY | 2025-06-27 07:35 | XMS_ITS | Encounter Summary ---
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 [place], [place] [phone] Derek Leung PA-C [address] [place] [address] 10/18/2025 4:30 PM ASSISTANT MECHANIC Appointment Cardiology at [address] [phone] Александр Montiel MD [address] [place] [address] documented as of this encounter Visit Diagnoses Not on filedocumented in this encounter Care Teams X Ray Inspector Relationship Specialty Start Date End Date Cynthia Camp PA-C [address] [place] [address] PCP - General Physician Advertising Writer 03/31/18 documented as of this encounter
--- OUTSIDE RECORDS SUMMARY | 2025-06-27 07:35 | XMS_ITS | Encounter Summary ---
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 [place], [place] [phone] Derek Leung PA-C 401 [place] [address] 10/18/2025 4:30 PM LATEXER Appointment Cardiology at [address] [phone] Александр Montiel MD [address] [place] [address] documented as of this encounter Visit Diagnoses Not on filedocumented in this encounter Care Teams Motor Tune Up Specialist Relationship Specialty Start Date End Date Cynthia Camp PA-C [address] [place] [address] PCP - General Physician Customer Service Leader 03/31/18 documented as of this encounter
--- OUTSIDE RECORDS SUMMARY | 2025-06-27 07:35 | XMS_ITS | Encounter Summary ---
Author Organization [facility] Address [address], [place] [address] Care Team Providers Care Manager Of Financial Reporting Name Role Phone Cynthia Camp PA-C Primary Care Provider [phone] Encounter Details Date Type Department Care Team (Late st Contact Info) Description 04/08/2022 Refill Order [facility] [address] 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 [place], [place] [phone] Derek Leung PA-C [address] [place] [address] 10/18/2025 4:30 PM PETROLEUM INSPECTOR SUPERVISOR Appointment Cardiology at [facility] [address] [place] [address] Александр Montiel MD [address] [place] [address] documented as of this encounter Visit Diagnoses Diagnosis Encounter for long-term (current) use of medications- Primary Encounter for long-term (current) use of other medications documented in this encounter Care Teams Manager Of Financial Reporting Relationship Specialty Start Date End Date Cynthia Camp PA-C [address] [place] [address] PCP - General Physician Entry Level Account Manager 03/31/18 documented as of this encounter
--- OUTSIDE RECORDS SUMMARY | 2025-06-27 07:35 | XMS_ITS | Encounter Summary ---
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 [place], [place] [phone] Derek Leung PA-C [address] [place] [address] 10/18/2025 4:30 PM UNARMED SECURITY OFFICER Appointment Cardiology at [address] [phone] Александр Montiel MD [address] [place] [address] documented as of this encounter Visit Diagnoses Not on filedocumented in this encounter Care Teams Division Order Analyst Relationship Specialty Start Date End Date Cynthia Camp PA-C [address] [place] [address] PCP - General Physician Conference Specialist 03/31/18 documented as of this encounter
--- OUTSIDE RECORDS SUMMARY | 2025-06-27 07:35 | XMS_ITS | Encounter Summary ---
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 [place], [place] [phone] Derek Leung PA-C [address] [place] [address] 10/18/2025 4:30 PM ASSESSMENT COUNSELOR Appointment Cardiology at [address] [phone] Александр Montiel MD [address] [place] [address] documented as of this encounter Visit Diagnoses Not on filedocumented in this encounter Care Teams Bottle Hop Relationship Specialty Start Date End Date Cynthia Camp PA-C [address] [place] [address] PCP - General Physician Leaf Blender 03/31/18 documented as of this encounter
--- OUTSIDE RECORDS SUMMARY | 2025-06-27 07:35 | XMS_ITS | Encounter Summary ---
Author Organization [facility] Address [address], [place] [address] Care Team Providers Care Sales And Marketing Engineer Name Role Phone Cynthia Camp PA-C Primary Care Provider [phone] Encounter Details Date Type Department Care Team (Late st Contact Info) Description 10/16/2018 Consent for Procedure/Treatme nt 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 [place], [place] [phone] Derek Leung PA-C [address] [place] [address] 10/18/2025 4:30 PM AURICULOTHERAPIST Appointment Cardiology at [address] [phone] Александр Montiel MD [address] [place] [address] documented as of this encounter Visit Diagnoses Not on filedocumented in this encounter Care Teams Sales And Marketing Engineer Relationship Specialty Start Date End Date Cynthia Camp PA-C [address] [place] [address] PCP - General Physician Sanding Machine Operator Or Tender 03/31/18 documented as of this encounter
--- OUTSIDE RECORDS SUMMARY | 2025-06-27 07:36 | XMS_ITS | Encounter Summary ---
Author Organization [facility] Address [address], [place] [address] Care Team Providers Care Boiler Or Engine Operator Name Role Phone Cynthia Camp PA-C Primary Care Provider [phone] Reason for Visit * Reason Comments Refill tamsulosin (FLOMAX) 0.4 MG CAPS capsule [Pharmacy Med Name: Tamsulosin HCl Oral Capsule 0.4 MG] Encounter Details Date Type Department Care Team (Late st Contact Info) Description 05/26/2025 Refill Specialty Center [facility] [address] [place] [address] [phone] Ashu Barksdale MD [address] [place] [phone] Refill (tamsulosin (FLOMAX) 0.4 MG CAPS capsule [Pharmacy Med Name: Tamsulosin HCl Oral Capsule 0.4 MG]) Social History Tobacco Use Types Packs/Day [...] 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 (unchanged) -> Refill x 3 months (until due for an office visit) Last qualifying visit: 08/09/2024 (with ASHU BARKSDALE) Next scheduled visit: None [facility] Embedded Refills, Reference: [id number], 05/26/2025 6:55:30 PM CDT, Pool: OPAL GTZ ([id number]) documented in this encounter Plan of Treatment Upcoming Encounters Date Type Department Care Team (Late st Contact Info) Description 08/03/2025 2:15 PM ENVIRONMENTAL PROTECTION INSPECTOR Appointment [facility] [address] [facility] [place] [address]. [place] [address] Derek Leung PA-C [address] [place] [address] 10/18/2025 4:30 PM ENVIRONMENTAL PROTECTION INSPECTOR Appointment Cardiology at [facility] [address] [place] [phone] Александр Montiel MD [address] [place] [address] [phone] documented as of this encounter Visit Diagnoses Not on filedocumented in this encounter Care Teams Boiler Or Engine Operator Relationship Specialty Start Date End Date Cynthia Camp PA-C [address] [place] [address] PCP - General Physician Science Technician 03/31/18 documented as of this encounter
--- OUTSIDE RECORDS SUMMARY | 2025-06-27 07:36 | XMS_ITS | Encounter Summary ---
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 [place], [place] [phone] Derek Leung PA-C 401 [place] [address] 10/18/2025 4:30 PM FRINGING MACHINE OPERATOR Appointment Cardiology at [facility] [address] [place] [address] Александр Montiel MD [address] [place] [address] documented as of this encounter Visit Diagnoses Not on filedocumented in this encounter Care Teams Soa Integration Architect Relationship Specialty Start Date End Date Cynthia Camp PAPetersonC [address] [place] [address] PCP - General Physician Sampler Radioactive Waste 03/31/18 documented as of this encounter
--- OUTSIDE RECORDS SUMMARY | 2025-06-27 07:36 | XMS_ITS | Encounter Summary ---
Author Organization [facility] Address [address] [address] Care Team Providers Care Tree Faller Name Role Phone Cynthia Camp PA-C Primary Care Provider [phone] Encounter Details Date Type Department Care Team (Late st Contact Info) Description 05/17/2025 Results Follow-Up Specialty [facility] 401 Endocrinology Clinic 401 [facility]. 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 [place] [address] Derek Leung PA-C [address] [place] [address] 10/18/2025 4:30 PM COMMUTATOR OPERATOR Appointment Cardiology at [facility] [address] [place] [address] Александр Montiel MD [address] [place] [address] documented as of this encounter Visit Diagnoses Not on filedocumented in this encounter Care Teams Tree Faller Relationship Specialty Start Date End Date Cynthia Camp PA-C [address] [place] [address] PCP - General Physician Lunch Truck Operator 03/31/18 documented as of this encounter
--- OUTSIDE RECORDS SUMMARY | 2025-06-27 07:37 | XMS_ITS | Encounter Summary ---
Author Organization [facility] Address [address], [place] [address] Care Team Providers Care Sea Foam Kiss Maker Name Role Phone Cynthia Camp PA-C Primary Care Provider [phone] Reason for Visit * Reason Comments Refill metoprolol succinate (TOPROL XL) 25 MG 24 hour release tablet [Pharmacy Med Name: Metoprolol Succinate ER Oral Tablet Extended Release 24 Hour 25 MG] Encounter Details Date Type Department Care Team (Late st Contact Info) Description 06/14/2025 Refill Cardiology at [address] [address] Amanda Mckeon, EDUCATION GENERAL MANAGER, SENIOR RECEPTIONIST [address] [place] [address] Refill (metoprolol succinate (TOPROL XL) 25 MG 24 hour release tablet [Pharmacy Med Name: Metoprolol Succinate ER Oral Tablet Extended Release 24 Hour 25 MG]) Social History Tobacco Use Types Packs/Day [...] 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 Labs needed n/a. Refilled for 90 days w/ 2 refills * Sola Wells Xrwcomm - 06/14/2025 2:02 AM CDT metoprolol succinate (TOPROL XL) 25 MG 24 hour release tablet [Pharmacy Med Name: Metoprolol Succinate ER Oral Tablet Extended Release 24 Hour 25 MG] Medication started: 08/29/2023 Last ordered by AMANDA MCKEON N: 02/04/2025 (130 days ago) QTY: 135, Refills: 2, Sig: take 1.5 tablets (37.5 mg) by mouth two times a day. (unchanged) -> Refill x 9 months, qty: 270, refills: 2 (until due for an office visit) Last qualifying visit: 12/30/2024 ([facility] with AMANDA MCKEON) Next scheduled visit: None [facility] Embedded Refills, Reference: [id number], 06/14/2025 2:02:07 AM CDT, Pool: Cardiology Refill RN ([id number]) documented in this encounter Plan of Treatment Upcoming Encounters Date Type Department Care Team (Late st Contact Info) Description 08/03/2025 2:15 PM E LEARNING DEVELOPER Appointment Specialty Center 401 Endocrinology Clinic 401 [facility] [place] [address] Derek Leung PAPetersonC [address] [place] [address] 10/18/2025 4:30 PM E LEARNING DEVELOPER Appointment Cardiology at [facility] [address] [place] [address] Александр Montiel MD [address] [place] [address] [phone] documented as of this encounter Visit Diagnoses Not on filedocumented in this encounter Care Teams Sea Foam Kiss Maker Relationship Specialty Start Date End Date Cynthia Camp PA-C [address] [place], [place] [phone] PCP - General Physician Sample Hand 03/31/18 documented as of this encounter
--- OUTSIDE RECORDS SUMMARY | 2025-06-27 07:37 | XMS_ITS | Encounter Summary ---
Author Organization [facility] Address [address] [place] [address] Care Team Providers Care Replenisher Name Role Phone Cynthia Angel PA-C Primary Care Provider [phone] Reason for Visit * Reason Comments Refill VENTOLIN HFA 108 (90 Base) MCG/ACT inhaler [Pharmacy Med Name: Ventolin HFA Inhalation Aerosol Solution 108 (90 Base) MCG/ACT] Encounter Details Date Type Department Care Team (Late st Contact Info) Description 06/10/2025 Refill [facility] [address] [place] [address] Cynthia Angel PA-C [address] [place] [phone] Refill (VENTOLIN HFA 108 (90 Base) MCG/ACT inhaler [Pharmacy Med Name: Ventolin HFA Inhalation Aerosol Solution 108 (90 Base) MCG/ACT]) Social History Tobacco Use Types Packs/Day Years [...] 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 * Alicia Wellsillwizadafne Xrwcomm - 06/10/2025 10:27 PM CDT VENTOLIN HFA 108 (90 Base) MCG/ACT inhaler [Pharmacy Med Name: Ventolin HFA Inhalation Aerosol Solution 108 (90 Base) MCG/ACT] Medication started: 06/09/2020 Last ordered by CYNTHIA ANGEL: 05/27/2024 (379 days ago) QTY: 1, Refills: 2, Sig: inhale 2 puffsevery 4 hours as needed for wheezing or shortness of breath. (unchanged) -> Refill x 9 months (until due for an office visit) -> Calculate the quantity and number of refills manually. Last qualifying visit: 12/27/2024 (with CYNTHIA ANGEL) Next scheduled visit: None [facility] Embedded Refills, Reference: [id number], 06/10/2025 10:27:51 PM CDT, Pool: Refill Centralized Services - Primary Care ([id number]) documented in this encounter Plan of Treatment Upcoming Encounters Date Type Department Care Team (Late st Contact Info) Description 08/03/2025 2:15 PM INSTALLATION HELPER Appointment Specialty [facility] [address] [facility] [address] [place] [address]. [place] [address] Derek Leung PA-C [address] [place] [address] 10/18/2025 4:30 PM INSTALLATION HELPER Appointment Cardiology at [facility] [phone] [place] [phone] Александр Montiel MD [address] [place] [address] [phone] documented as of this encounter Visit Diagnoses Not on filedocumented in this encounter Care Teams Replenisher Relationship Specialty Start Date End Date Cynthia Angel PA-C [address] [place] [address] [phone] PCP - General Physician Filenet Architect 03/31/18 documented as of this encounter
--- OUTSIDE RECORDS SUMMARY | 2025-06-27 07:37 | XMS_ITS | Encounter Summary ---
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 Not on file documented as of this encounter Plan of Treatment Upcoming Encounters Date Type Department Care Team (Late Contact Info) Description 08/03/2025 2:15 PM CORPORATE TRAINING MANAGER Appointment Specialty Center [facility] [address] [place] [phone] Derek Leung PA-C [address] [place] [address] [place] [address] 10/18/2025 4:30 PM CORPORATE TRAINING MANAGER Appointment Cardiology at [facility] [address] [place] [address] Александр Montiel MD [address] [place] [phone] documented as of this encounter Visit Diagnoses Diagnosis Encounter for long-term (current) use of medications- Primary Encounter for long-term (current) use of other medications documented in this encounter Care Teams Digital Content Specialist Relationship Specialty Start Date End Date Cynthia Camp PA-C [address] [place] [address] PCP - General Physician Wire Tester 03/31/18 documented as of this encounter
--- OUTSIDE RECORDS SUMMARY | 2025-06-27 07:37 | XMS_ITS | Encounter Summary ---
Author Organization [facility] Address [address] [place] [address] Care Team Providers Care Manager Investment Banking Name Role Phone Cynthia Camp PA-C Primary Care Provider [phone] Reason for Visit * Reason Onset Date Comments Refill 06/17/2025 [id number]-[id number] eth yl esters Encounter Details Date Type Department Care Team (Late st Contact Info) Description 06/17/2025 Refill [facility] [address] [facility] 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 * Sola Wells Xrwcomm - 06/17/2025 8:50 AM CDT tucyz-3-ediq ethyl esters (LOVAZA) 1 g capsule Medication started: 07/26/2019 Last ordered by DEREK QUESADA: 09/08/2024 (282 days ago) QTY: 360, Refills: 2, Sig: take 2 capsules (2 g) by mouth two times a day. (unchanged) -> Refill x 9 months, qty: 360, refills: 2 (until due for an office visit) Last qualifying visit: 01/25/2025 (in Endocrinology with DEREK QUESADA) Next scheduled visit: 08/03/2025 (in Endocrinology with DEREK QUESADA) [employer] Embedded Refills, Reference: [id number], 06/17/2025 8:50:37 AM CDT, Pool: ENDO TEAGAN GTZ ([id number]) * Donna Mclain - 06/17/2025 8:49 AM CDT Requested Prescriptions Pending Prescriptions Disp Refills xztic-6-zmnf ethyl esters (LOVAZA) 1 g capsule 360 Capsule 2 Sig: Take 2 Capsules (2 g) by mouth two times a day. documented in this encounter Plan of Treatment Upcoming Encounters Date Type Department Care Team (Late st Contact Info) Description 08/03/2025 2:15 PM PUBLICITY MANAGER Appointment Specialty [facility] [address] [place] [address]. [place] [address] Derek Quesada PAPetersonC [address] [place] [phone] 10/18/2025 4:30 PM PUBLICITY MANAGER Appointment Cardiology at [facility] [id number] [place] [phone] Александр Montiel MD [address] [place] [phone] documented as of this encounter Visit Diagnoses Diagnosis Type 2 diabetes mellitus with other specified complication, without long-term current use of insulin (HRC) documented in this encounter Care Teams Manager Investment Banking Relationship Specialty Start Date End Date Cynthia Camp PAPetersonC [address] [place] [address] PCP - General Physician Roll On Worker 03/31/18 documented as of this encounter
--- OUTSIDE RECORDS SUMMARY | 2025-06-27 07:37 | XMS_ITS | Clinical Summary ---
Author Organization [facility] Address [address] [address] Care Team Providers Care School Bus Driver/Custodian Name Role Phone Cynthia Camp PA-C Primary Care Provider [phone] Source Comments You are receiving this document as you are listed as the primary care provider,follow-up provider, or the patient has been referred to you for consultation.This is in compliance with the Medicare and[facility] EHR Incentive Program,which states Providers who transition their patient to another setting of careor provider of care or refers their patient to another provider of care shouldprovide summary care record for each transition of care or referral. [facility] Allergies Active Allergy Reactions Criticality Noted Date Comments Atorvastatin Myalgias 2018 Myalgia Medications Cholecalciferol 5000 units Take 5,000 Units by mouth daily. Active multivitamin with minerals (CERTAVITE,MYAD EC) tablet Take 1 Tablet by mouth daily. Active polyethylene glycol 3350 (GLYCOLAX) 17 GM/SCOOP powder Take 1/2 capful by mouth daily Active oxygen (O2) gas Inhale 3 L/min continuous. 023 Active fenofibrate (LOFIBRA) 67 MG capsule Take 1 Capsule by mouth daily after a meal. 90 Capsule 3 024 2024 Active tirzepatide (MOUNJARO) 12.5 MG/0.5ML injection pen Inject 12.5 mg subcutaneously one time weekly for 4 weeks. Do not start before October 19, 2024. 2 mL 025 Active bumetanide (BUMEX) 1 MG tablet Take 5 Tablets (5 mg) by mouth daily. 450 Tablet 3 024 2024 Active finasteride (PROSCAR) 5 MG tablet Take 1 Tablet (5 mg) by mouth daily. 90 Tablet 3 024 2024 Active digoxin (LANOXIN) 125 MCG tablet TAKE ONE TABLET BY MOUTH ONE TIME DAILY 90 Tablet 2 025 Active allopurinol (ZYLOPRIM) 300 MG tabletIndicatio ns:Gout, unspecified cause, unspecified chronicity, unspecified site Take 1 Tablet (300 mg) by mouth two times a day. 180 Tablet 1 025 Active bumetanide (BUMEX) 2 MG tabletIndicatio ns:Right heart failure with reduced right ventricular function (HRC) Take 2 Tablet (4 mg) by mouth two times a day along with a 1mg tab two times daily to make 5mg twice daily. 360 Tablet 3 Active aspirin 81 MG chewable tablet Chew and swallow 1 Tablet (81 mg) by mouth daily. Active lisinopril (ZESTRIL) 2.5 MG tabletIndicatio ns:Stented coronary artery Take 1 Tablet (2.5 mg) by mouth daily. 90 Tablet 3 025 2025 Active spironolactone (ALDACTONE) 25 MG tablet Take 1 Tablet (25 mg) by mouth daily. 90 Tablet 1 025 Active albuterol 2.5 mg/3 mL, 0.083%, (PROVENTIL) nebulizer solutionIndicat ions:Chronic respiratory failure with hypoxia and hypercapnia (HRC) 1 Each (2.5 mg) by Nebulization route every 6 hours as needed for Wheezing. 180 mL 3 025 Active rosuvastatin (CRESTOR) 20 MG tabletIndicatio ns:Dyslipidemia associated with type 2 diabetes mellitus (HRC) Take 1 Tablet (20 mg) by mouth daily. 90 Tablet 3 025 2025 Active tirzepatide (MOUNJARO) 15 MG/0.5ML injection pen Inject 15 mg subcutaneously one time weekly for 4 weeks. 2 mL 11 Active insulin glargine (LANTUS) 100 UNIT/ML penIndications: Type 2 diabetes mellitus with other specified complication, without long-term current use of insulin (HRC) Inject 45 Units subcutaneously every evening. 15 mL 5 Active metFORMIN (GLUCOPHAGE) 1000 MG tabletIndicatio ns:Type 2 diabetes mellitus with other specified complication, without long-term current use of insulin (HRC) Take 1 Tablet (1,000 mg) by mouth two times a day with meals. 180 Tablet 2 025 Active DULoxetine (CYMBALTA) 60 MG delayed release capsule Take 1 Capsule (60 mg) by mouth daily. 90 Capsule 3 Active KLOR-CON M20 20 MEQ controlled release tabletIndicatio ns:Essential hypertension (HRC) Take 1 tablet by mouth two times a day. 180 Tablet 2 025 Active glipiZIDE XL (GLUCOTROL XL) 10 MG 24 hour release tabletIndicatio ns:Controlled type 2 diabetes mellitus without complication, without long-term current use of insulin (HRC) Take 1 Tablet (10 mg) by mouth daily. 90 Tablet 025 Active Continuous Glucose Sensor (FREESTYLE BORIS 3 PLUS SENSOR)Indicati ons:Controlled type 2 diabetes mellitus without complication, without long-term current use of insulin (HRC) Change every 15 days. 2 Each 2 Active bumetanide (BUMEX) 2 MG tablet Take 5 Tablets (10 mg) by mouth. Active fenofibrate (LOFIBRA) 67 MG capsule Take 1 Capsule (67 mg) by mouth. 024 2024 Active insulin glargine (LANTUS) 100 UNIT/ML injection pen Inject 45 Units subcutaneously. Active Metoprolol Succinate 25 MG CS24 Active potassium chloride (KLOR-CON M20) 20 MEQ ER tablet Take 1 Tablet (20 mEq) by mouth. Active tamsulosin 0.4 MG CAPS capsule Take 2 Capsules (0.8 mg) by mouth. 024 2024 Active apixaban (ELIQUIS) 5 MG tabletIndicatio ns:Atrial flutter, unspecified type (HRC) Take 1 Tablet (5 mg) by mouth two times a day. 180 Tablet 3 025 Active tamsulosin (FLOMAX) 0.4 MG CAPS capsule Take 2 Capsules (0.8 mg) by mouth daily. 180 Capsule 025 Active VENTOLIN HFA 108 (90 Base) MCG/ACT inhaler Inhale 2 Puffs every 4 hours as needed for Wheezing or Shortness of Breath. 54 g 2 025 Active metoprolol succinate (TOPROL XL) 25 MG 24 hour release tablet Take 1.5 Tablets (37.5 mg) by mouth two times a day. 270 Tablet 2 025 Active rsioi-9-cuai ethyl esters (LOVAZA) 1 g capsuleIndicati ons:Type 2 diabetes mellitus with other specified complication, without long-term current use of insulin (HRC) Take 2 Capsules (2 g) by mouth two times a day. 360 Capsule 025 Active insulin pen needle (BD ULTRAFINE SUNSHINE 2ND GEN) 32G X 4 MMIndications:T ype 2 diabetes mellitus with other specified complication, without long-term current use of insulin (HRC) Inject 1 Each subcutaneously daily. 100 Each 025 Active VENTOLIN HFA 108 (90 Base) MCG/ACT inhaler Inhale 2 Puffs every 4 hours as needed for Wheezing or Shortness of Breath. 1 g 2 024 2024 Discontinued dsfte-0-qezw ethyl esters (LOVAZA) 1 g capsuleIndicati ons:Type 2 diabetes mellitus with other specified complication, without long-term current use of insulin (HRC) Take 2 Capsules (2 g) by mouth two times a day. 360 Capsule 2 025 2024 Discontinued(* Med change OR same med OR reorder, new dose/direction s) insulin pen needle (BD ULTRAFINE SUNSHINE 2ND GEN) 32G X 4 MMIndications:T ype 2 diabetes mellitus with other specified complication, without long-term current use of insulin (HRC) Use to inject insulin as instructed. 300 Each 3 025 2024 Discontinued(* Med change OR same med OR reorder, new dose/direction s) metoprolol succinate (TOPROL XL) 25 MG 24 hour release tablet Take 1.5 Tablets (37.5 mg) by mouth two times a day. 135 Tablet 2 025 2024 Discontinued Active Problems Patient Care Coordination No te Formatting of this note migh t be different from the original. [facility] Disease Management Engaged in Disease Management-CAD: Gillian Notrh RN [phone] Goals/Recommendations: Goal: Coronary artery disease self-management plan developed, implemented, and maintained As evidenced by patient self reporting dietary changes specific to patient needs, such as heart healthy, weight loss. Problem Noted Date Diagnosed Date Atrial fibrillation 10/01/2023 Adverse effect of antihyperl ipidemic and antiarteriosclerotic drugs, subsequent encounter 07/30/2021 Overview (07/30/2021): See Allergies for additional details. Coronary artery disease invo lving northwestern shoshone coronary artery of [place]western sh[place]one heart without angina pectoris 09/03/2019 Stented [...] 02/01/2016 Overview (01/25/2018): Overview: Transthoracic Echo Report RENETTA KAR Fryeian ID: [id number] Age: 50 : 1965 Ordering Provider: JERRY NERI Exam Date: 01/31/2016 11:45 Gender: M Electrical Panel Builder: JACKLYN Height: 72 in BSA: 3.11 m BP: 140 / 59 Weight: 485 lbs BMI: 65.7 kg/m HR: 67 Location: [facility] - Inpatient Procedure: ECHO COMPLETE W [...] Noted Date Diagnosed Date Resolved Date CAREPLAN: HEALTH [employer] CASE MANAGEMENT 06/02/2018 06/02/2018 Bilateral leg edema 02/12/2018 03/23/20 CAREPLAN: [employer] IN PATIENT CASE MANAGEMENT 01/27/2018 02/09/2018 Overview (01/27/2018): Engaged in Inpatient Case Management Inpatient Doctor Of Pharmacy Name: Karissa Valle RN Asthma 02/03/2024 Overview (02/03/2024): This problem was marked as resolved by a user in a SmartForm. TACO (obstructive sleep apnea) 09/06/2022 Diabetes 09/06/2022 Dyslipidemia 09/03/2019 Encounters Date Type Department Care Team Description 06/17/2025 Refill [facility] Endocr[facility]ology Clinic [address] [place] [phone] Derek Leung PA-C Refill (insulin pen needle (BD ULTRAFINE SUNSHINE 2ND GEN) 32G X 4 MM) 06/17/2025 Refill [facility] Endocrinology [address] [address] Derek Leung PA-C Refill (csali-5-vjbx ethyl esters) 06/14/2025 Refill Cardiology at [address] [phone] Gayla Carl APRN, CNP Refill (metoprolol succinate (TOPROL XL) 25 MG 24 hour release tablet [Pharmacy Med Name: Metoprolol Succinate ER Oral Tablet Extended Release 24 Hour 25 MG]) 06/10/2025 Refill [facility] [id number] [place] [phone] Cynthia Camp PA-C Refill (VENTOLIN HFA 108 (90 Base) MCG/ACT inhaler [Pharmacy Med Name: Ventolin HFA Inhalation Aerosol Solution 108 (90 Base) MCG/ACT]) 05/26/2025 Refill [facility] [address] [place] [address] Ashu Barksdale MD Refill (tamsulosin (FLOMAX) 0.4 MG CAPS capsule [Pharmacy Med Name: Tamsulosin HCl Oral Capsule 0.4 MG]) 05/24/2025 4:30 PM CDT Office Visit Cardiology at [address] [phone] Александр Montiel MD Right heart failure with reduced right ventricular function (HRC) (Primary Dx); Hypertension, unspecified type (HRC); Obstructive sleep apnea syndrome; Pulmonary hypertension (HRC); 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 [address] [place] [phone] Derek Leung PA-C 05/14/2025 8:20 AM CDT Lab Visit Laboratory at [address] [phone] Type 2 diabetes mellitus with other specified complication, without long-term current use of insulin (HRC); Dysuria 05/14/2025 8:20 AM CDT Office Visit [address] [phone] Elizabeth Frias PA-C Acute cystitis with hematuria (Primary Dx); Dysuria 05/14/2025 Results Follow-Up [address] [phone] Elizabeth Frias PA-C 05/13/2025 4:50 PM CDT E-Visit [address] [phone] Cynthia Camp PA-C Chief Comp: QUESTIONS, GENERAL 05/10/2025 Refill [facility] [address] [place] [phone] Derek Leung PA-C Refill (Continuous Glucose Sensor (FREESTYLE BORIS 3 PLUS SENSOR)) 04/05/2025 Refill [facility] [address] [place] [phone] Derek Leung PA-C Refill (glipiZIDE XL (GLUCOTROL XL) 10 MG 24 hour release tablet) from Last 3 Months Immunizations Immunization Administration Dates Next Due Flublok (RIV3) 05/23/2024 Flublok (RIV4) 05/20/2023,05/15/2022 Fluzone Qiv Multidose Vial 0 .25 (6-35 Mos) 06/25/2017 HepB Adult (Engerix-B, 20+ y rs, 3 dose series) 12/08/2013,07/19/2013,06/03/2013 Influenza IIV4 (Quadrivalent ) 0.5mL ([id number]) 06/09/2021,06/05/2020,06/08/2019,2017,06/13/2016,07/06/2015,07/05/2014 Influenza, Unspecified Formulation 06/09/2021 Moderna COVID-19 12+ (Spikevax) 05/23/2024 Moderna Monovalent 12+ 10/03/2021,08/29/2021 PCV20 ([id number]) 09/06/2022 PPSV23 (Pneumovax) 04/06/2018 Pfizer Bivalent 12+ 05/15/2022 Pfizer COVID-19 12+ (Comirnaty) 06/03/2023 Td (7+ yrs) 03/13/2004 Td (Tdvax) [...] 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 Not on file Not on file Last Filed Vital Signs Vital Sign Reading Time Taken Comments Blood Pressure 91/62 05/24/2025 4:10 PM CDT Pulse 96 05/24/2025 4:10 PM CDT Temperature 36.3 C (97.4 F) 05/14/2025 8:08 AM CDT Respiratory Rate 21 05/14/2025 8:08 AM CDT Oxygen Saturation 94% 05/24/2025 4:10 PM CDT Inhaled Oxygen Concentration - - Weight 186 kg (410 lb) 05/14/2025 8:08 AM CDT Height 180.3 cm (5' 11) 05/24/2025 4:10 PM CDT Body Mass Index 57.18 05/14/2025 8:08 AM CDT Plan of Treatment Upcoming Encounters Date Type Department Care Team (Late st Contact Info) Description 08/03/2025 2:15 PM [facility]ER Appointment [facility] [address] [facility] [address] [place] [address]. [place] [address] Derek Leung PA-C [address] [place] [phone] 10/18/2025 4:30 PM S[facility] IRONER Appointment Cardiology at [address] [phone] Александр Montiel MD [address] [place] [phone] Health Maintenance Due Date Last Done Comments RSV Vaccine (1 - Risk 50-74 years 1-dose series) 2014 PSA Screening Discussion 09/06/2023 09/06/2022 DTaP/Tdap/Td Vaccine (2 - Tdap) 07/05/2024 07/05/2014, 03/13/2004 Diabetes: Foot Exam 07/09/2024 07/09/2023, 07/10/2021, 09/03/2019, Additional history exists Adult Preventive Visit 09/02/2024 09/02/2023, 2022 Diabetes: Eye Exam 10/08/2024 10/08/2023, 1 10/03/2021, 07/31/2019 (Completed), Additional history exists MTM Targeted 10/27/2024 10/27/2023, 10/03, 01/21/2023, Additional history exists Colonoscopy 01/26/2025 01/27/2024, 10/16/2018 Influenza Vaccine (#1) 2025 , 05/20/2023, 05/15/2022, Additional history exists Diabetes: HGBA1C 06/19/2025 12/18/2024, , 11/19/2024, Additional history exists Diabetes: Creatinine 11/19/2025 11/19/2024, 05/28/2024, 12/02/2023, Additional history exists Diabetes: Albumin/Creatinine Ratio, Urine 05/14/2026 05/14/2025, 11/19/2024, 04/07/2023, Additional history exists Diabetes: Lipid Panel 11/19/2029 11/19/2024 , 05/28/2024, 04/07/2023, Additional history exists HepB Vaccine Completed 12/08/2013, 07/02, 06/03/2013 HIV Screening (Preventive Services) Completed 04/06/2018, 12/27/2009 Hep C Screening (Preventive Services) Completed 04/06/2018 Zoster/Shingles Vaccine Completed 12/28/2019, 08/31 Pneumococcal Vaccine 50+ Yrs Completed 09/06/2022, 04/06/2018 COVID-19 Vaccine Completed 05/23/2024, 10/2022, 05/15/2022, Additional history exists HepA Vaccine Aged Out No longer eligi ble based on patient's age to complete this topic Hib Vaccine Aged Out No longer eligi ble based on patient's age to complete this topic IPV (Polio) Vaccine Aged Out No longe r eligible based on patient's age to complete this topic MCV4 Vaccine Aged Out No longer eligi ble based on patient's age to complete this topic Meningococcal B Vaccine Aged Out No l onger eligible based on patient's age to complete this topic Procedures Procedure Name Priority Date/Time Associated Diagnosis Comments URINE CULTURE STAT 05/14/2025 8:27 AM CDT Dysuria UA MICRO STAT 05/14/2025 8:27 AM CDT Dysuria URINALYSIS ROUTINE, MICRO/CULTURE IF POS STAT 05/14/2025 8:27 AM CDT Dysuria ALBUMIN/CREAT RATIO Routine 05/14/2025 8 :27 AM CDT Type 2 diabetes mellitus with other specified complication, without long-term current use of insulin (HRC) BASIC METABOLIC PANEL Routine 11/19/2024 8:00 AM CDT Right heart failure with reduced right ventricular function (HRC) LIPID PANEL & DIRECT LDL (IF NEEDED) Routine 11/19/2024 8:00 AM CDT Dyslipidemia associated with type 2 diabetes mellitus (HRC) HGB A1C Routine 11/19/2024 8:00 AM CDT 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) COLONOSCOPY Routine 01/27/2024 8:30 AM CDT Screen for colon cancer GREGG (DIABETIC EYE EXAM) 10/08/2023 PROSTATIC SPECIFIC ANTIGEN(SCREEN) Routine 09/06/2022 2:57 PM SOCK IRONER Screening for prostate cancer HIV 1/2 AG/AB 4TH GEN Routine 04/06/2018 11:46 AM CDT Screening for HIV (human immunodeficiency virus) HEPATITIS C ANTIBODY, WITH REFLEX (ANTI-HCV) Routine 04/06/2018 11:46 AM CDT Need for hepatitis C screening test from Last 3 Months or Most Recently Relevant to Health Maintenance Results * (ABNORMAL) Urine Culture (05/14/2025 8:27 AM CDT) Urine Culture Growth(A) 05/15/2025 11:13 AM CDT [facility] Urine Culture <10,000 CFU/mL Gram Negative Bacilli 05/15/2025 11:13 AM CDT [facility] Comment: No Further Identification The presence of organisms at <10,000 cfu/ml in culture, UTI unlikely. Urine URINE SPECIMEN COLLECTION, CLEAN CATCH / Unknown Non-blood Collection / Unknown 05/14/2025 8:27 AM CDT 05/14/2025 8:33 AM CDT Elizabeth Frias PA-C LAB_1 Final Result [facility] CLIA: [id number] [address] [place] [address] * (ABNORMAL) Urinalysis Routine, Micro/Culture if Pos: Clean Catch (05/14/2025 8:27 AM CDT) Urine Microscopic Evaluation Reflex Order Comment Urinalysis results meet criteria for reflex, urine microscopic evaluation performed. 05/14/2025 8:33 AM CDT [facility] Color Yellow 05/14/2025 8:33 AM CDT [facility] Clarity Hazy(A) Clear 05/14/2025 8:33 AM CDT [facility] Specific [place] 1.015 1.005 - 1.030 05/14/2025 8:33 AM CDT [facility] pH 6.0 5.0 - 8.0 05/14/2025 8:33 AM CDT [facility] Protein Negative Neg/Trace mg/dL 05/14/2025 8:33 AM CDT [facility] Glucose Negative Negative mg/dL 05/14/2025 8:33 AM CDT [facility] Ketones Negative Negative mg/dL 05/14/2025 8:33 AM CDT [facility] Urobilinogen 0.2 <2.0 EU/dL 05/14/2025 8:33 AM CDT [facility] Bilirubin Negative Negative 05/14/2025 8:33 AM CDT [facility] Blood Moderate(A) Neg/Trace 05/14/2025 8:33 AM CDT [facility] Nitrite Negative Negative 05/14/2025 8:33 AM CDT [facility] Leukocyte Esterase Small(A) Negative 05/14/2025 8:33 AM CDT [facility] Source Clean Catch 05/14/2025 8:33 AM CDT [facility] Urine URINE SPECIMEN COLLECTION, CLEAN CATCH / Unknown Non-blood Collection / Unknown 05/14/2025 8:27 AM CDT 05/14/2025 8:27 AM CDT us Elizabeth Frias PA-C LAB_1 Final Result Performing Organization Address City/[facility]/ZIP Co de Phone Number [facility] CLIA: [id number] [place] [phone] * (ABNORMAL) Albumin/Creatinine Ratio,Random Urine (05/14/2025 8:27 AM CDT) Albumin/Creati nine Ratio, Urine, Random 33(H) <30 mg/g 05/15/2025 5:[address] [facility] Albumin, Urine, Random 28.7 mg/L 05/15/2025 5:[address] [facility] Creatinine, Urine, Random 86 >20 mg/dL mg/dL 05/15/2025 5:[address] [facility] Urine Non-blood Collection / Unknown 05/14/2025 8:27 AM CDT 05/14/2025 8:27 AM CDT us Derek Leung PA-C LAB_1 Final Resul t [facility] CLIA: [id number] [address] [id number] * (ABNORMAL) Urine Microscopic Evaluation: Clean Catch (05/14/2025 8:27 AM CDT) [facility] Urine Culture Comment Urinalysis results meet criteria for reflex, culture performed. 05/14/2025 8:33 AM CDT [facility] Red Blood Cells 21-50(A) 0 - 3 /HPF 05/14/2025 8:33 AM CDT [facility] White Blood Cells 21-50(A) 0 - 5 /HPF 05/14/2025 8:33 AM CDT [facility] Bacteria Few(A) None Seen /HPF 05/14/2025 8:33 AM CDT [facility] Squamous Epithelial Cells Few None Seen, Occasiona l, Few /HPF 05/14/2025 8:33 AM CDT [facility] White Blood Cell Clumps Present(A) None Seen /HPF 05/14/2025 8:33 AM CDT [facility] Urine URINE SPECIMEN COLLECTION, CLEAN CATCH / Unknown Non-blood Collection / Unknown 05/14/2025 8:27 AM CDT 05/14/2025 8:27 AM CDT Elizabeth Frias PA-C LAB_1 Final Result [facility] CLIA: [id number] [address] [place] [phone] * (ABNORMAL) Lipid Panel & Direct LDL (if Needed) (11/19/2024 8:00 AM CDT) [facility] Cholesterol 116 0 - 199 mg/dL 11/19/2024 11:39 AM CDT [facility] Triglyceride 185(H) <=149 mg/dL 11/19/2024 11:39 AM CDT [facility] HDL Cholesterol 29(L) >=40 mg/dL 11/19/2024 11:39 AM CDT [facility] LDL, Calculated 50 <130 mg/dL 11/19/2024 11:39 AM CDT [facility] Non HDL Chol, Calculated 87 <=159 mg/dL 11/19/2024 11:39 AM [facility] Cholesterol/HDL Ratio 4.0 <=5.0 11/19/2024 11:39 AM [facility] Hours Fasting 0.1 8 - 12 Hours 11/19/2024 11:39 AM [facility] Blood Venipuncture / Unknown 11/19/2024 8:00 AM CDT 11/19/2024 8:00 AM CDT Derek eLung PA-C LAB_1 Final Resul t [facility] [address] * (ABNORMAL) Basic Metabolic Panel (11/19/2024 8:00 AM CDT) Sodium 141 136 - 145 mmol/L 11/19/2024 11:39 AM [facility] Potassium 4.7 3.5 - 5.1 mmol/L 11/19/2024 11:39 AM [facility] Chloride 94(L) 98 - 109 mmol/L 11/19/2024 11:39 AM [facility] CO2 37(H) 20 - 29 mmol/L 11/19/2024 11:39 AM [facility] Anion Gap 10 6 - 16 mmol/L 11/19/2024 11:39 AM [facility] Calcium 9.0 8.4 - 10.4 mg/dL 11/19/2024 11:39 AM [facility] BUN 36(H) 7 - 26 mg/dL 11/19/2024 11:39 AM [facility] Creatinine 1.22(H) 0.73 - 1.18 mg/dL 11/19/2024 11:39 AM [facility] Glucose 107(H) 70 - 100 mg/dL 11/19/2024 11:39 AM [facility] Comment:The given reference range is for the fasting state. Non-fasting reference range for glucose is 70 - 180 mg/dL. GFR, Estimated >60 >60 mL/min/1. 73m2 11/19/2024 11:39 AM CDT [facility] Hours Fasting 0.1 8 - 12 Hours 11/19/2024 11:[address] [facility] Blood Venipuncture / Unknown 11/19/2024 8:00 AM CDT 11/19/2024 8:00 AM CDT us Александр Montiel MD LAB_1 Final Result Performing Organization Address [facility] Co de Phone Number [facility] [address] * (ABNORMAL) Hgb A1C (11/19/2024 8:00 AM CDT) Hemoglobin A1C 7.4(H) <=5.6 % 11/19/2024 11:[address] [facility] Estimated Average Glucose (Calc) 166 < 117 mg/dL 11/19/2024 11:[address] [facility] Comment:Estimated average gl ucose (eAG) converts A1c into glucose units (mg/dL) and estimates average glucose over the past approximately 3 months. The eAG reference interval (<117 mg/dL) corresponds to an A1c of <5.7%. Blood Venipuncture / Unknown 11/19/2024 8:00 AM CDT 11/19/2024 8:00 AM CDT Narrative [facility] - 11/19/2024 11:53 AM CDT For patients not previously diagnosed with diabetes: 5.7-6.4%: Increased risk for diabetes 6.5% and greater: Diagnostic for diabetes For patients diagnosed with diabetes: <8.0%: Goal of therapy for ages 18-75 Clinicians may recommend a higher or lower goal for specific individuals. us Cynthia Camp PA-C LAB_1 Final Resul t Performing Organization Address [facility] Co de Phone Number [facility] [address] * Colonoscopy (01/27/2024 8:30 AM CDT) 01/27/2024 8:30 AM CDT Narrative GI ([facility]) - 01/27/2024 9:40 AM CDT Instrument Name: [id number] Indications: High risk colon cancer surveillance: Personal history of colonic polyps Providers: Kimberly Breen MD, Martha Cortes, ULISSES, Dinorah Braxton, RN Patient Profile: This is a 58 year old male with a history of obesity (BMI 56), CHD, Atrial fibrillation on Elequis, IDDM2, adenomatous polyps, last colon in 2019 with 4x polyp -TA/HP who is here for surveillance. Medicines: Monitored Anesthesia Care Complications: No immediate complications. Procedure: Pre-Anesthesia Assessment: - Monitored anesthesia care under the supervision of a FRONT CLERK was determined to be medically necessary for [...] bowel preparation was evaluated using the BBPS (Shiprock Bowel Preparation Scale) with scores of: Right [...] at . Procedure Code(s): --- Professional --- [address], [place] [address], 59,PT 06022, PT --- Technical --- 556[address], [place] [address], 59,PT 02700, PT Diagnosis Code(s): --- Professional --- Z12.11 Z86.010 K64.8 K63.5 D49.0 K57.30 --- Technical --- Z12.11 Z86.010 K64.8 K63.5 D49.0 K57.30 CPT copyright 2021 [employer]. All rights reserved. The codes documented in this report are preliminary and upon collision mechanic review may be revised to meet current [...] anesthesia care under the supervision of a FRONT CLERK was determined to be medically necessary for [...] bowel preparation was evaluated using the BBPS (Shiprock Bowel Preparation Scale) with scores of: Right [...] at . Procedure Code(s): --- Professional --- 85443, [place] [address], 59,PT 11623, PT --- Technical --- 704[address], [place] [address], 59,PT 97639, PT Diagnosis Code(s): --- Professional --- Z12.11 Z86.010 K64.8 K63.5 D49.0 K57.30 --- Technical --- Z12.11 Z86.010 K64.8 K63.5 D49.0 K57.30 CPT copyright 2021 [employer]. All rights reserved. The codes documented in this report are preliminary and upon collision mechanic review may be revised to meet current compliance requirements. Attending Participation: Kimberly Breen MD 01/27/2024 9:40:45 AM Number of Addenda: 0 Note Initiated On: 01/27/2024 8:30 AM us Kimberly Breen MD DIGESTIVE CARE Edited Result - Final GI (PROVATION) [place], [place] * GREGG (DIABETIC EYE EXAM) (10/08/2023) us Interface Provider DUMMY/OTHER/AR Final Resu lt * Prostatic Specific Antigen (Screen) (09/06/2022 2:57 PM SOCK IRONER) Prostatic Specific Antigen 0.5 0.0 - 4.0 ng/mL 09/06/2022 7:45 PM SOCK IRONER [facility] Blood Venipuncture / Unknown 09/06/2022 2:57 PM SOCK IRONER 09/06/2022 2:57 PM SOCK IRONER Narrative [facility] - 09/06/2022 7:45 PM SOCK IRONER The [employer] PSA Chemiluminescent immunoassay is used. Results obtained with different test methods or kits cannot be used interchangeably. us Cynthia Camp PA-C LAB_1 Final Resul t Performing Organization Address City/[facility] Co de Phone Number [facility], INCSafe N Clear [address] [address], [facility] [phone] * HIV 1/2 Ag/Ab 4th Generation (04/06/2018 11:46 AM CDT) HIV 1/2 AG/AB 4thGEN Negative (Non Reactive) [facility] Comment:HIV-1 p24 Ag and HIV -1/HIV-2 Ab not detected. 04/06/2018 11:4 6 AM CDT 04/06/2018 11:48 AM CDT Narrative [facility] - 04/06/2018 3:54 PM CDT Performed at [facility], [address] [place] [address] us Cynthia Camp PA-C LAB_1 Final Resul t Performing Organization Address [facility] Co de Phone Number [facility] [employer] [phone] * Hepatitis C Antibody, with Reflex (04/06/2018 11:46 AM CDT) Anti-HCV Negative (Non Reactive) [facility] Comment: Antibodies to HCV not detected. Does not exclude the possibility of exposure to HCV. 04/06/2018 11:4 6 AM CDT 04/06/2018 11:47 AM CDT Narrative [facility] - 04/06/2018 3:54 PM CDT [facility], [address] [place] [address] Cynthia Camp PA-C LAB_1 Final Resul t Performing Organization Address City/[facility] Co de Phone Number [facility] [employer] [phone] from Last 3 Months or Most Recently Relevant to Health Maintenance Insurance HP F[employer]Y INSURED HP F[employer] INSURED HP F[employer] INSURED Advance Directives * Full Code (Latest Code Status on File) Date Activated Date Inactivated Comments 01/25/2018 6:46 PM 02/08/2018 4:22 PM Care Teams School Bus Driver/Custodian Relationship Specialty Start Date End Date Cynthia Camp PA-C [address] [place] [address] PCP - General Physician Freight Weigher 03/31/18
--- OUTSIDE RECORDS SUMMARY | 2025-06-27 07:37 | XMS_ITS | Encounter Summary ---
Author Organization [facility] Address [address] [address] Care Team Providers Care Seat Coverer Name Role Phone Cynthia Camp PA-C Primary Care Provider [phone] Reason for Visit * Reason Onset Date Comments Refill 06/17/2025 insulin pen need le (BD ULTRAFINE SUNSHINE 2ND GEN) 32G X 4 MM Encounter Details Date Type Department Care Team (Late st Contact Info) Description 06/17/2025 Refill [facility] [address] [facility] 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 * Sola Wells Xrwcomm - 06/17/2025 4:41 PM CDT insulin pen needle (BD ULTRAFINE SUNSHINE 2ND GEN) 32G X 4 MM Medication started: 08/28/2022 Last ordered by DEREK QUESADA: 01/25/2025 (143 days ago) QTY: 300, Refills: 3, Sig: use to inject insulin as instructed. (unchanged) -> The medication cannot be recognized so the correct monitoring guidelines cannot be found. Last qualifying visit: 01/25/2025 (in Endocrinology with DEREK QUESADA) Next scheduled visit: 08/03/2025 (in Endocrinology with DEREK QUESADA) [employer] Embedded Refills, Reference: [id number], 06/17/2025 4:41:41 PM CDT, Pool: DEIDRE CANDELARIA RN ([id number]) * Jaqui Wood - 06/17/2025 4:40 PM CDT Rx form sent to provider folder documented in this encounter Plan of Treatment Upcoming Encounters Date Type Department Care Team (Late st Contact Info) Description 08/03/2025 2:15 PM SPARERIBS TRIMMER Appointment [facility] [address] [facility] [place] [address]. [place] [address] Derek Quesada PA-C [address] [place] [address] 10/18/2025 4:30 PM SPARERIBS TRIMMER Appointment Cardiology at [facility] [address] [place] [phone] Александр Montiel MD [address] [place] [phone] documented as of this encounter Visit Diagnoses Diagnosis Type 2 diabetes mellitus with other specified complication, without long-term current use of insulin (HRC) documented in this encounter Care Teams Seat Coverer Relationship Specialty Start Date End Date Cynthia Camp PA-C [address] [place], [place] [phone] PCP - General Physician It Application Development Manager 03/31/18 documented as of this encounter
--- OUTSIDE RECORDS SUMMARY | 2025-06-27 07:37 | XMS_ITS | Clinical Summary ---
Author Organization [facility] Address [address] [place] [address] Care Team Providers Care Brass Pickler Name Role Phone Dex Delacruz MD Primary Care Provider U navailable Allergies No known active allergies Medications albuterol HFA (Ventolin HFA) 90 mcg/actuation inhaler Inhale 2 Puffs by mouth every 4 hours if needed. 4 Active fenofibrate micronized 67 mg capsule Take 67 mg by mouth once daily with a meal. 4 025 Active finasteride 5 mg tablet Take 5 mg by mouth once daily. 4 025 Active glipiZIDE extended-releas e 10 mg Extended-Releas e tablet Take 10 mg by mouth once daily. 4 Active metFORMIN 1,000 mg tablet Take 1,000 mg by mouth two times daily with meals. 5 Active omega-3 acid ethyl esters 1 gram capsule Take 2 g by mouth two times daily with meals. 5 Active Klor-Con M20 20 mEq extended-releas e tablet (part/cryst) Take 20 mEq by mouth two times daily with meals. 5 Active rosuvastatin 20 mg tablet Take 20 mg by mouth once daily. 4 025 Active spironolactone 25 mg tablet Take 25 mg by mouth once daily. 5 Active tamsulosin 0.4 mg capsule Take 0.8 mg by mouth once daily after a meal. 4 025 Active Mounjaro 12.5 mg/0.5 mL pen Inject 12.5 mg subcutaneous once weekly. . Active bumetanide 2 mg tablet Take 10 mg by mouth once daily in the morning. Active digoxin 125 mcg (0.125 mg) tablet Take 125 mcg by mouth once daily. Active DULoxetine 60 mg Delayed-release capsule Take 60 mg by mouth once daily. Active apixaban (Eliquis) 5 mg tablet Take 5 mg by mouth two times daily. Active insulin glargine (U-100) 100 unit/mL (3 mL) pen Inject 45 units subcutaneous before bedtime. Brand: Lantdatapine [employer]gora Shopping Active aspirin chewable 81 mg chewable tabletIndicatio ns:Stented coronary artery Chew 1 Tablet (81 mg) by mouth once daily with a meal. 90 Tablet 12/21/2024 2:42 PM CDT Active metoprolol succinate 25 mg Sustained-Relea se tabletIndicatio ns:Ventricular tachycardia (HC) Take 1.5 Tablets (37.5 mg) by mouth two times daily. 90 Tablet 5 Active allopurinoL 300 mg tablet Take 300 mg by mouth two times daily. 025 Active Problems Problem Noted Date Diagnosed Date Wide-complex tachycardia 12/17/2024 Severe sepsis 12/17/2024 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 (CODE) 12/17/2024 Chronic obstructive pulmonary disease, unspecifi ed 12/17/2024 BEULAH (acute kidney injury) 12/17/2024 Atrial fibrillation 10/01/2023 Coronary artery disease invo lving [place] coronary artery of [place] heart without angina pectoris 09/03/2019 Stented coronary artery 06/22/2019 Overview (12/17/2024): Patient is on Clopidogrel (Plavix) following stent placement. Date of Intervention: 06/22/2019 Type of Stent: GRISELDA Patient is expected to continue taking Clopidogrel (Plavix) for one year (until 06/21/2020) unless otherwise advised due to subsequent stent placement or continued bleeding. Obesity hypoventilation syndrome 06/27/2017 Scrotal edema 04/08/2017 Right heart failure with reduced right ventricul ar function 04/08/2017 Pulmonary hypertension 02/01/2016 Overview (02/01/2016): Transthoracic Echo Report KAR JACKSON uSe ID: [id number] Age: 50 : 1965 Ordering Provider: JERRY NERI Exam Date: 01/31/2016 11:45 Gender: M Lathmaker: VILLASENOR Height: 72 in BSA: 3.11 m BP: 140 / 59 Weight: 485 lbs BMI: 65.7 kg/m HR: 67 Location: [facility] - Inpatient Procedure: ECHO COMPLETE W CONTRAST [...] 01/30/2016 Overview (02/01/2016): Transthoracic Echo Report KAR JACKSON Sue ID: [id number] Age: 50 : 1965 Ordering Provider: JERRY NERI Exam Date: 01/31/2016 11:45 Gender: M Lathmaker: JACKLYN Height: 72 in BSA: 3.11 m BP: 140 / 59 Weight: 485 lbs BMI: 65.7 kg/m HR: 67 Location: [facility] - Inpatient Procedure: ECHO COMPLETE W CONTRAST [...] 01/30/2016 Overview (12/25/2009): Being evaluated at the [facility] for laparoscopic band procedure Immunizations Immunization Administration [...] drink = 0.6 oz pur e alcohol) Social Connections Answer Date Recorded Do you often feel lonely or isolated from those around you? 0 12/17/2024 Financial Resource Strain Answer Date R ecorded Difficulty of Paying Living Expenses 3 12/18/2024 Difficulty of Paying Living Expenses Not on file 12/18/2024 Food Insecurity Answer Date Recorded Do you worry your food will run out before you are able to buy more? 1 12/17/2024 Transportation Needs Answer Date Record ed Does lack of transportation keep you from medica l appointments? 1 12/17/2024 Does lack of transportation keep you from work, meetings or getting things that you need? 1 12/17/2024 Housing Stability Answer Date Recorded What is your housing situation today? 1 12/17/2024 Interpersonal Safety Answer Date Record ed Are you being hit, kicked, p ushed or yelled at (see row info)? No 12/17/2024 Interpersonal Safety Abuse 12 - 18 Not on file 12/17/2024 Interpersonal Safety Ambulatory Vulnerability No t on file 12/17/2024 Utilities Answer Date Recorded Do you have trouble paying f or utilities (for example, heat, electricity, water, phone)? 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 Not on file Not on file Obstetrics History Last Filed Vital Signs Vital Sign Reading Time Taken Comments Blood Pressure 132/73 12/21/2024 8:05 AM CDT Pulse 71 12/21/2024 8:05 AM CDT Temperature 36.7 C (98.1 F) 12/21/2024 8:05 AM CDT Respiratory Rate 20 12/21/2024 8:05 AM CDT Oxygen Saturation 98% 12/21/2024 8:05 AM CDT Inhaled Oxygen Concentration - - Weight 189.9 kg (418 lb 9.6 oz) 12/21/2024 6:00 AM CDT Height 180.3 cm (5' 11) 12/16/2024 11: 33 PM CDT Body Mass Index 58.38 12/16/2024 11:33 PM CDT Plan of Treatment Health Maintenance Due [...] 01/03/2021 01/04/2016, 12/15/2014, 07/05/2014, Additional history exists Tetanus booster 07/05/2024 07/05/2014, 03/13/2004 RSV vaccine for adults or (1 - Risk 60-74 years 1-dose series) 2024 Influenza Vaccine (#1) 2025 6, 07/06/2015, 07/05/2014 HIV for age 15-65 Completed 12/27/2009 Hepatitis B series for 19+ Completed 12/08, 07/19/2013, 06/03/2013 COVID-19 vaccine series Completed 05/23/20 24, 06/03/2023, 05/15/2022, Additional history exists Procedures Procedure Name Priority Date/Time Associated Diagnosis [...] REFLEX MEASURED LDL (01/04/2016 9:28 AM CDT) CHOLESTEROL,TOTAL 148 100 - 199 mg/dL 01/04/2016 11:29 AM [facility] TRIGLYCERIDES 142 <150 mg/dL 01/04/2016 11:29 AM [facility] HDL CHOLESTEROL 29(L) >40 mg/dL 01/04/2016 11:29 AM [facility] NON-HDL CHOLESTEROL 119 <145 mg/dl 01/04/2016 11:29 AM [facility] CHOL/HDL RATIO 5.10(H) <4.50 01/04/2016 11:29 AM [facility] LDL CHOLESTEROL 91 <=130 mg/dL 01/04/2016 11:29 AM [facility] PATIENT STATUS FASTING 01/04/2016 11:29 AM [facility] Blood specimen (specimen) BLOOD SPECIMEN / Unknown Venipuncture / Unknown 01/04/2016 9:28 AM CDT 01/04/2016 9:28 AM CDT us Bulmaro Roper MD [place]MI[place] [address] * COLONOSCOPY (02/02/2015 8:04 AM CDT) 02/02/2015 8:04 AM CDT Narrative 02/02/2015 8:04 AM CDT Patient Name: Kar Jackson Procedure Date: 02/02/2015 Gender: Male Date of [...] bowel preparation was evaluated using the BBPS (Liberty Bowel Preparation Scale) with scores of: Right [...] 02/02/2015 8:34 AM CDT Patient Name: Kar Jackson Procedure Date: 02/02/2015 Gender: Male Date of : 1965 Admit Type: Ambulatory Procedure: Colonoscopy Proceduralist: Brandie Nieves MD Referring MD: Luis Ocampo MD Indications/Pre-Op Diagnosis: Screening for malignant neoplasm in [facility] Medications: Midazolam 1 mg IV, Fentanyl 100 [...] bowel preparation was evaluated using the BBPS (Liberty Bowel Preparation Scale) with scores of: Right [...] AM CDT) ANTI HIV 1/2 Non-reacti ve [facility] Blood specimen (specimen) BLOOD SPECIMEN / Unknown 12/27/2009 6:35 AM CDT 12/26/2009 10:01 PM CDT us Shonda Colbert MD SEND OUTS Final Result [facility] INTERNAL ZIP [address] [place] [address] from Last 3 Months or Most Recently Relevant to Health Maintenance Additional Health Concerns Infection Onset Date Last Indicated 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
--- OUTSIDE RECORDS SUMMARY | 2025-06-27 07:37 | XMS_ITS | Encounter Summary ---
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 [place] [address] Derek Leung PA-C [address] [place] [address] 10/18/2025 4:30 PM CIRCUIT WALKER Appointment Cardiology at [facility] [address] [place] [address] Александр Montiel MD [address] [place] [address] documented as of this encounter Visit Diagnoses Diagnosis Encounter for long-term (current) use of medications- Primary Encounter for long-term (current) use of other medications documented in this encounter Care Teams Commercial Roofer Relationship Specialty Start Date End Date Cynthia Camp PA-C [address] [place] [address] PCP - General Physician Bit And Shank Department Supervisor 03/31/18 documented as of this encounter
--- OUTSIDE RECORDS SUMMARY | 2025-06-27 07:37 | XMS_ITS | Encounter Summary ---
Author Organization [facility] Address [address] [place] [address] Care Team Providers Care Peoplesoft Administrator Name Role Phone Cynthia Camp PA-C Primary Care Provider [phone] Reason for Visit * Reason Onset Date Comments Refill 05/10/2025 Continuous Gluco se Sensor (FREESTYLE BORIS 3 PLUS SENSOR) Encounter Details Date Type Department Care Team (Late st Contact Info) Description 05/10/2025 Refill [facility] [address] [facility]. 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 Completed per standing order. Elis Alegria RN 05/13/2025 1:32 PM * Sola Wells Xrwcomm - 05/10/2025 8:06 AM CDT Continuous Glucose Sensor (FREESTYLE BORIS 3 PLUS SENSOR) Medication started: 09/17/2022 Last ordered by DEREK QUESADA: 01/25/2025 (105 days ago) QTY: 2, Refills: 2, Sig: change every 15 days. (unchanged) -> The medication cannot be recognized so the correct monitoring guidelines cannot be found. Last qualifying visit: 01/25/2025 (in Endocrinology with DEREK QUESADA) Next scheduled visit: 08/03/2025 (in Endocrinology with DEREK QUESADA) [employer] Embedded Refills, Reference: [id number], 05/10/2025 8:05:49 AM CDT, Kwaku: DEIDRE CANDELARIA RN ([id number]) documented in this encounter Plan of Treatment Upcoming Encounters Date Type Department Care Team (Late st Contact Info) Description 08/03/2025 2:15 PM BANK COMPLIANCE OFFICER Appointment [facility] [address] [facility] [place] [address]. [place] [address] Derek Quesada PA-C [address] [place] [address] 10/18/2025 4:30 PM BANK COMPLIANCE OFFICER Appointment Cardiology at [facility] [address] [place] [phone] Александр Montiel MD [address] [place] [address] [phone] documented as of this encounter Visit Diagnoses Diagnosis Controlled type 2 diabetes mellitus without complication, without long-term current use of insulin (HRC) documented in this encounter Care Teams Peoplesoft Administrator Relationship Specialty Start Date End Date Cynthia Camp PA-C [address] [place] [phone] PCP - General Physician Housing Director 03/31/18 documented as of this encounter
--- NOTE | 2025-06-27 07:56 | ED.BACK ---
HPI - Back Pain/Injury General Time Seen by Provider: 07:59 Date Seen: 06/27/25 Chief Complaint: Back Injury/Pain Stated Complaint: back pain Time Seen by Provider: 06/27/25 07:55 Source: patient and RN notes reviewed Mode of arrival: ambulatory Limitations: no limitations History of Present Illness HPI Narrative: This 59-year-old male is presenting to the ER with complaint of low back pain. He states that symptoms started on . He does not remember any injury, may be possibly reached into the backseat of the car to get something out. Since then he has had increasing low back pain, feels it into the right buttock area but does not go into his legs. No fevers or chills, no trauma. He is no history of cancer. Walking and sitting bother him. He does not feel the pain in the hip necessarily. He is had difficulty sleeping, has not gotten any sleep the last 2 nights due to pain. He has tried ibuprofen, ice packs. MD elicited complaint: back pain Related Data Home Medications ?Medication ?Instructions ?Recorded ?Confirmed albuterol sulfate 90 mcg/actuation 2 puff inhalation Q4H PRN 07/24/23 06/27/25 aerosol inhaler (Ventolin HFA) allopurinol 100 mg tablet 100 mg PO BID 07/24/23 06/27/25 allopurinol 300 mg tablet 300 mg PO BID 07/24/23 06/27/25 bumetanide 1 mg tablet 3 mg PO BID 07/24/23 06/27/25 duloxetine 60 mg capsule,delayed 60 mg PO DAILY 07/24/23 06/27/25 release fenofibrate micronized 67 mg 67 mg PO DAILY 07/24/23 06/27/25 capsule finasteride 5 mg tablet 5 mg PO DAILY 07/24/23 06/27/25 glipizide 10 mg tablet, extended 10 mg PO DAILY 07/24/23 06/27/25 release 24 hr insulin glargine 100 unit/mL (3 45 unit subcut QPM 07/24/23 06/27/25 mL) subcutaneous pen (Lantus Solostar U-100 Insulin) lisinopril 2.5 mg tablet 2.5 mg PO DAILY 07/24/23 06/27/25 metformin 1,000 mg tablet 1,000 mg PO BIDWM 07/24/23 06/27/25 potassium chloride 20 mEq 20 meq PO BID 07/24/23 06/27/25 tablet,extended release(part/cryst) (Klor-Con M) rosuvastatin 20 mg tablet 20 mg PO DAILY 07/24/23 06/27/25 semaglutide 2 mg/dose (8 mg/3 mL) 2 mg subcut Q7D 07/24/23 06/27/25 subcutaneous pen injector (Ozempic) spironolactone 25 mg tablet 25 mg PO DAILY 07/24/23 06/27/25 tamsulosin 0.4 mg capsule 0.8 mg PO DAILY 07/24/23 06/27/25 aspirin 81 mg tablet,delayed 81 mg PO DAILY 08/28/23 06/27/25 release cholecalciferol (vitamin D3) 125 125 mcg PO DAILY 08/28/23 06/27/25 mcg (5,000 unit) tablet multivitamin (Daily Multi-Vitamin 1 tab PO DAILY 08/28/23 06/27/25 tablet) nitroglycerin 0.4 mg sublingual 0.4 mg sublingual Q5M PRN 08/28/23 06/27/25 tablet omega-3 acid ethyl esters 1 gram 2 cap PO BID 08/28/23 06/27/25 capsule (Lovaza) polyethylene glycol 3350 17 8.5 g PO DAILY 08/28/23 06/27/25 gram/dose oral powder (Miralax) Previous Rx's ?Medication ?Instructions ?Recorded Home Oxygen #1 ea 08/29/23 Home Oxygen #1 ea 08/29/23 Home Oxygen #1 ea 08/29/23 metoprolol succinate 25 mg capsule 25 mg PO DAILY #30 ea 08/29/23 sprinkle, ext. release 24 hr gentamicin 0.1 % topical cream 1 applic topical TID #30 grams 06/23/24 ciprofloxacin HCl 750 mg tablet 750 mg PO Q12H #14 tabs 06/30/24 Allergies Allergy/AdvReac Type Severity Reaction Status Date / Time No Known Drug Allergies Allergy Verified 06/27/25 07:41 Review of Systems Narrative: As per HPI. [facility] Medical History Gout ?M10.9 - Gout, unspecified (ICD-10) Scrotal edema ?N50.89 - Other specified disorders of the male genital organs (ICD-10) Right heart failure with reduced right ventricular function ?I50.810 - Right heart failure, unspecified (ICD-10) Obesity hypoventilation syndrome ?E66.2 - Morbid (severe) obesity with alveolar hypoventilation (ICD-10) CAD (coronary artery disease) ?I25.10 - Atherosclerotic heart disease of [place] coronary artery without angina pectoris (ICD-10) Acute on chronic respiratory failure with hypoxia and hypercapnia ?J96.21 - Acute and chronic respiratory failure with hypoxia (ICD-10) ?J96.22 - Acute and chronic respiratory failure with hypercapnia (ICD-10) TACO (obstructive sleep apnea) ?G47.33 - Obstructive sleep apnea (adult) (pediatric) (ICD-10) Chronic respiratory failure with hypoxia and hypercapnia ?J96.11 - Chronic respiratory failure with hypoxia (ICD-10) ?J96.12 - Chronic respiratory failure with hypercapnia (ICD-10) Morbid obesity ?E66.01 - Morbid (severe) obesity due to excess calories (ICD-10) Diabetes mellitus type 2 in nonobese ?E11.9 - Type 2 diabetes mellitus without complications (ICD-10) Hypercholesterolemia ?E78.00 - Pure hypercholesterolemia, unspecified (ICD-10) Pulmonary hypertension ?I27.20 - Pulmonary hypertension, unspecified (ICD-10) Diastolic heart failure ?I50.30 - Unspecified diastolic (congestive) heart failure (ICD-10) Hypertension ?I10 - Essential (primary) hypertension (ICD-10) Varicose veins with ulcer and inflammation ?I83.209 - Varicose veins of unspecified lower extremity with both ulcer of unspecified site and inflammation (ICD-10) ?L97.909 - Non-pressure chronic ulcer of unspecified part of unspecified lower leg with unspecified severity (ICD-10) Chronic wound ?T14.8XXA - Other injury of unspecified body region, initial encounter (ICD-10) Venous stasis ?I87.8 - Other specified disorders of veins (ICD-10) Surgical History Stented coronary artery ?Z95.5 - Presence of coronary angioplasty implant and graft (ICD-10) Social History What is your current living situation?: I presently have a place to live Problems where you live: no known problems Problems where you live details: NA In the past 12 months, utilities in danger of being shut off: no In past 12 months, lack of transportation kept you from medical appts, meetings, work, or getting things needed for daily living: no In the past 12 mos, have been you worried that your food would run out before you had money to buy more?: never true In the past 12 mos, the food you bought just didn't last and you didn't have money to buy more?: never true Highest level of school completed/degree received: Associate degree: occupational, technical, vocational program Smoking Status: Former smoker Do you use any of these nicotine containing products: None Second hand tobacco smoke exposure: No How often do you have a drink containing alcohol: never AUDIT-C Alcohol total score: 0 Non-prescribed substance use: marijuana (any form) Non-prescribed substance use details: occassionally Caffeine: Yes (coffee daily) How often does anyone, including family, friends and others, physically hurt you: never How often does anyone, including family, friends and others, insult or talk down to you: never How often does anyone, including family, friends and others, threaten you with harm: never How often does anyone, including family, friends and others, scream or curse at you: never service: No Exam Const: Vital Signs, click to edit/add: Vital Signs - 24 hr 06/27/25 07:35 06/27/25 08:10 06/27/25 08:35 Temperature 97.9 F Pulse Rate [Right Pulse Oximeter] 64 Respiratory Rate 22 Blood Pressure [Le ft Upper Arm] 120/97 H Pulse Oximetry 95 96 94 Oxygen Delivery Me thod Nasal Cannula Nasal Cannula Oxygen Flow Rate 4 4 Patient is lying prone on the bed in exam room 3 when I come in. He is alert come interactive coming appear press. He is wearing chronic oxygen. He has no noted midline tenderness of his back. There is no paraspinous tenderness on palpation but does state the pain is within the lower lumbar region. He feels pain into the right buttock but I cannot reproduce any pain. He has no pain over the greater trochanters, no pain with rotation of the hips. Normal light touch sensation. Patient did ambulate in. Strength is 5/5 and symmetric. Skin is warm and dry on his lower extremities. Documenting provider has reviewed patient's vital signs: yes Course Course ED Course: Patient is complaining of low back pain without really any reproducible examination. His history does suggest low back pain though, potential pain into the SI joints. Will look at to lumbar x-rays as well as a pelvic x-ray. Doubt that this is hip joint pathology given his history. Will see what images look like and then discussed pain management with him. Considering prednisone and muscle relaxant with follow-up in clinic. Do not feel that CT imaging or MR imaging are indicated at this time. Reevaluation(s) Time of Reevaluation #1: 08:30 Reevaluation #1: Patient was brought back from x-ray imaging, states he could not tolerate any of the positioning. Will give him 30 mg IM Toradol and 4 mg IM morphine, retry imaging. Time of Reevaluation #2: 10:27 Reevaluation #2: Provided patient copy of his x-ray reports. He does have degenerative changes of his lumbar spine as well as hip arthritis bilaterally. I do not feel the symptoms are coming from hip arthritis however. We discussed that there really is no quick fix for these symptoms. I do not feel that he warrants any emergent advanced imaging at this time, no red flag warnings. Have talked him about physical therapy and did offer referral but he declines this. Did also review with him with his respiratory status, he is at high risk for complications of his respiratory status. He is not using CPAP. I feel that patient truly has contraindications with diagnoses of obesity hypoventilation syndrome, obstructive sleep apnea not using CPAP, chronic oxygen use baseline, that he should not have narcotics. I think his risk for narcotic induced respiratory suppression could be high and thus do not feel comfortable at all giving him narcotics and have reviewed this with him. We will try prednisone and Flexeril from [facility] per his request, close follow up in clinic. Vital Signs Vital signs: Initial Vital Signs Temperature 97.9 F 06/27/25 07:35 Temperature Source Temporal Artery Scan 06/27/25 07:35 Pulse Rate 64 06/27/25 07:35 Pulse Rhythm Regular 06/27/25 07:35 Respiratory Rate 22 06/27/25 07:35 Blood Pressure 120/97 H 06/27/25 07:35 Blood Pressure Mean 104 06/27/25 07:35 Blood Pressure Position Supine 06/27/25 07:35 Pulse Oximetry 95 06/27/25 07:35 Oxygen Delivery Method Nasal Cannula 06/27/25 07:35 Oxygen Flow Rate 4 06/27/25 07:35 Vital Signs Temperature 97.9 F 06/27/25 07:35 Pulse Rate 64 06/27/25 07:35 Respiratory Rate 22 06/27/25 07:35 Blood Pressure 120/97 H 06/27/25 07:35 Pulse Oximetry 95 06/27/25 07:35 Oxygen Delivery Method Nasal Cannula 06/27/25 07:35 Oxygen Flow Rate 4 06/27/25 07:35 Temperature 97.9 F 06/27/25 07:35 Pulse Rate 64 06/27/25 07:35 Respiratory Rate 22 06/27/25 07:35 Blood Pressure 120/97 H 06/27/25 07:35 Pulse Oximetry 94 06/27/25 08:35 Oxygen Delivery Method Nasal Cannula 06/27/25 08:10 Oxygen Flow Rate 4 06/27/25 08:10 Medications Administered Medications: Discontinued Medications Generic Name Dose Route Start Last Admin Trade Name Freq PRN Reason Stop Dose Admin Ketorolac Tromethamine 30 mg 06/27/25 08:29 06/27/25 08:37 Ketorolac 30 Mg/Ml Inj IM 06/27/25 08:30 30 mg ONCE ONE Administration Morphine Sulfate 4 mg 06/27/25 08:29 06/27/25 08:37 Morphine 4 Mg/Ml Inj IM 06/27/25 08:30 4 mg ONCE ONE Administration MDM - Back Pain/Injury Imaging Data XR lumbar spine: Attestation: I have reviewed the pertinent imaging results. Radiologist's impression: Patient: [facility] Facility:?[facility] Patient ID:?[id number] Site Patient ID:?[id number]. Site :?[id number] Study:?XRay-Spine Lumbar 2 VIEW-06/27/2025 9:23:40 AM Ordering Physician:?Reena Cartagena Final Report: INDICATION: Low back pain, no injury. TECHNIQUE: Lumbar spine 3 view. COMPARISON: None. FINDINGS/IMPRESSION: Limited exam due to patient`s body habitus. No significant wedging compression or malalignment. Moderate multilevel degenerative changes, most pronounced at L1-2 and L4-5 with reduction of disc height and scattered multilevel facet arthropathy. And anterior confluent multilevel lateral osteophytes are seen. Dictated by Juanjo Palencia MD @ 06/27/2025 9:39:45 AM (Electronic Signature) XR pelvis: Attestation: I have reviewed the pertinent imaging results. Radiologist's impression: Patient: [facility] Facility:?[facility] Patient ID:?[id number] Site Patient ID:?[id number]. Site :?[id number] Study:?XRay-Pelvis 1 VIEW-06/27/2025 9:24:19 AM Ordering Physician:Iris Cartagena Final Report: Indication: Low back pain, No injury Technique: Pelvis 1 view. Comparison: None. Findings: Limited exam due to patient`s body habitus. Within the limits of exam, no obvious fracture. Moderate degenerative arthrosis of bilateral hips. Impression: Moderate degenerative arthrosis of bilateral hips without acute osseous abnormality. Dictated by Juanjo Palencia MD @ 06/27/2025 9:41:11 AM (Electronic Signature) Discharge Plan Discharge Clinical Impression: Bacterial arthritis of both hips Low back pain Qualifiers: Chronicity: acute Back pain laterality: bilateral Sciatica presence: without sciatica Qualified Code(s): M54.50 - Low back pain, unspecified Degenerative joint disease (DJD) of lumbar spine Qualifiers: Spinal osteoarthritis complication: without myelopathy or radiculopathy Qualified Code(s): M47.816 - Spondylosis without myelopathy or radiculopathy, lumbar region Patient Disposition: Home, Self-Care Condition: Stable Instructions: Osteoarthritis (ED), Acute Low Back Pain (ED) Additional Instructions: Try the prednisone 20 mg twice a day for 5 days. Have written for Flexeril from [facility], can use 10 mg up to 3 times a day as needed, this is a muscle relaxant. Fifteen tablets were provided. Can continue with Tylenol and ibuprofen per bottle directions. Can try ice or heat, use whichever works better. You need to consider doing physical therapy, please talk to your primary care provider about this. I highly urge you to schedule a follow-up appointment within the next 3-5 days for recheck. I do not feel comfortable giving you narcotic pain medicines given your respiratory status, these would certainly increase the risk of respiratory depression and possible cessation of breathing while sleeping which obviously would be life-threatening for you. You can talk to your primary care provider about further pain management, physical therapy, consideration of MR imaging of your lumbar spine if symptoms are not improving. Activity Level: Activity as Tolerated Prescriptions: No Action aspirin 81 mg tablet,delayed release (DR/EC) 81 mg PO DAILY cholecalciferol (vitamin D3) 125 mcg (5,000 unit) tablet 125 mcg PO DAILY multivitamin [Daily Multi-Vitamin] Tablet 1 tab PO DAILY polyethylene glycol 3350 [Miralax] 17 gram/dose powder 8.5 g PO DAILY nitroglycerin 0.4 mg tablet, sublingual 0.4 mg sublingual Q5M PRN omega-3 acid ethyl esters [Lovaza] 1 gram capsule 2 cap PO BID (DME) Home Oxygen Misc See Rx Instructions .Route Qty: 1 0RF Rx Instructions: 3 liters/NC with activity (DME) Home Oxygen Misc See Rx Instructions .Route Qty: 1 0RF Rx Instructions: 3 liters/NC with activity (DME) Home Oxygen Misc See Rx Instructions .Route Qty: 1 0RF Rx Instructions: 1 L per nasal cannula at rest and 3 L per nasal cannula with activity metoprolol succinate 25 mg capsule,sprinkle,ER 24hr 25 mg PO DAILY Qty: 30 0RF glipizide 10 mg tablet extended release 24hr 10 mg PO DAILY fenofibrate micronized 67 mg capsule 67 mg PO DAILY allopurinol 100 mg tablet 100 mg PO BID spironolactone 25 mg tablet 25 mg PO DAILY potassium chloride [Klor-Con M20] 20 mEq tablet,ER particles/crystals 20 meq PO BID tamsulosin 0.4 mg capsule 0.8 mg PO DAILY metformin 1,000 mg tablet 1,000 mg PO BIDWM bumetanide 1 mg tablet 3 mg PO BID allopurinol 300 mg tablet 300 mg PO BID albuterol sulfate [Ventolin HFA] 90 mcg/actuation HFA aerosol inhaler 2 puff inhalation Q4H PRN lisinopril 2.5 mg tablet 2.5 mg PO DAILY finasteride 5 mg tablet 5 mg PO DAILY rosuvastatin 20 mg tablet 20 mg PO DAILY duloxetine 60 mg capsule,delayed release(DR/EC) 60 mg PO DAILY insulin glargine [Lantus Solostar U-100 Insulin] 100 unit/mL (3 mL) insulin pen 45 unit subcut QPM Ozempic 2 mg/dose (8 mg/3 mL) pen injector 2 mg subcut Q7D gentamicin 0.1 % cream 1 applic topical TID Qty: 30 0RF ciprofloxacin HCl 750 mg tablet 750 mg PO Q12H Qty: 14 0RF Follow Up/Referrals: Cynthia Camp PA [Primary Care Provider, Family Practice] [facility] Info Instructions
--- NOTE | 2025-06-27 08:03 | CRLHL7_ITS ---
For Patients: As a result of the Cures Act, medical imaging exams and procedure reports are released immediately into your electronic medical record. You may view this report before your referring provider. If you have questions, please contact your health care provider. INDICATION: Low back pain, no injury. TECHNIQUE: Lumbar spine 3 view. COMPARISON: None. FINDINGS/IMPRESSION: Limited exam due to patient`s body habitus. No significant wedging compression or malalignment. Moderate multilevel degenerative changes, most pronounced at L1-2 and L4-5 with reduction of disc height and scattered multilevel facet arthropathy. And anterior confluent multilevel lateral osteophytes are seen. Dictated by Juanjo Palecnia MD @ 06/27/2025 9:39:45 AM (Electronically Signed)
--- NOTE | 2025-06-27 08:03 | CRLHL7_ITS ---
For Patients: As a result of the Cures Act, medical imaging exams and procedure reports are released immediately into your electronic medical record. You may view this report before your referring provider. If you have questions, please contact your health care provider. Indication: Low back pain, No injury Technique: Pelvis 1 view. Comparison: None. Findings: Limited exam due to patient`s body habitus. Within the limits of exam, no obvious fracture. Moderate degenerative arthrosis of bilateral hips. Impression: Moderate degenerative arthrosis of bilateral hips without acute osseous abnormality. Dictated by Juanjo Palencia MD @ 06/27/2025 9:41:11 AM (Electronically Signed)
[2025-06-27 08:10] VITALS: O2SAT 96
[2025-06-27 08:35] VITALS: O2SAT 94
[2025-06-27] MEDS: MORPHINE 4 MG/ML INJ IM (08:37)
[2025-06-27 10:43] VITALS: PULSE 75; O2SAT 95
[2025-06-27 10:45] VITALS: PULSE 74; O2SAT 95
== END 2025-06-27 10:55 | disposition home or self-care (01) ==
PROVIDERS: Emergency Provider Family Medicine; PCP Physician Assistant Medical
DX: M54.50 Low back pain, unspecified (principal); M47.896 Other spondylosis, lumbar region; M16.0 Bilateral primary osteoarthritis of hip; E66.2 Morbid (severe) obesity with alveolar hypoventilation
CPT/HCPCS: 72100; 72170; 94761; 96372; 99283; 99284; J1885; J2270

== ENCOUNTER 2025-08-18 12:36 | Outpatient (CLI) | payer OTHER, SELFPAY | END 2025-08-18 12:37 | disposition home or self-care (01) | LOC: WOUND 12:36 | PROVIDERS: PCP Physician Assistant Medical; Visit Provider Nurse Practitioner Family | DX: I87.311 Chronic venous hypertension (idiopathic) with ulcer of right lower extremity (principal); I89.0 Lymphedema, not elsewhere classified; L97.812 Non-pressure chronic ulcer of other part of right lower leg with fat layer exposed; E11.8 Type 2 diabetes mellitus with unspecified complications; E66.01 Morbid (severe) obesity due to excess calories; Z68.44 Body mass index [BMI] 60.0-69.9, adult; Z79.4 Long term (current) use of insulin; Z79.84 Long term (current) use of oral hypoglycemic drugs | CPT/HCPCS: 11042; G0463 ==

== ENCOUNTER 2025-08-22 09:06 | Outpatient (CLI) | payer OTHER, SELFPAY | END 2025-08-22 09:07 | disposition home or self-care (01) | LOC: WOUND 09:06 | PROVIDERS: PCP Physician Assistant Medical; Visit Provider Nurse Practitioner Family | DX: I87.311 Chronic venous hypertension (idiopathic) with ulcer of right lower extremity (principal); I89.0 Lymphedema, not elsewhere classified; L97.812 Non-pressure chronic ulcer of other part of right lower leg with fat layer exposed; E11.8 Type 2 diabetes mellitus with unspecified complications; Z79.84 Long term (current) use of oral hypoglycemic drugs | CPT/HCPCS: 11042 ==